=== PATIENT | female | born 1940 | race Caucasian/White ===

== ENCOUNTER 2016-07-06 17:21 | Emergency (ER) | payer MEDICARE ==
[2016-07-06 17:53] VITALS: TEMP 97.4
[2016-07-06] MEDS ORDERED: SODIUM CHLORIDE 0.9% 500 ML IV ONE (18:58)
--- NOTE | 2016-07-06 19:13 | ED ---
Dizziness HPI - General Chief Complaint: Dizziness Stated Complaint: weakness Time Seen by Provider: 07/06/16 18:35 Source: patient Mode of arrival: ambulatory Limitations: no limitations - History of Present Illness Initial Comments: This is a 76-year-old female with a history of CAD and are valve replacement in the past presents him in [facility] for an episode of lightheadedness earlier today. She states that she suddenly felt very lightheaded and thought that she was going to pass out. She did not have a syncopal event however called her daughter who came over to the house. The daughter stated that she was lightly altered when she came over. The patient does have a history of stroke and what she has blurred vision and decreased hearing out of the right side. She denies any focal weakness. She did not pass out. She states that over time she has improved and feels better. She does have a history of H of fibrillation and had her INR checked this morning and was 2.6. She is following with Dr. White. She denies any abdominal pain. No nausea or vomiting. No diarrhea. No dark or bloody stools. No chest pain or shortness of breath. She states that her lightheadedness has resolved No other complaints. - Related Data Home Medications Medication Instructions Recorded Confirmed ALPRAZolam [Xanax] 0.25 mg PO TID PRN 12/21/13 07/06/16 Atorvastatin [Lipitor] 20 mg PO HS 12/21/13 07/06/16 Famotidine 20 mg PO QAM 12/21/13 07/06/16 Metoprolol Tartrate [Lopressor] 25 mg PO QAM 12/21/13 07/06/16 PARoxetine [Paxil] 10 mg PO DAILY 12/21/13 07/06/16 Potassium Chloride [Potassium 20 meq PO QAM 12/21/13 07/06/16 Chloride ER] Warfarin [Coumadin] 2.5 mg PO MOTUTHSA 04/03/14 07/06/16 Warfarin [Coumadin] 5 mg PO SUWEFR 04/03/14 07/06/16 Digoxin [Lanoxin] 125 mcg PO SUMOTUTHFR 07/06/16 07/06/16 Enalapril [Vasotec] 10 mg PO BID 07/06/16 07/06/16 Gabapentin [Neurontin] 100 mg PO TID PRN 07/06/16 07/06/16 Metoprolol Tartrate [Lopressor] 50 mg PO HS 07/06/16 07/06/16 Allergies Allergy/AdvReac Type Severity Reaction Status Date / Time acetaminophen AdvReac Unknown Confusion Verified 07/06/16 17:52 [From Darvocet-N 100] codeine AdvReac Unknown Confusion Verified 07/06/16 17:52 propoxyphene napsylate AdvReac Unknown Confusion Verified 07/06/16 17:52 [From Darvocet-N 100] Review of Systems ROS Statement: Those systems with pertinent positive or pertinent negative responses have been documented in the HPI. ROS Other: All systems not noted in ROS Statement are negative. Past Medical History Past Medical History: CVA/TIA, GERD/Reflux, Hearing Disorder / Deafness, Hyperlipidemia, Hypertension, Osteoarthritis (OA) Additional Past Medical History / Comment(s): HX OF BELLS PALSEY,. HX OF CVA WHICH AFFECTED VISION IN RT EYE AND HEARING LEFT EAR. History of Any Multi-Drug Resistant Organisms: None Reported Past Surgical History: Appendectomy, Back Surgery, Cardiac Valve Replacement, Heart Catheterization, Hysterectomy Additional Past Surgical History / Comment(s): BOVINE HEART VALVE REPLACEMENT( 2002),. RT FOOT SX. CTR-RT WRIST. BILAT CATARACTS REMOVED. COLONOSCOPY Past Anesthesia/Blood Transfusion Reactions: No Reported Reaction Past Psychological History: Anxiety Smoking Status: Former smoker Past Alcohol Use History: None Reported Past Drug Use History: None Reported - Past Family History Sister(s) Family Medical History: Cancer Brother(s) Family Medical History: Cancer General Exam - General Exam Comments Initial Comments: Constitutional: Awake alert Appears comfortable Head: Normocephalic atraumatic Eyes: no conjunctival injection No scleral icterus EOMI Neck: No JVD Supple Heart: Irregularly irregular rhythm normal S1-S2 no murmurs Lungs: Clear to auscultation bilaterally No wheezing No rales Abdomen: Soft nondistended nontender Extremities: Non edematous DP pulses intact Radial pulses intact Neuro: A&Ox3 nerves II through XII are grossly intact, 5 out of 5 strength in upper and lower Chev[place] bilaterally, no ataxia with gait Psych: Appropriate mood and affect Limitations: no limitations Course Vital Signs 07/06/16 07/06/16 17:50 21:29 Temperature 97.4 F L Pulse Rate 86 79 Respiratory 18 16 Rate Blood Pressure 185/87 205/95 O2 Sat by Pulse 99 99 Oximetry EKG Findings - EKG Comments: EKG Findings:: EKG showing intra-fibrillation with a rate of 86. There is right bundle-branch block. No ST segment changes or T-wave inversions that are abnormal for right bundle-branch block. QTC is 504. QRS is 142. All other intervals are normal. No ectopy. Medical Decision Making - Medical Decision Making This 68-year-old female presents emergency department for lightheadedness. She was asymptomatic when she got here. Blood work was unremarkable. I spoke with Dr. White who feels comfortable with her going home and seeing him as an outpatient. The patient is here to go home. She'll be discharged home. She can return if she has worsening symptoms. All questions were answered. - Lab Data Result diagrams: 07/06/16 19:20 07/06/16 19:20 Lab Results 07/06/16 07/06/16 07/06/16 Range/Units 19:20 19:20 19:20 WBC 8.6 (3.8-10.6) k/uL RBC 4.59 (3.80-5.40) m/uL Hgb 14.5 (11.4-16.0) gm/dL Hct 43.0 (34.0-46.0) % MCV 93.6 (80.0-100.0) fL MCH 31.7 (25.0-35.0) pg MCHC 33.8 (31.0-37.0) g/dL RDW 12.7 (11.5-15.5) % Plt Count 189 (150-450) k/uL Neutrophils % 80 % Lymphocytes % 14 % Monocytes % 4 % Eosinophils % 1 % Basophils % 0 % Neutrophils # 6.8 (1.3-7.7) k/uL Lymphocytes # 1.2 (1.0-4.8) k/uL Monocytes # 0.4 (0-1.0) k/uL Eosinophils # 0.0 (0-0.7) k/uL Basophils # 0.0 (0-0.2) k/uL PT 28.1 H (9.0-12.0) sec INR 2.9 (<1.1) APTT 29.9 (22.0-30.0) sec Sodium (137-145) mmol/L Potassium (3.5-5.1) mmol/L Chloride (98-107) mmol/L Carbon Dioxide (22-30) mmol/L Anion Gap mmol/L BUN (7-17) mg/dL Creatinine (0.52-1.04) mg/dL Est GFR (MDRD) Af Amer (>60 ml/min/1.73 sqM) Est GFR (MDRD) Non-Af (>60 ml/min/1.73 sqM) Glucose (74-99) mg/dL Calcium (8.4-10.2) mg/dL Magnesium (1.6-2.3) mg/dL Total Bilirubin (0.2-1.3) mg/dL AST (14-36) U/L ALT (9-52) U/L Alkaline Phosphatase (38-126) U/L CK-MB (CK-2) 2.2 (0.0-2.4) ng/mL Troponin I <0.012 (0.000-0.034) ng/mL Total Protein (6.3-8.2) g/dL Albumin (3.5-5.0) g/dL Urine Color Urine Appearance (Clear) Urine pH (5.0-8.0) Ur Specific [place] (1.001-1.035) Urine Protein (Negative) Urine Glucose (UA) (Negative) Urine Ketones (Negative) Urine Blood (Negative) Urine Nitrate (Negative) Urine Bilirubin (Negative) Urine Urobilinogen (<2.0) mg/dL Ur Leukocyte Esterase (Negative) 07/06/16 07/06/16 Range/Units 19:20 19:20 WBC (3.8-10.6) k/uL RBC (3.80-5.40) m/uL Hgb (11.4-16.0) gm/dL Hct (34.0-46.0) % MCV (80.0-100.0) fL MCH (25.0-35.0) pg MCHC (31.0-37.0) g/dL RDW (11.5-15.5) % Plt Count (150-450) k/uL Neutrophils % % Lymphocytes % % Monocytes % % Eosinophils % % Basophils % % Neutrophils # (1.3-7.7) k/uL Lymphocytes # (1.0-4.8) k/uL Monocytes # (0-1.0) k/uL Eosinophils # (0-0.7) k/uL Basophils # (0-0.2) k/uL PT (9.0-12.0) sec INR (<1.1) APTT (22.0-30.0) sec Sodium 143 (137-145) mmol/L Potassium 4.2 (3.5-5.1) mmol/L Chloride 102 (98-107) mmol/L Carbon Dioxide 26 (22-30) mmol/L Anion Gap 15 mmol/L BUN 16 (7-17) mg/dL Creatinine 0.72 (0.52-1.04) mg/dL Est GFR (MDRD) Af Amer >60 (>60 ml/min/1.73 sqM) Est GFR (MDRD) Non-Af >60 (>60 ml/min/1.73 sqM) Glucose 115 H (74-99) mg/dL Calcium 9.4 (8.4-10.2) mg/dL Magnesium 1.9 (1.6-2.3) mg/dL Total Bilirubin 0.7 (0.2-1.3) mg/dL AST 39 H (14-36) U/L ALT 52 (9-52) U/L Alkaline Phosphatase 120 (38-126) U/L CK-MB (CK-2) (0.0-2.4) ng/mL Troponin I (0.000-0.034) ng/mL Total Protein 7.3 (6.3-8.2) g/dL Albumin 4.3 (3.5-5.0) g/dL Urine Color Colorless Urine Appearance Clear (Clear) Urine pH 6.5 (5.0-8.0) Ur Specific [place] 1.002 (1.001-1.035) Urine Protein Negative (Negative) Urine Glucose (UA) Negative (Negative) Urine Ketones Negative (Negative) Urine Blood Negative (Negative) Urine Nitrate Negative (Negative) Urine Bilirubin Negative (Negative) Urine Urobilinogen <2.0 (<2.0) mg/dL Ur Leukocyte Esterase Negative (Negative) Disposition Clinical Impression: Lightheadedness Disposition: HOME SELF-CARE Condition: Stable Instructions: Dizziness (ED) Referrals: Walt White MD [Primary Care Provider] - 1-2 days
[2016-07-06 19:28] LABS: Basophils % (A) 0 %; CH 32.1; CHCM 34.4; Eosinophils % (A) 1 %; HDW 2.31; HGB 14.5 gm/dL (11.4-16.0); Luc # (Auto) 0.16; Luc % (Auto) 2; Lymphocytes # (A) 1.2 k/uL (1.0-4.8); Lymphocytes % (A) 14 %; MCH 31.7 pg (25.0-35.0); MCHC 33.8 g/dL (31.0-37.0); MCV 93.6 fL (80.0-100.0); Mean Platelet Volume 7.1; Monocytes # (A) 0.4 k/uL (0-1.0); Monocytes % (A) 4 %; Neutrophils # (A) 6.8 k/uL (1.3-7.7); Neutrophils % (A) 80 %; RBC 4.59 m/uL (3.80-5.40); RDW 12.7 % (11.5-15.5); WBC 8.6 k/uL (3.8-10.6); WBC (Perox) 9.01
[2016-07-06 19:29] LABS: Appearance,Urine Clear (Clear); Bilirubin,Urine Negative (Negative); Glucose,Urine (UA) Negative (Negative); Ketones,Urine Negative (Negative); Leukocyte Esterase,Urine Negative (Negative); Nitrite,Urine Negative (Negative); PH, Urine 6.5 (5.0-8.0); Protein,Urine Negative (Negative); Specific Gravity,Urine 1.002 (1.001-1.035); UA Billing (MACRO vs. MICRO) CHEM; Urobilinogen,Urine <2.0 mg/dL (<2.0)
[2016-07-06 19:39] LABS: ALT 52 U/L (9-52); AST 39 U/L (14-36); Alkaline Phosphatase 120 U/L (38-126); Anion Gap 15 mmol/L; Blood Urea Nitrogen 16 mg/dL (7-17); Calcium 9.4 mg/dL (8.4-10.2); Carbon Dioxide 26 mmol/L (22-30); Chloride 102 mmol/L (98-107); Glucose 115 mg/dL (74-99); Magnesium 1.9 mg/dL (1.6-2.3); Non-African American GFR(MDRD) >60 (>60 ml/min/1.73 sqM); Potassium 4.2 mmol/L (3.5-5.1); Sodium 143 mmol/L (137-145); Total Bilirubin 0.7 mg/dL (0.2-1.3); Total Protein 7.3 g/dL (6.3-8.2)
[2016-07-06 19:42] LABS: INR 2.9 (<1.1); Partial Thromboplastin Time 29.9 sec (22.0-30.0); Prothrombin Time 28.1 sec (9.0-12.0)
[2016-07-06 20:04] LABS: Creatine Kinase MB 2.2 ng/mL (0.0-2.4); Troponin I <0.012 ng/mL (0.000-0.034)
--- NOTE | 2016-07-06 20:26 | XR ---
EXAMINATION TYPE: XR chest 2V DATE OF EXAM: 07/06/2016 8:04 PM COMPARISON: 04/03/2014 HISTORY: Weakness TECHNIQUE: Frontal and lateral views of the chest are obtained. FINDINGS: There is no heart failure nor confluent pneumonic infiltrate. There are sternal wires. Tho racic aorta is atheromatous. There are chest leads. Costophrenic angles are clear. IMPRESSION: No active cardiopulmonary disease. Previous cardiac surgery. No change.
[2016-07-06 21:32] VITALS: BP 205/95; PULSE 79; RESP 16
== END 2016-07-06 21:32 | disposition home or self-care (01) ==
LOC: EC 17:21
DX: R42 Dizziness and giddiness (principal); K21.9 Gastro-esophageal reflux disease without esophagitis; E78.5 Hyperlipidemia, unspecified; I10 Essential (primary) hypertension; M19.90 Unspecified osteoarthritis, unspecified site; F41.9 Anxiety disorder, unspecified; H91.90 Unspecified hearing loss, unspecified ear; Z86.73 Personal history of transient ischemic attack (TIA), and cerebral infarction without residual deficits; Z87.891 Personal history of nicotine dependence; Z79.01 Long term (current) use of anticoagulants; Z79.899 Other long term (current) drug therapy; Z88.5 Allergy status to narcotic agent
CPT/HCPCS: 36415; 71020; 80053; 81003; 82553; 83735; 84484; 85025; 85610; 85730; 93005; 96360; 96361; 99284

== ENCOUNTER → 2016-09-28 | Outpatient (CLI) | payer MEDICARE ==
--- NOTE | 2016-09-30 11:51 | MM ---
Reason for exam: screening (asymptomatic). Last mammogram was performed 1 year ago. History: Patient is postmenopausal. Family history of breast cancer in 2 paternal aunts. Took estrogen for 15 years beginning at age 33. Physical Findings: A clinical breast exam by your physician is recommended on an annual basis and results should be correlated with mammographic findings. MG Screening Mammo w CAD Bilateral CC and MLO view(s) were taken. Prior study comparison: September 28, 2015, bilateral MG screening mammo w CAD. August 25, 2014, bilateral MG screening mammo w CAD. February 03, 2013, bilateral digital screening mammo w/CAD. There are scattered fibroglandular densities. No significant changes when compared with prior studies. ASSESSMENT: Negative, BI-RAD 1 RECOMMENDATION: Routine screening mammogram of both breasts in 1 year.
== END | disposition home or self-care (01) ==
LOC: RADMAMWWP 12:32
PROVIDERS: ATTEND Internal Medicine
DX: Z12.31 Encounter for screening mammogram for malignant neoplasm of breast (principal)

== ENCOUNTER → 2017-01-09 | Outpatient (CLI) | payer MEDICARE ==
[2017-01-09 09:01] LABS: ALT 37 U/L (9-52); AST 34 U/L (14-36); Alkaline Phosphatase 88 U/L (38-126); Anion Gap 10 mmol/L; Blood Urea Nitrogen 16 mg/dL (7-17); Calcium 9.1 mg/dL (8.4-10.2); Carbon Dioxide 29 mmol/L (22-30); Chloride 103 mmol/L (98-107); Cholesterol 128 mg/dL (<200); Glucose 97 mg/dL (74-99); HDL Cholesterol 54 mg/dL (40-60); Non-African American GFR(MDRD) >60 (>60 ml/min/1.73 sqM); Potassium 4.2 mmol/L (3.5-5.1); Sodium 142 mmol/L (137-145); Total Bilirubin 0.8 mg/dL (0.2-1.3); Total Protein 6.5 g/dL (6.3-8.2)
== END | disposition home or self-care (01) ==
LOC: LABWHC1 07:25
PROVIDERS: ATTEND Internal Medicine
DX: E78.5 Hyperlipidemia, unspecified (principal); I10 Essential (primary) hypertension
CPT/HCPCS: 36415; 80053; 80061

== ENCOUNTER → 2017-10-11 | Outpatient (CLI) | payer MEDICARE ==
--- NOTE | 2017-10-13 10:35 | MM ---
Reason for exam: screening (asymptomatic). Last mammogram was performed 1 year ago. History: Patient is postmenopausal. Family history of breast cancer in 2 paternal aunts. Took estrogen for 15 years beginning at age 33. Physical Findings: A clinical breast exam by your physician is recommended on an annual basis and results should be correlated with mammographic findings. MG Screening Mammo w CAD Bilateral CC and MLO view(s) were taken. Prior study comparison: September 28, 2016, bilateral MG screening mammo w CAD. September 28, 2015, bilateral MG screening mammo w CAD. The breast tissue is heterogeneously dense. This may lower the sensitivity of mammography. Focal asymmetry right upper outer quadrant. No significant changes when compared with prior studies. ASSESSMENT: Benign, BI-RAD 2 RECOMMENDATION: Routine screening mammogram of both breasts in 1 year.
== END | disposition home or self-care (01) ==
LOC: RADMAMWWP 12:33
PROVIDERS: ATTEND Internal Medicine
DX: Z12.31 Encounter for screening mammogram for malignant neoplasm of breast (principal)
CPT/HCPCS: 77067

== ENCOUNTER → 2018-03-19 | Outpatient (CLI) | payer MEDICARE | END | disposition home or self-care (01) | LOC: LABWHC1 08:36 | PROVIDERS: ATTEND Otolaryngology | DX: H91.93 Unspecified hearing loss, bilateral (principal) | CPT/HCPCS: 36415; 82565; 84520 ==

== ENCOUNTER → 2018-03-28 | Outpatient (CLI) | payer MEDICARE ==
--- NOTE | 2018-03-28 10:31 | MR ---
EXAMINATION TYPE: MR iac wo/w con DATE OF EXAM: 03/28/2018 COMPARISON: NONE HISTORY: 78-year-old female bilateral Hearing loss, left greater than right. TECHNIQUE: Multiplanar, multisequence images of the brain and brainstem were acquired before and aft er administration of 7 mL IV Gadavist. Diffusion weighted imaging was performed. Additional coned-d own sequences through the internal auditory canals and posterior cranial fossa before and after IV co ntrast administration. FINDINGS: Diffusion weighted images demonstrate no evidence of an acute ischemic lesion in the brain. T2/FLAIR weighted sequences show moderate scattered burden of bright white matter change in the subco rtical, deep, and periventricular regions of both cerebral hemispheres. Changes are more patchy and s lightly confluent in the periatrial white matter. There are approximately 30-40 foci in each cerebral hemisphere. Midline structures demonstrate partially empty sella but otherwise normal morphology. The craniocerv ical junction is normal. Brain volume is maintained. The ventricles are of normal caliber. There is no evidence of an acute intracranial hemorrhage, infarct, mass, mass-effect or an extra-axia l fluid collection. There is an avidly enhancing ovoid mass measuring 9 mm AP by 7 mm wide by 1.1 cm craniocaudal at the meatus of the internal auditory canal with minimal extension into the canal. This is located posterio r to, likely abutting but not involving the 7th cranial nerve. There is no dural tail identified. No abnormal enlargement of the internal auditory canals. Brainstem and skull base abnormalities are not seen. Post contrast images demonstrate no other evidence of pathologic enhancement in the posterior crania l fossa or the internal auditory canals. Dural venous sinuses are patent. There is no abnormal enhancement of the labyrinths. Mild mucosal thickening ethmoid air cells and slight leftward nasal septal deviation. Globes are inta ct. IMPRESSION: 1. Homogeneously enhancing soft tissue mass measuring 11 x 9 x 7 mm at the meatus of the left interna l auditory canal. Primary differential considerations include a vestibular schwannoma and meningioma with the former being favored. 2. Otherwise, no acute intracranial abnormality seen or other specific abnormality on acoustic MRI. 3. Moderate scattered burden of T2 bright white matter change, nonspecific, likely relating to change s of chronic small vessel ischemic disease.
== END | disposition home or self-care (01) ==
LOC: RADMRIMAIN 08:22
PROVIDERS: ATTEND Otolaryngology
DX: H61.892 Other specified disorders of left external ear (principal); H91.93 Unspecified hearing loss, bilateral
CPT/HCPCS: 70553; A9585

== ENCOUNTER → 2018-07-30 | Outpatient (CLI) | payer MEDICARE ==
[2018-07-30 11:35] LABS: HCT 42.4 % (34.0-46.0); HGB 13.6 gm/dL (11.4-16.0); MCH 31.1 pg (25.0-35.0); MCHC 32.1 g/dL (31.0-37.0); MCV 96.9 fL (80.0-100.0); Mean Platelet Volume 7.3; Platelet Count 162 k/uL (150-450); RBC 4.37 m/uL (3.80-5.40); RDW 12.9 % (11.5-15.5); WBC 6.1 k/uL (3.8-10.6)
[2018-07-30 16:27] LABS: Albumin 4.1 g/dL (3.80-4.90); Albumin/Globulin Ratio 1.86 (1.60-3.17); Anion Gap 8.7 mmol/L (4.00-12.00); Calcium 9.6 mg/dL (8.7-10.3); Carbon Dioxide 32.3 mmol/L (21.6-31.8); Globulin 2.2 g/dL (1.6-3.3); LDL Cholesterol,Calculated 49.8 mg/dL (0.0-131.0); Potassium 4.5 mmol/L (3.5-5.5); Total Bilirubin 0.9 mg/dL (0.3-1.2); Total Protein 6.3 g/dL (6.2-8.2); VLDL Calculation 21.2 mg/dL (5.00-40.00)
== END ==
LOC: LABWHC1 10:37
PROVIDERS: ATTEND Internal Medicine
DX: I10 Essential (primary) hypertension (principal); E78.5 Hyperlipidemia, unspecified
CPT/HCPCS: 36415; 80053; 80061; 85027

== ENCOUNTER 2020-08-06 06:45 | Day surgery (SDC) | payer MEDICARE ==
[2020-08-01 14:26] VITALS: BMI 23.6
[2020-08-06] MEDS ORDERED: SODIUM CHLORIDE 0.9% 500 ML 500 ML IV ONE (07:08)
[2020-08-06] MEDS ORDERED: fentaNYL (PF) 50 MCG/ML 2 ML AMP ONE ×2 (07:54→11:45)
[2020-08-06 07:55] LABS: INR 1.2 (<1.2); Prothrombin Time 12.1 sec (9.0-12.0)
[2020-08-06] MEDS ORDERED: PROPOFOL 10 MG/ML 20 ML VIAL IV ONE (08:21)
[2020-08-06] MEDS ORDERED: BENZOCAINE SPRAY 1 CAN TOPICAL ONE (08:26)
[2020-08-06] MEDS ORDERED: NITROGLYCERIN SL TABS 0.4 MG TAB SUBLINGUAL PRN (08:42)
[2020-08-06] MEDS ORDERED: ALPRAZolam 0.25 MG TAB PO PRN (08:42)
[2020-08-06] MEDS ORDERED: SODIUM CHLORIDE 0.9% 1,000 ML in EMPTY BAG 1 BAG IV ONE (08:42)
[2020-08-06] MEDS ORDERED: ASPIRIN 325 MG TAB PO STA (08:42)
[2020-08-06] MEDS ORDERED: LIDOCAINE 1% INJ 10MG/ML (20 ML MDV) ONE (11:17)
[2020-08-06] MEDS ORDERED: MIDAZOLAM 2 MG/2 ML VIAL IVP ONE (11:47)
[2020-08-06] MEDS ORDERED: fentaNYL (PF) 50 MCG/ML 2 ML AMP IVP ONE ×2 (11:47)
[2020-08-06] MEDS ORDERED: IV FLUID CONTINUATION 250 ML IV ONE (11:48)
[2020-08-06] MEDS ORDERED: LIDOCAINE 1% INJ 10MG/ML (20 ML MDV) SQ ONE (11:50)
[2020-08-06] MEDS ORDERED: IOPAMIDOL-370 50ML BTL INJ ONE (12:12)
[2020-08-06] MEDS ORDERED: IOPAMIDOL-370 125ML BTL INJ ONE (12:13)
[2020-08-06] MEDS ORDERED: RX INFO: IV CONTRAST WAS GIVEN 1 EACH MISC MISCELLANE PRN (12:30)
[2020-08-06] MEDS ORDERED: ACETAMINOPHEN TAB 500 MG TAB PO PRN (12:31)
[2020-08-06] MEDS ORDERED: DIGOXIN 125 MCG TAB PO SCH (13:30)
[2020-08-06] MEDS: SODIUM CHLORIDE 0.9% 1,000 ML IV SCH (14:51)
--- NOTE | 2020-08-06 16:27 | P.GSCN ---
History of Present Illness Consult date: 08/06/20 Reason for Consult: Aortic stenosis Requesting physician: Vilma Malagon History of present illness: This is an 80-year-old female who follows on an outpatient basis with Dr. Daniel for primary care and Dr. Malagon for cardiology. 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 She presented to [facility] for increasing shortness of breath with activity as well as episodic lower extremity edema. She denies any chest pain or pressure, or syncopal episodes, however family does state that she gets dizzy occasionally. She did have a Lexiscan stress test which was negative. In addition she had a transthoracic echocardiogram demonstrating normal left ventricular function with EF 55%, mild left ventricular hypertrophy, biatrial enlargement, moderate prostatic regurgitation and aortic stenosis with valve area 0.69 cm, peak/mean gradient 89/51 mmHg, reduced motion of the leaflets from pannus ingrowth or commissural fusion, mild mitral regurgitation, severe tricuspid regurgitation with pulmonary hypertension, RVSP 63 mmHg, and moderate pulmonary regurgitation. She was recommended to undergo transesophageal echocardiogram and heart catheterization for further evaluation which were completed today on an elective basis. Heart catheterization demonstrated no significant coronary artery disease, patent WOMACK to the LAD, and torturous aorta. CHANTALE confirmed nonfunctioning valve and cardiothoracic surgery was asked to evaluate the patient for possible TAVR. Review of Systems Review of systems was completed and was negative except as noted - Cardiovascular Reports as per HPI, Reports decreased exercise tolerance, Reports dyspnea on exertion, Reports leg edema Past Medical History Past Medical History: Atrial Fibrillation, Coronary Artery Disease (CAD), CVA/TIA, GERD/Reflux, Hearing Disorder / Deafness, Hyperlipidemia, Hypertension, Osteoarthritis (OA) Additional Past Medical History / Comment(s): HX OF BELLS PALSEY,CVA WHICH AFFECTED VISION IN RT EYE,NAVAJO mariam ears; history of bicuspid aortic valve with aortic valve stenosis History of Any Multi-Drug Resistant Organisms: None Reported Past Surgical History: Back Surgery, Cardiac Valve Replacement, Coronary Bypass/CABG, Heart Catheterization, Hysterectomy Additional Past Surgical History / Comment(s): #21 Rios BOVINE HEART VALVE REPLACEMENT(2002), CABG (WOMACK TO LAD). RT FOOT SX. CTR-mariam WRIST. BILAT CATARACTS REMOVED. COLONOSCOPY Past Anesthesia/Blood Transfusion Reactions: No Reported Reaction Past Psychological History: Anxiety Smoking Status: Former smoker Past Alcohol Use History: None Reported Additional Past Alcohol Use History / Comment(s): quit smoking 1978 Past Drug Use History: None Reported - Past Family History Sister(s) Family Medical History: Cancer Brother(s) Family Medical History: Cancer Daughter(s) Family Medical History: Cancer Mother Family Medical History: Liver Disease Medications and Allergies Home Medications Medication Instructions Recorded Confirmed Type ALPRAZolam [Xanax] 0.25 mg PO TID PRN 12/21/13 08/06/20 History Atorvastatin [Lipitor] 20 mg PO HS 12/21/13 08/06/20 History Famotidine 20 mg PO QAM 12/21/13 08/06/20 History PARoxetine [Paxil] 10 mg PO DAILY 12/21/13 08/06/20 History Potassium Chloride 20 meq PO QAM 12/21/13 08/06/20 History Warfarin [Coumadin] 1.5 mg PO TU 04/03/14 07/06/16 History Warfarin [Coumadin] 3 mg PO SUMOWETHFRSA 04/03/14 08/06/20 History Digoxin [Lanoxin] 125 mcg PO SUMOTUTHFR 07/06/16 08/06/20 History Enalapril [Vasotec] 10 mg PO BID 07/06/16 08/06/20 History Gabapentin [Neurontin] 200 mg PO HS 07/06/16 08/06/20 History Metoprolol Tartrate [Lopressor] 50 mg PO BID 07/06/16 08/06/20 History Acetaminophen [Tylenol Extra 500 - 1,000 mg PO Q6H PRN 08/01/20 08/01/20 History Strength] Enoxaparin [Lovenox] 60 mg SQ BID 08/01/20 08/06/20 History Furosemide [Lasix] 20 mg PO DAILY 08/01/20 08/06/20 History L.acidoph,Paracasei, B.lactis 1 cap PO DAILY 08/01/20 08/06/20 History [Probiotic] Multivit-Min/Iron/Folic/Lutein 1 each PO DAILY 08/01/20 08/06/20 History [Centrum Silver Women Tablet] Allergies Allergy/AdvReac Type Severity Reaction Status Date / Time codeine AdvReac Unknown Confusion Verified 08/01/20 14:01 propoxyphene napsylate AdvReac Unknown Confusion Verified 08/01/20 14:01 [From Darvocet-N 100] Surgical - Exam Vital Signs Temp Pulse Resp BP Pulse Ox 98.1 F 81 16 142/71 99 08/06/20 07:19 08/06/20 07:19 08/06/20 07:19 08/06/20 07:19 08/06/20 07:19 CONSTITUTIONAL: Awake and alert, appears comfortable, cooperative, well- developed, well-nourished, no pain, no acute distress EYES: Pupils equal, round, reactive to light, normal ocular movement ENT: Moist mucous membranes without oral lesions present, very hard of hearing NECK: No masses, no bruits, trachea midline RESPIRATORY: Lungs sounds clear to auscultation bilaterally. Respirations even, nonlabored. Currently on room air with oxygen saturation 96%. Strong cough. No clubbing or cyanosis present CARDIOVASCULAR: S1, S2 present. Irregular rate and rhythm, controlled atrial fibrillation on telemetry. Sternum stable. Palpable peripheral pulses bilaterally. No edema present. No calf pain or tenderness noted. GASTROINTESTINAL: Abdomen soft, nontender, nondistended without masses or organomegaly noted. There is no rebound or guarding present. Active bowel sounds present 4 quadrants. GENITOURINARY: Deferred INTEGUMENTARY: Skin is warm and dry with evidence of good perfusion. NEUROLOGIC: Cranial nerves II through XII intact, normal coordination, no obvious motor or sensory deficits, speech is normal MUSKULOSKELETAL: Able to move all extremities, strength equal bilaterally, normal posture PSYCHIATRIC: Alert and oriented to person place and time, appropriate affect, intact judgment and insight Results - Labs Abnormal Lab Results - Last 24 Hours (Table) 08/06/20 Range/Units 07:00 PT 12.1 H (9.0-12.0) sec INR 1.2 H (<1.2) - Imaging Additional studies: CHANTALE and heart catheterization results reviewed Assessment and Plan Assessment: 1. Aortic stenosis, nonfunctioning of bioprosthetic aortic valve 2. History of coronary artery disease, status post CABG with WOMACK to the LAD in 2002 3. History of bicuspid aortic valve with aortic valve stenosis, status post #21 Rios bioprosthetic aortic valve replacement in 2002 4. Chronic atrial fibrillation on Coumadin for anticoagulation 5. Hypertension 6. Hyperlipidemia, treated 7. History of CVA affecting the right eye 8. Osteoarthritis 9. Previous tobacco dependence 10. Anxiety Plan: The patient was seen and examined in the extended stay unit with her two daughters present. Chart/diagnostics were reviewed. The usual perioperative course of transcatheter aortic valve replacement was discussed with the patient and her daughters, risks and benefits were reviewed, all questions were answer ed. The patient is very hard of hearing and relies on her daughters for information. The daughters asked that we hold off on preoperative testing so they can have more time to discuss possible TAVR with the patient. They would like to meet the cardiothoracic surgeon. Our contact information was given to the daughters, if/when the daughters and patient are willing to consider TAVR preoperative orders can be placed. It was explained in great detail to the patient and her daughters that the majority of testing could be completed this afternoon or tomorrow morning with the exception of the gated CT, however they wanted to hold off on testing at this time. The patient would need dental clearance and this was discussed in detail with the daughters. We will revisit the idea of testing in the morning and the daughters will have the opportunity to meet with Dr. Burt tomorrow afternoon, which was acceptable to them. More recommendations to follow dependent on the patient to/daughters wishes. Thank you Dr. Malagon for this consult. Time with Patient: Greater than 30
[2020-08-06] MEDS ORDERED: WARFARIN 3 MG TAB PO ONE (18:00)
[2020-08-06] MEDS: METOPROLOL TARTRATE 50 MG TAB PO SCH (19:33)
[2020-08-06] MEDS: ALPRAZolam 0.5 MG TAB PO PRN (20:39)
[2020-08-06] MEDS ORDERED: ATORVASTATIN 20 MG TAB PO SCH (21:00)
[2020-08-06] MEDS ORDERED: GABAPENTIN 100 MG CAP PO SCH (21:00)
[2020-08-07] MEDS: SODIUM CHLORIDE 0.9% 1,000 ML IV SCH ×2 (01:23→15:25)
[2020-08-07 05:28] LABS: African American GFR (CKD) >90 (>60 ml/min/1.73 sqM); Anion Gap 4 mmol/L; Blood Urea Nitrogen 13 mg/dL (7-17); Calcium 8.7 mg/dL (8.4-10.2); Carbon Dioxide 28 mmol/L (22-30); Chloride 103 mmol/L (98-107); Glucose 97 mg/dL (74-99); Non-African American GFR(CKD) 84 (>60 ml/min/1.73 sqM); Potassium 4.2 mmol/L (3.5-5.1); Sodium 135 mmol/L (137-145)
[2020-08-07 05:37] LABS: INR 1.2 (<1.2); Prothrombin Time 12.2 sec (9.0-12.0)
[2020-08-07 06:54] VITALS: RESP 18
[2020-08-07] MEDS ORDERED: HEPARIN SODIUM,PORCINE 2,500 UNIT in SODIUM CHLORIDE 0.9% 250 ML IRRIGATION PRN (07:00)
[2020-08-07] MEDS ORDERED: HEPARIN SODIUM,PORCINE 10,000 UNIT in SODIUM CHLORIDE 0.9% 1,000 ML IRRIGATION PRN (07:00)
--- NOTE | 2020-08-07 07:38 | P.TEE ---
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 Recent evaluation showed increasing gradient suggestive of stenosis and dysfunction. Patient is advised to have CHANTALE examination for further evaluation. CONSENT: Informed verbal consent is obtained from the patient and family PROCEDURE: . Patient was brought to the lab in a fasting state. She was prepped and draped in the usual fashion. Department of anesthesia has provided anesthesia. A lubricated Omni probe was introduced into the oropharynx and was advanced into the esophagus. Multiple views were obtained both from esophagus and stomach. Color, pulsed and continuous with Doppler studies were performed. Saline contrast bubble injection is done. Patient tolerated the procedure well. No immediate complications FINDINGS: . The prosthetic aortic valve showed evidence of calcification and thickening with the restricted opening excursion. By planimetry, valve area of 0.7 cm was obtained. A peak gradient of 85 with mean of 51 was obtained. There is also eccentric 1-2+ aortic regurgitation. The mitral valve showed 1-2+ central regurgitation. Tricuspid valve showed mild regurgitation. The interatrial septum appeared to be intact without any shunt. Saline contrast bubble injection did not show any crossing of bubbles. The Distal appendage appeared to be clipped. No evidence of clot in left atrium. The left ankle function appeared to be normal. The aorta showed mild plaque IMPRESSION: Umber 1. 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 1-2+ mitral regurgitation #3. No clot in the left atrium. #4. No PFO #5. The left ventricular function appeared within normal PLAN: Proceed with left heart catheterization. Most probably patient will need aortic valve replacement
--- NOTE | 2020-08-07 07:45 | P.CARDCATH ---
Date of Procedure: 08/06/20 Preoperative Diagnosis: Stenosis of the prosthetic aortic valve, history of coronary bypass surgery Postoperative Diagnosis: Stable coronary artery disease with patent WOMACK graft to the LAD. Procedure(s) Performed: Left heart catheterization with selective coronary arteriography and selective injection of the WOMACK graft to the LAD Description of Procedure: HISTORY: This is a 80-year-old female with history of hypertension, hyp erlipidemia, coronary artery disease with a previous open heart surgery, including aortic valve replacement and WOMACK graft to the LAD. On recent evaluation.,. Patient was found to have evidence of stenosis of the prosthetic aortic valve. Patient is advised to have cardiac catheterization to rule out any progression of ischemic heart disease. She also has history of coarctation of the aorta without any significant gradient. CONSENT:I have discussed the risks, benefits and alternative therapies for the above-mentioned procedure and for both sedation/analgesia as well as necessary blood product administration, if indicated, as they pertain to this patient. The patient has indicated understanding and acceptance of the risks and procedures discussed. PROCEDURE: Patient was brought to the lab in a fasting state. Patient was given some IV sedation. The right groin is infiltrated with lidocaine and right femoral artery was entered using Seldinger technique. A 6-Telugu catheter was left in place and selective coronary arteriography and descending aortography was performed. Patient tolerated the procedure well. Femoral angiogram was performed and Angio-Seal was applied for hemostasis. No immediate complications were noted and patient was transferred to [facility] in a stable condition. There is uncoiling and tortuous nature of the ascending aorta and descending aorta. There appears to be narrowing of the aorta followed by dilation dictation suggestive of coarctation. It was difficult to manual blood device and catheters into the ascending aorta. Conscious Sedation: Versed 1mg Fentanyl 25 g Duration 25minutes HEMODYNAMICS: The aortic pressure is about 110/70 SELECTIVE CORONARY ARTERIOGRAPHY: LEFT MAIN: This is normal in length and free of occlusive disease THE LEFT ANTERIOR DESCENDING CORONARY ARTERY: . This is totally occluded THE LEFT CIRCUMFLEX AND IS CORONARY ARTERY: As is a moderate caliber vessel giving rise to moderate caliber OM branch. Free of occlusive disease THE RIGHT CORONARY ARTERY: Is a moderate caliber vessel. Codominant vessel free of occlusive disease. THE WOMACK GRAFT TO THE LAD: This is patent throat its length and also to distal anastomosis. The distal LAD appears to be free of occlusive disease LEFT VENTRICULOGRAPHY: . Not performed. Descending ventriculography. The descending aorta appeared tortuous with some narrowing followed by dilatation suggestive of possible coarctation FINAL IMPRESSION: Stable coronary artery disease with a total occlusion of the LAD. The WOMACK graft to the LAD is patent. The rest of the coronary system is free of occlusive disease PLAN: . Continue current medical therapy. Patient to be constricted for aortic valve replacement. Surgical consult will be obtained PROGNOSIS: []
[2020-08-07] MEDS: ALPRAZolam 0.5 MG TAB PO PRN (07:58)
[2020-08-07] MEDS: METOPROLOL TARTRATE 50 MG TAB PO SCH (07:58)
[2020-08-07] MEDS ORDERED: LACTOBACILLUS ACIDOPH & BULGAR 1 EACH PACKET PO SCH (09:00)
[2020-08-07] MEDS ORDERED: FUROSEMIDE 20 MG TAB PO SCH (09:00)
[2020-08-07] MEDS ORDERED: MULTIVITAMINS, THERA 1 EACH TAB PO SCH (09:00)
[2020-08-07] MEDS ORDERED: PARoxetine 10 MG TAB PO SCH (09:00)
[2020-08-07] MEDS ORDERED: lisinopriL 20 MG TAB PO SCH (09:00)
[2020-08-07] MEDS ORDERED: FAMOTIDINE 20 MG TAB PO SCH (09:00)
[2020-08-07] MEDS ORDERED: POTASSIUM CHLORIDE ER 20 MEQ TAB.ER PO SCH (09:00)
[2020-08-07] MEDS ORDERED: WARFARIN 2 MG TAB PO ONE ×2 (10:25→18:00)
[2020-08-07 15:14] VITALS: BP 131/67; PULSE 83; TEMP 97.3
== END 2020-08-07 17:50 | disposition home or self-care (01) ==
LOC: CATHCVL 06:45 → EDSEX 08:15 → MERGE 08:15 → 6NMEDSUR 13:12 → CATHCVL 08-07 17:50
PROVIDERS: ATTEND Internal Medicine Cardiovascular Disease
DX: T82.857A Stenosis of other cardiac prosthetic devices, implants and grafts, initial encounter (principal); I34.0 Nonrheumatic mitral (valve) insufficiency; I25.10 Atherosclerotic heart disease of native coronary artery without angina pectoris; I11.9 Hypertensive heart disease without heart failure; I48.20 Chronic atrial fibrillation, unspecified; E78.5 Hyperlipidemia, unspecified; M19.90 Unspecified osteoarthritis, unspecified site; Z87.891 Personal history of nicotine dependence; F41.9 Anxiety disorder, unspecified; Z80.9 Family history of malignant neoplasm, unspecified; I27.20 Pulmonary hypertension, unspecified; I51.7 Cardiomegaly; I69.312 Visuospatial deficit and spatial neglect following cerebral infarction; Z95.1 Presence of aortocoronary bypass graft; Z98.42 Cataract extraction status, left eye; Z98.41 Cataract extraction status, right eye; Z90.710 Acquired absence of both cervix and uterus; Z98.890 Other specified postprocedural states; Z83.79 Family history of other diseases of the digestive system; Z79.899 Other long term (current) drug therapy; Z79.01 Long term (current) use of anticoagulants; Z88.5 Allergy status to narcotic agent
CPT/HCPCS: 93312; 93320; 93325; 93459; 80048; 85610 ×2; C1760; C1769 ×3; C1894; J2250; J2001; J3010; J2704; Q9967 ×2; 93455

== ENCOUNTER → 2020-08-26 | Outpatient (CLI) | payer MEDICARE ==
[2020-08-26 07:42] LABS: Basophils % (A) 1 %; Eosinophils # (A) 0.1 k/uL (0-0.7); Eosinophils % (A) 1 %; HCT 40.5 % (34.0-46.0); HGB 13.8 gm/dL (11.4-16.0); Lymphocytes # (A) 1.4 k/uL (1.0-4.8); Lymphocytes % (A) 20 %; MCH 32.1 pg (25.0-35.0); MCV 94.5 fL (80.0-100.0); Mean Platelet Volume 8.1; Monocytes # (A) 0.5 k/uL (0-1.0); Monocytes % (A) 7 %; Neutrophils # (A) 4.7 k/uL (1.3-7.7); Neutrophils % (A) 70 %; Platelet Count 160 k/uL (150-450); RBC 4.29 m/uL (3.80-5.40); RDW 13.7 % (11.5-15.5); WBC 6.7 k/uL (3.8-10.6)
[2020-08-26 08:06] LABS: INR 2.6 (<1.2); Partial Thromboplastin Time 29.6 sec (22.0-30.0)
[2020-08-26 08:35] LABS: Appearance,Urine Clear (Clear); Bilirubin,Urine Negative (Negative); Blood,Urine Negative (Negative); Color,Urine Yellow; Glucose,Urine (UA) Negative (Negative); Ketones,Urine Negative (Negative); Leukocyte Esterase,Urine Negative (Negative); Nitrite,Urine Negative (Negative); Protein,Urine Trace (Negative); Specific Gravity,Urine 1.015 (1.001-1.035); Urobilinogen,Urine <2.0 mg/dL (<2.0)
[2020-08-26 10:01] LABS: ALT 27 U/L (4-34); AST 47 U/L (14-36); African American GFR (CKD) >90 (>60 ml/min/1.73 sqM); Albumin 3.7 g/dL (3.5-5.0); Alkaline Phosphatase 110 U/L (38-126); Anion Gap 6 mmol/L; Bilirubin,Unconjugated 0.9 mg/dL (0.0-1.1); Blood Urea Nitrogen 20 mg/dL (7-17); Calcium 9.3 mg/dL (8.4-10.2); Carbon Dioxide 31 mmol/L (22-30); Chloride 102 mmol/L (98-107); Cholesterol 114 mg/dL (<200); Glucose 105 mg/dL (74-99); HDL Cholesterol 50 mg/dL (40-60); LDL Cholesterol,Calculated 50 mg/dL (0-99); Magnesium 1.9 mg/dL (1.6-2.3); Non-African American GFR(CKD) 79 (>60 ml/min/1.73 sqM); Potassium 4.3 mmol/L (3.5-5.1); Sodium 139 mmol/L (137-145); Total Bilirubin 0.9 mg/dL (0.2-1.3); Total Protein 6.6 g/dL (6.3-8.2); Triglycerides 69 mg/dL (<150)
[2020-08-26 15:51] LABS: Hemoglobin A1C 5.8 % (4.0-6.0)
== END | disposition home or self-care (01) ==
LOC: LABPAT 07:07
PROVIDERS: ATTEND Thoracic Surgery (Cardiothoracic Vascular Surgery)
DX: Z01.818 Encounter for other preprocedural examination (principal); E78.5 Hyperlipidemia, unspecified; E07.9 Disorder of thyroid, unspecified; I35.0 Nonrheumatic aortic (valve) stenosis; N28.9 Disorder of kidney and ureter, unspecified; E11.9 Type 2 diabetes mellitus without complications; R58 Hemorrhage, not elsewhere classified; Z79.899 Other long term (current) drug therapy; E87.8 Other disorders of electrolyte and fluid balance, not elsewhere classified; R35.0 Frequency of micturition
CPT/HCPCS: 80053; 80061; 81003; 82248; 83036; 83735; 83880; 84443; 85025; 85610; 85730; 87086

== ENCOUNTER → 2020-08-29 | Outpatient (CLI) | payer MEDICARE ==
--- NOTE | 2020-08-29 11:16 | CT ---
EXAMINATION TYPE: CT TAVR Planning DATE OF EXAM: 08/29/2020 HISTORY: 80-year-old female Aortic stenosis, TAVR planning CT DLP: 1369.60 mGycm Automated Exposure Control for Dose Reduction was Utilized. TECHNIQUE: HELICAL CT scan of the chest, abdomen and pelvis is performed with IV Contrast, patient in jected with 125 mL of Isovue 370. Coronal and sagittal MIP reconstructions performed. COMPARISON: None FINDINGS: See report from [facility] regarding preprocedural planning. CHEST: Lower Neck and Thyroid: No significant findings Lungs: Bilateral patchy and confluent areas of groundglass. 8 mm posterior left upper lobe pulmonary nodule. Central Airway: No significant findings Pleura: Moderate to large right and moderate left pleural effusions. Pulmonary Arteries: No significant findings Heart and Pericardium: Median sternotomy wires and post-CABG changes. Heart is mildly enlarged. Biatr ial enlargement is noted. Borderline ectatic ascending aorta 3.6 cm. Conventional arch vessel branchi ng anatomy. Focal tortuosity of the distal arch resulting in U-turn kinking, refer to coronal series 15 image 30 and axial images 11 through 13. Upper descending thoracic aorta just below this kink is e ctatic at 3.1 cm. Lymph Nodes: A few prominent but nonenlarged AP window and prevascular space lymph nodes measuring u p to 8 mm. No thoracic lymphadenopathy by CT size criteria. Mediastinum & Esophagus: No significant findings ABDOMEN/PELVIS: Please note arterial phase of the imaging limits detailed evaluation of the solid abdominal organs. Liver: No significant findings Spleen: No significant findings Kidneys: Contrast noted to be excreting from the renal collecting systems. Tiny cortical hypodensitie s likely tiny cortical cysts on the left. Adrenal Glands: No significant findings Pancreas: No significant findings Gallbladder: Suggestion of some layering gravel. No abnormal distention. Bowel and Mesentery: No significant findings Lymph Nodes: No significant findings Urinary Bladder: No significant findings Pelvic Organs: Uterus surgically absent. Pelvic phleboliths. Some soft tissue prominence along the po sterior wall of the rectum could be secondary to nondistention and redundant mucosa. Reference axial image 107. Other: Degenerative changes at the pubic symphysis. There is moderate degenerative change of both hip s. Advanced hypertrophic facet arthropathy and vascular disease throughout the lumbar spine. Prominen t grade 1, nearly grade 2 anterolisthesis at both L3-L4 and L4-L5. Trace grade 1 retrolistheses at T1 2-L1 and L1-L2. Moderate anterior endplate spondylosis midthoracic spine. Other Lines/Tubes/Devices/Hardware: None IMPRESSION: 1. Correlate for CHF with patchy bilateral pulmonary edema. Moderate to large right and moderate left pleural effusions. 2. Note focal tortuosity of the distal arch resulting in a U-turn kinking. Refer to coronal series 15 image 30 and axial images 11 through 13. 3. An 8 mm posterior left upper lobe pulmonary nodule. Three-month follow-up CT chest to ensure stabi lity. 4. Soft tissue prominence along the posterior wall of the rectum could be from nondistention. If rout ine screening colonoscopy is not being performed, direct visualization recommended to exclude neoplas m.
--- NOTE | 2020-08-29 12:44 | US ---
EXAMINATION TYPE: US carotid duplex BILAT DATE OF EXAM: 08/29/2020 COMPARISON: NONE CLINICAL HISTORY: I35.1 Aortic Stenosis R55 Syncope. Syncope EXAM MEASUREMENTS: RIGHT: Peak Systolic Velocity (PSV) cm/sec ----- Right CCA: 61.6 ----- Right ICA: 75.6 ----- Right ECA: 67.7 ICA/CCA ratio: 1.2 RIGHT: End Diastole cm/sec ----- Right CCA: 0.0 ----- Right ICA: 14.5 ----- Right ECA: 0.0 LEFT: Peak Systolic Velocity (PSV) cm/sec ----- Left CCA: 64.5 ----- Left ICA: 75.6 ----- Left ECA: 62.7 ICA/CCA ratio: 1.2 LEFT: End Diastole cm/sec ----- Left CCA: 0.0 ----- Left ICA: 13.6 ----- Left ECA: 0.0 VERTEBRALS (direction of flow): Right Vertebral: Antegrade Left Vertebral: Antegrade Rhythm: Arrhythmia No significant stenosis seen IMPRESSION: 1. No significant hemodynamic stenosis. 2. Mild atherosclerotic changes. 3. Cardiac dysrhythmia correlate clinically. Criteria for Assigning % of Stenosis / Diameter reduction (Estimation based on the indirect measurements of the internal carotid artery velocities (ICA PSV). 1. Normal (no stenosis)=ICA PSV < 125 cm/s: ratio < 2.0: ICA EDV<40 cm/s. 2. Less than 50% stenosis=ICA PSV < 125 cm/s: ratio < 2.0: ICA EDV<40 cm/s. 3. 50 to 69% stenosis=ICA PSV of 125 to 230 cm/s: ration 2.0 ? 4.0: ICA EDV 40-100 cm/s. 4. Greater than 70% stenosis to near occlusion= ICA PSV > 230 cm/s: ratio > 4.0: ICA EDV > 100 cm/s. 5. Near occlusion= ICA PSV velocities may be low or undetectable: variable ratio and ICA EDV. 6. Total occlusion=unable to detect flow.
== END | disposition home or self-care (01) ==
LOC: RADCTMAIN 08:31
PROVIDERS: ATTEND Thoracic Surgery (Cardiothoracic Vascular Surgery)
DX: I49.9 Cardiac arrhythmia, unspecified (principal); I35.1 Nonrheumatic aortic (valve) insufficiency; R55 Syncope and collapse; J90 Pleural effusion, not elsewhere classified; R91.1 Solitary pulmonary nodule; Z88.5 Allergy status to narcotic agent; E11.9 Type 2 diabetes mellitus without complications; E78.5 Hyperlipidemia, unspecified; N28.9 Disorder of kidney and ureter, unspecified; I35.0 Nonrheumatic aortic (valve) stenosis; E87.8 Other disorders of electrolyte and fluid balance, not elsewhere classified; Z79.899 Other long term (current) drug therapy; R58 Hemorrhage, not elsewhere classified; E07.9 Disorder of thyroid, unspecified; R35.0 Frequency of micturition
CPT/HCPCS: 94150; 93880; 71275; 74174; 93005; Q9967

== ENCOUNTER 2020-09-11 11:25 | Day surgery (SDC) | payer MEDICARE ==
[~2020-09-11 11:25] MED LIST: SODIUM CHLORIDE 0.9% 500 ML 500 ML in EMPTY BAG 1 BAG IV PRN
[2020-09-11 12:02] VITALS: TEMP 97.7
[2020-09-11] MEDS ORDERED: ATROPINE SULFATE 0.4 MG/ML 1 ML VIAL IM STA (12:10)
[2020-09-11 12:30] LABS: INR 1.2 (<1.2); Prothrombin Time 12.7 sec (9.0-12.0)
[2020-09-11 12:52] VITALS: BP 137/65; PULSE 84; RESP 18
--- NOTE | 2020-09-11 13:17 | XR ---
EXAMINATION TYPE: XR chest 1V portable DATE OF EXAM: 09/11/2020 COMPARISON: Chest x-ray 07/06/2016 HISTORY: Postthoracentesis TECHNIQUE: Single frontal view of the chest is obtained. FINDINGS: Patient is post median sternotomy and the heart is enlarged, post aortic valve replacement . There is no evident pneumothorax. Some minimal blunting of the right costophrenic angle is noted. P atient is rotated. Patchy basilar density is present. IMPRESSION: No evident complication status post right thoracentesis
--- NOTE | 2020-09-11 23:43 | PCN ---
PROCEDURE NOTE PROCEDURE PERFORMED: Right-sided thoracentesis. PREOPERATIVE DIAGNOSIS: Right pleural effusion. POSTOP DIAGNOSIS: Right pleural effusion. Indication Pleural effusion. A time-out was completed verifying correct patient, procedure, site, positioning , and implant (s) or special equipment if applicable. Ultrasound guidance was used and appropriate fluid pocket was identified and marked. Patient was positioned, prepped and draped in usual sterile fashion. Lidocaine was used to anesthetize the area. A Thoracentesis catheter was introduced into the pleural space and fluid was removed. Blood loss was none. A chest x-ray was ordered to evaluate for pneumothorax. Total Fluid Removed: 950 mL Color of Fluid: Durga Fluid was sent for appropriate laboratory tests. Patient tolerated the procedure well and there were no complications. The posterior right chest was marked by ultrasound. There was informed consent and universal timeout. 950 mL of durga colored fluid was removed from the right pleural space. The patient tolerated the procedure well. There was no immediate complication. A chest x-ray was ordered. The fluid will be sent for analysis including cytology, chemistry, and microbiology. MMODL / IJN: [id number] /
== END 2020-09-11 13:12 ==
LOC: PROCWHC3 11:25 → EDSTATUS 12:00 → PROCWHC3 13:12
PROVIDERS: ATTEND Internal Medicine Critical Care Medicine
DX: J90 Pleural effusion, not elsewhere classified (principal)
CPT/HCPCS: 85610; 71045; 96372; 36415; 32554; J0461; 76604; 82945; 83615; 84157; 87070; 87075; 87116; 87205; 87206; 88108; 88305; 89050

== ENCOUNTER → 2020-09-11 | Outpatient (CLI) | payer MEDICARE ==
--- NOTE | 2020-09-11 11:33 | US ---
EXAMINATION TYPE: US chest DATE OF EXAM: 09/11/2020 COMPARISON: NONE CLINICAL HISTORY: J90 Pleural Effusion. TECHNIQUE: Targeted ultrasound of the posterior lower EXAM MEASUREMENTS: Right Pleural Effusion pocket size: 9.1 cm Right skin surface to fluid distance: 1.5 cm floating debris noted. Left Pleural Effusion pocket size: 7.6 cm Left skin surface to fluid distance: 1.3 cm floating debris noted Right side marked for possible thoracentesis outside the dept. Left side marked for possible thoracentesis outside the dept. Pulmonologists are able to review the images in the patient?s EMR. IMPRESSIONS: As above
[2020-09-11 19:02] LABS: Appearance,BF Clear; Nucleated Cells, Body Fluid 595 /uL; RBC, Body Fluid 1585 /uL
[2020-09-11 19:53] LABS: Mononuclear WBC,Body Fluid 83 %; Polynuclear WBC,Body Fluid 17 %; Total Cells Counted,Body Fluid 100
[2020-09-12 05:27] LABS: Glucose, BF Source Pleural Fluid; Glucose, Body Fluid 104 mg/dL; LDH, Body Fluid Source Pleural Fluid
== END | disposition home or self-care (01) ==
LOC: RADUSWWP 11:02
PROVIDERS: ATTEND Internal Medicine Critical Care Medicine
DX: J90 Pleural effusion, not elsewhere classified (principal)
CPT/HCPCS: 76604; 82945; 83615; 84157; 87070; 87075; 87116; 87205; 87206; 89050

== ENCOUNTER → 2020-09-12 | Day surgery (SDC) | payer MEDICARE ==
[~2020-09-12] MED LIST changes: +ATROPINE SULFATE 0.4 MG/ML 1 ML VIAL IM STA
[2020-09-12 11:50] VITALS: PULSE 78; RESP 16; TEMP 97.9
[2020-09-12 12:20] VITALS: BP 125/65
--- NOTE | 2020-09-12 13:14 | XR ---
EXAMINATION TYPE: XR chest 1V portable DATE OF EXAM: 09/12/2020 COMPARISON: Chest x-ray 09/11/[address] 08/29/2020 HISTORY: Status post thoracentesis on the left TECHNIQUE: Single frontal view of the chest is obtained. FINDINGS: No significant interval change. Patient is post median sternotomy, aortic valve placement, there is no pneumothorax. Patchy basilar density is present. 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 IMPRESSION: No evident complication status post thoracentesis
--- NOTE | 2020-09-12 21:40 | PCN ---
PROCEDURE NOTE PULMONARY/CRITICAL CARE PROCEDURE NOTE: Left-sided thoracentesis. PREOPERATIVE DIAGNOSIS: Left pleural effusion. POSTOPERATIVE DIAGNOSIS: Left pleural effusion. A time-out was completed verifying correct patient, procedure, site, positioning , and implant (s) or special equipment if applicable. Ultrasound guidance was used and appropriate fluid pocket was identified and marked. Patient was positioned, prepped and draped in usual sterile fashion. Lidocaine was used to anesthetize the area. A thoracentesis catheter was introduced into the pleural space and fluid was removed. Blood loss was none. A chest x-ray was ordered to evaluate for pneumothorax. Total Fluid Removed: Roughly 325 mL Color of Fluid: Brown, bloody fluid Fluid was not sent for analysis. Patient tolerated the procedure well, without difficulty, and there were no complications. MMODL / IJN: [id number] /
== END ==
LOC: PROCWHC3 11:36
PROVIDERS: ATTEND Internal Medicine Critical Care Medicine
DX: J90 Pleural effusion, not elsewhere classified (principal); Z79.01 Long term (current) use of anticoagulants; Z79.899 Other long term (current) drug therapy; Z88.6 Allergy status to analgesic agent; Z88.5 Allergy status to narcotic agent; I35.0 Nonrheumatic aortic (valve) stenosis; E78.00 Pure hypercholesterolemia, unspecified; E78.5 Hyperlipidemia, unspecified; I10 Essential (primary) hypertension; I48.91 Unspecified atrial fibrillation; I25.10 Atherosclerotic heart disease of native coronary artery without angina pectoris; Z87.891 Personal history of nicotine dependence; Z95.1 Presence of aortocoronary bypass graft; Z95.2 Presence of prosthetic heart valve
CPT/HCPCS: 71045; 96372; 32554; J0461

== ENCOUNTER → 2021-07-30 | Outpatient (CLI) | payer MEDICARE ==
--- NOTE | 2021-07-31 08:34 | XR ---
Left shoulder HISTORY: M 25.512 4 views of the left shoulder, comparison CT 08/29/2020 Acromioclavicular joint shows some arthropathy. Distal acromion is downturned. There is remodeling of the humeral head. Question some vague soft tissue calcifications, consider calcific tendinitis. The aorta at the transverse aspect appears prominently. Left lung apex as visualized is normal. Patient i s post median sternotomy. IMPRESSION: Osteoarthritis, correlate for possible impingement. Aortic ectasia or aneurysm is suspect ed, has been documented on prior report 08/29/2020.
== END | disposition home or self-care (01) ==
LOC: RADMRIMAIN 17:33
PROVIDERS: ATTEND Internal Medicine
DX: M19.012 Primary osteoarthritis, left shoulder (principal)

== ENCOUNTER → 2021-11-11 | Outpatient (CLI) | payer MEDICARE ==
--- NOTE | 2021-11-11 14:57 | US ---
EXAMINATION TYPE: US venous doppler duplex LE DATE OF EXAM: 11/11/2021 2:35 PM COMPARISON: NONE CLINICAL HISTORY: PAIN IN UNSPECIFIED LOWER LEG M79.669. Right leg swelling. No redness. Hx heart di sease. On blood thinners. On lasix. SIDE PERFORMED: Bilateral TECHNIQUE: The lower extremity deep venous system is examined utilizing real time linear array sonog amanda with graded compression, doppler sonography and color-flow sonography. VESSELS IMAGED: Common Femoral Vein Deep Femoral Vein Greater Saphenous Vein * Femoral Vein Popliteal Vein Small Saphenous Vein * Proximal Calf Veins (* superficial vessels) Right Leg: Negative for DVT Left Leg: Negative for DVT IMPRESSION: Grayscale, color doppler, spectral doppler imaging performed of the deep veins of the lo wer extremities. There is normal flow, compressibility, vascular waveforms.
== END | disposition home or self-care (01) ==
LOC: RADUSWWP 14:04
PROVIDERS: ATTEND Internal Medicine
DX: M79.669 Pain in unspecified lower leg (principal); M79.89 Other specified soft tissue disorders
CPT/HCPCS: 93970

== ENCOUNTER → 2021-12-27 | Outpatient (CLI) | payer MEDICARE ==
[2021-12-27 17:15] LABS: Non-African American GFR(CKD) 68.2 (60.0-200.0)
== END | disposition home or self-care (01) ==
LOC: LABWHC1 08:38
PROVIDERS: ATTEND Surgery
DX: I35.0 Nonrheumatic aortic (valve) stenosis (principal); N28.9 Disorder of kidney and ureter, unspecified
CPT/HCPCS: 36415; 82565; 83036

== ENCOUNTER 2024-11-20 09:13 | Inpatient (IN) | payer MEDICARE ==
--- NOTE | 2024-11-20 09:47 | ED ---
General Adult HPI - General Chief complaint: Fall Stated complaint: Fall-Facial Injury Time Seen by Provider: 11/20/24 09:28 Source: patient Mode of arrival: ambulatory - History of Present Illness Initial comments: Dictation was produced using [employer] dictation software. please excuse any grammatical, word or spelling errors. Chief Complaint: 84-year-old female with fall History of Present Illness: Patient 84-year-old female she had fallen twice in the last 48 hours. Patient allegedly was getting out of bed when mixing to remember she woke up on the floor. She fell 2 days ago according to daughter and hurt her left head. Does take Coumadin. Patient states she feels weak. Denies any acute pain complaints. She states that she has back pain and shoulder pain that feels slightly worse than her usual chronic pain. Patient does report cardiac comorbidities. The ROS documented in this emergency department record has been reviewed and confirmed by me. Those systems with pertinent positive or negative responses have been documented in the HPI. All other systems are other negative and/or noncontributory. - Related Data Home Medications Medication Instructions Recorded Confirmed ALPRAZolam [Xanax] 0.25 mg PO TID PRN 12/21/13 11/20/24 Atorvastatin [Lipitor] 20 mg PO HS@2100 12/21/13 11/20/24 Famotidine 20 mg PO DAILY@89912/21/13 11/20/24 PARoxetine [Paxil] 10 mg PO DAILY@89912/21/13 11/20/24 Potassium Chloride 20 meq PO DAILY@89912/21/13 11/20/24 Acetaminophen [Tylenol Extra 500 - 1,000 mg PO Q6H PRN 08/01/20 11/20/24 Strength] Furosemide [Lasix] 20 mg PO BID@1000,1800 08/01/20 11/20/24 L.acidoph,Paracasei, B.lactis 1 cap PO DAILY@1000 08/01/20 11/20/24 [Probiotic] Multivit-Min/Iron/Folic/Lutein 1 tab PO DAILY@1000 08/01/20 11/20/24 [Centrum Silver Women Tablet] Amoxicillin 2,000 mg PO ONCE PRN 11/20/24 11/20/24 Biotin 5 mg PO DAILY@1000 11/20/24 11/20/24 Enalapril [Vasotec] 5 mg PO HS@209911/20/24 11/20/24 Gabapentin 300 mg PO HS@209911/20/24 11/20/24 Metoprolol Succinate [Metoprolol 25 mg PO HS@209911/20/24 11/20/24 Succinate ER] Vit C/E/Zn/Coppr/Lutein/Zeaxan 2 tab PO DAILY 11/20/24 11/20/24 [Preservision Areds 2 Softgel] Vitamin D3 (Unknown Dose) 1 dose PO DAILY@1000 11/20/24 11/20/24 Warfarin [Coumadin] 3 mg PO SUTUWETHSA@179911/20/24 11/20/24 Warfarin [Coumadin] 4.5 mg PO MOFR@179911/20/24 11/20/24 Allergies Allergy/AdvReac Type Severity Reaction Status Date / Time codeine AdvReac Unknown Confusion Verified 11/20/24 10:58 & Anxiety propoxyphene napsylate AdvReac Unknown Confusion Verified 11/20/24 10:58 [From Julius-N 100] & Anxiety Review of Systems ROS Statement: Those systems with pertinent positive or pertinent negative responses have been documented in the HPI. ROS Other: All systems not noted in ROS Statement are negative. 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 RT FOOT SX. CTR-mariam WRIST. BILAT CATARACTS REMOVED. COLONOSCOPY Past Anesthesia/Blood Transfusion Reactions: No Reported Reaction Past Psychological History: Anxiety Smoking Status: Former smoker - Past Family History Sister(s) Family Medical History: Cancer Brother(s) Family Medical History: Cancer Daughter(s) Family Medical History: Cancer Mother Family Medical History: Liver Disease General Exam - General Exam Comments Initial Comments: PHYSICAL EXAM: General Impression: Alert and oriented x3, not in acute distress HEENT: Present to the left face and left ear extra-ocular movements intact, pupils equal and reactive to light bilaterally, mucous membranes moist. Cardiovascular: Heart regular rate and rhythm Chest: Able to complete full sentences, no retractions, no tachypnea Abdomen: abdomen soft, non-tender, non-distended, no organomegaly Musculoskeletal: Pulses present and equal in all extremities, no peripheral edema Motor: no focal deficits noted Neurological: CN II-XII grossly intact, no focal motor or sensory deficits noted Skin: Intact with no visualized rashes Psych: Normal affect and mood Course Vital Signs 11/20/24 11/20/24 11/20/24 09:21 10:12 11:59 Temperature 98.2 F Pulse Rate 102 H 79 75 Respiratory 18 15 14 Rate Blood Pressure 133/78 108/92 124/74 O2 Sat by Pulse 98 92 L 100 Oximetry EKG Findings - EKG Comments: EKG Findings:: My EKG interpretation: Ventricular rate 86, A-flutter, QRS 1 6, QTc 460, right bundle branch block. No DE prolongation, no QTC prolongation, no ST or T-wave changes noted. Overall, this EKG is unremarkable Medical Decision Making - Medical Decision Making Was pt. sent in by a medical professional or institution (TRINIDAD Castro, T[facility] C[facility]TER, urgent care, hospital, or assisted...) When possible be specific @ -No Did you speak to anyone other than the patient for history (EMS, parent, family, police, friend...)? What history was obtained from this source @ -Daughter as described above Did you review nursing and triage notes (agree or disagree)? Why? @ -I reviewed and agree with nursing and triage notes Were old charts reviewed (outside hosp., previous admission, EMS record, old EKG, old radiological studies, urgent care reports/EKG's, assisted records)? Report findings @ -No old charts were reviewed Differential Diagnosis (chest pain, altered mental status, abdominal pain women, abdominal pain men, vaginal bleeding, musculoskeletal, weakness, fever, dyspnea, syncope, headache, dizziness, GI bleed, back pain, seizure, CVA, palpatations, mental health)? @ -Differential Syncope: Valvular disease, hypertrophic cardiomyopathy, pulmonary embolism, tamponade, tachycardia, bradycardia, [place], hypovolemia, hemorrhage, dissection, anemia, intracranial hemorrhage, seizure, hypoglycemia, carbon monoxide poisoning, this is not meant to be an all-inclusive list. EKG interpreted by me (3pts min.). @ -My EKG interpretation: Ventricular rate atrial flutter, ventricular 86, QRS 160, QTc 460, right bundle branch block. No DE prolongation, no QTC prolongation, no ST or T-wave changes noted. Overall, this EKG is unremarkable X-rays interpreted by me (1pt min.). @ -Chest x-ray shows no acute processes CT interpreted by me (1pt min.). @ -CT brain and C-spine shows no intracranial or cervical spine injury. There is a right maxillary fracture with some bleeding into the maxillary sinus U/S interpreted by me (1pt. min.). @ -None done What testing was considered but not performed or refused? (CT, X-rays, U/S, labs)? Why? @ -None What meds were considered but not given or refused? Why? @ -None Was smoking cessation discussed for >3mins.? @ -No Were there social determinants of health that impacted care today? How? (Homelessness, low income, unemployed, alcoholism, drug addiction, transportation, low edu. Level, literacy, decrease access to med. care, fpc, rehab)? @ -No Was there de-escalation of care discussed even if they declined (Discuss DNR or withdrawal of care, Hospice)? DNR status @ -No What co-morbidities impacted this encounter? (DM, HTN, Smoking, COPD, CAD, Cancer, CVA, ARF, Chemo, Hep., AIDS, mental health diagnosis, sleep apnea, morbid obesity)? @ -Cardiac comorbidities Was patient admitted / discharged? Hospital course, mention meds given and route, prescriptions, significant lab abnormalities, going to OR and other pertinent info. @ -84-year-old female presents emergency department with multiple falls. Suspect syncope based on history of present illness. Vital signs upon arrival are within acceptable limits. Laboratory evaluation obtained. Troponin elevated at 0.058. Rest of labs within acceptable limits. CT shows maxillary fracture. No intracranial injury or cervical spine injury. Patient reevaluated bedside at 1:30 PM found to be stable to condition. Patient will be admitted for syncope and elevated troponin. Case discussed with trauma surgery, About who is willing to accept the admission with medicine and cardiology consultation. Did you discuss the management of the patient with other professionals (danny lewis i.e. , PA, TREE CUTTER, lab, RT, psych nurse, clinical social work aide, profile shaper operator, teacher, surveillance sensor officer, pillowcase folder)? Give summary @ -See above Was critical care preformed (if so, how long)? @ -Yes, 33 minutes Undiagnosed new problem with uncertain prognosis? @ -No Drug Therapy requiring intensive monitoring for toxicity (Heparin, Nitro, Insulin, Cardizem)? @ -No Were any procedures done? @ -No Diagnosis/symptom? Acute, or Chronic, or Acute on Chronic? Uncomplicated (without systemic symptoms) or Complicated (systemic symptoms)? @ -Syncope, elevated troponin, maxillary facial fracture Side effects of treatment? @ -No Exacerbation, Progression, or Severe Exacerbation? @ -No Poses a threat to life or bodily function? How? (Chest pain, [place], [place], pneumonia, PE, COPD, DKA, ARF, appy, cholecystitis, CVA, Diverticulitis, Homicidal, Suicidal, threat to staff... and all critical care pts) @ -yes - Lab Data Result diagrams: 11/20/24 10:02 11/20/24 10:02 Lab Results 11/20/24 11/20/24 11/20/24 Range/Units 10:02 10:02 10:02 WBC 13.65 H (4.50-10.00) 10*3/uL RBC 3.87 L (4.10-5.20) 10*6/uL Hgb 12.2 (12.0-15.0) g/dL Hct 35.2 L (37.2-46.3) % MCV 91.0 (80.0-97.0) fL MCH 31.5 (27.0-32.0) pg MCHC 34.7 (32.0-37.0) g/dL Plt Count 113 L (140-440) 10*3/uL MPV 10.7 (9.5-12.2) fL Immature Gran % (Auto) 1.0 % Neutrophils % (Manual) 95 % Band Neuts % (Manual) 3 % Lymphocytes % (Manual) 1 % Monocytes % (Manual) 1 % Immature Gran # 0.14 H (0.00-0.04) 10*3/uL Neutrophils # (Manual) 13.37 H (1.3-7.7) k/uL Lymphocytes # (Manual) 0.14 L (1.0-4.8) k/uL Monocytes # (Manual) 0.14 (0-1.0) k/uL Nucleated RBCs 0 (0-0) /100 WBC Manual Slide Review Performed RBC Morphology Normal PT 32.0 H (10.0-12.5) sec INR 3.2 H (<1.2) APTT 32.4 H (22.0-30.0) sec Sodium 134 L (137-145) mmol/L Potassium 4.3 (3.5-5.1) mmol/L Chloride 100 (98-107) mmol/L Carbon Dioxide 27 (22-30) mmol/L Anion Gap 7 mmol/L BUN 34 H (7-17) mg/dL Creatinine 0.87 (0.52-1.04) mg/dL Est GFR (CKD-EPI)AfAm 70 (>60 ml/min/1.73 sqM) Est GFR (CKD-EPI)NonAf 61 (>60 ml/min/1.73 sqM) Glucose 132 H (74-99) mg/dL Calcium 8.8 (8.4-10.2) mg/dL Total Bilirubin 1.7 H (0.2-1.3) mg/dL AST 79 H (14-36) U/L ALT 32 (4-34) U/L Alkaline Phosphatase 102 (38-126) U/L Troponin I (0.000-0.034) ng/mL Total Protein 6.2 L (6.3-8.2) g/dL Albumin 3.5 (3.5-5.0) g/dL 11/20/24 Range/Units 10:02 WBC (4.50-10.00) 10*3/uL RBC (4.10-5.20) 10*6/uL Hgb (12.0-15.0) g/dL Hct (37.2-46.3) % MCV (80.0-97.0) fL MCH (27.0-32.0) pg MCHC (32.0-37.0) g/dL Plt Count (140-440) 10*3/uL MPV (9.5-12.2) fL Immature Gran % (Auto) % Neutrophils % (Manual) % Band Neuts % (Manual) % Lymphocytes % (Manual) % Monocytes % (Manual) % Immature Gran # (0.00-0.04) 10*3/uL Neutrophils # (Manual) (1.3-7.7) k/uL Lymphocytes # (Manual) (1.0-4.8) k/uL Monocytes # (Manual) (0-1.0) k/uL Nucleated RBCs (0-0) /100 WBC Manual Slide Review RBC Morphology PT (10.0-12.5) sec INR (<1.2) APTT (22.0-30.0) sec Sodium (137-145) mmol/L Potassium (3.5-5.1) mmol/L Chloride (98-107) mmol/L Carbon Dioxide (22-30) mmol/L Anion Gap mmol/L BUN (7-17) mg/dL Creatinine (0.52-1.04) mg/dL Est GFR (CKD-EPI)AfAm (>60 ml/min/1.73 sqM) Est GFR (CKD-EPI)NonAf (>60 ml/min/1.73 sqM) Glucose (74-99) mg/dL Calcium (8.4-10.2) mg/dL Total Bilirubin (0.2-1.3) mg/dL AST (14-36) U/L ALT (4-34) U/L Alkaline Phosphatase (38-126) U/L Troponin I 0.058 H* (0.000-0.034) ng/mL Total Protein (6.3-8.2) g/dL Albumin (3.5-5.0) g/dL Disposition Clinical Impression: Syncope Disposition: ADMITTED IP TO THIS [facility] Condition: Fair Referrals: Dulce Daniel MD [REFERRING] - 1-2 days Decision Time: 13:30
[2024-11-20 10:10] LABS: HCT 35.2 % (37.2-46.3); HGB 12.2 g/dL (12.0-15.0); MCH 31.5 pg (27.0-32.0); MCHC 34.7 g/dL (32.0-37.0); MCV 91.0 fL (80.0-97.0); Platelet Count 113 10*3/uL (140-440); RBC 3.87 10*6/uL (4.10-5.20); RDW 14.8 % (11.5-14.5); WBC 13.65 10*3/uL (4.50-10.00)
[2024-11-20 10:26] LABS: ALT 32 U/L (4-34); AST 79 U/L (14-36); African American GFR (CKD) 70 (>60 ml/min/1.73 sqM); Albumin 3.5 g/dL (3.5-5.0); Alkaline Phosphatase 102 U/L (38-126); Anion Gap 7 mmol/L; Blood Urea Nitrogen 34 mg/dL (7-17); Calcium 8.8 mg/dL (8.4-10.2); Carbon Dioxide 27 mmol/L (22-30); Chloride 100 mmol/L (98-107); Glucose 132 mg/dL (74-99); INR 3.2 (<1.2); Non-African American GFR(CKD) 61 (>60 ml/min/1.73 sqM); Partial Thromboplastin Time 32.4 sec (22.0-30.0); Potassium 4.3 mmol/L (3.5-5.1); Prothrombin Time 32.0 sec (10.0-12.5); Sodium 134 mmol/L (137-145); Total Protein 6.2 g/dL (6.3-8.2)
[2024-11-20 11:02] LABS: Lymphocytes # (M) 0.14 k/uL (1.0-4.8); Monocytes # (M) 0.14 k/uL (0-1.0); Neutrophils # (M) 13.37 k/uL (1.3-7.7); Neutrophils % (M) 95 %; Total Cells Counted 100
[2024-11-20 11:03] LABS: RBC Morphology Normal
--- NOTE | 2024-11-20 12:16 | CT ---
EXAMINATION TYPE: CT brain cspine wo con DATE OF EXAM: 11/20/2024 COMPARISON: CLINICAL INDICATION: Female, 84 years old with history of code coag; H, CODE COAG. Fall face forwa rd. TECHNIQUE: CT scan of the head and cervical spine are performed without contrast. CT DLP: 1385.[address] CTDI: mGy Automated exposure control for dose reduction was used. FINDINGS: There is no acute intracranial hemorrhage, mass effect, or midline shift identified. The ventricles and sulci are within normal limits in size. There is a depressed right maxillary wall fracture anteri onesimo with hemorrhagic component seen within the right maxillary sinus. Soft tissue swelling is presen t. Cervical spine is visualized in its entirety from C1 through upper thoracic levels and demonstrates satisfactory alignment without evidence of acute fracture or dislocation. Prevertebral soft tissue a ppears within normal limits. The C1-C2 articulation is unremarkable. IMPRESSION: 1.There is a depressed right maxillary wall fracture anteriorly with hemorrhagic component seen withi n the right maxillary sinus. Soft tissue swelling is present. 2. There is no acute fracture or dislocation evident in the cervical spine. 3.. No acute intracranial hemorrhage, mass effect, or midline shift is seen. [facility], , 11/20/2024 12:14 PM
--- NOTE | 2024-11-20 13:06 | XR ---
EXAMINATION TYPE: XR chest 2V DATE OF EXAM: 11/20/2024 12:59 PM COMPARISON: Chest radiographs from 09/12/2020, CT TAVR 08/29/2020 TECHNIQUE: XR chest 2V Frontal and lateral views of the chest. CLINICAL INDICATION:Female, 84 years old with history of syncope; FINDINGS: Lungs/Pleura: Small left pleural effusion. No focal consolidation or pneumothorax. Pulmonary vascularity: Unremarkable. Heart/mediastinum: Cardiomediastinal silhouette is enlarged and stable. Underlying aortic aneurysm as noted on prior CT. Postsurgical changes from TAVR. Musculoskeletal: No acute osseous pathology. Multilevel degenerative disc disease. Midline sternotomy wires are noted and stable. Bilateral shoulder arthropathy. IMPRESSION: 1. Small left pleural effusion. 2. Cardiomegaly with known aortic aneurysm. [facility], , 11/20/2024 1:04 PM
[2024-11-20] MEDS ORDERED: NALOXONE 0.4 MG/ML 1 ML VIAL IV PRN (13:17)
[2024-11-20] MEDS: SODIUM CHLORIDE 0.9% 1,000 ML IV SCH ×2 (14:51→19:40)
[2024-11-20] MEDS: ONDANSETRON 4 MG/2 ML VIAL IVP PRN (17:37)
--- NOTE | 2024-11-20 18:02 | P.GSHP ---
History of Present Illness H&P Date: 11/20/24 Chief Complaint: Status post fall 84-year-old female with suspected ground-level fall on blood thinners. Surgical/trauma service was contacted. Patient states she was at home and fell. Denies to me losing consciousness. Think she hit her head on a vacuum kiln cleaner. Hit the right side of her face and right shoulder. Has chronic right shoulder discomfort. Has had some progressive weakness at home. No chest pain. No significant shortness of breath. Some confusion per family. Denies pain elsewhere. No headache. 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 RT FOOT SX. CTR-mariam WRIST. BILAT CATARACTS REMOVED. COLONOSCOPY Past Anesthesia/Blood Transfusion Reactions: No Reported Reaction Past Psychological History: Anxiety Smoking Status: Former smoker - Past Family History Sister(s) Family Medical History: Cancer Brother(s) Family Medical History: Cancer Daughter(s) Family Medical History: Cancer Mother Family Medical History: Liver Disease Medications and Allergies Home Medications Medication Instructions Recorded Confirmed Type ALPRAZolam [Xanax] 0.25 mg PO TID PRN 12/21/13 11/20/24 History Atorvastatin [Lipitor] 20 mg PO HS@2100 12/21/13 11/20/24 History Famotidine 20 mg PO DAILY@0912/21/13 11/20/24 History PARoxetine [Paxil] 10 mg PO DAILY@0912/21/13 11/20/24 History Potassium Chloride 20 meq PO DAILY@0900 12/21/13 11/20/24 History Acetaminophen [Tylenol Extra 500 - 1,000 mg PO Q6H PRN 08/01/20 11/20/24 History Strength] Furosemide [Lasix] 20 mg PO BID@1000,1800 08/01/20 11/20/24 History L.acidoph,Paracasei, B.lactis 1 cap PO DAILY@99908/01/20 11/20/24 History [Probiotic] Multivit-Min/Iron/Folic/Lutein 1 tab PO DAILY@99908/01/20 11/20/24 History [Centrum Silver Women Tablet] Amoxicillin 2,000 mg PO ONCE PRN 11/20/24 11/20/24 History Biotin 5 mg PO DAILY@99911/20/24 11/20/24 History Enalapril [Vasotec] 5 mg PO HS@209911/20/24 11/20/24 History Gabapentin 300 mg PO HS@209911/20/24 11/20/24 History Metoprolol Succinate [Metoprolol 25 mg PO HS@209911/20/24 11/20/24 History Succinate ER] Vit C/E/Zn/Coppr/Lutein/Zeaxan 2 tab PO DAILY 11/20/24 11/20/24 History [Preservision Areds 2 Softgel] Vitamin D3 (Unknown Dose) 1 dose PO DAILY@99911/20/24 11/20/24 History Warfarin [Coumadin] 3 mg PO SUTUWETHSA@179911/20/24 11/20/24 History Warfarin [Coumadin] 4.5 mg PO MOFR@179911/20/24 11/20/24 History Allergies Allergy/AdvReac Type Severity Reaction Status Date / Time codeine AdvReac Unknown Confusion Verified 11/20/24 10:58 & Anxiety propoxyphene napsylate AdvReac Unknown Confusion Verified 11/20/24 10:58 [From Corinet-N 100] & Anxiety Surgical - Exam Vital Signs Temp Pulse Resp BP Pulse Ox 98.2 F 102 H 18 133/78 98 11/20/24 09:21 11/20/24 09:21 11/20/24 09:21 11/20/24 09:21 11/20/24 09:21 Physical exam: General: Elderly female in no distress, appears slightly confused, adequate nutritional status HEENT: Right-sided facial tenderness with ecchymosis and swelling present, pupils are equal and reactive, trachea is midline Abdomen: Nontender, nondistended Extremities: Mild bilateral lower extremity Neuro: Alert and oriented Results - Labs 11/20/24 10:02 11/20/24 10:02 Abnormal Lab Results - Last 24 Hours (Table) 11/20/24 11/20/24 11/20/24 Range/Units 10:02 10:02 10:02 WBC 13.65 H (4.50-10.00) 10*3/uL RBC 3.87 L (4.10-5.20) 10*6/uL Hct 35.2 L (37.2-46.3) % Plt Count 113 L (140-440) 10*3/uL Immature Gran # 0.14 H (0.00-0.04) 10*3/uL Neutrophils # (Manual) 13.37 H (1.3-7.7) k/uL Lymphocytes # (Manual) 0.14 L (1.0-4.8) k/uL PT 32.0 H (10.0-12.5) sec INR 3.2 H (<1.2) APTT 32.4 H (22.0-30.0) sec Sodium 134 L (137-145) mmol/L BUN 34 H (7-17) mg/dL Glucose 132 H (74-99) mg/dL Total Bilirubin 1.7 H (0.2-1.3) mg/dL AST 79 H (14-36) U/L Troponin I (0.000-0.034) ng/mL Total Protein 6.2 L (6.3-8.2) g/dL 11/20/24 Range/Units 10:02 WBC (4.50-10.00) 10*3/uL RBC (4.10-5.20) 10*6/uL Hct (37.2-46.3) % Plt Count (140-440) 10*3/uL Immature Gran # (0.00-0.04) 10*3/uL Neutrophils # (Manual) (1.3-7.7) k/uL Lymphocytes # (Manual) (1.0-4.8) k/uL PT (10.0-12.5) sec INR (<1.2) APTT (22.0-30.0) sec Sodium (137-145) mmol/L BUN (7-17) mg/dL Glucose (74-99) mg/dL Total Bilirubin (0.2-1.3) mg/dL AST (14-36) U/L Troponin I 0.058 H* (0.000-0.034) ng/mL Total Protein (6.3-8.2) g/dL Diabetes panel 11/20/24 Range/Units 10:02 Sodium 134 L (137-145) mmol/L Potassium 4.3 (3.5-5.1) mmol/L Chloride 100 (98-107) mmol/L Carbon Dioxide 27 (22-30) mmol/L BUN 34 H (7-17) mg/dL Creatinine 0.87 (0.52-1.04) mg/dL Glucose 132 H (74-99) mg/dL Calcium 8.8 (8.4-10.2) mg/dL AST 79 H (14-36) U/L ALT 32 (4-34) U/L Alkaline Phosphatase 102 (38-126) U/L Total Protein 6.2 L (6.3-8.2) g/dL Albumin 3.5 (3.5-5.0) g/dL Calcium panel 11/20/24 Range/Units 10:02 Calcium 8.8 (8.4-10.2) mg/dL Albumin 3.5 (3.5-5.0) g/dL Pituitary panel 11/20/24 Range/Units 10:02 Sodium 134 L (137-145) mmol/L Potassium 4.3 (3.5-5.1) mmol/L Chloride 100 (98-107) mmol/L Carbon Dioxide 27 (22-30) mmol/L BUN 34 H (7-17) mg/dL Creatinine 0.87 (0.52-1.04) mg/dL Glucose 132 H (74-99) mg/dL Calcium 8.8 (8.4-10.2) mg/dL Adrenal panel 11/20/24 Range/Units 10:02 Sodium 134 L (137-145) mmol/L Potassium 4.3 (3.5-5.1) mmol/L Chloride 100 (98-107) mmol/L Carbon Dioxide 27 (22-30) mmol/L BUN 34 H (7-17) mg/dL Creatinine 0.87 (0.52-1.04) mg/dL Glucose 132 H (74-99) mg/dL Calcium 8.8 (8.4-10.2) mg/dL Total Bilirubin 1.7 H (0.2-1.3) mg/dL AST 79 H (14-36) U/L ALT 32 (4-34) U/L Alkaline Phosphatase 102 (38-126) U/L Total Protein 6.2 L (6.3-8.2) g/dL Albumin 3.5 (3.5-5.0) g/dL Assessment and Plan (1) Fall Narrative/Plan: 84-year-old female with suspected ground-level fall on blood thinners. Right maxillary fracture seen on CAT scan of the facial bones. CT brain was otherwise normal. Chest x-ray showed no acute abnormalities. Patient being admitted to the surgical service because of the fall on presentation. Will consult medical service, cardiology, and neurology. May resume regular diet. GI prophylaxis will be ordered. Patient still anticoagulated from Coumadin. No heparin subcu for now. Current Visit: Yes Status: Acute Code(s): W19.XXXA - UNSPECIFIED FALL, INITIAL ENCOUNTER SNOMED Code(s): 1276826
[2024-11-20] MEDS: ACETAMINOPHEN IV (For NPO) 1,000 MG in EMPTY BAG 1 BAG IVPB STA (18:31)
[2024-11-20] MEDS: METOPROLOL SUCCINATE (ER) 25 MG TAB.ER.24H PO STA (18:38)
--- NOTE | 2024-11-20 20:29 | CT ---
EXAMINATION TYPE: CT abdomen pelvis wo con CT DLP: 486.5 mGycm, Automated exposure control for dose reduction was used. DATE OF EXAM: 11/20/2024 7:35 PM COMPARISON: Chest radiograph from same day. CLINICAL INDICATION:Female, 84 years old with history of bloody emesis; Bloody emesis TECHNIQUE: Axial CT abdomen pelvis wo con;Sagittal and coronal reformats were created on a separate workstation. Contrast used: mL of , (none if empty) Oral contrast used: without Oral Contrast (none if empty) FINDINGS: LOWER CHEST: Small left and trace right pleural effusions are noted with associated atelectasis. ABDOMEN LIVER: Unremarkable GALLBLADDER AND BILE DUCTS: Layering increased densities within the lumen consistent with gallstones are present. Gallbladder is mildly distended. PANCREAS: Unremarkable. SPLEEN: Unremarkable. ADRENAL GLANDS: Unremarkable. KIDNEYS AND URETERS: No evidence of hydronephrosis or renal calculus. The ureters are unremarkable. PELVIS BLADDER: Incompletely distended but grossly unremarkable. REPRODUCTIVE: Uterus is not visualized. ABDOMEN & PELVIS STOMACH AND BOWEL: Stomach and duodenum are unremarkable. Evaluation for enteric hemorrhage is limite d on this noncontrasted evaluation. No evidence of bowel obstruction. PERITONEUM/RETROPERITONEUM: No evidence of pneumoperitoneum . Small volume simple free fluid is seen in the pelvis dependently. VASCULATURE: No evidence of aortic aneurysm. MUSCULOSKELETAL: Scoliotic curvature of the thoracolumbar spine. Degenerative changes of the bony pel vis and visualized portions of the spine. LYMPH NODES: Scattered lymph nodes are seen in the bilateral inguinal region the largest on the right measuring up to 1.5 cm in short axis. SOFT TISSUE/ABDOMINAL WALL: Moderate soft tissue edema seen diffusely. IMPRESSION: 1. Cholelithiasis in a mildly distended gallbladder. No significant other associated gallbladder oscar ging abnormalities identified. 2. Small volume free fluid, bilateral pleural effusions and soft tissue anasarca may relate to third spacing versus volume overload. Correlate with clinical evaluation. 3. Nonspecific bilateral inguinal lymphadenopathy. Please note evaluation for enteric hemorrhage is limited on this noncontrasted evaluation [facility], , 11/20/2024 8:27 PM
[2024-11-20] MEDS: DILTIAZEM 125 MG in DEXTROSE 5% IN WATER 100 ML IV SCH ×2 (20:34→21:22)
[2024-11-20] MEDS: DILTIAZEM 5 MG/ML 5 ML VIAL IVP STA (20:34)
[2024-11-21] MEDS: DILTIAZEM 5 MG/ML 5 ML VIAL IVP ONE (04:06)
[2024-11-21] MEDS: ACETAMINOPHEN TAB 325 MG TAB PO PRN (04:08)
[2024-11-21 05:34] LABS: Bilirubin,Urine Negative (Negative); Blood,Urine Negative (Negative); Color,Urine Yellow; Glucose,Urine (UA) Negative (Negative); Hyaline Casts,Urine 1 /lpf (0-2); Ketones,Urine Negative (Negative); Leukocyte Esterase,Urine Negative (Negative); Mucus,Urine Rare /hpf; Nitrite,Urine Negative (Negative); PH, Urine 5.5 (5.0-8.0); Protein,Urine 1+ (Negative); RBC,Urine 1 /hpf (0-5); Specific Gravity,Urine 1.024 (1.001-1.035); Squamous Epithelial Cell,Urine <1 /hpf (0-4); Urobilinogen,Urine <2.0 mg/dL (<2.0); WBC,Urine 2 /hpf (0-5)
[2024-11-21] MEDS: ACETAMINOPHEN TAB 500 MG TAB PO STA (06:09)
[2024-11-21] MEDS: PIPERACILLIN-TAZOBACTAM 3.375 GM in SODIUM CHLORIDE 0.9% 100 ML IVPB SCH (06:28)
--- NOTE | 2024-11-21 06:36 | XR ---
EXAMINATION TYPE: XR chest 1V DATE OF EXAM: 11/21/2024 5:50 AM COMPARISON: Chest radiographs from 09/12/2020, CT TAVR 08/29/2020 TECHNIQUE: XR chest 1V Frontal and lateral views of the chest. CLINICAL INDICATION:Female, 84 years old with history of shortness of breath FINDINGS: Lungs/Pleura: Small left pleural effusion. No focal consolidation or pneumothorax. Pulmonary vascularity: Pulmonary vascular congestion is worsened from prior. Heart/mediastinum: Cardiomediastinal silhouette is enlarged and stable. Underlying aortic aneurysm as noted on prior CT. Postsurgical changes from TAVR. Musculoskeletal: No acute osseous pathology. Multilevel degenerative disc disease. Midline sternotomy wires are noted and stable. Bilateral shoulder arthropathy. IMPRESSION: 1. Worsening pulmonary edema with Small left pleural effusion. 2. Cardiomegaly with known aortic aneurysm. [facility], , 11/21/2024 6:33 AM
[2024-11-21 07:59] LABS: Basophils # (A) 0.05 10*3/uL (0.00-0.10); Basophils % (A) 0.4 %; Eosinophils # (A) 0.00 10*3/uL (0.04-0.35); Eosinophils % (A) 0.0 %; HCT 36.1 % (37.2-46.3); HGB 12.3 g/dL (12.0-15.0); Lymphocytes # (A) 0.23 10*3/uL (0.90-5.00); Lymphocytes % (A) 1.8 %; MCH 31.5 pg (27.0-32.0); MCHC 34.1 g/dL (32.0-37.0); MCV 92.6 fL (80.0-97.0); Monocytes # (A) 0.48 10*3/uL (0.20-1.00); Monocytes % (A) 3.7 %; Neutrophils # (A) 12.13 10*3/uL (1.80-7.70); Neutrophils % (A) 93.4 %; Platelet Count 114 10*3/uL (140-440); RBC 3.90 10*6/uL (4.10-5.20); RDW 15.0 % (11.5-14.5); WBC 12.98 10*3/uL (4.50-10.00)
[2024-11-21 08:03] LABS: African American GFR (CKD) 77 (>60 ml/min/1.73 sqM); Anion Gap 14 mmol/L; Blood Urea Nitrogen 34 mg/dL (7-17); Calcium 8.9 mg/dL (8.4-10.2); Carbon Dioxide 19 mmol/L (22-30); Chloride 102 mmol/L (98-107); Glucose 126 mg/dL (74-99); Non-African American GFR(CKD) 66 (>60 ml/min/1.73 sqM); Potassium 4.4 mmol/L (3.5-5.1); Sodium 135 mmol/L (137-145)
[2024-11-21] MEDS: PANTOPRAZOLE 40 MG/10 ML VIAL IVP SCH (08:08)
[2024-11-21] MEDS: DEXTROSE 5% IN WATER 100 ML with AMIODARONE 150 MG IV ONE (09:47)
[2024-11-21] MEDS: AMIODARONE 360 MG in DEXTROSE 5% IN WATER 200 ML IV ONE (10:43)
--- NOTE | 2024-11-21 10:55 | P.CRDCN ---
History of Present Illness Consult date: 11/21/24 Reason for Consult (text): Syncope, elevated troponins History of present illness: This is an 84-year-old female patient of Dr. Bruno with past medical history of coronary artery disease with CABG 1 vessel to LAD, bicuspid aortic valve disease status post AVR and then TAVR, valvular heart disease with MR, pulmonary hypertension, TR, permanent atrial fibrillation on Coumadin, hyperlipidemia, hypertension. We have been asked to evaluate the patient for syncope and elevated troponins. Patient states that she had a fall lost her balance and grabbed onto the vacuum brush cleaner. Patient denies loss of consciousness. However, family at the bedside think that she fell and passed out. Patient normally ambulates with a walker. Patient did have episode of A-fib with RVR and has been started on Cardizem bolus of 10 mg followed by a drip at 5 mg/h. Blood pressure 98/73, heart rate 88, pulse ox 95% on 2 L nasal cannula. Patient is seen today in the emergency center waiting for a bed on the cardiac stepdown unit. -EKG: Atrial fibrillation 86 bpm -Chest x-ray: Small left pleural effusion. Cardiomegaly with known aortic aneurysm. #2 worsening pulmonary edema with small left pleural effusion. Cardiomegaly with known aortic aneurysm. -CT brain and cervical spine: Depressed right maxillary wall fracture anteriorly with hemorrhagic component seen within the right maxillary sinus. Soft tissue swelling is present. No acute fracture or dislocation of the cervical spine. No acute intracranial hemorrhage, mass effect or midline shift is seen. -CT abdomen pelvis without contrast: Cholelithiasis. Bilateral pleural effusions and soft tissue anasarca may relate to third spacing versus volume overload. Nonspecific bilateral inguinal lymphadenopathy. -Laboratory studies: WBC 12.9, hemoglobin 12.3, INR 3.2, sodium 135, potassium 4.4, BUN 34 creatinine 0.81. Troponins 0.058 and 0.170. proBNP 12,200. -Home cardiac medications: Atorvastatin 20 mg at bedtime, Vasotec 5 mg at bedtime, Lasix 20 mg twice daily, metoprolol succinate 25 mg at bedtime, potassium chloride 20 mill equivalents daily, warfarin 4.5 mg on Mondays and Fridays and 3 mg on the other days. -Cardiac catheterization performed 08/07/2020 revealed occluded LAD. Patent WOMACK to LAD. -CV surgery: 1 vessel CABG WOMACK to LAD, tissue AVR on 12/25/2022. -Echocardiogram performed 08/28/2024 in the office revealed EF 55%, mild left ventricular hypertrophy. Severely dilated left atrium and severely dilated right atrium. Aortic valve prosthetic mechanical dysfunction which is transcatheter. Moderate mitral regurgitation. Mild tricuspid regurgitation. PASP 57 mmHg. Mild to moderate pulmonic regurgitation. -Holter monitor/11/2024 revealed atrial fibrillation 100%. Review Of Systems: At the time of my exam: CONSTITUTIONAL: Denies fever or chills. HEENT: Denies blurred vision, vision changes, or eye pain. Denies hemoptysis CARDIOVASCULAR: Denies chest pain. Denies orthopnea. Denies PND. Denies palpitations RESPIRATORY: Denies shortness of breath. GASTROINTESTINAL: Denies abdominal pain. Denies nausea or vomiting. HEMATOLOGIC: Denies bleeding disorders. GENITOURINARY: Denies any blood in urine. SKIN: Denies puritis. Denies rash. Physical examination: Gen: This is 84-year-old female in no acute distress VS: reviewed HEENT: Head shows ecchymosis on the right side of her face, normocephalic. Pupils equal, round. Sclerae is anicteric. NECK: Supple. No JVD. LUNGS: Clear to auscultation. No wheezes or rhonchi. No intercostal retractions. HEART: Irregular rate and rhythm. Systolic murmur at the right and left upper sternal border. ABDOMEN: Soft No tenderness. EXTREMITIES: No pedal edema. No calf tenderness. NEUROLOGICAL: Patient is awake, alert and oriented. Assessment: Syncope of unclear etiology, rule out cardiac cause Permanent atrial fibrillation with episode of RVR, currently rate controlled Leukocytosis NSTEMI Coronary artery disease status post one-vessel CABG to the LAD History of bicuspid aortic valve status post AVR and then TAVR Pulmonary hypertension Hyperlipidemia Hypertension Plan: Resume patient's home cardiac medications Discontinue Cardizem drip Start patient on amiodarone Repeat troponin Obtain 2-D echocardiogram and Doppler study to assess cardiac structure and function Continue telemetry monitoring Further recommendations to follow based upon clinical course Thank you kindly for this consultation. Nurse practitioner note has been reviewed, I agree with documented findings and plan of care. Patient was seen and examined. 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 RT FOOT SX. CTR-mariam WRIST. BILAT CATARACTS REMOVED. COLONOSCOPY Past Anesthesia/Blood Transfusion Reactions: No Reported Reaction Past Psychological History: Anxiety Smoking Status: Former smoker - Past Family History Sister(s) Family Medical History: Cancer Brother(s) Family Medical History: Cancer Daughter(s) Family Medical History: Cancer Mother Family Medical History: Liver Disease Medications and Allergies Home Medications Medication Instructions Recorded Confirmed Type ALPRAZolam [Xanax] 0.25 mg PO TID PRN 12/21/13 11/20/24 History Atorvastatin [Lipitor] 20 mg PO HS@2100 12/21/13 11/20/24 History Famotidine 20 mg PO DAILY@0912/21/13 11/20/24 History PARoxetine [Paxil] 10 mg PO DAILY@0912/21/13 11/20/24 History Potassium Chloride 20 meq PO DAILY@0912/21/13 11/20/24 History Acetaminophen [Tylenol Extra 500 - 1,000 mg PO Q6H PRN 08/01/20 11/20/24 History Strength] Furosemide [Lasix] 20 mg PO BID@1000,1800 08/01/20 11/20/24 History L.acidoph,Paracasei, B.lactis 1 cap PO DAILY@99908/01/20 11/20/24 History [Probiotic] Multivit-Min/Iron/Folic/Lutein 1 tab PO DAILY@1000 08/01/20 11/20/24 History [Centrum Silver Women Tablet] Amoxicillin 2,000 mg PO ONCE PRN 11/20/24 11/20/24 History Biotin 5 mg PO DAILY@99911/20/24 11/20/24 History Enalapril [Vasotec] 5 mg PO HS@209911/20/24 11/20/24 History Gabapentin 300 mg PO HS@209911/20/24 11/20/24 History Metoprolol Succinate [Metoprolol 25 mg PO HS@209911/20/24 11/20/24 History Succinate ER] Vit C/E/Zn/Coppr/Lutein/Zeaxan 2 tab PO DAILY 11/20/24 11/20/24 History [Preservision Areds 2 Softgel] Vitamin D3 (Unknown Dose) 1 dose PO DAILY@1000 11/20/24 11/20/24 History Warfarin [Coumadin] 3 mg PO SUTUWETHSA@179911/20/24 11/20/24 History Warfarin [Coumadin] 4.5 mg PO MOFR@179911/20/24 11/20/24 History Allergies Allergy/AdvReac Type Severity Reaction Status Date / Time codeine AdvReac Unknown Confusion Verified 11/20/24 10:58 & Anxiety propoxyphene napsylate AdvReac Unknown Confusion Verified 11/20/24 10:58 [From [facility]-N 100] & Anxiety Physical Exam Vitals: Vital Signs Temp Pulse Resp BP BP BP BP 11/21/24 08:02 98 20 100/71 11/21/24 07:24 98.3 F 128 H 20 101/69 11/21/24 06:59 98.6 F 11/21/24 06:00 134 H 20 118/72 11/21/24 05:52 158 H 24 122/84 11/21/24 05:25 102.7 F H 11/21/24 04:00 100.1 F H 11/21/24 03:31 98.0 F 11/21/24 03:00 83 17 99/63 11/21/24 00:00 77 17 131/75 11/20/24 22:00 72 17 103/68 11/20/24 19:44 105 H 17 101/75 11/20/24 18:39 99.4 F 156 H 18 140/109 11/20/24 17:44 101.0 F H 146 H 19 143/93 11/20/24 15:23 144/89 117/100 154/82 11/20/24 14:51 98.9 F 76 18 123/78 11/20/24 11:59 75 14 124/74 06/30/25 10:12 79 15 108/92 11/20/24 09:21 98.2 F 102 H 18 133/78 Pulse Ox 11/21/24 08:02 96 11/21/24 07:24 10 L 11/21/24 06:59 11/21/24 06:00 11/21/24 05:52 11/21/24 05:25 11/21/24 04:00 11/21/24 03:31 11/21/24 03:00 100 11/21/24 00:00 100 11/20/24 22:00 100 11/20/24 19:44 100 11/20/24 18:39 96 11/20/24 17:44 98 11/20/24 15:23 98 11/20/24 14:51 98 11/20/24 11:59 100 11/20/24 10:12 92 L 11/20/24 09:21 98 Intake and Output 11/20/24 11/21/24 11/21/24 22:59 06:59 14:59 Output Total 500 Balance -500 Output: Urine 500 Straight 500 Results 11/21/24 06:52 11/21/24 06:52 Cardiac Enzymes 11/20/24 11/20/24 Range/Units 10:02 10:02 AST 79 H (14-36) U/L Troponin I 0.058 H* (0.000-0.034) ng/mL Coagulation 11/20/24 Range/Units 10:02 PT 32.0 H (10.0-12.5) sec APTT 32.4 H (22.0-30.0) sec CBC 11/20/24 Range/Units 10:02 WBC 13.65 H (4.50-10.00) 10*3/uL RBC 3.87 L (4.10-5.20) 10*6/uL Hgb 12.2 (12.0-15.0) g/dL Hct 35.2 L (37.2-46.3) % Plt Count 113 L (140-440) 10*3/uL Comprehensive Metabolic Panel 11/20/24 11/21/24 Range/Units 10:02 06:52 Sodium 134 L 135 L (137-145) mmol/L Potassium 4.3 4.4 (3.5-5.1) mmol/L Chloride 100 102 (98-107) mmol/L Carbon Dioxide 27 19 L (22-30) mmol/L BUN 34 H 34 H (7-17) mg/dL Creatinine 0.87 0.81 (0.52-1.04) mg/dL Glucose 132 H 126 H (74-99) mg/dL Calcium 8.8 8.9 (8.4-10.2) mg/dL AST 79 H (14-36) U/L ALT 32 (4-34) U/L Alkaline Phosphatase 102 (38-126) U/L Total Protein 6.2 L (6.3-8.2) g/dL Albumin 3.5 (3.5-5.0) g/dL Current Medications Generic Name Dose Route Start Last Admin Trade Name Freq PRN Reason Stop Dose Admin Acetaminophen 650 mg 11/20/24 18:03 11/21/24 04:08 Acetaminophen Tab 325 Mg Tab PO 650 mg Q4HR PRN Administration Fever and/ or Pain Diltiazem HCl 125 mg/ Dextrose 125 mls @ 10 mls/hr 11/20/24 21:30 11/21/24 06 :14 /Water IV 5 mg/hr .[id number] BARBIE 5 mls/hr Administration Protocol 10 MG/HR Piperacillin Sod/Tazobactam 100 mls @ 25 mls/hr 11/21/24 06:00 11/21/24 06:28 Sod 3.375 gm/ Sodium Chloride IVPB 25 mls/hr Q8H BARBIE Administration Protocol Naloxone HCl 0.2 mg 11/20/24 13:17 Naloxone 0.4 Mg/Ml 1 Ml Vial IV Q2M PRN Opioid Reversal Ondansetron HCl 4 mg 11/20/24 17:01 11/20/24 17:37 Ondansetron 4 Mg/2 Ml Vial IVP 4 mg Q6HR PRN Administration GI Upset Pantoprazole Sodium 40 mg 11/21/24 09:00 11/21/24 08:08 Pantoprazole 40 Mg/10 Ml Vial IVP 40 mg DAILY BARBIE Administration Intake and Output 11/20/24 11/21/24 11/21/24 22:59 06:59 14:59 Output Total 500 Balance -500 Output: Urine 500 Straight 500 11/20/24 10:02 11/21/24 06:52
[2024-11-21 11:50] LABS: Prothrombin Time 50.2 sec (10.0-12.5)
[2024-11-21 11:52] LABS: INR 5.1 (<1.2)
--- NOTE | 2024-11-21 12:43 | P.PN ---
Subjective Progress Note Date: 11/21/24 SURGICAL PROGRESS NOTE CHIEF COMPLAINT: Status post fall on blood thinners HISTORY OF PRESENT ILLNESS: Patient is complaining of right shoulder pain. She does have a bruise noted posteriorly on the right shoulder. She denies any abdominal pain. She did have 2 episodes of vomiting yesterday. She did have a temp of 102.7 at 5 AM and had been tachycardic. Chest x-ray from today had reported worsening pulmonary edema with small left pleural effusion. Cardiomegaly with known aortic aneurysm. CT scan abdomen pelvis had reported cholelithiasis and mildly distended gallbladder. Small volume free fluid, bilateral pleural effusions and soft tissue anasarca may relate to third spacing versus volume overload. Nonspecific bilateral inguinal lymphadenopathy. INR 5.1 WBC 12.9 Hgb 12.3 creatinine 0.81 troponins elevated PHYSICAL EXAM: VITAL SIGNS: Reviewed. GENERAL: Well-developed in no acute distress. Hard of hearing HEENT: Right-sided facial tenderness with ecchymosis noted around the eye and right eye maxillary area pupils are equal and reactive. ABDOMEN: Soft. Nondistended. Nontender. NEUROLOGIC: Alert and oriented. Cranial nerves II through XII grossly intact. Extremities: Right posterior shoulder bruising and tenderness with palpation ASSESSMENT: 1. Fall from ground-level on blood thinners 2. Right maxillary fracture 3. Syncopal episode 4. Right shoulder pain 5. NSTEMI 6. AFIB PLAN: - ENT service consulted for right maxillary fracture. No ENT service available at this time. checking if ok for patient to follow-up with ENT outpatient - Syncopal episode patient evaluated by cardiology and neurology - Elevated troponins and A-fib followed by cardiology - Right shoulder pain with bruising. X-ray of shoulder ordered - Okay to resume Coumadin from surgical standpoint. Pharmacy dosing Coumadin - IV fluids discontinued for worsening pulmonary edema noted on x-ray - Continue regular diet -Tylenol added for pain and fever Physician Juice Scaleman note has been reviewed by physician. Signing provider agrees with the documented findings, assessment, and plan of care. I have personally seen and examined the patient, reviewed the [employer] /PAs history, exam and MDM and agree with the assessment and plan as written. Based on total visit time, I have performed more than 50% of the visit. As above: Patient slightly confused today. Still having some shoulder discomfo rt although improved. X-ray was negative for acute fracture. Patient has been seen by cardiology and neurology. Service transferred to medicine. No further trauma related surgical care planned at this time. Will sign off. Please reconsult if needed. Recommend outpatient follow-up with Dr. Anaya from ENT and if he is unavailable recommend follow-up with her primary care team to discuss possible referral outside of town for ENT evaluation of maxillary fracture. Objective - Vital Signs Vital signs: Vital Signs Temp 97.9 F 11/21/24 09:23 Pulse 81 11/21/24 12:14 Resp 18 11/21/24 12:14 BP 96/62 11/21/24 12:14 Pulse Ox 95 11/21/24 12:14 FiO2 Intake & Output 11/20/24 11/21/24 11/21/24 18:59 06:59 18:59 Output Total 500 Balance -500 Weight 62.142 kg Output: Urine 500 Straight 500 - Labs CBC & Chem 7: 11/21/24 06:52 11/21/24 06:52 Labs: Abnormal Lab Results - Last 24 Hours (Table) 11/21/24 11/21/24 11/21/24 Range/Units 04:34 06:52 06:52 WBC 12.98 H (4.50-10.00) 10*3/uL RBC 3.90 L (4.10-5.20) 10*6/uL Hct 36.1 L (37.2-46.3) % Plt Count 114 L (140-440) 10*3/uL Immature Gran # 0.09 H (0.00-0.04) 10*3/uL Neutrophils # 12.13 H (1.80-7.70) 10*3/uL Lymphocytes # 0.23 L (0.90-5.00) 10*3/uL Eosinophils # 0.00 L (0.04-0.35) 10*3/uL PT (10.0-12.5) sec INR (<1.2) Sodium 135 L (137-145) mmol/L Carbon Dioxide 19 L (22-30) mmol/L BUN 34 H (7-17) mg/dL Glucose 126 H (74-99) mg/dL Troponin I (0.000-0.034) ng/mL Urine Protein 1+ H (Negative) Urine Mucus Rare H (None) /hpf 11/21/24 11/21/24 11/21/24 Range/Units 08:25 11:18 11:18 WBC (4.50-10.00) 10*3/uL RBC (4.10-5.20) 10*6/uL Hct (37.2-46.3) % Plt Count (140-440) 10*3/uL Immature Gran # (0.00-0.04) 10*3/uL Neutrophils # (1.80-7.70) 10*3/uL Lymphocytes # (0.90-5.00) 10*3/uL Eosinophils # (0.04-0.35) 10*3/uL PT 50.2 H (10.0-12.5) sec INR 5.1 H* (<1.2) Sodium (137-145) mmol/L Carbon Dioxide (22-30) mmol/L BUN (7-17) mg/dL Glucose (74-99) mg/dL Troponin I 0.170 H* 0.185 H* (0.000-0.034) ng/mL Urine Protein (Negative) Urine Mucus (None) /hpf
--- NOTE | 2024-11-21 12:51 | XR ---
EXAMINATION TYPE: XR shoulder complete RT DATE OF EXAM: 11/21/2024 12:32 PM INDICATION: Patient age:Female; 84 years old; Reason for study: trauma, pain; pain COMPARISON: Chest radiograph 11/21/2024 TECHNIQUE: The right shoulder was examined in AP, internally rotated and scapular Y projections. . FINDINGS: No acute fracture. No dislocation of glenohumeral joint. Right shoulder arthropathy with joint space narrowing and osteophytosis. Right AC joint arthropathy with capsular hypertrophy and superior spurri ng. No soft tissue swelling. Redemonstration of patchy airspace opacities within the visualized right lung consistent with reported pulmonary edema. IMPRESSION: 1. No acute fracture or dislocation. 2. Moderate right AC joint arthropathy with mild to moderate right shoulder arthropathy. 3. Redemonstration of pulmonary edema within the visualized upper lung. [facility], , 11/21/2024 12:49 PM
--- NOTE | 2024-11-21 14:04 | P.CNNES ---
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 Patient lives alone at home and uses 2 canes to ambulate and is able to manage her activities on her own. Yesterday she felt that she was about to fall and tried to hold onto a vacuum street light cleaner, was not able to maintain her balance and ended up hitting her head. She also had bowel incontinence. She was not able to get up on her own initially and called her daughter. When her daughter reached her home, the patient had gotten up on her own. Her daughter mentioned that she also had a similar episode a couple days ago. Currently the patient complains of pain on the right side of her face. Her blood pressure today is 96/62. WBC is 12.98, INR 5.1, troponin I 0.058, 0.170, 0.185 EKG independently interpreted as atrial fibrillation with rapid ventricular response, rate 139 bpm Head and cervical spine CT shows depressed right maxillary wall fracture anteriorly with hemorrhagic component seen within the right maxillary sinus and soft tissue swelling present, no acute fracture or dislocation evident in the cervical spine, no acute intracranial hemorrhage/mass effect/midline shift seen Past Medical History Past Medical History: Atrial Fibrillation, Coronary Artery Disease (CAD), CVA/TIA, GERD/Reflux, Hearing Disorder / Deafness, Hyperlipidemia, Hypertension, Osteoarthritis (OA) Additional Past Medical History / Comment(s): HX OF BELLS PALSEY,CVA WHICH AFFECTED VISION IN RT EYE,[facility] [employer] mariam ears; history of bicuspid aortic valve with aortic valve stenosis History of Any Multi-Drug Resistant Organisms: None Reported Past Surgical History: Back Surgery, Cardiac Valve Replacement, Coronary Bypass/CABG, Heart Catheterization, Hysterectomy Additional Past Surgical History / Comment(s): #21 [facility] BOVINE HEART VALVE REPLACEMENT(2002), CABG (WOMACK TO LAD). RT FOOT SX. CTR-mariam WRIST. BILAT CATARACTS REMOVED. COLONOSCOPY Past Anesthesia/Blood Transfusion Reactions: No Reported Reaction Past Psychological History: Anxiety Smoking Status: Former smoker - Past Family History Sister(s) Family Medical History: Cancer Brother(s) Family Medical History: Cancer Daughter(s) Family Medical History: Cancer Mother Family Medical History: Liver Disease Medications and Allergies Home Medications Medication Instructions Recorded Confirmed Type ALPRAZolam [Xanax] 0.25 mg PO TID PRN 12/21/13 11/20/24 History Atorvastatin [Lipitor] 20 mg PO HS@209912/21/13 11/20/24 History Famotidine 20 mg PO DAILY@89912/21/13 11/20/24 History PARoxetine [Paxil] 10 mg PO DAILY@89912/21/13 11/20/24 History Potassium Chloride 20 meq PO DAILY@89912/21/13 11/20/24 History Acetaminophen [Tylenol Extra 500 - 1,000 mg PO Q6H PRN 08/01/20 11/20/24 History Strength] Furosemide [Lasix] 20 mg PO BID@1000,179908/01/20 11/20/24 History L.acidoph,Paracasei, B.lactis 1 cap PO DAILY@99908/01/20 11/20/24 History [Probiotic] Multivit-Min/Iron/Folic/Lutein 1 tab PO DAILY@99908/01/20 11/20/24 History [Centrum Silver Women Tablet] Amoxicillin 2,000 mg PO ONCE PRN 11/20/24 11/20/24 History Biotin 5 mg PO DAILY@99911/20/24 11/20/24 History Enalapril [Vasotec] 5 mg PO HS@209911/20/24 11/20/24 History Gabapentin 300 mg PO HS@209911/20/24 11/20/24 History Metoprolol Succinate [Metoprolol 25 mg PO HS@209911/20/24 11/20/24 History Succinate ER] Vit C/E/Zn/Coppr/Lutein/Zeaxan 2 tab PO DAILY 11/20/24 11/20/24 History [Preservision Areds 2 Softgel] Vitamin D3 (Unknown Dose) 1 dose PO DAILY@99911/20/24 11/20/24 History Warfarin [Coumadin] 3 mg PO SUTUWETHSA@1800 11/20/24 11/20/24 History Warfarin [Coumadin] 4.5 mg PO MOFR@1800 11/20/24 11/20/24 History Allergies Allergy/AdvReac Type Severity Reaction Status Date / Time codeine AdvReac Unknown Confusion Verified 11/20/24 10:58 & Anxiety propoxyphene napsylate AdvReac Unknown Confusion Verified 11/20/24 10:58 [From Darvocet-N 100] & Anxiety Physical Examination - Vital Signs Vital Signs: Vital Signs Temp Pulse Pulse Resp BP BP BP 11/21/24 12:14 81 18 96/62 11/21/24 10:32 96 20 90/57 11/21/24 09:45 88 20 98/73 11/21/24 09:23 97.9 F 94 24 100/64 11/21/24 08:02 98 20 100/71 11/21/24 07:24 98.3 F 128 H 20 101/69 11/21/24 06:59 98.6 F 11/21/24 06:00 134 H 20 118/72 11/21/24 05:52 158 H 24 122/84 11/21/24 05:25 102.7 F H 11/21/24 04:00 100.1 F H 11/21/24 03:31 98.0 F 11/21/24 03:00 83 17 99/63 11/21/24 00:00 77 17 131/75 11/20/24 22:00 72 17 103/68 11/20/24 19:44 105 H 17 101/75 11/20/24 18:39 99.4 F 156 H 18 140/109 11/20/24 17:44 101.0 F H 146 H 19 143/93 11/20/24 15:23 144/89 117/100 11/20/24 14:51 98.9 F 76 18 123/78 BP Pulse Ox 11/21/24 12:14 95 11/21/24 10:32 974 H 11/21/24 09:45 95 11/21/24 09:23 95 11/21/24 08:02 96 11/21/24 07:24 100 11/21/24 06:59 11/21/24 06:00 11/21/24 05:52 11/21/24 05:25 11/21/24 04:00 11/21/24 03:31 11/21/24 03:00 100 11/21/24 00:00 100 11/20/24 22:00 100 11/20/24 19:44 100 11/20/24 18:39 96 11/20/24 17:44 98 11/20/24 15:23 154/82 98 11/20/24 14:51 98 Intake and Output 11/20/24 11/21/24 11/21/24 22:59 06:59 14:59 Output Total 500 Balance -500 Output: Urine 500 Straight 500 General: in mild distress, bruising under right eye and on right cheek On general examination, Chest is clear on consultation. Abdomen is soft nontender. No peripheral edema. Neuro: Awake, Alert, Oriented x3 pupils are round and reacting to light, right pupil dilated than the left, Face is symmetric, facial sensation normal. Extraocular muscles are intact with no nystagmus. Face is symmetric, tongue protrudes to the midline. On muscle strength testing, and the strength is 4/5 in b/l upper extremities and 3/5 in b/l lowe hide I tried sunburnt 56 I did spend 25 minutes on 627r extremities Deep tendon reflexes are symmetric 1 at the biceps, brachioradialis, knees and plantars downgoing bilaterally. Sensory to touch is equal Results - Laboratory Findings CBC and BMP: 11/21/24 06:52 11/21/24 06:52 Abnormal Lab Findings: Abnormal Labs 11/20/24 11/20/24 11/20/24 10:02 10:02 10:02 WBC 13.65 H RBC 3.87 L Hct 35.2 L Plt Count 113 L Immature Gran # 0.14 H Neutrophils # Neutrophils # (Manual) 13.37 H Lymphocytes # Lymphocytes # (Manual) 0.14 L Eosinophils # PT 32.0 H INR 3.2 H APTT 32.4 H Sodium 134 L Carbon Dioxide BUN 34 H Glucose 132 H Total Bilirubin 1.7 H AST 79 H Troponin I Total Protein 6.2 L Urine Protein Urine Mucus 11/20/24 11/21/24 11/21/24 10:02 04:34 06:52 WBC 12.98 H RBC 3.90 L Hct 36.1 L Plt Count 114 L Immature Gran # 0.09 H Neutrophils # 12.13 H Neutrophils # (Manual) Lymphocytes # 0.23 L Lymphocytes # (Manual) Eosinophils # 0.00 L PT INR APTT Sodium Carbon Dioxide BUN Glucose Total Bilirubin AST Troponin I 0.058 H* Total Protein Urine Protein 1+ H Urine Mucus Rare H 11/21/24 11/21/24 11/21/24 06:52 08:25 11:18 WBC RBC Hct Plt Count Immature Gran # Neutrophils # Neutrophils # (Manual) Lymphocytes # Lymphocytes # (Manual) Eosinophils # PT INR APTT Sodium 135 L Carbon Dioxide 19 L BUN 34 H Glucose 126 H Total Bilirubin AST Troponin I 0.170 H* 0.185 H* Total Protein Urine Protein Urine Mucus 11/21/24 11:18 WBC RBC Hct Plt Count Immature Gran # Neutrophils # Neutrophils # (Manual) Lymphocytes # Lymphocytes # (Manual) Eosinophils # PT 50.2 H INR 5.1 H* APTT Sodium Carbon Dioxide BUN Glucose Total Bilirubin AST Troponin I Total Protein Urine Protein Urine Mucus Assessment and Plan Assessment: Syncopal episode Right maxillary fracture Permanent atrial fibrillation with episode of RVR, currently rate controlled, on Coumadin Leukocytosis NSTEMI Hyperlipidemia Hypertension History of CAD,S/p CABG History of bicuspid aortic valve s/p AVR, then TAVR Plan: Head and cervical spine CT shows depressed right maxillary wall fracture anteriorly with hemorrhagic component seen within the right maxillary sinus and soft tissue swelling present, no acute fracture or dislocation evident in the cervical spine, no acute intracranial hemorrhage/mass effect/midline shift seen Echocardiogram performed 08/28/2024 in the office revealed EF 55%, mild left ventricular hypertrophy. Severely dilated left atrium and severely dilated right atrium. Aortic valve prosthetic mechanical dysfunction which is transcatheter. Moderate mitral regurgitation. Mild tricuspid regurgitation. PASP 57 mmHg. Mild to moderate pulmonic regurgitation. Holter monitor/11/2024 revealed atrial fibrillation 100%. Patient advised to use walker at home and patient and daughter counseled on having the patient not live alone and likely have the patient stay with the daughter. Patient and her daughter verbalized understanding. \ Patient currently on Amiodarone drip and Coumadin. Cardiology and general surgery on board. ENT consulted for right maxillary fracture Dictation was produced using [employer] dictation software. please excuse any grammatical, word or spelling errors. Sanchez Vargas MD PGY-2 IM <Scott Durand - Last Filed: 11/21/24 18:13> Physical Examination - Vital Signs Vital Signs: Vital Signs Temp Pulse Pulse Pulse Pulse Pulse Resp 11/21/24 16:09 81 85 89 11/21/24 14:42 97.8 F 84 16 11/21/24 14:16 98.1 F 91 16 11/21/24 12:14 81 18 11/21/24 10:32 96 20 11/21/24 09:45 88 20 11/21/24 09:23 97.9 F 94 24 11/21/24 08:02 98 20 11/21/24 07:24 98.3 F 128 H 20 11/21/24 06:59 98.6 F 11/21/24 06:00 134 H 20 11/21/24 05:52 158 H 24 11/21/24 05:25 102.7 F H 11/21/24 04:00 100.1 F H 11/21/24 03:31 98.0 F 11/21/24 03:00 83 17 11/21/24 00:00 77 17 11/20/24 22:00 72 17 11/20/24 19:44 105 H 17 11/20/24 18:39 99.4 F 156 H 18 BP BP BP BP Pulse Ox 11/21/24 16:09 95/70 96/72 104/63 11/21/24 14:42 116/78 94 L 11/21/24 14:16 122/76 93 L 11/21/24 12:14 96/62 95 11/21/24 10:32 90/57 97 11/21/24 09:45 98/73 95 11/21/24 09:23 100/64 95 11/21/24 08:02 100/71 96 11/21/24 07:24 101/69 100 11/21/24 06:59 11/21/24 06:00 118/72 11/21/24 05:52 122/84 11/21/24 05:25 11/21/24 04:00 11/21/24 03:31 11/21/24 03:00 99/63 100 11/21/24 00:00 131/75 100 11/20/24 22:00 103/68 100 11/20/24 19:44 101/75 100 11/20/24 18:39 140/109 96 Intake and Output 11/21/24 11/21/24 11/21/24 06:59 14:59 22:59 Output Total 500 Balance -500 Output: Urine 500 Straight 500 Results - Laboratory Findings CBC and BMP: 11/21/24 06:52 11/21/24 06:52 Abnormal Lab Findings: Abnormal Labs 11/20/24 11/20/24 11/20/24 10:02 10:02 10:02 WBC 13.65 H RBC 3.87 L Hct 35.2 L Plt Count 113 L Immature Gran # 0.14 H Neutrophils # Neutrophils # (Manual) 13.37 H Lymphocytes # Lymphocytes # (Manual) 0.14 L Eosinophils # PT 32.0 H INR 3.2 H APTT 32.4 H Sodium 134 L Carbon Dioxide BUN 34 H Glucose 132 H Total Bilirubin 1.7 H AST 79 H Troponin I Total Protein 6.2 L Urine Protein Urine Mucus 11/20/24 11/21/24 11/21/24 10:02 04:34 06:52 WBC 12.98 H RBC 3.90 L Hct 36.1 L Plt Count 114 L Immature Gran # 0.09 H Neutrophils # 12.13 H Neutrophils # (Manual) Lymphocytes # 0.23 L Lymphocytes # (Manual) Eosinophils # 0.00 L PT INR APTT Sodium Carbon Dioxide BUN Glucose Total Bilirubin AST Troponin I 0.058 H* Total Protein Urine Protein 1+ H Urine Mucus Rare H 11/21/24 11/21/24 11/21/24 06:52 08:25 11:18 WBC RBC Hct Plt Count Immature Gran # Neutrophils # Neutrophils # (Manual) Lymphocytes # Lymphocytes # (Manual) Eosinophils # PT INR APTT Sodium 135 L Carbon Dioxide 19 L BUN 34 H Glucose 126 H Total Bilirubin AST Troponin I 0.170 H* 0.185 H* Total Protein Urine Protein Urine Mucus 11/21/24 11:18 WBC RBC Hct Plt Count Immature Gran # Neutrophils # Neutrophils # (Manual) Lymphocytes # Lymphocytes # (Manual) Eosinophils # PT 50.2 H INR 5.1 H* APTT Sodium Carbon Dioxide BUN Glucose Total Bilirubin AST Troponin I Total Protein Urine Protein Urine Mucus Assessment and Plan Assessment: Syncope: Unsure exact but seem concerning for cardiac especially with significant cardiac issues. Her episode does appear epileptic in nature. Plan: I personally seen the patient with the resident and personally also examined the patient. I counseled the patient that it is not safe to reside byself and she likely needs a walker instead of cane. Had repeat orthostatic vitals and it was negative. Otherwise, no additional neurological work-up. Will sign off. Please reconsulte if needed. Time with Patient: Less than 30
[2024-11-21] MEDS: AMIODARONE 450 MG in DEXTROSE 5% IN WATER 250 ML IV SCH (16:05)
[2024-11-21] MEDS: WARFARIN 0.5 MG TAB PO ONE (17:35)
[2024-11-21] MEDS ORDERED: WARFARIN 3 MG TAB PO SCH (18:00)
[2024-11-21] MEDS: FUROSEMIDE 20 MG TAB PO SCH (18:43)
[2024-11-21] MEDS: METOPROLOL SUCCINATE (ER) 25 MG TAB.ER.24H PO SCH (20:31)
[2024-11-21] MEDS: ATORVASTATIN 20 MG TAB PO SCH (20:31)
--- NOTE | 2024-11-21 23:54 | HP ---
HISTORY AND PHYSICAL CHIEF COMPLAINT: Fall and right facial fracture. HISTORY OF PRESENT ILLNESS: This 84-year-old woman with a past medical history of multiple medical problems, apparently had fallen twice in the last 48 hours. The patient does not remember whether the patient had syncope and the patient is taking Coumadin and the patient was taken to [facility] and the CT scan of the head showed a depressed right maxillary wall fracture with hemorrhagic component. Otherwise, abdominal and pelvis CAT scan showed cholelithiasis. The shoulder x-ray showed DJD and no dislocation. The patient there is no history of fever, rigor, or chills. PAST MEDICAL HISTORY: Reviewed, include atrial fibrillation, CAD. Rest of history and chart is also reviewed. HOME MEDICATIONS: Reviewed, include Coumadin. Doses and rest of medications reviewed. ALLERGIES: Codeine. FAMILY HISTORY: history of cancer. SOCIAL HISTORY: Previous smoker. REVIEW OF SYSTEMS: Could not be taken as the patient is mildly confused. PHYSICAL EXAMINATION: VITAL SIGNS: Pulse is 91, blood pressure 100/74, and respirations 16. HEENT: Conjunctivae normal. NECK: No jugular venous distention. CARDIOVASCULAR: S1 and S2. RESPIRATORY: Breath sounds diminished at the bases. ABDOMEN: Soft, nontender. LEGS: No edema. No swelling. NERVOUS SYSTEM: Mild diffuse weakness. SKIN: examination of the face, significant bruise on the right side with some tenderness present. LABORATORY DATA: WBC 12.96. INR is 5.1. Troponin is noted. ASSESSMENT: 1. Fall and right maxillary fracture with ecchymosis. 2. Hyponatremia. 3. Troponin elevated to 0.185. Rule out acute non ST myocardial infarction. 4. Coumadin coagulopathy. 5. Increased WBC. 6. History of CAD CABG. 7. History of gastroesophageal reflux disease. 9. Hyperlipidemia. 10.Multiple complex medical issues. RECOMMENDATIONS AND DISCUSSION: This 84-year-old woman presented with multiple complex medical issues. We will monitor the patient closely, symptomatic treatment PT and OT evaluation, possible rehab. Resume the home medications, hold the Coumadin now and monitor closely, follow with Cardiology and multiple consultants. Monitor PT/INR closely. Guarded prognosis. Further recommendations to follow. Discussed with the daughter at the bedside. MMODL / IJN: [id number] / PATRICIA
[2024-11-22] MEDS: HYDROmorphone 0.5 MG/0.5 ML SYRINGE IVP PRN (03:47)
[2024-11-22 08:36] LABS: HCT 35.3 % (37.2-46.3); HGB 11.9 g/dL (12.0-15.0); MCH 31.2 pg (27.0-32.0); MCHC 33.7 g/dL (32.0-37.0); MCV 92.4 fL (80.0-97.0); Platelet Count 103 10*3/uL (140-440); RBC 3.82 10*6/uL (4.10-5.20); RDW 15.0 % (11.5-14.5); WBC 8.05 10*3/uL (4.50-10.00)
[2024-11-22 08:59] LABS: African American GFR (CKD) 58 (>60 ml/min/1.73 sqM); Anion Gap 9 mmol/L; Blood Urea Nitrogen 40 mg/dL (7-17); Calcium 8.6 mg/dL (8.4-10.2); Carbon Dioxide 26 mmol/L (22-30); Chloride 97 mmol/L (98-107); Glucose 114 mg/dL (74-99); Non-African American GFR(CKD) 50 (>60 ml/min/1.73 sqM); Potassium 4.4 mmol/L (3.5-5.1); Sodium 132 mmol/L (137-145)
[2024-11-22 09:38] LABS: Prothrombin Time 50.3 sec (10.0-12.5)
[2024-11-22 09:45] LABS: INR 5.1 (<1.2)
[2024-11-22] MEDS: POTASSIUM CHLORIDE ER 20 MEQ TAB.ER PO SCH (10:04)
[2024-11-22] MEDS: AMIODARONE 200 MG TAB PO SCH (10:09)
[2024-11-22 11:20] LABS: Lymphocytes # (M) 0.40 k/uL (1.0-4.8); Monocytes # (M) 0.24 k/uL (0-1.0); Neutrophils # (M) 7.40 k/uL (1.3-7.7); Neutrophils % (M) 85 %; Total Cells Counted 100
[2024-11-22 11:21] LABS: RBC Morphology Normal
--- NOTE | 2024-11-22 13:14 | P.PN ---
Subjective Progress Note Date: 11/22/24 Reason for Consult (text): Syncope, elevated troponins History of present illness: This is an 84-year-old female patient of Dr. Bruno with past medical history of coronary artery disease with CABG 1 vessel to LAD, bicuspid aortic valve disease status post AVR and then TAVR, valvular heart disease with MR, pulmonary hypertension, TR, permanent atrial fibrillation on Coumadin, hyperlipidemia, hypertension. We have been asked to evaluate the patient for syncope and elevated troponins. Patient states that she had a fall lost her balance and grabbed onto the vacuum switch cleaner. Patient denies loss of consciousness. However, family at the bedside think that she fell and passed out. Patient normally ambulates with a walker. Patient did have episode of A-fib with RVR and has been started on Cardizem bolus of 10 mg followed by a drip at 5 mg/h. Bl ood pressure 98/73, heart rate 88, pulse ox 95% on 2 L nasal cannula. Patient is seen today in the emergency center waiting for a bed on the cardiac stepdown unit. -EKG: Atrial fibrillation 86 bpm -Chest x-ray: Small left pleural effusion. Cardiomegaly with known aortic aneurysm. #2 worsening pulmonary edema with small left pleural effusion. Cardiomegaly with known aortic aneurysm. -CT brain and cervical spine: Depressed right maxillary wall fracture anteriorly with hemorrhagic component seen within the right maxillary sinus. Soft tissue swelling is present. No acute fracture or dislocation of the cervical spine. No acute intracranial hemorrhage, mass effect or midline shift is seen. -CT abdomen pelvis without contrast: Cholelithiasis. Bilateral pleural effusions and soft tissue anasarca may relate to third spacing versus volume overload. Nonspecific bilateral inguinal lymphadenopathy. -Laboratory studies: WBC 12.9, hemoglobin 12.3, INR 3.2, sodium 135, potassium 4.4, BUN 34 creatinine 0.81. Troponins 0.058 and 0.170. proBNP 12,200. -Home cardiac medications: Atorvastatin 20 mg at bedtime, Vasotec 5 mg at bedtime, Lasix 20 mg twice daily, metoprolol succinate 25 mg at bedtime, potassium chloride 20 mill equivalents daily, warfarin 4.5 mg on Mondays and Fridays and 3 mg on the other days. -Cardiac catheterization performed 08/07/2020 revealed occluded LAD. Patent WOMACK to LAD. -CV surgery: 1 vessel CABG WOMACK to LAD, tissue AVR on 12/25/2022. -Echocardiogram performed 08/28/2024 in the office revealed EF 55%, mild left ventricular hypertrophy. Severely dilated left atrium and severely dilated right atrium. Aortic valve prosthetic mechanical dysfunction which is tra nscatheter. Moderate mitral regurgitation. Mild tricuspid regurgitation. PASP 57 mmHg. Mild to moderate pulmonic regurgitation. -Holter monitor/11/2024 revealed atrial fibrillation 100%. 11/22/2024 Patient seen and examined in the cardiac stepdown unit. Patient states she is feeling tired. She appears to be pale this morning. Yesterday, patient was started on amiodarone drip which we will transition to oral. Blood pressure 111/69, heart rate 66, pulse ox 97% on room air. Repeat blood work reveals INR is 5.1. Hemoglobin 11.9, BUN 40 creatinine 1.02. Repeat troponins from yesterday were 0.17 and 0.185. Physical examination: Gen: This is 84-year-old female in no acute distress VS: reviewed HEENT: Head shows ecchymosis on the right side of her face, normocephalic. Pupils equal, round. Sclerae is anicteric. NECK: Supple. No JVD. LUNGS: Clear to auscultation. No wheezes or rhonchi. No intercostal retractions. HEART: Irregular rate and rhythm. Systolic murmur at the right and left upper sternal border. ABDOMEN: Soft No tenderness. EXTREMITIES: No pedal edema. No calf tenderness. NEUROLOGICAL: Patient is awake, alert and oriented. Assessment: Syncope of unclear etiology, rule out cardiac cause Permanent atrial fibrillation with episode of RVR, currently rate controlled Leukocytosis NSTEMI Hypercoagulopathy secondary to Coumadin use Coronary artery disease status post one-vessel CABG to the LAD History of bicuspid aortic valve status post AVR and then TAVR Pulmonary hypertension Hyperlipidemia Hypertension Plan: Continue patient's home cardiac medications Discontinue IV amiodarone and start patient on oral 400 mg twice daily Obtain 2-D echocardiogram and Doppler study to assess cardiac structure and function Continue telemetry monitoring Further recommendations to follow based upon clinical course Nurse practitioner note has been reviewed, I agree with documented findings and plan of care. Patient was seen and examined. Objective - Vital Signs Vital signs: Vital Signs Temp 98.1 F 11/22/24 03:45 Pulse 66 11/22/24 07:48 Resp 16 11/22/24 07:48 BP 111/69 11/22/24 07:48 Pulse Ox 97 11/22/24 07:48 FiO2 Intake & Output 11/21/24 11/22/24 11/22/24 18:59 06:59 18:59 Intake Total 180 Balance 180 Weight 65.5 kg Intake: Oral 180 Other: Voiding Method Diaper External Catheter # Voids 1 1 - Labs CBC & Chem 7: 11/22/24 07:47 11/22/24 07:47 Labs: Abnormal Lab Results - Last 24 Hours (Table) 11/21/24 11/21/24 11/21/24 Range/Units 06:52 08:25 11:18 WBC 12.98 H (4.50-10.00) 10*3/uL RBC 3.90 L (4.10-5.20) 10*6/uL Hct 36.1 L (37.2-46.3) % Plt Count 114 L (140-440) 10*3/uL Immature Gran # 0.09 H (0.00-0.04) 10*3/uL Neutrophils # 12.13 H (1.80-7.70) 10*3/uL Lymphocytes # 0.23 L (0.90-5.00) 10*3/uL Eosinophils # 0.00 L (0.04-0.35) 10*3/uL PT (10.0-12.5) sec INR (<1.2) Troponin I 0.170 H* 0.185 H* (0.000-0.034) ng/mL 11/21/24 Range/Units 11:18 WBC (4.50-10.00) 10*3/uL RBC (4.10-5.20) 10*6/uL Hct (37.2-46.3) % Plt Count (140-440) 10*3/uL Immature Gran # (0.00-0.04) 10*3/uL Neutrophils # (1.80-7.70) 10*3/uL Lymphocytes # (0.90-5.00) 10*3/uL Eosinophils # (0.04-0.35) 10*3/uL PT 50.2 H (10.0-12.5) sec INR 5.1 H* (<1.2) Troponin I (0.000-0.034) ng/mL Microbiology - Last 24 Hours (Table) 11/20/24 19:44 Blood Culture Gram Stain - Preliminary Blood Blood Culture - Preliminary Molecular ID
[2024-11-22] MEDS: WARFARIN 0.5 MG TAB PO ONE (17:31)
--- NOTE | 2024-11-23 07:42 | CA ---
Transthoracic Echo Report Name: Meliza Al Age: 84 Gender: F : 1940 Exam Date: 11/22/2024 14:12 Exam Location: [facility] Ht (in): 64 Wt (lb): 144 Ordering Physician: Jennifer Glaser Attending/Referring Phys: [id number], Jailyn Permit Technician Tala Urbina, ANALY Procedure CPT: Indications: lvf, NSTEMI Cardiac Hx: AV replacements, A-fib, CAD, CVA Technical Quality: Fair Contrast 1: Total Dose (mL): Contrast 2: Total Dose (mL): MEASUREMENTS (Male / Female) Normal Values 2D ECHO LV Diastolic Diameter PLAX 3.7 cm 4.2 - 5.9 / 3.9 - 5.3 cm LV Systolic Diameter PLAX 3.0 cm IVS Diastolic Thickness 1.4 cm 0.6 - 1.0 / 0.6 - 0.9 cm LVPW Diastolic Thickness 1.3 cm 0.6 - 1.0 / 0.6 - 0.9 cm LV Relative Wall Thickness 0.7 RV Internal Dim ED PLAX 2.5 cm LVOT Diameter 1.5 cm Aortic Root Diameter 1.9 cm LA Systolic Diameter LX 4.7 cm 3.0 - 4.0 / 2.7 - 3.8 cm LV Diastolic Volume MOD 4C 68.3 cm??? LV Systolic Volume MOD 4C 37.2 cm??? LV Ejection Fraction MOD 4C 45.5 % LV Diastolic Length 4C 6.6 cm LV Systolic Length 4C 6.1 cm LV Diastolic Volume MOD 2C 69.6 cm??? LV Systolic Volume MOD 2C 35.5 cm??? LV Ejection Fraction MOD 2C 48.9 % LV Diastolic Length 2C 7.0 cm LV Systolic Length 2C 6.1 cm LA Volume 130.1 cm??? 18 - 58 / 22 - 52 cm??? LA Volume Index 75.3 cm???/m??? 16 - 28 cm???/m??? DOPPLER AV Peak Velocity 311.1 cm/s AV Peak Gradient 38.7 mmHg AV Mean Velocity 244.1 cm/s AV Mean Gradient 25.6 mmHg AV Velocity Time Integral 56.6 cm AI Peak Velocity 306.1 cm/s AI Peak Gradient 37.5 mmHg AI Pressure Half Time 459.8 ms MV Peak Velocity 142.3 cm/s MV Peak Gradient 8.1 mmHg MV Mean Velocity 65.6 cm/s MV Mean Gradient 2.2 mmHg MV Velocity Time Integral 34.3 cm MV Area PHT 5.0 cm??? Mitral E Point Velocity 121.4 cm/s Mitral A Point Velocity 40.0 cm/s Mitral E to A Ratio 3.0 MV Deceleration Time 150.4 ms TR Peak Velocity 284.0 cm/s TR Peak Gradient 32.3 mmHg Right Atrial Pressure 20.0 mmHg Pulmonary Artery Systolic Pressu 52.3 mmHg Right Ventricular Systolic Press 52.3 mmHg FINDINGS Left Ventricle Left ventricular ejection fraction is estimated at 40-45 %. Moderate concentric left ventricular hypertrophy. No obvious regional wall motion abnormalities. Left ventricular cavity size normal. Right Ventricle Normal right ventricular size. Reduced right ventricular global systolic function. Moderate pulmonary hypertension. Right Atrium Severe right atrial dilatation. Left Atrium Moderately increased left atrial diameter. Severely increased left atrial volume. Moderately increased left atrial area. Mitral Valve Mitral valve thickened. Mitral annular calcification. No mitral stenosis. Mild mitral regurgitation. Aortic Valve AV repalcement, mean gradient of 26 mmHg, peak gradient of 40 mmHg. Mild aortic regurgitation. Tricuspid Valve Structurally normal tricuspid valve. No tricuspid stenosis. [id number]-hmemtd tricuspid regurgitation. Pulmonic Valve Structurally normal pulmonic valve. No pulmonic stenosis. Trace to mild pulmonic regurgitation. Pericardium No pericardial effusion. Aorta Aortic annulus normal. CONCLUSIONS Moderate LV dysfunction with an ejection fraction of 40 to 45% Moderate pulmonary hypertension Biatrial enlargement RV systolic dysfunction Bioprosthetic valve in aortic position with a mean gradient of 26 mm in the peak gradient of 40 mm across the valve Mild aortic regurgitation Moderate to severe tricuspid regurgitation Previewed by: Dr. Godfrey Whitlock MD (Electronically Signed) Final Date: 23 November 2024 07:41
[2024-11-23 08:14] LABS: Basophils # (A) 0.06 10*3/uL (0.00-0.10); Basophils % (A) 0.7 %; Eosinophils # (A) 0.00 10*3/uL (0.04-0.35); Eosinophils % (A) 0.0 %; HCT 33.7 % (37.2-46.3); HGB 11.6 g/dL (12.0-15.0); Immature Platelet Fraction 5.8 % (1.1-6.1); Lymphocytes # (A) 0.81 10*3/uL (0.90-5.00); Lymphocytes % (A) 9.7 %; MCH 31.5 pg (27.0-32.0); MCHC 34.4 g/dL (32.0-37.0); MCV 91.6 fL (80.0-97.0); Monocytes # (A) 0.24 10*3/uL (0.20-1.00); Monocytes % (A) 2.9 %; Neutrophils # (A) 7.14 10*3/uL (1.80-7.70); Neutrophils % (A) 85.9 %; RBC 3.68 10*6/uL (4.10-5.20); RDW 15.0 % (11.5-14.5); WBC 8.32 10*3/uL (4.50-10.00)
[2024-11-23 08:22] LABS: INR 3.2 (<1.2); Prothrombin Time 32.2 sec (10.0-12.5)
[2024-11-23 08:35] LABS: African American GFR (CKD) 68 (>60 ml/min/1.73 sqM); Anion Gap 10 mmol/L; Blood Urea Nitrogen 34 mg/dL (7-17); Calcium 8.6 mg/dL (8.4-10.2); Carbon Dioxide 24 mmol/L (22-30); Chloride 96 mmol/L (98-107); Glucose 150 mg/dL (74-99); Non-African American GFR(CKD) 59 (>60 ml/min/1.73 sqM); Potassium 4.4 mmol/L (3.5-5.1); Sodium 130 mmol/L (137-145)
--- NOTE | 2024-11-23 09:45 | PN ---
PROGRESS NOTE DATE OF SERVICE: 11/22/2024 SUBJECTIVE: This is an 84-year-old woman, who was admitted with fall and right maxillary fracture that is improving. The patient had mildly elevated PT/INR. No chest pain. No palpitations. OBJECTIVE: VITAL SIGNS: Pulse is 79, blood pressure 100/65, respirations 16. RESPIRATIONS: Clear to auscultation. CARDIOVASCULAR: S1 and S2. ABDOMEN: Soft. SKIN: Right facial contusion present. LABORATORY DATA: Reviewed. ASSESSMENT: 1. Fall and right maxillary fracture with ecchymosis. 2. Hyponatremia. 3. Troponin elevated up to 0.185. Rule out acute rie-UE-khlving-elevation myocardial infarction. 4. Coumadin coagulopathy. 5. Increased WBC. 6. History of coronary artery disease, coronary artery bypass grafting. 7. History of gastroesophageal reflux disease. 8. Hyperlipidemia. 9. Multiple complex medical issues. RECOMMENDATIONS AND DISCUSSION: Recommend to continue current management and continue symptomatic treatment. Repeat labs, follow closely with Cardiology and multiple other consultants. PT/OT evaluation, possible ECF rehab. Guarded prognosis. Further recommendations to follow. MMODL / IJN: [id number] /
[2024-11-23 09:59] LABS: Platelet Count 103 10*3/uL (140-440)
[2024-11-23] MEDS ORDERED: POTASSIUM CHLORIDE ER 20 MEQ TAB.ER PO SCH (10:00)
--- NOTE | 2024-11-23 14:12 | P.PN ---
Subjective Progress Note Date: 11/23/24 Reason for Consult (text): Syncope, elevated troponins History of present illness: This is an 84-year-old female patient of Dr. Bruno with past medical history of coronary artery disease with CABG 1 vessel to LAD, bicuspid aortic valve disease status post AVR and then TAVR, valvular heart disease with MR, pulmonary hypertension, TR, permanent atrial fibrillation on Coumadin, hyperlipidemia, hypertension. We have been asked to evaluate the patient for syncope and elevated troponins. Patient states that she had a fall lost her balance and grabbed onto the vacuum bladder cleaner. Patient denies loss of consciousness. However, family at the bedside think that she fell and passed out. Patient normally ambulates with a walker. Patient did have episode of A-fib with RVR and has been started on Cardizem bolus of 10 mg followed by a drip at 5 mg/h. Blood pressure 98/73, heart rate 88, pulse ox 95% on 2 L nasal cannula. Patient is seen today in the emergency center waiting for a bed on the cardiac stepdown unit. -EKG: Atrial fibrillation 86 bpm -Chest x-ray: Small left pleural effusion. Cardiomegaly with known aortic aneurysm. #2 worsening pulmonary edema with small left pleural effusion. Cardiomegaly with known aortic aneurysm. -CT brain and cervical spine: Depressed right maxillary wall fracture anteriorly with hemorrhagic component seen within the right maxillary sinus. Soft tissue swelling is present. No acute fracture or dislocation of the cervical spine. No acute intracranial hemorrhage, mass effect or midline shift is seen. -CT abdomen pelvis without contrast: Cholelithiasis. Bilateral pleural effusions and soft tissue anasarca may relate to third spacing versus volume overload. Nonspecific bilateral inguinal lymphadenopathy. -Laboratory studies: WBC 12.9, hemoglobin 12.3, INR 3.2, sodium 135, potassium 4.4, BUN 34 creatinine 0.81. Troponins 0.058 and 0.170. proBNP 12,200. -Home cardiac medications: Atorvastatin 20 mg at bedtime, Vasotec 5 mg at bedtime, Lasix 20 mg twice daily, metoprolol succinate 25 mg at bedtime, potassium chloride 20 mill equivalents daily, warfarin 4.5 mg on Mondays and Fridays and 3 mg on the other days. -Cardiac catheterization performed 08/07/2020 revealed occluded LAD. Patent WOMACK to LAD. -CV surgery: 1 vessel CABG WOMACK to LAD, tissue AVR on 12/25/2022. -Echocardiogram performed 08/28/2024 in the office revealed EF 55%, mild left ventricular hypertrophy. Severely dilated left atrium and severely dilated right atrium. Aortic valve prosthetic mechanical dysfunction which is trans catheter. Moderate mitral regurgitation. Mild tricuspid regurgitation. PASP 57 mmHg. Mild to moderate pulmonic regurgitation. -Holter monitor/11/2024 revealed atrial fibrillation 100%. 11/22/2024 Patient seen and examined in the cardiac stepdown unit. Patient states she is feeling tired. She appears to be pale this morning. Yesterday, patient was started on amiodarone drip which we will transition to oral. Blood pressure 111/69, heart rate 66, pulse ox 97% on room air. Repeat blood work reveals INR is 5.1. Hemoglobin 11.9, BUN 40 creatinine 1.02. Repeat troponins from yesterday were 0.17 and 0.185. 11/23/2024 Patient seen and examined. Patient has had some mental status changes that worsened last evening. She is able to answer some simple questions appropriately. Echocardiogram reveals EF of 40 to 45%, moderate pulmonary hypertension, biatrial enlargement, RV systolic dysfunction. Bioprosthetic valve in the aortic position with mean gradient of 26 mm and peak gradient of 40 mm across the valve. Mild aortic regurgitation, moderate to severe tricuspid regurgitation. INR is now 3.2. Pharmacy is dosing Coumadin. Hemoglobin 11.6, sodium 130, potassium 4.4, chloride 96, CO2 24, BUN 34 creatinine 0.89. Physical examination: Gen: This is 84-year-old female in no acute distress VS: reviewed HEENT: Head shows ecchymosis on the right side of her face, normocephalic. Pupil s equal, round. Sclerae is anicteric. NECK: Supple. No JVD. LUNGS: Clear to auscultation. No wheezes or rhonchi. No intercostal retractions. HEART: Irregular rate and rhythm. Systolic murmur at the right and left upper sternal border. ABDOMEN: Soft No tenderness. EXTREMITIES: No pedal edema. No calf tenderness. NEUROLOGICAL: Patient is awake, alert and oriented. Assessment: Syncope of unclear etiology, rule out cardiac cause Permanent atrial fibrillation with episode of RVR, currently rate controlled Leukocytosis NSTEMI Hypercoagulopathy secondary to Coumadin use Coronary artery disease status post one-vessel CABG to the LAD History of bicuspid aortic valve status post AVR and then TAVR Pulmonary hypertension Hyperlipidemia Hypertension Metabolic encephalopathy Plan: Continue patient's home cardiac medications: Atorvastatin, Lasix, Toprol XL Continue amiodarone oral 400 mg twice daily Pharmacy is dosing Coumadin Continue telemetry monitoring Cardiology will sign off this case and follow on an as-needed basis. Please reconsult for any new concerns. Patient may follow-up with Dr. Bruno in the office in one to 2 weeks. Nurse practitioner note has been reviewed, I agree with documented findings and plan of care. Patient was seen and examined. Objective - Vital Signs Vital signs: Vital Signs Temp 98.8 F 11/23/24 03:17 Pulse 109 H 11/23/24 03:17 Resp 17 11/23/24 03:17 BP 107/66 11/23/24 03:17 Pulse Ox 98 11/23/24 03:17 FiO2 Intake & Output 11/22/24 11/23/24 11/23/24 18:59 06:59 18:59 Output Total 200 Balance -200 Output: Urine 200 Other: Voiding Method Diaper External Catheter # Voids 2 1 - Labs CBC & Chem 7: 11/23/24 07:27 11/23/24 07:27 Labs: Abnormal Lab Results - Last 24 Hours (Table) 11/22/24 11/22/24 11/23/24 Range/Units 07:47 07:47 07:27 RBC 3.68 L (4.10-5.20) 10*6/uL Hgb 11.6 L (12.0-15.0) g/dL Hct 33.7 L (37.2-46.3) % Plt Count 103 L (140-440) 10*3/uL Immature Gran # 0.07 H (0.00-0.04) 10*3/uL Lymphocytes # (Manual) 0.40 L (1.0-4.8) k/uL PT 50.3 H (10.0-12.5) sec INR 5.1 H* (<1.2) Sodium (137-145) mmol/L Chloride (98-107) mmol/L BUN (7-17) mg/dL Glucose (74-99) mg/dL 11/23/24 11/23/24 Range/Units 07:27 07:27 RBC (4.10-5.20) 10*6/uL Hgb (12.0-15.0) g/dL Hct (37.2-46.3) % Plt Count (140-440) 10*3/uL Immature Gran # (0.00-0.04) 10*3/uL Lymphocytes # (Manual) (1.0-4.8) k/uL PT 32.2 H (10.0-12.5) sec INR 3.2 H (<1.2) Sodium 130 L (137-145) mmol/L Chloride 96 L (98-107) mmol/L BUN 34 H (7-17) mg/dL Glucose 150 H (74-99) mg/dL Microbiology - Last 24 Hours (Table) 11/20/24 19:44 Blood Culture Gram Stain - Preliminary Blood Blood Culture - Preliminary Beta Hemolytic Strep Group G Molecular ID
--- NOTE | 2024-11-23 17:01 | XR ---
EXAMINATION TYPE: XR Hip Complete LT DATE OF EXAM: 11/23/2024 4:27 PM COMPARISON: None. CLINICAL INDICATION: Female, 84 years old with history of fall/pain, pain TECHNIQUE: XR Hip Complete LT XX views were obtained. FINDINGS: There is no acute fracture/dislocation evident. The joint space appears mildly degenerative narrowin g left hip joint space. The overlying soft tissue appears unremarkable. IMPRESSION: No acute fracture or dislocation. [facility], , 11/23/2024 4:59 PM
[2024-11-23] MEDS: WARFARIN 1.5 MG TAB PO ONE (17:38)
[2024-11-23] MEDS: LACTULOSE 20 GM/30 ML CUP PO SCH (20:24)
--- NOTE | 2024-11-23 23:06 | P.PN ---
Subjective Progress Note Date: 11/23/24 This is a pleasant 84-year-old female who was recently admitted under trauma services status post fall and is noted to have a right maxillary fracture with some significant ecchymosis of the face traveling down to the neck and being followed by multiple consultations. Patient transferred to medicine service as patient continues with significant weakness and is having some altered mentation, multifactorial and likely secondary to hospital delirium. Recommend limiting aggressive narcotics although patient is reporting significant pain. Patient continues to have some expectoration of streaks of blood noted in the spit otherwise no active bleeding noted. Patient is reporting significant hip pain and will obtain some images. Recommend PT/OT therapy daily. Patient's INR is elevated just above 3 although improved from previous. Will follow-up on repeat labs and continue to monitor closely. Plan will be for patient to go to [facility] for continued strength and mobility. Review of systems: Constitutional: No reports of fatigue, fever, or chills Cardiovascular: No reports of chest pain or palpitations Respiratory: No reports of shortness of breath or cough GI: reports of nausea, no reports of vomiting, reports not much of an appetite : No reports of dysuria or retention Neurovascular: reports of generalized weakness, reports significant hip pain All medications have been reviewed PHYSICAL EXAMINATION: GENERAL: The patient is alert and oriented x1, Well developed, elderly appea ring, thin built HEENT: Pupils are round and equally reacting to light. EOMI. no scleral icterus. No conjunctival pallor. Normocephalic, atraumatic. No pharyngeal erythema. No thyromegaly. CARDIOVASCULAR: S1 and S2 muffled PULMONARY: diminished breath sounds bilaterally with no wheezing or rhonchi noted. ABDOMEN: soft. Nontender on exam. Thin non-distended, normoactive bowel sounds. No palpable organomegaly. MUSCULOSKELETAL: No joint swelling or deformity. EXTREMITIES: No cyanosis, clubbing, or pedal edema. NEUROLOGICAL: Gross neurological examination did not reveal any focal deficits. Diffuse weakness SKIN: No rashes. Significant ecchymosis noted of the face extending down into the neck and upper chest area Assessment: Fall and right maxillary fracture with ecchymosis Hyponatremia, improved with gentle hydration Troponin elevated, 0.185, rule out acute NSTEMI Coumadin coagulopathy, trending down and just above 3 today Altered mental status, acute metabolic encephalopathy, multifactorial with possible underlying sinusitis and also a component of hospital-acquired delirium Increased WBC with concerns of possible reactive given trauma and possibly secondary to sinusitis History of previous CVA/TIA Hypertension History of osteoarthritis Hard of hearing History of anxiety History of coronary artery disease with previous CABG History of gastroesophageal reflux disease Hyperlipidemia GI prophylaxis DVT prophylaxis Full code Plan: Recommend to continue with current medications and management with multiple consultations following. Patient has transition to medicine service with ongoing underlying conditions and concerns of possible hospital-acquired delirium versus possible sinus infection or sinusitis with recent facial trauma Encouraged frequent reorientation and family at bedside most of the time with blinds and shades open during the day and will also add Seroquel as needed at night for agitation. Patient appears exhausted and has not slept Recommend limiting IV narcotic use given patient's mentation Case management/social work following including physical therapy and working on discharge planning, likely will be going to ECF. Will repeat basic labs including INR to monitor closely. Due to multiple complex medical issues, overall prognosis is guarded The impression and plan of care has been dictated by Joselin Becerril, nurse practitioner as directed. Dr. Mayank MD I have performed a history and examination and MDM of this patient, discussed the same with the dictator, and agree with the dictator's assessment and plan as written ,documented as a scribe. Based on total visit time, I have performed more than 50% of the visit. Any additional findings or plans will be noted. Objective - Vital Signs Vital signs: Vital Signs Temp 98.5 F 11/23/24 20:15 Pulse 100 11/23/24 20:15 Resp 16 11/23/24 20:15 BP 107/69 11/23/24 20:15 Pulse Ox 96 11/23/24 20:15 FiO2 Intake & Output 11/23/24 11/23/24 11/24/24 06:59 18:59 06:59 Intake Total 680 Output Total 200 Balance 480 Intake: Intake, IV Titration 200 Amount Piperacillin-Tazobactam 3 200 .375 gm In Sodium Chloride 0.9% 100 ml @ 25 mls/hr IVPB Q8H [facility] Rx#: [id number] Oral 480 Output: Urine 200 Other: Voiding Method Diaper Diaper Diaper External Catheter External Catheter External Catheter # Voids 1 - Labs CBC & Chem 7: 11/23/24 07:27 11/23/24 07:27 Labs: Abnormal Lab Results - Last 24 Hours (Table) 11/23/24 11/23/24 11/23/24 Range/Units 07:27 07: 07:27 RBC 3.68 L (4.10-5.20) 10*6/uL Hgb 11.6 L (12.0-15.0) g/dL Hct 33.7 L (37.2-46.3) % Plt Count 103 L (140-440) 10*3/uL Immature Gran # 0.07 H (0.00-0.04) 10*3/uL Lymphocytes # 0.81 L (0.90-5.00) 10*3/uL Eosinophils # 0.00 L (0.04-0.35) 10*3/uL PT 32.2 H (10.0-12.5) sec INR 3.2 H (<1.2) Sodium 130 L (137-145) mmol/L Chloride 96 L (98-107) mmol/L BUN 34 H (7-17) mg/dL Glucose 150 H (74-99) mg/dL Microbiology - Last 24 Hours (Table) 11/20/24 19:44 Blood Culture Gram Stain - Final Blood Blood Culture - Final Beta Hemolytic Strep Group G Molecular ID
[2024-11-23] MEDS: QUEtiapine 25 MG TAB PO SCH (23:59)
[2024-11-24 07:23] LABS: HCT 30.4 % (37.2-46.3); HGB 10.7 g/dL (12.0-15.0); MCH 31.4 pg (27.0-32.0); MCHC 35.2 g/dL (32.0-37.0); MCV 89.1 fL (80.0-97.0); Platelet Count 103 10*3/uL (140-440); RBC 3.41 10*6/uL (4.10-5.20); RDW 15.0 % (11.5-14.5); WBC 7.26 10*3/uL (4.50-10.00)
[2024-11-24 07:31] LABS: INR 2.6 (<1.2); Prothrombin Time 26.2 sec (10.0-12.5)
[2024-11-24 07:49] LABS: Carbon Dioxide 28 mmol/L (22-30); Chloride 95 mmol/L (98-107); Glucose 94 mg/dL (74-99); Potassium 4.1 mmol/L (3.5-5.1); Sodium 130 mmol/L (137-145)
[2024-11-24 07:50] LABS: ALT 84 U/L (4-34); AST 130 U/L (14-36); African American GFR (CKD) 86 (>60 ml/min/1.73 sqM); Albumin 2.9 g/dL (3.5-5.0); Alkaline Phosphatase 219 U/L (38-126); Anion Gap 7 mmol/L; Blood Urea Nitrogen 26 mg/dL (7-17); Calcium 8.2 mg/dL (8.4-10.2); Magnesium 1.8 mg/dL (1.6-2.3); Non-African American GFR(CKD) 74 (>60 ml/min/1.73 sqM); Total Protein 5.7 g/dL (6.3-8.2)
--- NOTE | 2024-11-24 08:03 | XR ---
EXAMINATION TYPE: XR chest 1V portable DATE OF EXAM: 11/24/2024 7:16 AM COMPARISON: Chest radiographs from 11/21/2024 CLINICAL INDICATION: Female, 84 years old with history of shortness of breath; [facility] TECHNIQUE: XR chest 1V portable Frontal view of the chest. FINDINGS: Lungs/Pleura: There is no evidence of pleural effusion, focal consolidation, or pneumothorax. Pulmonary vascularity: Pulmonary vascular congestion. Heart/mediastinum: Cardiomediastinal silhouette is enlarged. Musculoskeletal: No acute osseous pathology. Midline sternotomy wires are noted. Other findings: None IMPRESSION: Cardiomegaly and mild pulmonary vascular congestion. Correlate with BNP for congestive heart failure. [facility], , 11/24/2024 8:00 AM
[2024-11-24 08:27] LABS: Lymphocytes # (M) 1.38 k/uL (1.0-4.8); Monocytes # (M) 0.94 k/uL (0-1.0); Neutrophils # (M) 4.94 k/uL (1.3-7.7); Neutrophils % (M) 68 %; Total Cells Counted 100
[2024-11-24 08:28] LABS: Anisocytosis (M) Present; Poikilocytosis (M) Present
[2024-11-24] MEDS: FOLIC ACID 1 MG TAB PO SCH (09:29)
[2024-11-24] MEDS: THIAMINE 100 MG TAB PO SCH (09:40)
[2024-11-24] MEDS: MULTIVITAMINS, THERA 1 EACH TAB PO SCH (09:40)
[2024-11-24] MEDS ORDERED: ALPRAZolam 0.25 MG TAB PO PRN (09:53)
[2024-11-24] MEDS: VIT A,C & E-LUTEIN-MINERALS 1 EACH TAB PO SCH (10:18)
[2024-11-24] MEDS: CHOLECALCIFEROL 25 MCG (1000 IU) TABLET PO SCH (10:18)
--- NOTE | 2024-11-24 11:26 | US ---
EXAMINATION TYPE: US venous doppler duplex LE LT DATE OF EXAM: 11/24/2024 9:54 AM COMPARISON: NONE CLINICAL INDICATION: Female, 84 years old with history of left leg hip pain; Recent fall. On blood t hinners. No redness or swelling., Pain TECHNIQUE: The lower extremity deep venous system is examined utilizing real time linear array sonog amanda with graded compression, color doppler sonography, and spectral doppler. SIDE PERFORMED: Left FINDINGS: VESSELS IMAGED: Common Femoral Vein Deep Femoral Vein Greater Saphenous Vein * Femoral Vein Popliteal Vein Small Saphenous Vein * Proximal Calf Veins (* superficial vessels) Left Leg: Negative for DVT, Color Doppler imaging shows patency of the vessels. Spectral waveforms a re within normal limits. IMPRESSION: No ultrasound evidence for deep venous thrombosis. [facility], , 11/24/2024 11:23 AM
[2024-11-24] MEDS: GABAPENTIN 100 MG CAP PO STA (12:57)
--- NOTE | 2024-11-24 14:06 | P.PN ---
Subjective Progress Note Date: 11/24/24 This is a pleasant 84-year-old female who was recently admitted under trauma services status post fall and is noted to have a right maxillary fracture with some significant ecchymosis of the face traveling down to the neck and being followed by multiple consultations. Patient transferred to medicine service as patient continues with significant weakness and is having some altered mentation, multifactorial and likely secondary to hospital delirium. Recommend limiting aggressive narcotics although patient is reporting significant pain. Patient continues to have some expectoration of streaks of blood noted in the spit otherwise no active bleeding noted. Patient is reporting significant hip pain and will obtain some images. Recommend PT/OT therapy daily. Patient's INR is elevated just above 3 although improved from previous. Will follow-up on repeat labs and continue to monitor closely. Plan will be for patient to go to ECF for continued strength and mobility. 11/24/2024 Patient is seen in follow-up today mentation is somewhat improved and would recommend frequent reorientation during the day and adjusting pain medications and trying to limit IV narcotic use. Patient to continue with Seroquel at night and continued PT/OT therapy. Plan will be for patient to go to ECF on discharge for continued strength and mobility. Patient is having significant left hip pain and leg pain we will obtain a Doppler and also adjust medications accordingly. Patient is currently afebrile is tolerating diet although not much of an appetite noted. Continue with bowel regimen scheduled as well as as needed Review of systems: Constitutional: No reports of fatigue, fever, or chills Cardiovascular: No reports of chest pain or palpitations Respiratory: No reports of shortness of breath or cough GI: reports of nausea, no reports of vomiting, reports not much of an appetite : No reports of dysuria or retention Neurovascular: reports of generalized weakness, reports significant hip pain All medications have been reviewed PHYSICAL EXAMINATION: GENERAL: The patient is alert and oriented x1-2, Well developed, elderly appearing, thin built HEENT: Pupils are round and equally reacting to light. EOMI. no scleral icterus. No conjunctival pallor. Normocephalic, atraumatic. No pharyngeal erythema. No thyromegaly. CARDIOVASCULAR: S1 and S2 muffled PULMONARY: diminished breath sounds bilaterally with no wheezing or rhonchi noted. ABDOMEN: soft. Nontender on exam. Thin non-distended, normoactive bowel sounds. No palpable organomegaly. MUSCULOSKELETAL: No joint swelling or deformity. EXTREMITIES: No cyanosis, clubbing, or pedal edema. Extreme left hip pain on palpation NEUROLOGICAL: Gross neurological examination did not reveal any focal deficits. Diffuse weakness SKIN: No rashes. Significant ecchymosis noted of the face extending down into the neck and upper chest area Assessment: Fall and right maxillary fracture with ecchymosis Hyponatremia, improved with gentle hydration Troponin elevated, 0.185, ruled out acute NSTEMI per cardiology Coumadin coagulopathy, trending down and just above 3 today Altered mental status, acute metabolic encephalopathy, multifactorial with possible underlying sinusitis and also a component of hospital-acquired delirium Increased WBC with concerns of possible reactive given trauma and possibly secondary to sinusitis History of previous CVA/TIA Hypertension History of osteoarthritis Hard of hearing History of anxiety History of coronary artery disease with previous CABG History of gastroesophageal reflux disease Hyperlipidemia GI prophylaxis DVT prophylaxis Full code Plan: Recommend to continue with current medications and management with multiple consultations following. Patient has transition to medicine service with ongoing underlying conditions and concerns of possible hospital-acquired delirium versus possible sinus infection or sinusitis with recent facial trauma Encouraged frequent reorientation and family at bedside most of the time with blinds and shades open during the day and will also add Seroquel as needed at night for agitation. Mentation somewhat improved today Recommend limiting IV narcotic use given patient's mentation. Will add low-dose [place] as needed and recommend alternating and avoiding IV Dilaudid if possible Patient having extreme left hip and leg pain, will obtain a Doppler and also add lidocaine patches Case management/social work following including physical therapy and working on discharge planning, likely will be going to [facility] or [facility] pending acceptance and also insurance authorization Will repeat basic labs including INR to monitor closely. Due to multiple complex medical issues, overall prognosis is guarded The impression and plan of care has been dictated by Joselin Becerril, nurse practitioner as directed. Dr. Mayank MD I have performed a history and examination and MDM of this patient, discussed the same with the dictator, and agree with the dictator's assessment and plan as written ,documented as a scribe. Based on total visit time, I have performed more than 50% of the visit. Any additional findings or plans will be noted. Objective - Vital Signs Vital signs: Vital Signs Temp 98.3 F 11/24/24 12:54 Pulse 110 H 11/24/24 12:54 Resp 22 11/24/24 12:54 BP 121/69 11/24/24 12:54 Pulse Ox 98 11/24/24 12:54 FiO2 Intake & Output 11/23/24 11/24/24 11/24/24 18:59 06:59 18:59 Intake Total 680 Output Total 200 Balance 480 Weight 57 kg Intake: Intake, IV Titration 200 Amount Piperacillin-Tazobactam 3 200 .375 gm In Sodium Chloride 0.9% 100 ml @ 25 mls/hr IVPB Q8H [facility] Rx#: [id number] Oral 480 Output: Urine 200 Other: Voiding Method Diaper Diaper Diaper External Catheter External Catheter External Catheter # Voids 1 - Labs CBC & Chem 7: 11/24/24 06:21 11/24/24 06:21 Labs: Abnormal Lab Results - Last 24 Hours (Table) 11/24/24 11/24/24 11/24/24 Range/Units 06:21 06:21 06:21 RBC 3.41 L (4.10-5.20) 10*6/uL Hgb 10.7 L (12.0-15.0) g/dL Hct 30.4 L (37.2-46.3) % Plt Count 103 L (140-440) 10*3/uL Immature Gran # 0.11 H (0.00-0.04) 10*3/uL PT 26.2 H (10.0-12.5) sec INR 2.6 H (<1.2) Sodium 130 L (137-145) mmol/L Chloride 95 L (98-107) mmol/L BUN 26 H (7-17) mg/dL Calcium 8.2 L (8.4-10.2) mg/dL Total Bilirubin 3.4 H (0.2-1.3) mg/dL AST 130 H (14-36) U/L ALT 84 H (4-34) U/L Alkaline Phosphatase 219 H (38-126) U/L Total Protein 5.7 L (6.3-8.2) g/dL Albumin 2.9 L (3.5-5.0) g/dL Microbiology - Last 24 Hours (Table) 11/20/24 19:44 Blood Culture Gram Stain - Final Blood Blood Culture - Final Beta Hemolytic Strep Group G Molecular ID
[2024-11-24] MEDS: LIDOCAINE 4% PATCH TOPICAL SCH (14:24)
[2024-11-24] MEDS: HYDROcodone/APAP 5-325MG 1 EACH TAB PO PRN (16:45)
[2024-11-24] MEDS: WARFARIN 2 MG TAB PO ONE (17:14)
[2024-11-24] MEDS ORDERED: WARFARIN 3 MG TAB PO SCH (18:00)
[2024-11-24] MEDS: GABAPENTIN 300 MG CAP PO SCH (20:23)
[2024-11-25 07:21] LABS: HCT 31.7 % (37.2-46.3); HGB 10.9 g/dL (12.0-15.0); Immature Platelet Fraction 4.5 % (1.1-6.1); MCH 30.8 pg (27.0-32.0); MCHC 34.4 g/dL (32.0-37.0); MCV 89.5 fL (80.0-97.0); Platelet Count 117 10*3/uL (140-440); RBC 3.54 10*6/uL (4.10-5.20); RDW 15.2 % (11.5-14.5); WBC 8.04 10*3/uL (4.50-10.00)
[2024-11-25 07:49] LABS: ALT 97 U/L (4-34); AST 129 U/L (14-36); African American GFR (CKD) 84 (>60 ml/min/1.73 sqM); Albumin 3.1 g/dL (3.5-5.0); Alkaline Phosphatase 294 U/L (38-126); Anion Gap 11 mmol/L; Blood Urea Nitrogen 22 mg/dL (7-17); Calcium 8.2 mg/dL (8.4-10.2); Carbon Dioxide 26 mmol/L (22-30); Chloride 94 mmol/L (98-107); Glucose 93 mg/dL (74-99); INR 3.6 (<1.2); Non-African American GFR(CKD) 73 (>60 ml/min/1.73 sqM); Potassium 3.9 mmol/L (3.5-5.1); Prothrombin Time 35.4 sec (10.0-12.5); Sodium 131 mmol/L (137-145); Total Protein 6.0 g/dL (6.3-8.2)
[2024-11-25] MEDS: PARoxetine 10 MG TAB PO SCH (09:05)
--- NOTE | 2024-11-25 10:04 | P.PN ---
Subjective Progress Note Date: 11/25/24 Principal diagnosis: Elevated liver enzymes 84-year-old female known to our service. She was initially admitted to our service after a traumatic fall at home. She was then transferred to the medical service. We had signed off a few days ago. We were reconsulted today because of elevated liver enzymes. Patient with known history of gallstones. Seen on recent CAT scan. No history of previous liver disease or gallbladder disease. No significant drinking history. On admission bilirubin was 1.7 and AST was 79. Today her bilirubin is 2.4, alkaline phosphatase 294, AST and ALT are 129 and 97. Denies abdominal pain. No nausea or vomiting. Feels weak. Complaining of some left hip pain. Objective - Vital Signs Vital signs: Vital Signs Temp 98.5 F 11/25/24 09:00 Pulse 74 11/25/24 09:00 Resp 16 11/25/24 09:00 BP 116/71 11/25/24 09:00 Pulse Ox 94 L 11/25/24 09:00 FiO2 Intake & Output 11/24/24 11/25/24 11/25/24 18:59 06:59 18:59 Intake Total 240 Output Total 300 600 Balance -300 -600 240 Weight 57 kg Intake: Oral 240 Output: Urine 300 600 Other: Voiding Method Diaper Diaper External Catheter External Catheter - Exam Abdomen: Soft, nontender, nondistended - Labs CBC & Chem 7: 11/25/24 06:19 11/25/24 06:19 Labs: Abnormal Lab Results - Last 24 Hours (Table) 11/25/24 11/25/24 11/25/24 Range/Units 06:19 06:19 06:19 RBC 3.54 L (4.10-5.20) 10*6/uL Hgb 10.9 L (12.0-15.0) g/dL Hct 31.7 L (37.2-46.3) % Plt Count 117 L (140-440) 10*3/uL Immature Gran # 0.20 H (0.00-0.04) 10*3/uL PT 35.4 H (10.0-12.5) sec INR 3.6 H (<1.2) Sodium 131 L (137-145) mmol/L Chloride 94 L (98-107) mmol/L BUN 22 H (7-17) mg/dL Calcium 8.2 L (8.4-10.2) mg/dL Total Bilirubin 2.4 H (0.2-1.3) mg/dL AST 129 H (14-36) U/L ALT 97 H (4-34) U/L Alkaline Phosphatase 294 H (38-126) U/L Total Protein 6.0 L (6.3-8.2) g/dL Albumin 3.1 L (3.5-5.0) g/dL Assessment and Plan (1) Transaminitis Narrative/Plan: 84-year-old female with gallstones and recent elevated liver enzymes. Will order ultrasound gallbladder and liver. Highly doubt choledocholithiasis or cholecystitis contributing to the elevated liver enzymes. This is more likely medication or cholestasis related. Will follow. Current Visit: Yes Status: Acute Code(s): R74.01 - ELEVATION OF LEVELS OF LIVER TRANSAMINASE LEVELS SNOMED Code(s): 124197720
[2024-11-25 10:31] LABS: Eosinophils # (M) 0.08 k/uL (0-0.7); Lymphocytes # (M) 1.37 k/uL (1.0-4.8); Metamyelocytes # (M) 0.08 k/uL (0); Monocytes # (M) 0.40 k/uL (0-1.0); Myelocytes # (M) 0.08 k/uL (0); Neutrophils # (M) 6.03 k/uL (1.3-7.7); Neutrophils % (M) 75 %; Total Cells Counted 100
[2024-11-25 11:53] LABS: Basophils # (A) 0.06 10*3/uL (0.00-0.10); Basophils % (A) 0.7 %; Eosinophils # (A) 0.05 10*3/uL (0.04-0.35); Eosinophils % (A) 0.6 %; Lymphocytes # (A) 1.22 10*3/uL (0.90-5.00); Lymphocytes % (A) 15.2 %; Monocytes # (A) 0.78 10*3/uL (0.20-1.00); Monocytes % (A) 9.7 %; Neutrophils # (A) 5.73 10*3/uL (1.80-7.70); Neutrophils % (A) 71.3 %
[2024-11-25] MEDS: WARFARIN 0.5 MG TAB PO ONE (12:14)
--- NOTE | 2024-11-25 16:34 | P.PN ---
Subjective Progress Note Date: 11/25/24 This is a pleasant 84-year-old female who was recently admitted under trauma services status post fall and is noted to have a right maxillary fracture with some significant ecchymosis of the face traveling down to the neck and being followed by multiple consultations. Patient transferred to medicine service as patient continues with significant weakness and is having some altered mentation, multifactorial and likely secondary to hospital delirium. Recommend limiting aggressive narcotics although patient is reporting significant pain. Patient continues to have some expectoration of streaks of blood noted in the spit otherwise no active bleeding noted. Patient is reporting significant hip pain and will obtain some images. Recommend PT/OT therapy daily. Patient's INR is elevated just above 3 although improved from previous. Will follow-up on repeat labs and continue to monitor closely. Plan will be for patient to go to ECF for continued strength and mobility. 11/24/2024 Patient is seen in follow-up today mentation is somewhat improved and would recommend frequent reorientation during the day and adjusting pain medications and trying to limit IV narcotic use. Patient to continue with Seroquel at night and continued PT/OT therapy. Plan will be for patient to go to ECF on discharge for continued strength and mobility. Patient is having significant left hip pain and leg pain we will obtain a Doppler and also adjust medications accordingly. Patient is currently afebrile is tolerating diet although not much of an appetite noted. Continue with bowel regimen scheduled as well as as needed 11/25/2024 Patient is evaluated in follow-up on the medical floor. She is awake alert x 1. Family at the bedside. She is sitting up at the bedside eating appears quite fatigued though. She continues to report significant left hip and leg pain. Doppler was negative for any findings for acute DVT. LFTs remain elevated and chest x-ray does reveal some vascular congestion. Patient has been continued on her home dose of oral Lasix twice daily. Also continues on IV Zosyn. A gallbla dder ultrasound was ordered and is currently pending for tomorrow morning. Warfarin remains on hold as patient's INR today was elevated at 3.6. Procalcitonin level is significantly elevated at 2.62. Patient has been afebrile. She is currently on room air oxygen saturations at 97%. Review of systems: Constitutional: No reports of fatigue, fever, or chills Cardiovascular: No reports of chest pain or palpitations Respiratory: No reports of shortness of breath or cough GI: reports of nausea, no reports of vomiting, reports not much of an appetite : No reports of dysuria or retention Neurovascular: reports of generalized weakness, reports significant hip pain All medications have been reviewed PHYSICAL EXAMINATION: GENERAL: The patient is alert and oriented x1-2, Well developed, elderly appearing, thin built HEENT: Pupils are round and equally reacting to light. EOMI. no scleral icterus. No conjunctival pallor. Normocephalic, atraumatic. No pharyngeal erythema. No thyromegaly. CARDIOVASCULAR: S1 and S2 muffled PULMONARY: diminished breath sounds bilaterally with no wheezing or rhonchi noted. ABDOMEN: soft. Nontender on exam. Thin non-distended, normoactive bowel s ounds. No palpable organomegaly. MUSCULOSKELETAL: No joint swelling or deformity. EXTREMITIES: No cyanosis, clubbing, or pedal edema. Extreme left hip pain on palpation NEUROLOGICAL: Gross neurological examination did not reveal any focal deficits. Diffuse weakness SKIN: No rashes. Significant ecchymosis noted of the face extending down into the neck and upper chest area Assessment: Fall and right maxillary fracture with ecchymosis Hyponatremia, improved with gentle hydration Troponin elevated, 0.185, ruled out acute NSTEMI per cardiology Coumadin coagulopathy, trending down and just above 3 today Altered mental status, acute metabolic encephalopathy, multifactorial with possible underlying sinusitis and also a component of hospital-acquired delirium Increased WBC with concerns of possible reactive given trauma and possibly secondary to sinusitis History of previous CVA/TIA Atrial fibrillation, permanent Hypertension History of osteoarthritis Hard of hearing History of anxiety History of coronary artery disease with previous CABG history of bicuspid aortic valve status post AVR and then TAVR History of gastroesophageal reflux disease Hyperlipidemia GI prophylaxis DVT prophylaxis Full code Plan: Patient has transition to medicine service with ongoing underlying conditions and concerns of possible hospital-acquired delirium versus possible sinus infection or sinusitis with recent facial trauma Encouraged frequent reorientation and family at bedside most of the time with blinds and shades open during the day and will also add Seroquel as needed at night for agitation. Mentation somewhat improved Recommend limiting IV narcotic use given patient's mentation. Will add low-dose [place] as needed and recommend alternating and avoiding IV Dilaudid if possible Patient having extreme left hip and leg pain, Continue with norco and lidocaine patches Check gallbladder ultrasound, repeat UA Continue IV zosyn; procalcitonin elevated Case management/social work following including physical therapy and working on discharge planning, likely will be going to [facility] pending acceptance and also insurance authorization Check INR daily, pharmacy to dose coumadin CBC/BMP in the AM The impression and plan of care has been dictated by Shelley Brown, Nurse Prac titioner as directed. Dr. Breanne MD I have performed a history and physical examination and medical decision making of this patient, discussed the same with the dictator, and agree with the dictators assessment and plan as written, documented as a scribe. Based on total visit time, I have performed more than 50% of this visit. Objective - Vital Signs Vital signs: Vital Signs Temp 97.4 F L 11/25/24 03:05 Pulse 96 11/25/24 03:05 Resp 16 11/25/24 03:05 BP 105/62 11/25/24 03:05 Pulse Ox 93 L 11/25/24 03:05 FiO2 Intake & Output 11/24/24 11/25/24 11/25/24 18:59 06:59 18:59 Intake Total 240 Output Total 300 600 Balance -300 -600 240 Weight 57 kg Intake: Oral 240 Output: Urine 300 600 Other: Voiding Method Diaper Diaper External Catheter External Catheter - Labs CBC & Chem 7: 11/25/24 06:19 11/25/24 06:19 Labs: Abnormal Lab Results - Last 24 Hours (Table) 11/25/24 11/25/24 11/25/24 Range/Units 06:19 06:19 06:19 RBC 3.54 L (4.10-5.20) 10*6/uL Hgb 10.9 L (12.0-15.0) g/dL Hct 31.7 L (37.2-46.3) % Plt Count 117 L (140-440) 10*3/uL Immature Gran # 0.20 H (0.00-0.04) 10*3/uL PT 35.4 H (10.0-12.5) sec INR 3.6 H (<1.2) Sodium 131 L (137-145) mmol/L Chloride 94 L (98-107) mmol/L BUN 22 H (7-17) mg/dL Calcium 8.2 L (8.4-10.2) mg/dL Total Bilirubin 2.4 H (0.2-1.3) mg/dL AST 129 H (14-36) U/L ALT 97 H (4-34) U/L Alkaline Phosphatase 294 H (38-126) U/L Total Protein 6.0 L (6.3-8.2) g/dL Albumin 3.1 L (3.5-5.0) g/dL Assessment and Plan Time with Patient: Less than 30
[2024-11-25] MEDS: HYDROmorphone 1 MG/ML 1 ML SYRINGE IVP STA (22:18)
[2024-11-25] MEDS: MAG HYDROX/AL HYDROX/SIMETH 30 ML CUP PO PRN (22:29)
[2024-11-26 02:27] LABS: Bilirubin,Urine Negative (Negative); Blood,Urine Negative (Negative); Color,Urine Yellow; Glucose,Urine (UA) Negative (Negative); Ketones,Urine Negative (Negative); Leukocyte Esterase,Urine Negative (Negative); Nitrite,Urine Negative (Negative); PH, Urine 5.5 (5.0-8.0); Protein,Urine Negative (Negative); Specific Gravity,Urine 1.018 (1.001-1.035); Urobilinogen,Urine 2.0 mg/dL (<2.0)
[2024-11-26 07:40] LABS: Basophils # (A) 0.10 10*3/uL (0.00-0.10); Basophils % (A) 0.8 %; Eosinophils # (A) 0.03 10*3/uL (0.04-0.35); Eosinophils % (A) 0.2 %; HCT 34.1 % (37.2-46.3); HGB 11.8 g/dL (12.0-15.0); Lymphocytes # (A) 1.09 10*3/uL (0.90-5.00); Lymphocytes % (A) 8.7 %; MCH 31.0 pg (27.0-32.0); MCHC 34.6 g/dL (32.0-37.0); MCV 89.5 fL (80.0-97.0); Monocytes # (A) 0.75 10*3/uL (0.20-1.00); Monocytes % (A) 6.0 %; Neutrophils # (A) 10.17 10*3/uL (1.80-7.70); Neutrophils % (A) 81.1 %; RBC 3.81 10*6/uL (4.10-5.20); RDW 15.0 % (11.5-14.5); WBC 12.54 10*3/uL (4.50-10.00)
[2024-11-26 07:51] LABS: Platelet Count 189 10*3/uL (140-440)
[2024-11-26 07:54] LABS: INR 3.7 (<1.2); Prothrombin Time 36.7 sec (10.0-12.5)
[2024-11-26 07:57] LABS: African American GFR (CKD) 84 (>60 ml/min/1.73 sqM); Anion Gap 9 mmol/L; Blood Urea Nitrogen 19 mg/dL (7-17); Calcium 8.3 mg/dL (8.4-10.2); Carbon Dioxide 27 mmol/L (22-30); Chloride 95 mmol/L (98-107); Glucose 116 mg/dL (74-99); Magnesium 1.9 mg/dL (1.6-2.3); Non-African American GFR(CKD) 73 (>60 ml/min/1.73 sqM); Potassium 3.6 mmol/L (3.5-5.1); Sodium 131 mmol/L (137-145)
--- NOTE | 2024-11-26 10:24 | P.PN ---
Subjective Progress Note Date: 11/26/24 Principal diagnosis: Elevated liver enzymes Patient sitting up at the side of the bed. Still complaining of left-sided back and hip pain. Does not appear comfortable. Had a small bowel movement this morning and had a few looser stools yesterday. Denies nausea or vomiting. Morgan king states that at home she would occasionally get an upset stomach. Morning LFTs are pending. Ultrasound pending as well. Today she is complaining of abdominal pain as well. Says she feels bloated. Has a difficult time explaining her symptoms. Pain is both sides of the abdomen. Mildly tach ycardic. White blood cell count mildly elevated. Objective - Vital Signs Vital signs: Vital Signs Temp 98.7 F 11/26/24 08:00 Pulse 89 11/26/24 08:00 Resp 16 11/26/24 08:00 BP 133/72 11/26/24 08:00 Pulse Ox 96 11/26/24 08:00 FiO2 Intake & Output 11/25/24 11/26/24 11/26/24 18:59 06:59 18:59 Intake Total 360 40 100 Output Total 450 200 Balance -90 -160 100 Weight 55 kg Intake: IV 40 Invasive Line 1 20 Invasive Line 3 20 Oral 360 100 Output: Urine 450 200 Other: Voiding Method Diaper Diaper External Catheter External Catheter # Bowel Movements 1 1 - Exam Abdomen: Soft, mild to moderate distention, mild diffuse tenderness - Labs CBC & Chem 7: 11/26/24 07:19 11/26/24 07:19 Labs: Abnormal Lab Results - Last 24 Hours (Table) 11/25/24 11/25/24 11/26/24 Range/Units 06:15 06:19 07:19 WBC (4.50-10.00) 10*3/uL RBC (4.10-5.20) 10*6/uL Hgb (12.0-15.0) g/dL Hct (37.2-46.3) % Immature Gran # (0.00-0.04) 10*3/uL Neutrophils # (1.80-7.70) 10*3/uL Eosinophils # (0.04-0.35) 10*3/uL Metamyelocytes # (Man) 0.08 H (0) k/uL Myelocytes # (Manual) 0.08 H (0) k/uL PT 36.7 H (10.0-12.5) sec INR 3.7 H (<1.2) Sodium (137-145) mmol/L Chloride (98-107) mmol/L BUN (7-17) mg/dL Glucose (74-99) mg/dL Calcium (8.4-10.2) mg/dL Procalcitonin 2.62 H (0.02-0.50) ng/mL 11/26/24 11/26/24 Range/Units 07:19 07:19 WBC 12.54 H (4.50-10.00) 10*3/uL RBC 3.81 L (4.10-5.20) 10*6/uL Hgb 11.8 L (12.0-15.0) g/dL Hct 34.1 L (37.2-46.3) % Immature Gran # 0.40 H (0.00-0.04) 10*3/uL Neutrophils # 10.17 H (1.80-7.70) 10*3/uL Eosinophils # 0.03 L (0.04-0.35) 10*3/uL Metamyelocytes # (Man) (0) k/uL Myelocytes # (Manual) (0) k/uL PT (10.0-12.5) sec INR (<1.2) Sodium 131 L (137-145) mmol/L Chloride 95 L (98-107) mmol/L BUN 19 H (7-17) mg/dL Glucose 116 H (74-99) mg/dL Calcium 8.3 L (8.4-10.2) mg/dL Procalcitonin (0.02-0.50) ng/mL Assessment and Plan (1) Transaminitis Narrative/Plan: Patient with recent findings of elevated liver enzymes and history of known gallstones. Today the patient is having pain and distention. Will keep n.p.o. for now. Check two-view abdominal x-ray. Await ultrasound gallbladder. Will consult orthopedics given the ongoing complaints of pain left hip and back. Current Visit: Yes Status: Acute Code(s): R74.01 - ELEVATION OF LEVELS OF L IVER TRANSAMINASE LEVELS SNOMED Code(s): 005521004
[2024-11-26 10:30] LABS: ALT 89.0 U/L (4-34); AST 95.0 U/L (14-36); Alkaline Phosphatase 348.0 U/L (38-126)
--- NOTE | 2024-11-26 11:15 | XR ---
EXAMINATION TYPE: XR abdomen 2V DATE OF EXAM: 11/26/2024 11:06 AM COMPARISON: 02/23/2012 CLINICAL INDICATION: Female, 84 years old with history of Abdominal bloating and pain; [facility] TECHNIQUE: Two views of the abdomen were obtained. FINDINGS: Sternotomy wires present. Scoliosis changes spine. Gaseous dilation of the colon. The ehsan l gas pattern is nonspecific without dilated loops of small or large bowel. . Fecal material and gas are demonstrated throughout the colon and rectum. There is no evidence for organomegaly or pneumoperi toneum. No acute osseous process. No abnormal calcifications are present. IMPRESSION: Nonspecific gaseous dilation of the colon bowel gas pattern without radiographic evidence for acute p rocess. [facility], , 11/26/2024 11:13 AM
--- NOTE | 2024-11-26 14:10 | P.PN ---
Subjective Progress Note Date: 11/26/24 This is a pleasant 84-year-old female who was recently admitted under trauma services status post fall and is noted to have a right maxillary fracture with some significant ecchymosis of the face traveling down to the neck and being followed by multiple consultations. Patient transferred to medicine service as patient continues with significant weakness and is having some altered mentation, multifactorial and likely secondary to hospital delirium. Recommend limiting aggressive narcotics although patient is reporting significant pain. Patient continues to have some expectoration of streaks of blood noted in the spit otherwise no active bleeding noted. Patient is reporting significant hip pain and will obtain some images. Recommend PT/OT therapy daily. Patient's INR is elevated just above 3 although improved from previous. Will follow-up on repeat labs and continue to monitor closely. Plan will be for patient to go to ECF for continued strength and mobility. 11/24/2024 Patient is seen in follow-up today mentation is somewhat improved and would recommend frequent reorientation during the day and adjusting pain medications and trying to limit IV narcotic use. Patient to continue with Seroquel at night and continued PT/OT therapy. Plan will be for patient to go to ECF on discharge for continued strength and mobility. Patient is having significant left hip pain and leg pain we will obtain a Doppler and also adjust medications accordingly. Patient is currently afebrile is tolerating diet although not much of an appetite noted. Continue with bowel regimen scheduled as well as as needed 11/25/2024 Patient is evaluated in follow-up on the medical floor. She is awake alert x 1. Family at the bedside. She is sitting up at the bedside eating appears quite fatigued though. She continues to report significant left hip and leg pain. Doppler was negative for any findings for acute DVT. LFTs remain elevated and chest x-ray does reveal some vascular congestion. Patient has been continued on her home dose of oral Lasix twice daily. Also continues on IV Zosyn. A gallbla dder ultrasound was ordered and is currently pending for tomorrow morning. Warfarin remains on hold as patient's INR today was elevated at 3.6. Procalcitonin level is significantly elevated at 2.62. Patient has been afebrile. She is currently on room air oxygen saturations at 97%. 11/26/2024 Patient evaluated in follow-up with the medical floor. Patient continues on IV Zosyn. Currently pending gallbladder ultrasound which will be completed later this afternoon as patient had breakfast. Her abdomen is distended today and firm with concern for possible ileus. Patient did have a loose BM yesterday. Abdominal xray completed reveals nonspecific gaseous dilation of the colon bowel gas pattern without radiographic evidence or acute process. White blood cell count of 12.54, hemoglobin 11.8, sodium of 131, BUN of 19 creatinine of 0.75, magnesium 1.9. Her INR today is 3.7. Review of systems: Constitutional: No reports of fatigue, fever, or chills Cardiovascular: No reports of chest pain or palpitations Respiratory: No reports of shortness of breath or cough GI: reports of nausea, no reports of vomiting, reports not much of an appetite. reports abdominal distention. : No reports of dysuria or retention Neurovascular: reports of generalized weakness, reports significant hip pain All medications have been reviewed PHYSICAL EXAMINATION: GENERAL: The patient is alert and oriented x1-2, Well developed, elderly appearing, thin built HEENT: Pupils are round and equally reacting to light. EOMI. no scleral icterus. No conjunctival pallor. Normocephalic, atraumatic. No pharyngeal erythema. No thyromegaly. CARDIOVASCULAR: S1 and S2 muffled PULMONARY: diminished breath sounds bilaterally with no wheezing or rhonchi noted. ABDOMEN: Dull. Nontender on exam. Distented and hypoactive bowel sounds. No palpable organomegaly. MUSCULOSKELETAL: No joint swelling or deformity. EXTREMITIES: No cyanosis, clubbing, or pedal edema. Extreme left hip pain on palpation NEUROLOGICAL: Gross neurological examination did not reveal any focal deficits. Diffuse weakness SKIN: No rashes. Significant ecchymosis noted of the face extending down into the neck and upper chest area Assessment: Fall and right maxillary fracture with ecchymosis Hyponatremia Troponin elevated, 0.185, ruled out acute NSTEMI per cardiology Coumadin coagulopathy, INR 3.7 today Altered mental status, acute metabolic encephalopathy, multifactorial with possible underlying sinusitis and also a component of hospital-acquired delirium Increased WBC with concerns of possible reactive given trauma and possibly secondary to sinusitis; improved. Transaminitis under investigation Constipation and abdominal distention History of previous CVA/TIA Atrial fibrillation, permanent Hypertension History of osteoarthritis Hard of hearing History of anxiety History of coronary artery disease with previous CABG history of bicuspid aortic valve status post AVR and then TAVR History of gastroesophageal reflux disease Hyperlipidemia GI prophylaxis DVT prophylaxis Full code Plan: Patient has transition to medicine service with ongoing underlying conditions and concerns of possible hospital-acquired delirium versus possible sinus infection or sinusitis with recent facial trauma Encouraged frequent reorientation and family at bedside most of the time with blinds and shades open during the day and will also add Seroquel as needed at night for agitation. Mentation somewhat improved Recommend limiting IV narcotic use given patient's mentation. Will add low-dose [place] as needed and recommend alternating and avoiding IV Dilaudid if possible Patient having extreme left hip and leg pain, Continue with norco and lidocaine patches Check gallbladder ultrasound which is currently pending Abdominal ultrasound reviewed and will add dulcolax suppository and continue lactulose twice daily Bladder scan to rule out urinary retention Continue off IV fluids at this time and patient remains on oral lasix twice daily. Continue IV zosyn; procalcitonin elevated Case management/social work following including physical therapy and working on discharge planning, likely will be going to [facility] or [facility] pending acceptance and also insurance authorization Check INR daily, pharmacy to dose coumadin CBC/BMP in the AM The impression and plan of care has been dictated by Shelley Brown Nurse Practitioner as directed. Dr. Breanne MD I have performed a history and physical examination and medical decision making of this patient, discussed the same with the dictator, and agree with the dictators assessment and plan as written, documented as a scribe. Based on total visit time, I have performed more than 50% of this visit. Objective - Vital Signs Vital signs: Vital Signs Temp 98.7 F 11/26/24 08:00 Pulse 89 11/26/24 08:00 Resp 16 11/26/24 08:00 BP 133/72 11/26/24 08:00 Pulse Ox 96 11/26/24 08:00 FiO2 Intake & Output 11/25/24 11/26/24 11/26/24 18:59 06:59 18:59 Intake Total 360 40 100 Output Total 450 200 Balance -90 -160 100 Weight 55 kg Intake: IV 40 Invasive Line 1 20 Invasive Line 3 20 Oral 360 100 Output: Urine 450 200 Other: Voiding Method Diaper Diaper External Catheter External Catheter # Bowel Movements 1 1 - Labs CBC & Chem 7: 11/26/24 07:19 11/26/24 07:19 Labs: Abnormal Lab Results - Last 24 Hours (Table) 11/25/24 11/25/24 11/26/24 Range/Units 06:15 06:19 07:19 WBC (4.50-10.00) 10*3/uL RBC (4.10-5.20) 10*6/uL Hgb (12.0-15.0) g/dL Hct (37.2-46.3) % Immature Gran # (0.00-0.04) 10*3/uL Neutrophils # (1.80-7.70) 10*3/uL Eosinophils # (0.04-0.35) 10*3/uL Metamyelocytes # (Man) 0.08 H (0) k/uL Myelocytes # (Manual) 0.08 H (0) k/uL PT 36.7 H (10.0-12.5) sec INR 3.7 H (<1.2) Sodium (137-145) mmol/L Chloride (98-107) mmol/L BUN (7-17) mg/dL Glucose (74-99) mg/dL Calcium (8.4-10.2) mg/dL Procalcitonin 2.62 H (0.02-0.50) ng/mL 11/26/24 11/26/24 Range/Units 07:19 07:19 WBC 12.54 H (4.50-10.00) 10*3/uL RBC 3.81 L (4.10-5.20) 10*6/uL Hgb 11.8 L (12.0-15.0) g/dL Hct 34.1 L (37.2-46.3) % Immature Gran # 0.40 H (0.00-0.04) 10*3/uL Neutrophils # 10.17 H (1.80-7.70) 10*3/uL Eosinophils # 0.03 L (0.04-0.35) 10*3/uL Metamyelocytes # (Man) (0) k/uL Myelocytes # (Manual) (0) k/uL PT (10.0-12.5) sec INR (<1.2) Sodium 131 L (137-145) mmol/L Chloride 95 L (98-107) mmol/L BUN 19 H (7-17) mg/dL Glucose 116 H (74-99) mg/dL Calcium 8.3 L (8.4-10.2) mg/dL Procalcitonin (0.02-0.50) ng/mL Assessment and Plan Time with Patient: Less than 30
--- NOTE | 2024-11-26 15:54 | US ---
EXAMINATION TYPE: US gallbladder DATE OF EXAM: 11/26/2024 COMPARISON: CT abdomen/pelvis 11/20/2024 CLINICAL INDICATION: Female, 84 years old with history of Gallstones; Recent fall with new onset abdo justin pain and reflux since last night. Bloating and abdominal distention onset this am. TECHNIQUE: Grayscale and color Doppler imaging of the right upper quadrant was performed. FINDINGS: EXAM MEASUREMENTS: Liver Length: 9.1 cm Gallbladder Wall: 0.1 cm CBD: 0.4 cm Right Kidney: 10.3 x 4.5 x 4.6 cm SUPERANNUATION [employer]DS MANAGER NOTES: Pancreas: Tail obscured by overlying bowel gas Liver: Echogenic areas throughout Gallbladder: Echogenic foci with posterior shadowing, some appear affixed to wall. ? Stone and polyp s present Evidence for sonographic Alarcon's sign: Yes CBD: wnl Right Kidney: Partially obscured by overlying bowel gas, otherwise WNL Fluid seen throughout all four quadrents. Difficult scan due to extensive abdominal gas and patients ability to tolerate exam. IMPRESSION: 1. Cholelithiasis without sonographic evidence for acute cholecystitis. Common bile duct is within no rmal limits. 2. Multiple echogenic foci seen throughout the liver parenchyma can be seen in the context of hepatit is. Correlate with clinical evaluation. Consider follow-up ultrasound in 3 months to assess for stabi lity. 3. Small volume ascites incidentally noted. [facility], , 11/26/2024 3:52 PM
[2024-11-26] MEDS: WARFARIN 0.5 MG TAB PO ONE (16:15)
[2024-11-26] MEDS: SODIUM CHLORIDE 0.9% 1,000 ML IV SCH (19:33)
--- NOTE | 2024-11-26 20:50 | XR ---
EXAMINATION TYPE: XR lumbar spine 2 or 3V DATE OF EXAM: 11/26/2024 8:47 PM COMPARISON: None. CLINICAL INDICATION: Female, 84 years old with history of Low back pain, TECHNIQUE: Frontal, lateral, and oblique images of the lumbar spine are obtained. FINDINGS: [id number] multilevel degenerative disc space narrowing and facet joint arthropathy. Grade 1 anterolisthesis L3-4 and L4 5 mm. No compression fracture seen. IMPRESSION: Multilevel degenerative change without evidence for acute fracture. [facility], , 11/26/2024 8:48 PM
--- NOTE | 2024-11-26 21:05 | XR ---
EXAMINATION TYPE: XR pelvis AP view DATE OF EXAM: 11/26/2024 8:48 PM COMPARISON: None. CLINICAL INDICATION: Female, 84 years old with history of s/p fall, low back and hip pain, pain TECHNIQUE: XR pelvis AP view views were obtained FINDINGS: No evidence for fracture, dislocation or bony lesion. Joint spaces are well-preserved. S I joints appear symmetric. IMPRESSION: No acute fracture or dislocation seen. [facility], , 11/26/2024 9:02 PM
[2024-11-27 07:29] LABS: HCT 36.0 % (37.2-46.3); HGB 12.9 g/dL (12.0-15.0); MCH 31.3 pg (27.0-32.0); MCHC 35.8 g/dL (32.0-37.0); MCV 87.4 fL (80.0-97.0); Platelet Count 246 10*3/uL (140-440); RBC 4.12 10*6/uL (4.10-5.20); RDW 15.0 % (11.5-14.5); WBC 27.16 10*3/uL (4.50-10.00)
[2024-11-27 07:46] LABS: INR 3.5 (<1.2); Prothrombin Time 34.8 sec (10.0-12.5)
[2024-11-27 07:54] LABS: ALT 64 U/L (4-34); AST 67 U/L (14-36); African American GFR (CKD) 81 (>60 ml/min/1.73 sqM); Albumin 3.2 g/dL (3.5-5.0); Alkaline Phosphatase 296 U/L (38-126); Anion Gap 12 mmol/L; Blood Urea Nitrogen 21 mg/dL (7-17); Calcium 8.5 mg/dL (8.4-10.2); Carbon Dioxide 23 mmol/L (22-30); Chloride 96 mmol/L (98-107); Glucose 108 mg/dL (74-99); Non-African American GFR(CKD) 70 (>60 ml/min/1.73 sqM); Potassium 3.8 mmol/L (3.5-5.1); Sodium 131 mmol/L (137-145); Total Protein 6.2 g/dL (6.3-8.2)
--- NOTE | 2024-11-27 08:35 | P.CNOR ---
History of Present Illness - [facility] Consult date: 11/27/24 Requesting physician: Brennen Kenney Consult reason: joint pain (Left hip pain), low back pain History of present illness: The patient is a pleasant 84-year-old female who is seen examined at bedside with her family present. We were consulted by Dr. Kenney for left hip pain and low back pain status post fall. Patient had fallen multiple times and presented to the emergency department on 11/20/2024. She sustained a maxillary fracture. She is on anticoagulation. Currently, she is having significant difficulty with her abdomen. Her abdomen is distended. She is being seen by general surgery. She is currently NPO. She does have elevated liver enzymes with known gallstones. They had ordered ultrasound of the gallbladder along with abdominal x-ray imaging. Patient sta piper at the bedside this morning that her abdominal pain is her most significant symptom most significant on the right. She has difficulty describing the pain at her left hip. Family states patient is able to stand without significant difficulty but does have some increased pain with mobilization. She is not complaining of any radiculopathy. The pain radiates more significantly towards her left hip. Her low back pain is less severe. She does have a history of surgical intervention in her lumbar spine approximately 40 to 50 years ago. Prior to physical examination, x-rays of the lumbosacral spine, pelvis, and left hip were performed and reviewed. Patient being seen by multiple medical providers including general surgery, medicine, cardiology, and neurology. 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 RT FOOT SX. CTR-mariam WRIST. BILAT CATARACTS REMOVED. COLONOSCOPY Past Anesthesia/Blood Transfusion Reactions: No Reported Reaction Past Psychological History: Anxiety Smoking Status: Former smoker - Past Family History Sister(s) Family Medical History: Cancer Brother(s) Family Medical History: Cancer Daughter(s) Family Medical History: Cancer Mother Family Medical History: Liver Disease Medications and Allergies Home Medications Medication Instructions Recorded Confirmed Type ALPRAZolam [Xanax] 0.25 mg PO TID PRN 12/21/13 11/20/24 History Atorvastatin [Lipitor] 20 mg PO HS@209912/21/13 11/20/24 History Famotidine 20 mg PO DAILY@89912/21/13 11/20/24 History PARoxetine [Paxil] 10 mg PO DAILY@89912/21/13 11/20/24 History Potassium Chloride 20 meq PO DAILY@89912/21/13 11/20/24 History Acetaminophen [Tylenol Extra 500 - 1,000 mg PO Q6H PRN 08/01/20 11/20/24 History Strength] Furosemide [Lasix] 20 mg PO BID@1000,179908/01/20 11/20/24 History L.acidoph,Paracasei, B.lactis 1 cap PO DAILY@99908/01/20 11/20/24 History [Probiotic] Multivit-Min/Iron/Folic/Lutein 1 tab PO DAILY@99908/01/20 11/20/24 History [Centrum Silver Women Tablet] Amoxicillin 2,000 mg PO ONCE PRN 11/20/24 11/20/24 History Biotin 5 mg PO DAILY@99911/20/24 11/20/24 History Enalapril [Vasotec] 5 mg PO HS@209911/20/24 11/20/24 History Gabapentin 300 mg PO HS@209911/20/24 11/20/24 History Metoprolol Succinate [Metoprolol 25 mg PO HS@209911/20/24 11/20/24 History Succinate ER] Vit C/E/Zn/Coppr/Lutein/Zeaxan 2 tab PO DAILY 11/20/24 11/20/24 History [Preservision Areds 2 Softgel] Vitamin D3 (Unknown Dose) 1 dose PO DAILY@99911/20/24 11/20/24 History Warfarin [Coumadin] 3 mg PO SUTUWETHSA@179911/20/24 11/20/24 History Warfarin [Coumadin] 4.5 mg PO MOFR@179911/20/2411/20/25 History Allergies Allergy/AdvReac Type Severity Reaction Status Date / Time codeine AdvReac Unknown Confusion Verified 11/20/24 10:58 & Anxiety propoxyphene napsylate AdvReac Unknown Confusion Verified 11/20/24 10:58 [From [facility]] & Anxiety Physical Examination Physical exam: Patient is awake, alert, and oriented 3 Vital signs stable Good chest excursion with deep inspiration and expiration Abdomen is significantly distended Examination of lumbar spine reveals skin is intact with no abrasions, lacerations, or bruises; no erythema, purulence or signs of infection No pain with palpation of the lumbar spine Well-healed incision of the lumbar spine No pain with internal/external rotation of the left hip Dorsiflexion, plantarflexion, and extensor hallucis longus positive sustained on the left No pain on palpation at the left hip Straight leg test negative bilateral lower extremities No signs or symptoms of DVT; no calf pain Results Pertinent studies: X-rays of the lumbar spine taken on 11/26/2024: Degenerative scoliosis centered at approximately L2-3; L3-4 and L4-5 spondylolisthesis; L3-4 degenerative disc disease; L5-S1 severe degenerative disc disease; no compression fracture deformity X-ray of the pelvis taken on 11/26/2024: No fracture or dislocation seen within the pelvis; mild to moderate bilateral osteoarthritis X-rays of the left hip taken on 11/26/2024: No fracture or dislocation at the left hip; mild to moderate left hip osteoarthritis - Labs Labs: Abnormal Lab Results - Last 24 Hours (Table) 11/26/24 11/27/24 11/27/24 Range/Units 07:19 06:31 06:31 WBC 27.16 H (4.50-10.00) 10*3/uL Hct 36.0 L (37.2-46.3) % Immature Gran # 0.41 H (0.00-0.04) 10*3/uL PT 34.8 H (10.0-12.5) sec INR 3.5 H (<1.2) Sodium (137-145) mmol/L Chloride (98-107) mmol/L BUN (7-17) mg/dL Glucose (74-99) mg/dL Total Bilirubin 2.1 H (0.2-1.3) mg/dL AST 95 H (14-36) U/L ALT 89 H (4-34) U/L Alkaline Phosphatase 348 H (38-126) U/L Total Protein (6.3-8.2) g/dL Albumin (3.5-5.0) g/dL 11/27/24 Range/Units 06:31 WBC (4.50-10.00) 10*3/uL Hct (37.2-46.3) % Immature Gran # (0.00-0.04) 10*3/uL PT (10.0-12.5) sec INR (<1.2) Sodium 131 L (137-145) mmol/L Chloride 96 L (98-107) mmol/L BUN 21 H (7-17) mg/dL Glucose 108 H (74-99) mg/dL Total Bilirubin 2.6 H (0.2-1.3) mg/dL AST 67 H (14-36) U/L ALT 64 H (4-34) U/L Alkaline Phosphatase 296 H (38-126) U/L Total Protein 6.2 L (6.3-8.2) g/dL Albumin 3.2 L (3.5-5.0) g/dL H & H 11/20/24 11/21/24 11/22/24 Range/Units 10:02 06:52 07:47 Hgb 12.2 12.3 11.9 L (12.0-15.0) g/dL Hct 35.2 L 36.1 L 35.3 L (37.2-46.3) % 11/23/24 11/24/24 11/25/24 Range/Units 07:27 06:21 06:19 Hgb 11.6 L 10.7 L 10.9 L (12.0-15.0) g/dL Hct 33.7 L 30.4 L 31.7 L (37.2-46.3) % 11/26/24 11/27/24 Range/Units 07:19 06:31 Hgb 11.8 L 12.9 (12.0-15.0) g/dL Hct 34.1 L 36.0 L (37.2-46.3) % Coagulation 06/30/25 07/01/25 07/02/25 Range/Units 10:02 11:18 07:47 INR 3.2 H 5.1 H* 5.1 H* (<1.2) 11/23/24 11/24/24 11/25/24 Range/Units 07:27 06:21 06:19 INR 3.2 H 2.6 H 3.6 H (<1.2) 11/26/24 11/27/24 Range/Units 07:19 06:31 INR 3.7 H 3.5 H (<1.2) Result Diagrams: 11/27/24 06:31 11/27/24 06:31 Assessment and Plan Assessment: Assessment: Left hip pain Low back pain Status post multiple falls Degenerative scoliosis L3-4 and L4-5 spondylolisthesis L3-4 degenerative disc disease L5-S1 severe degenerative disc disease Bilateral hip osteoarthritis Abdominal pain and distention Elevated liver function test History gallstone History lumbar surgery 40 to 50 years ago Maxillary fracture Elevated troponin Long-term anticoagulation use with Coumadin Atrial fibrillation History of CVA/TIA Hypertension (1) Left hip pain Current Visit: Yes Status: Acute Code(s): M25.552 - PAIN IN LEFT HIP SNOMED Code(s): 44353337 (2) Low back pain Current Visit: Yes Status: Acute Code(s): M54.50 - LOW BACK PAIN, UNSPECIFIED SNOMED Code(s): 176534364 (3) Lumbar degenerative disc disease Current Visit: Yes Status: Acute Code(s): M51.369 - OTH INTVRT DISC DEGEN, LUM RGN W/O LUM BCK OR LW EXTRM PAIN SNOMED Code(s): 31624494 (4) Spondylolisthesis of lumbar region Current Visit: Yes Status: Acute Code(s): M43.16 - SPONDYLOLISTHESIS, LUMBAR REGION SNOMED Code(s): 451179994393584 (5) History of lumbar surgery Current Visit: Yes Status: Acute Code(s): Z98.890 - OTHER SPECIFIED POSTPROCEDURAL STATES SNOMED Code(s): 061539352 (6) Atrial fibrillation Current Visit: Yes Status: Acute Code(s): I48.91 - UNSPECIFIED ATRIAL FIBRILLATION SNOMED Code(s): 65442798 (7) Multiple falls Current Visit: Yes Status: Acute Code(s): R29.6 - REPEATED FALLS SNOMED Code(s): 208178922 (8) Elevated troponin Current Visit: Yes Status: Acute Code(s): R79.89 - OTHER SPECIFIED ABNORMAL FINDINGS OF BLOOD CHEMISTRY SNOMED Code(s): 452469669 (9) Abdominal pain Current Visit: Yes Status: Acute Code(s): R10.9 - UNSPECIFIED ABDOMINAL PAIN SNOMED Code(s): 70348991 (10) Abdominal distention Current Visit: Yes Status: Acute Code(s): R14.0 - ABDOMINAL DISTENSION (GAS EOUS) SNOMED Code(s): 84100190 (11) Osteoarthritis of left hip Current Visit: Yes Status: Acute Code(s): M16.12 - UNILATERAL PRIMARY OSTEOARTHRITIS, LEFT HIP SNOMED Code(s): 478360067882640 (12) Maxillary fracture Current Visit: Yes Status: Acute Code(s): S02.401A - MAXILLARY FRACTURE, UNSPECIFIED SIDE, INIT SNOMED Code(s): 509961716 (13) History of CVA (cerebrovascular accident) Current Visit: Yes Status: Acute Code(s): Z86.73 - PRSNL HX OF TIA (TIA), AND CEREB INFRC W/O RESID DEFICITS SNOMED Code(s): 747561694 Plan: Plan: 1. Patient has had increased pain at her left hip and her lumbar spine status post multiple falls. Imaging was taken of her lumbar spine, left hip, and pelvis without any evidence of acute fracture. She does have degenerative change with osteoarthritis at her hips. She also has significant multilevel degenerative change at her lumbar spine. She does not have any pain with internal/external rotation of her left hip. She has no pain with palpation of her lumbar spine. She does have some difficulty describing her pain at the bedside. Most significantly, she is experiencing abdominal pain and distention. She is being seen by general surgery. She is undergoing further evaluation. She is currently n.p.o. From an orthopedic standpoint, we will currently plan to continue conservative treatment. Patient may weight-bear as tolerated on her bilateral lower extremities with the assistance of therapy. We will plan to have her follow-up in the outpatient setting for further evaluation. We would not consider consultation with pain management during this admission. Patient is currently on anticoagulation. Plan of care is discussed with the patient and her family who agree with this plan. 2. Patient will continue to be seen exam by multiple medical providers including general surgery, medicine, cardiology, and neurology Time with Patient: Greater than 30 (Including obtaining history, physical examination, reviewing of imaging, and dictation.)
--- NOTE | 2024-11-27 08:55 | P.PN ---
Subjective Progress Note Date: 11/27/24 Principal diagnosis: Elevated liver enzymes Patient this morning with increased abdominal pain. Patient's daughter were present most of the day yesterday and again this morning. She did have some liquid almost explosive bowel movements yesterday. Says she passed a lot of flatus. Yesterday's x-rays showed colonic distention. Patient is more tachycardic this morning. Appears more uncomfortable and laying in bed this morning. No vomiting. Afebrile. White blood cell count went from 12-27 today. Films reviewed with the patient's family at the bedside along with the lab work over the last several days. Her liver enzymes are stable to improved. Ultrasound gallbladder showed echogenic foci within the liver as well as gallstones. No biliary dilation was noted. The films do show colonic air distention from the hepatic flexure down to the sigmoid colon. There does appear to be some stool in the rectal vault. For that reason I advised digital rectal examination to see if she was impacted. She has been impacted previously. Additionally patient with history of urinary retention. Straight cath was performed yesterday. Objective - Vital Signs Vital signs: Vital Signs Temp 98.1 F 11/27/24 08:36 Pulse 118 H 11/27/24 08:36 Resp 18 11/27/24 08:36 BP 119/80 11/27/24 08:36 Pulse Ox 92 L 11/27/24 08:36 FiO2 Intake & Output 11/26/24 11/27/24 11/27/24 18:59 06:59 18:59 Intake Total 120 20 10 Output Total 150 700 Balance -30 -680 10 Weight 47.5 kg Intake: IV 20 20 10 Invasive Line 3 20 20 10 Oral 100 Output: Urine 150 700 Straight 600 Other: Voiding Method Diaper Diaper External Catheter External Catheter # Bowel Movements 1 1 - Exam Abdomen: Soft, distended, mild to moderate diffuse tenderness, tympany present Rectal: Soft liquidy stool in rectal vault, able to evacuate both air and liquid stool. Sample sent for C. difficile. - Labs CBC & Chem 7: 11/27/24 06:31 11/27/24 06:31 Labs: Abnormal Lab Results - Last 24 Hours (Table) 11/26/24 11/27/24 11/27/24 Range/Units 07:19 06:31 06:31 WBC 27.16 H (4.50-10.00) 10*3/uL Hct 36.0 L (37.2-46.3) % Immature Gran # 0.41 H (0.00-0.04) 10*3/uL PT 34.8 H (10.0-12.5) sec INR 3.5 H (<1.2) Sodium (137-145) mmol/L Chloride (98-107) mmol/L BUN (7-17) mg/dL Glucose (74-99) mg/dL Total Bilirubin 2.1 H (0.2-1.3) mg/dL AST 95 H (14-36) U/L ALT 89 H (4-34) U/L Alkaline Phosphatase 348 H (38-126) U/L Total Protein (6.3-8.2) g/dL Albumin (3.5-5.0) g/dL 11/27/24 Range/Units 06:31 WBC (4.50-10.00) 10*3/uL Hct (37.2-46.3) % Immature Gran # (0.00-0.04) 10*3/uL PT (10.0-12.5) sec INR (<1.2) Sodium 131 L (137-145) mmol/L Chloride 96 L (98-107) mmol/L BUN 21 H (7-17) mg/dL Glucose 108 H (74-99) mg/dL Total Bilirubin 2.6 H (0.2-1.3) mg/dL AST 67 H (14-36) U/L ALT 64 H (4-34) U/L Alkaline Phosphatase 296 H (38-126) U/L Total Protein 6.2 L (6.3-8.2) g/dL Albumin 3.2 L (3.5-5.0) g/dL Assessment and Plan (1) Transaminitis Narrative/Plan: 84-year-old female admitted after fall at home. Patient has had increasing left hip and now abdominal pain over the last 2 to 3 days. White blood cell count today significantly elevated. Rectal examination able to evacuate some of the liquid stool and air however patient remains distended. Will have Rich catheter placed to see if this is contributing to her abdominal discomfort and distention. Will order CT abdomen pelvis to evaluate for bowel pathology. Discussed with family that discussions regarding extent of care should take plac e at this time given the recent findings of leukocytosis and increasing pain. All questions from the family answered at bedside. Current Visit: Yes Status: Acute Code(s): R74.01 - ELEVATION OF LEVELS OF LIVER TRANSAMINASE LEVELS SNOMED Code(s): 252541751
[2024-11-27 09:00] LABS: Lymphocytes # (M) 1.63 k/uL (1.0-4.8); Monocytes # (M) 1.63 k/uL (0-1.0); Neutrophils # (M) 23.90 k/uL (1.3-7.7); Neutrophils % (M) 88 %; Total Cells Counted 100
--- NOTE | 2024-11-27 10:43 | CT ---
EXAMINATION TYPE: CT abdomen pelvis wo con DATE OF EXAM: 11/27/2024 10:14 AM COMPARISON: 11/20/2024 , ultrasound 11/26/2024. CLINICAL INDICATION: Female, 84 years old with history of Distention and pain; Abdominal distention a nd pain. TECHNIQUE: Axial CT abdomen pelvis wo con;Sagittal and coronal reformats were created on a separate workstation. Contrast used: mL of , (none if empty) Oral contrast used: without Oral Contrast (none if empty) CT DLP: 593.3 mGycm, Automated exposure control for dose reduction was used. FINDINGS: FINDINGS: LOWER CHEST: Small left and trace right pleural effusions are noted with associated atelectasis. The heart is enlarged for size. Aortic valve repair changes. Coronary artery atherosclerosis is noted. ABDOMEN LIVER: Unremarkable GALLBLADDER AND BILE DUCTS: Layering increased densities within the lumen consistent with gallstones are present. Gallbladder is mildly distended. PANCREAS: Unremarkable. SPLEEN: Unremarkable. ADRENAL GLANDS: Unremarkable. KIDNEYS AND URETERS: No evidence of hydronephrosis or renal calculus. The ureters are unremarkable. PELVIS BLADDER: Incompletely distended but grossly unremarkable. Rich catheter is in place. REPRODUCTIVE: Uterus is not visualized. ABDOMEN & PELVIS STOMACH AND BOWEL: New distention of the large bowel in the upper abdomen with gas seen within the wa lls predominantly in the ascending colon and transverse colon. No evidence of bowel obstruction. PERITONEUM/RETROPERITONEUM: No evidence of pneumoperitoneum . Small volume simple free fluid is seen in the pelvis dependently. VASCULATURE: No evidence of aortic aneurysm. MUSCULOSKELETAL: Scoliotic curvature of the thoracolumbar spine. Degenerative changes of the bony pel vis and visualized portions of the spine. LYMPH NODES: Scattered lymph nodes are seen in the bilateral inguinal region the largest on the right measuring up to 1.5 cm in short axis. SOFT TISSUE/ABDOMINAL WALL: Moderate soft tissue edema seen diffusely. IMPRESSION: 1. New from prior Dilation of the large bowel with pneumatosis coli and portal venous gas in the w[place] er. Correlate with lactic acid. 2. Cholelithiasis. . 3. Small volume free fluid, increasing bilateral pleural effusions and soft tissue anasarca may rela te to third spacing versus volume overload. Correlate with clinical evaluation. 4. Nonspecific bilateral inguinal lymphadenopathy. Findings communicated to Brennen Kenney MD~[id number] on 11/27/2024 10:[address] Quinton Gonsalez. [facility], , 11/27/2024 10:40 AM
--- NOTE | 2024-11-27 11:31 | P.PN ---
Progress Note - Text Progress Note Date: 11/27/24 CAT scan reviewed shortly after was obtained. Unfortunately patient's films are showing pneumatosis of the colon and scattered areas. There is air in the portal venous system. There is no free air. Colon diameter 6 to 7 cm. Findings discussed with the patient's family at bedside in detail. The severity of these findings reviewed. This certainly explains her significant increase in white blood cell count and increased tachycardia today. Options of surgery, aggressive medical, and hospice measures reviewed. The likely need for colectomy with end ileostomy and ICU admission on ventilator reviewed if surgery was chosen. They 2 sisters are in agreement that they do not want that jasbir singletary. They are not ready for hospice approach. Will continue with aggressive medical support. Continue with bowel rest, consultation to infectious disease placed for broad-spectrum antibiotics, may have ice chips, daily Dulcolax positive rise, movement as tolerated to alleviate any liquid diarrhea or flatulence. Overall prognosis unfortunately quite poor given the CAT scan findings. Discussed that it would be osborne to confirm the patient's CODE STATUS desires at this time. Consideration for no CODE STATUS reviewed. All questions answered.
--- NOTE | 2024-11-27 21:59 | P.PN ---
Subjective Progress Note Date: 11/27/24 This is a pleasant 84-year-old female who was recently admitted under trauma services status post fall and is noted to have a right maxillary fracture with some significant ecchymosis of the face traveling down to the neck and being followed by multiple consultations. Patient transferred to medicine service as patient continues with significant weakness and is having some altered mentation, multifactorial and likely secondary to hospital delirium. Recommend limiting aggressive narcotics although patient is reporting significant pain. Patient continues to have some expectoration of streaks of blood noted in the spit otherwise no active bleeding noted. Patient is reporting significant hip pain and will obtain some images. Recommend PT/OT therapy daily. Patient's INR is elevated just above 3 although improved from previous. Will follow-up on repeat labs and continue to monitor closely. Plan will be for patient to go to ECF for continued strength and mobility. 11/24/2024 Patient is seen in follow-up today mentation is somewhat improved and would recommend frequent reorientation during the day and adjusting pain medications and trying to limit IV narcotic use. Patient to continue with Seroquel at night and continued PT/OT therapy. Plan will be for patient to go to ECF on discharge for continued strength and mobility. Patient is having significant left hip pain and leg pain we will obtain a Doppler and also adjust medications accordingly. Patient is currently afebrile is tolerating diet although not much of an appetite noted. Continue with bowel regimen scheduled as well as as needed 11/25/2024 Patient is evaluated in follow-up on the medical floor. She is awake alert x 1. Family at the bedside. She is sitting up at the bedside eating appears quite fatigued though. She continues to report significant left hip and leg pain. Doppler was negative for any findings for acute DVT. LFTs remain elevated and chest x-ray does reveal some vascular congestion. Patient has been continued on her home dose of oral Lasix twice daily. Also continues on IV Zosyn. A gall bladder ultrasound was ordered and is currently pending for tomorrow morning. Warfarin remains on hold as patient's INR today was elevated at 3.6. Procalcitonin level is significantly elevated at 2.62. Patient has been afebrile. She is currently on room air oxygen saturations at 97%. 11/26/2024 Patient evaluated in follow-up with the medical floor. Patient continues on IV Zosyn. Currently pending gallbladder ultrasound which will be completed later this afternoon as patient had breakfast. Her abdomen is distended today and firm with concern for possible ileus. Patient did have a loose BM yesterday. Abdominal xray completed reveals nonspecific gaseous dilation of the colon bowel gas pattern without radiographic evidence or acute process. White blood cell count of 12.54, hemoglobin 11.8, sodium of 131, BUN of 19 creatinine of 0.75, magnesium 1.9. Her INR today is 3.7. 11/27/2024 Patient is seen in follow-up today with general surgery following. Patient continues to have abdominal discomfort with concerns of impaction. Patient to have CT abdomen ordered per surgery for further evaluation. Patient was having a few episodes of explosive diarrhea and loose stools and C. difficile is also ordered and pending at this time. Patient continues to report significant abdominal pain and is currently n.p.o. per surgery. White count has increased significantly to 27.16 and hemoglobin is stable at 12.9, INR is 3.5 and Coumadin is to dose per pharmacy and being held, sodium 131 with a potassium of 3.8, BUN is 21 and creatinine is 0 point, total bilirubin is 2.6 and ALT/AST are elevated although trending down. C. difficile testing was negative. Review of systems: Constitutional: No reports of fatigue, fever, or chills Cardiovascular: No reports of chest pain or palpitations Respiratory: No reports of shortness of breath or cough GI: reports of nausea, no reports of vomiting, reports not much of an appetite. reports continued intense abdominal pain and abdominal distention. : No reports of dysuria or retention Neurovascular: reports of generalized weakness, reports significant left hip pain All medications have been reviewed PHYSICAL EXAMINATION: GENERAL: The patient is alert and oriented x2, extremely hard of hearing, well developed, elderly appearing, thin built HEENT: Pupils are round and equally reacting to light. EOMI. no scleral icterus. No conjunctival pallor. Normocephalic, atraumatic. No pharyngeal erythema. No thyromegaly. CARDIOVASCULAR: S1 and S2 muffled PULMONARY: diminished breath sounds bilaterally with no wheezing or rhonchi noted. ABDOMEN: Dull. tender on exam on the left side. Distented and hypoactive bowel sounds. No palpable organomegaly. MUSCULOSKELETAL: No joint swelling or deformity. EXTREMITIES: No cyanosis, clubbing, or pedal edema. Extreme left hip pain on palpation NEUROLOGICAL: Gross neurological examination did not reveal any focal deficits. Diffuse weakness SKIN: No rashes. Significant ecchymosis noted of the face extending down into the neck and upper chest area showing some improvement Assessment: Fall and right maxillary fracture with ecchymosis Hyponatremia, improved Troponin elevated, 0.185, ruled out acute NSTEMI per cardiology Coumadin coagulopathy, INR 3.5 today Altered mental status, acute metabolic encephalopathy, multifactorial with possible underlying sinusitis and also a component of hospital-acquired delirium Increased WBC with concerns of underlying infection, likely secondary to pneumatosis of the colon Transaminitis under investigation, trending down Constipation and abdominal distention History of previous CVA/TIA Atrial fibrillation, permanent Hypertension History of osteoarthritis Hard of hearing History of anxiety History of coronary artery disease with previous CABG history of bicuspid aortic valve status post AVR and then TAVR History of gastroesophageal reflux disease Hyperlipidemia GI prophylaxis DVT prophylaxis No code Plan: Patient has transitioned to medicine service with ongoing underlying conditions and concerns of possible hospital-acquired delirium versus possible sinus infection or sinusitis with recent facial trauma Encouraged frequent reorientation and family at bedside most of the time with blinds and shades open during the day and will also add Seroquel as needed at night for agitation. Mentation somewhat improved Recommend continuing with pain management per surgery as patient has findings of pneumatosis of the colon and scattered areas and air in the portal venous system. Possible options of surgery discussed although would be a high risk candidate and also recommending aggressive medical management and supportive care and also possible hospice as an option. Family is not ready for hospice and would like to continue with bowel rest and antibiotics with supportive care. Patient having extreme left hip and leg pain, Continue with norco and lidocaine patches, orthopedics evaluated the patient with no plans of surgical inte rvention at this time. gallbladder ultrasound performed which reveals gallstones Patient was having multiple episodes of loose explosive stool and concerns of fecal impaction with general surgery following. CT ordered this morning reveals dilatation of the large bowel with pneumatosis coli and portal venous gas in the liver, cholelithiasis and small volume free fluid with increasing bilateral ple ural effusions and soft tissue anasarca likely third spacing versus volume overload with nonspecific bilateral inguinal lymphadenopathy. Overall prognosis is extremely poor and guarded at this time and family does not want further aggressive surgical management. CODE STATUS was addressed and family at the bedside were agreeable to no code Continue off IV fluids at this time and patient remains on oral lasix twice daily. Continue IV zosyn; procalcitonin elevated, infectious disease consulted and appreciate input and recommendations Check INR daily, pharmacy to dose coumadin, INR is 3.5 and currently on hold CBC/BMP in the AM Continue bowel rest and ice chips occasionally per general surgery The impression and plan of care has been dictated by Joselin Becerril, Nurse Practitioner as directed. Dr. Breanne MD I have performed a history and physical examination and medical decision making of this patient, discussed the same with the dictator, and agree with the dictators assessment and plan as written, documented as a scribe. Based on total visit time, I have performed more than 50% of this visit. Objective - Vital Signs Vital signs: Vital Signs Temp 98.9 F 11/27/24 03:10 Pulse 113 H 11/27/24 03:10 Resp 18 11/27/24 03:10 BP 137/80 11/27/24 03:10 Pulse Ox 95 11/27/24 03:10 FiO2 Intake & Output 11/26/24 11/26/24 11/27/24 06:59 18:59 06:59 Intake Total 40 120 20 Output Total 200 150 700 Balance -160 -30 -680 Weight 55 kg 47.5 kg Intake: IV 40 20 20 Invasive Line 1 20 Invasive Line 3 20 20 20 Oral 100 Output: Urine 200 150 700 Straight 600 Other: Voiding Method Diaper Diaper Diaper External Catheter External Catheter External Catheter # Bowel Movements 1 1 - Labs CBC & Chem 7: 11/27/24 06:31 11/27/24 06:31 Labs: Abnormal Lab Results - Last 24 Hours (Table) 11/26/24 11/26/24 11/26/24 Range/Units 07:19 07:19 07:19 WBC 12.54 H (4.50-10.00) 10*3/uL RBC 3.81 L (4.10-5.20) 10*6/uL Hgb 11.8 L (12.0-15.0) g/dL Hct 34.1 L (37.2-46.3) % Immature Gran # 0.40 H (0.00-0.04) 10*3/uL Neutrophils # 10.17 H (1.80-7.70) 10*3/uL Eosinophils # 0.03 L (0.04-0.35) 10*3/uL PT 36.7 H (10.0-12.5) sec INR 3.7 H (<1.2) Sodium 131 L (137-145) mmol/L Chloride 95 L (98-107) mmol/L BUN 19 H (7-17) mg/dL Glucose 116 H (74-99) mg/dL Calcium 8.3 L (8.4-10.2) mg/dL Total Bilirubin (0.2-1.3) mg/dL AST (14-36) U/L ALT (4-34) U/L Alkaline Phosphatase (38-126) U/L 11/26/24 Range/Units 07:19 WBC (4.50-10.00) 10*3/uL RBC (4.10-5.20) 10*6/uL Hgb (12.0-15.0) g/dL Hct (37.2-46.3) % Immature Gran # (0.00-0.04) 10*3/uL Neutrophils # (1.80-7.70) 10*3/uL Eosinophils # (0.04-0.35) 10*3/uL PT (10.0-12.5) sec INR (<1.2) Sodium (137-145) mmol/L Chloride (98-107) mmol/L BUN (7-17) mg/dL Glucose (74-99) mg/dL Calcium (8.4-10.2) mg/dL Total Bilirubin 2.1 H (0.2-1.3) mg/dL AST 95 H (14-36) U/L ALT 89 H (4-34) U/L Alkaline Phosphatase 348 H (38-126) U/L
--- NOTE | 2024-11-27 22:04 | P.CONS ---
History of Present Illness - Reason for Consult Consult date: 11/27/24 Ischemic colitis Requesting physician: Brennen Kenney - Chief Complaint Abdominal pain x 2 days - History of Present Illness Patient is a 84-year-old female with a past medical history significant for Atrial Fibrillation, Coronary Artery Disease (CAD), CVA/TIA, G ERD/Reflux, Hearing Disorder / Deafness, Hyperlipidemia, Hypertension, Osteoarthritis (OA) presenting the hospital about a week ago after apparently the patient did have fallen twice and hit her head patient subsequent has been evaluated by admitting cardiology and surgical services as well as neurology patient did have evidence of right maxillary fracture for the last 2 days patient started having increasing abdominal pain described the pain to be sharp severe intensity without radiation with associated nausea no vomiting seem to have some diarrhea patient did have a abdominal pelvis CT completed which did shows large bowel dilatation with pneumatosis coli with portal venous gas in the liver correlate with lactic acid cholelithiasis with concern for ischemic colitis General Surgery has seen the patient has talked to family about surgical intervention versus medical treatment with antibiotics and fluids patient family seem to have opted for medical treatment ID was consulted for further management of antibiotic therapy patient on presentation to the hospital did have a fever of 101 F with a last fever of 102.7 on 11/21/2024 patient also have a beta- hemolytic Streptococcus group G bacteremia that was a sensitive pathogen blood culture has not been repeated gallbladder ultrasound cholelithiasis with sonographic evidence for acute cholecystitis common bile duct within normal limit Review of Systems Positive point and negatives has been mentioned in the HPI, complete review of systems was performed and all other systems are negative Past Medical History Past Medical History: Atrial Fibrillation, Coronary Artery Disease (CAD), CVA/TIA, GERD/Reflux, Hearing Disorder / Deafness, Hyperlipidemia, Hypertension, Osteoarthritis (OA) Additional Past Medical History / Comment(s): HX OF BELLS PALSEY,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 RT FOOT SX. CTR-mariam WRIST. BILAT CATARACTS REMOVED. COLONOSCOPY Past Anesthesia/Blood Transfusion Reactions: No Reported Reaction Past Psychological History: Anxiety Smoking Status: Former smoker - Past Family History Sister(s) Family Medical History: Cancer Brother(s) Family Medical History: Cancer Daughter(s) Family Medical History: Cancer Mother Family Medical History: Liver Disease Medications and Allergies Home Medications Medication Instructions Recorded Confirmed Type ALPRAZolam [Xanax] 0.25 mg PO TID PRN 12/21/13 11/20/24 History Atorvastatin [Lipitor] 20 mg PO HS@209912/21/13 11/20/24 History Famotidine 20 mg PO DAILY@89912/21/13 11/20/24 History PARoxetine [Paxil] 10 mg PO DAILY@89912/21/13 11/20/24 History Potassium Chloride 20 meq PO DAILY@89912/21/13 11/20/24 History Acetaminophen [Tylenol Extra 500 - 1,000 mg PO Q6H PRN 08/01/20 11/20/24 History Strength] Furosemide [Lasix] 20 mg PO BID@999,179908/01/20 11/20/24 History L.acidoph,Paracasei, B.lactis 1 cap PO DAILY@99908/01/20 11/20/24 History [Probiotic] Multivit-Min/Iron/Folic/Lutein 1 tab PO DAILY@99908/01/20 11/20/24 History [Centrum Silver Women Tablet] Amoxicillin 2,000 mg PO ONCE PRN 11/20/24 11/20/24 History Biotin 5 mg PO DAILY@99911/20/24 11/20/24 History Enalapril [Vasotec] 5 mg PO HS@209911/20/24 11/20/24 History Gabapentin 300 mg PO HS@209911/20/24 11/20/24 History Metoprolol Succinate [Metoprolol 25 mg PO HS@209911/20/24 11/20/24 History Succinate ER] Vit C/E/Zn/Coppr/Lutein/Zeaxan 2 tab PO DAILY 11/20/24 11/20/24 History [Preservision Areds 2 Softgel] Vitamin D3 (Unknown Dose) 1 dose PO DAILY@99911/20/24 11/20/24 History Warfarin [Coumadin] 3 mg PO SUTUWETHSA@179911/20/24 11/20/24 History Warfarin [Coumadin] 4.5 mg PO MOFR@1800 11/20/24 11/20/24 History Allergies Allergy/AdvReac Type Severity Reaction Status Date / Time codeine AdvReac Unknown Confusion Verified 11/20/24 10:58 & Anxiety propoxyphene napsylate AdvReac Unknown Confusion Verified 11/20/24 10:58 [From Darvocet-N 100] & Anxiety Physical Exam Vitals: Vital Signs Temp Pulse Resp BP BP Pulse Ox 11/27/24 08:36 98.1 F 118 H 18 119/80 92 L 11/27/24 08:30 118 H 18 11/27/24 03:10 98.9 F 113 H 18 137/80 95 11/26/24 23:40 98.2 F 116 H 16 129/92 95 11/26/24 20:10 17 94 L 11/26/24 20:00 98.1 F 107 H 17 130/82 100 11/26/24 16:00 16 157/82 98 Intake and Output 11/26/24 11/27/24 11/27/24 22:59 06:59 14:59 Intake Total 10 10 10 Output Total 700 Balance 10 -690 10 Intake: IV 10 10 10 Invasive Line 3 10 10 10 Oral 0 Output: Urine 700 Straight 600 Other: Voiding Method Diaper Diaper Diaper External Catheter External Catheter External Catheter # Bowel Movements 1 1 Weight 47.5 kg GENERAL DESCRIPTION: Elderly female lying in bed, no distress. No tachypnea or accessory muscle of respiration use. HEENT: Shows Pallor , no scleral icterus. Oral mucous membrane is dry. NECK: Trachea central, no thyromegaly. LUNGS: Unlabored breathing. Clear to auscultation anteriorly. No wheeze or crackle. HEART: S1, S2, regular rate and rhythm. No loud murmur ABDOMEN: Soft, mild tenderness , no guarding or rigidit EXTREMITIES: No edema of feet. SKIN: No rash, no masses palpable. NEUROLOGICAL: The patient is awake, alert, oriented x3, mood and affect normal. Results CBC & Chem 7: 11/28/24 06:57 11/28/24 06:57 Labs: Abnormal Lab Results - Last 24 Hours (Table) 11/27/24 11/27/24 11/27/24 Range/Units 06:31 06:31 06:31 WBC 27.16 H (4.50-10.00) 10*3/uL Hct 36.0 L (37.2-46.3) % Immature Gran # 0.41 H (0.00-0.04) 10*3/uL Neutrophils # (Manual) 23.90 H (1.3-7.7) k/uL Monocytes # (Manual) 1.63 H (0-1.0) k/uL PT 34.8 H (10.0-12.5) sec INR 3.5 H (<1.2) Sodium 131 L (137-145) mmol/L Chloride 96 L (98-107) mmol/L BUN 21 H (7-17) mg/dL Glucose 108 H (74-99) mg/dL Total Bilirubin 2.6 H (0.2-1.3) mg/dL AST 67 H (14-36) U/L ALT 64 H (4-34) U/L Alkaline Phosphatase 296 H (38-126) U/L Total Protein 6.2 L (6.3-8.2) g/dL Albumin 3.2 L (3.5-5.0) g/dL Assessment and Plan (1) Sepsis Current Visit: Yes Status: Acute Code(s): A41.9 - SEPSIS, UNSPECIFIED ORGANISM SNOMED Code(s): 95250904 (2) Cholecystitis Current Visit: Yes Status: Acute Code(s): K81.9 - CHOLECYSTITIS, UNSPECIFIED SNOMED Code(s): 88470501 (3) Ischemic colitis Current Visit: Yes Status: Acute Code(s): K55.9 - VASCULAR DISORDER OF INTESTINE, UNSPECIFIED SNOMED Code(s): 11029959 Plan: 1patient with abdominal pain for the last 2 days in this patient with initially presented to the hospital with a fall hide did have a maxillary fracture patient did have a fever first 2 days of her admission and also have elevated white count there was abnormality on the gallbladder concerning for possible cholecystitis and did have group G streptococcus bacteremia now with evidence of ischemic colitis and the family has opted for medical treatment still await for surgical intervention 2-blood cultures repeated to document clearance of her bacteremia 3-patient is currently being treated with Zosyn 3.375 g every 8 hours which should provide adequate antibiotic coverage Family bedside multiple question concern answered We will follow on clinical condition and cultures to further adjust medication if needed Thank you for this consultation we will follow the patient along with you Dictation was produced using [employer] dictation software. please excuse any grammatical, word or spelling errors. Time with Patient: Greater than 30
[2024-11-28 07:18] LABS: Basophils # (A) 0.06 10*3/uL (0.00-0.10); Basophils % (A) 0.2 %; Eosinophils # (A) 0.02 10*3/uL (0.04-0.35); Eosinophils % (A) 0.1 %; HCT 32.0 % (37.2-46.3); HGB 11.3 g/dL (12.0-15.0); Lymphocytes # (A) 1.06 10*3/uL (0.90-5.00); Lymphocytes % (A) 3.7 %; MCH 30.9 pg (27.0-32.0); MCHC 35.3 g/dL (32.0-37.0); MCV 87.4 fL (80.0-97.0); Monocytes # (A) 1.44 10*3/uL (0.20-1.00); Monocytes % (A) 5.0 %; Neutrophils # (A) 25.85 10*3/uL (1.80-7.70); Neutrophils % (A) 89.5 %; Platelet Count 230 10*3/uL (140-440); RBC 3.66 10*6/uL (4.10-5.20); RDW 15.0 % (11.5-14.5); WBC 28.85 10*3/uL (4.50-10.00)
[2024-11-28 07:37] LABS: ALT 48 U/L (4-34); AST 48 U/L (14-36); African American GFR (CKD) 68 (>60 ml/min/1.73 sqM); Albumin 2.6 g/dL (3.5-5.0); Alkaline Phosphatase 199 U/L (38-126); Anion Gap 9 mmol/L; Blood Urea Nitrogen 28 mg/dL (7-17); Calcium 8.1 mg/dL (8.4-10.2); Carbon Dioxide 24 mmol/L (22-30); Chloride 98 mmol/L (98-107); Glucose 103 mg/dL (74-99); Magnesium 2.0 mg/dL (1.6-2.3); Non-African American GFR(CKD) 59 (>60 ml/min/1.73 sqM); Potassium 3.6 mmol/L (3.5-5.1); Sodium 131 mmol/L (137-145); Total Protein 5.3 g/dL (6.3-8.2)
[2024-11-28 07:48] LABS: INR 4.4 (<1.2); Prothrombin Time 43.9 sec (10.0-12.5)
[2024-11-28] MEDS: PIPERACILLIN-TAZOBACTAM 3.375 GM in SODIUM CHLORIDE 0.9% 100 ML IVPB SCH (15:55)
--- NOTE | 2024-11-28 16:05 | P.PN ---
Subjective Progress Note Date: 11/28/24 Principal diagnosis: Elevated liver enzymes Patient laying in bed. Per family she has been more comfortable. Had some liquid stool and large volume of flatus yesterday and again today. No nausea or vomiting. White blood cell count remains elevated at 28. Still tachycardic w ith atrial fibrillation. C. difficile was negative. Objective - Vital Signs Vital signs: Vital Signs Temp 99.2 F 11/28/24 15:53 Pulse 128 H 11/28/24 15:53 Resp 18 11/28/24 15:53 BP 107/69 11/28/24 15:53 Pulse Ox 96 11/28/24 15:53 FiO2 Intake & Output 11/27/24 11/28/24 11/28/24 18:59 06:59 18:59 Intake Total 20 20 20 Output Total 125 350 Balance -105 -330 20 Weight 47.5 kg 63 kg Intake: IV 20 20 20 Invasive Line 3 20 Invasive Line 4 20 20 Output: Urine 125 350 Other: Voiding Method Diaper Indwelling Catheter Indwelling Catheter External Catheter # Bowel Movements 1 1 1 - Exam Abdomen: Soft, slightly distended, slightly less tender - Labs CBC & Chem 7: 11/28/24 06:57 11/28/24 06:57 Labs: Abnormal Lab Results - Last 24 Hours (Table) 11/28/24 11/28/24 11/28/24 Range/Units 06:57 06:57 06:57 WBC 28.85 H (4.50-10.00) 10*3/uL RBC 3.66 L (4.10-5.20) 10*6/uL Hgb 11.3 L (12.0-15.0) g/dL Hct 32.0 L (37.2-46.3) % MPV 9.4 L (9.5-12.2) fL Immature Gran # 0.42 H (0.00-0.04) 10*3/uL Neutrophils # 25.85 H (1.80-7.70) 10*3/uL Monocytes # 1.44 H (0.20-1.00) 10*3/uL Eosinophils # 0.02 L (0.04-0.35) 10*3/uL PT 43.9 H (10.0-12.5) sec INR 4.4 H (<1.2) Sodium 131 L (137-145) mmol/L BUN 28 H (7-17) mg/dL Glucose 103 H (74-99) mg/dL Calcium 8.1 L (8.4-10.2) mg/dL Total Bilirubin 2.0 H (0.2-1.3) mg/dL AST 48 H (14-36) U/L ALT 48 H (4-34) U/L Alkaline Phosphatase 199 H (38-126) U/L Total Protein 5.3 L (6.3-8.2) g/dL Albumin 2.6 L (3.5-5.0) g/dL Assessment and Plan (1) Transaminitis Narrative/Plan: 84-year-old female with colitis and pneumatosis with portal venous gas. Continue supportive care. Continue antibiotics. Continue bowel rest. May have popsicles along with ice chips here and there. Recheck abdominal x-rays tomorrow. Current Visit: Yes Status: Acute Code(s): R74.01 - ELEVATION OF LEVELS OF LIVER TRANSAMINASE LEVELS SNOMED Code(s): 888739601
--- NOTE | 2024-11-28 16:22 | P.PN ---
Subjective Progress Note Date: 11/28/24 Principal diagnosis: Reason for follow-up with ischemic colitis Patient is a 84-year-old female with a past medical history significant for Atrial Fibrillation, Coronary Artery Disease (CAD), CVA/TIA, GERD/Reflux, Hearing Disorder / Deafness, Hyperlipidemia, Hypertension, Osteoarthritis (OA) presenting the hospital a after apparently the patient did have fallen twice workup which was evidence of maxillary fracture and there was concern for possible cholecystitis subsequently worsening abdominal pain with a CT showing features of ischemic colitis prompted this consultation. On today's evaluation that is 11/28/2024, Patient is afebrile this morning patient denies having any chest pain shortness of breath or cough, the patient is currently on room air, patient abdominal pain is slight decrease intensity some nausea but no vomiting. Patient white count is up to 28.85 creatinine 0.89 Objective - Vital Signs Vital signs: Vital Signs Temp 97.4 F L 11/28/24 07:43 Pulse 144 H 11/28/24 13:41 Resp 16 11/28/24 13:41 BP 118/78 11/28/24 12:00 Pulse Ox 96 11/28/24 12:00 FiO2 Intake & Output 11/27/24 11/28/24 11/28/24 18:59 06:59 18:59 Intake Total 20 20 20 Output Total 125 350 Balance -105 -330 20 Weight 47.5 kg 63 kg Intake: IV 20 20 20 Invasive Line 3 20 Invasive Line 4 20 20 Output: Urine 125 350 Other: Voiding Method Diaper Indwelling Catheter Indwelling Catheter External Catheter # Bowel Movements 1 1 1 - Exam GENERAL DESCRIPTION: An elderly female up in bed in no distress RESPIRATORY SYSTEM: Unlabored breathing , decreased breath sounds at bases HEART: S1 S2 regular rate and rhythm , ABDOMEN: Soft , no tenderness EXTREMITIES: No edema feet - Labs CBC & Chem 7: 11/28/24 06:57 11/28/24 06:57 Labs: Abnormal Lab Results - Last 24 Hours (Table) 11/28/24 11/28/24 11/28/24 Range/Units 06:57 06:57 06:57 WBC 28.85 H (4.50-10.00) 10*3/uL RBC 3.66 L (4.10-5.20) 10*6/uL Hgb 11.3 L (12.0-15.0) g/dL Hct 32.0 L (37.2-46.3) % MPV 9.4 L (9.5-12.2) fL Immature Gran # 0.42 H (0.00-0.04) 10*3/uL Neutrophils # 25.85 H (1.80-7.70) 10*3/uL Monocytes # 1.44 H (0.20-1.00) 10*3/uL Eosinophils # 0.02 L (0.04-0.35) 10*3/uL PT 43.9 H (10.0-12.5) sec INR 4.4 H (<1.2) Sodium 131 L (137-145) mmol/L BUN 28 H (7-17) mg/dL Glucose 103 H (74-99) mg/dL Calcium 8.1 L (8.4-10.2) mg/dL Total Bilirubin 2.0 H (0.2-1.3) mg/dL AST 48 H (14-36) U/L ALT 48 H (4-34) U/L Alkaline Phosphatase 199 H (38-126) U/L Total Protein 5.3 L (6.3-8.2) g/dL Albumin 2.6 L (3.5-5.0) g/dL Assessment and Plan (1) Sepsis Current Visit: Yes Status: Acute Code(s): A41.9 - SEPSIS, UNSPECIFIED ORGANISM SNOMED Code(s): 47443804 (2) Cholecystitis Current Visit: Yes Status: Acute Code(s): K81.9 - CHOLECYSTITIS, UNSPECIFIED SNOMED Code(s): 81929410 (3) Ischemic colitis Current Visit: Yes Status: Acute Code(s): K55.9 - VASCULAR DISORDER OF INTESTINE, UNSPECIFIED SNOMED Code(s): 82228325 Plan: 1patient with abdominal pain in this patient with initially presented to the hospital with a fall hide did have a maxillary fracture patient did have a fever first 2 days of her admission and also have elevated white count there was abnormality on the gallbladder concerning for possible cholecystitis and did have group G streptococcus bacteremia now with evidence of ischemic colitis and the family has opted for medical treatment still await for surgical intervention 2-blood cultures has been repeated which are currently pending 3-patient Zosyn 3.375 g every 8 hours has been renewed noticed to have slight worsening of the white count will monitor closely Family bedside multiple question concern answered Dictation was produced using [employer] dictation software. please excuse any grammatical, word or spelling errors.
[2024-11-28] MEDS: WARFARIN 0.5 MG TAB PO ONE (20:54)
--- NOTE | 2024-11-29 04:54 | P.PN ---
Subjective Progress Note Date: 11/28/24 This is a pleasant 84-year-old female who was recently admitted under trauma services status post fall and is noted to have a right maxillary fracture with some significant ecchymosis of the face traveling down to the neck and being followed by multiple consultations. Patient transferred to medicine service as patient continues with significant weakness and is having some altered mentation, multifactorial and likely secondary to hospital delirium. Recommend limiting aggressive narcotics although patient is reporting significant pain. Patient continues to have some expectoration of streaks of blood noted in the spit otherwise no active bleeding noted. Patient is reporting significant hip pain and will obtain some images. Recommend PT/OT therapy daily. Patient's INR is elevated just above 3 although improved from previous. Will follow-up on repeat labs and continue to monitor closely. Plan will be for patient to go to ECF for continued strength and mobility. 11/24/2024 Patient is seen in follow-up today mentation is somewhat improved and would recommend frequent reorientation during the day and adjusting pain medications and trying to limit IV narcotic use. Patient to continue with Seroquel at night and continued PT/OT therapy. Plan will be for patient to go to ECF on discharge for continued strength and mobility. Patient is having significant left hip pain and leg pain we will obtain a Doppler and also adjust medications accordingly. Patient is currently afebrile is tolerating diet although not much of an appetite noted. Continue with bowel regimen scheduled as well as as needed 11/25/2024 Patient is evaluated in follow-up on the medical floor. She is awake alert x 1. Family at the bedside. She is sitting up at the bedside eating appears quite fatigued though. She continues to report significant left hip and leg pain. Doppler was negative for any findings for acute DVT. LFTs remain elevated and chest x-ray does reveal some vascular congestion. Patient has been continued on her home dose of oral Lasix twice daily. Also continues on IV Zosyn. A gall bladder ultrasound was ordered and is currently pending for tomorrow morning. Warfarin remains on hold as patient's INR today was elevated at 3.6. Procalcitonin level is significantly elevated at 2.62. Patient has been afebrile. She is currently on room air oxygen saturations at 97%. 11/26/2024 Patient evaluated in follow-up with the medical floor. Patient continues on IV Zosyn. Currently pending gallbladder ultrasound which will be completed later this afternoon as patient had breakfast. Her abdomen is distended today and firm with concern for possible ileus. Patient did have a loose BM yesterday. Abdominal xray completed reveals nonspecific gaseous dilation of the colon bowel gas pattern without radiographic evidence or acute process. White blood cell count of 12.54, hemoglobin 11.8, sodium of 131, BUN of 19 creatinine of 0.75, magnesium 1.9. Her INR today is 3.7. 11/27/2024 Patient is seen in follow-up today with general surgery following. Patient continues to have abdominal discomfort with concerns of impaction. Patient to have CT abdomen ordered per surgery for further evaluation. Patient was having a few episodes of explosive diarrhea and loose stools and C. difficile is also ordered and pending at this time. Patient continues to report significant abdominal pain and is currently n.p.o. per surgery. White count has increased significantly to 27.16 and hemoglobin is stable at 12.9, INR is 3.5 and Coumadin is to dose per pharmacy and being held, sodium 131 with a potassium of 3.8, BUN is 21 and creatinine is 0 point, total bilirubin is 2.6 and ALT/AST are elevated although trending down. C. difficile testing was negative. 11/28/2024 Patient is seen in follow-up with multiple consultations following including general surgery and infectious disease. Patient is maintained on antibiotics in the form of Zosyn and white count is elevated above 28 and continues to be elevated. General surgery following recommending conservative management at this time. Patient is continued on very sparing ice chips and may have popsicles sparingly per surgery. Patient is sitting up at the side of the bed looking slightly improved today although continues with diffuse abdominal pain. Patient is having gas and nursing staff reported 2 large bowel movements. Patient is continued on daily Dulcolax suppository per surgery and will continue. Repeat labs in the a.m. Review of systems: Constitutional: No reports of fatigue, fever, or chills Cardiovascular: No reports of chest pain or palpitations Respiratory: No reports of shortness of breath or cough GI: reports of occasional nausea, no reports of vomiting, reports not much of an appetite but is feeling hungry. reports continued abdominal pain and abdominal distention. : No reports of dysuria or retention Neurovascular: reports of generalized weakness, reports left hip pain All medications have been reviewed PHYSICAL EXAMINATION: GENERAL: The patient is alert and oriented x2, extremely hard of hearing, well developed, elderly appearing, thin built HEENT: Pupils are round and equally reacting to light. EOMI. no scleral icterus. No conjunctival pallor. Normocephalic, atraumatic. No pharyngeal erythema. No thyromegaly. CARDIOVASCULAR: S1 and S2 muffled PULMONARY: diminished breath sounds bilaterally with no wheezing or rhonchi noted. ABDOMEN: Dull. tender on exam on the left side. Distented and hypoactive bowel sounds. No palpable organomegaly. MUSCULOSKELETAL: No joint swelling or deformity. EXTREMITIES: No cyanosis, clubbing, or pedal edema. Continued left hip pain on palpation NEUROLOGICAL: Gross neurological examination did not reveal any focal deficits. Diffuse weakness SKIN: No rashes. Significant ecchymosis noted of the face extending down into the neck and upper chest area showing continued improvement Assessment: Fall and right maxillary fracture with ecchymosis Hyponatremia, improved Troponin elevated, 0.185, ruled out acute NSTEMI per cardiology Coumadin coagulopathy, INR being monitored per pharmacy Altered mental status, acute metabolic encephalopathy, multifactorial with possible underlying sinusitis and also a component of hospital-acquired delirium Increased WBC with concerns of underlying infection, likely secondary to pneumatosis of the colon Transaminitis under investigation, trending down Constipation and abdominal distention History of previous CVA/TIA Atrial fibrillation, permanent Hypertension History of osteoarthritis Hard of hearing History of anxiety History of coronary artery disease with previous CABG history of bicuspid aortic valve status post AVR and then TAVR History of gastroesophageal reflux disease Hyperlipidemia GI prophylaxis DVT prophylaxis No code Plan: Patient has transitioned to medicine service with ongoing underlying conditions and concerns of possible hospital-acquired delirium versus possible sinus in fection or sinusitis with recent facial trauma. Mentation has improved at baseline Encouraged frequent reorientation and family at bedside most of the time with blinds and shades open during the day and will continue Seroquel as needed at night for agitation. Recommend continuing with pain management per surgery as patient has findings of pneumatosis of the colon and scattered areas and air in the portal venous system. Possible options of surgery discussed although would be a high risk candidate and also recommending aggressive medical management and supportive care and also possible hospice as an option. Family is not ready for hospice and would like to continue with bowel rest and antibiotics with supportive care. Patient having extreme left hip and leg pain, Continue with norco and lidocaine patches, orthopedics evaluated the patient with no plans of surgical intervention at this time. gallbladder ultrasound performed which reveals gallstones Patient was having multiple episodes of loose explosive stool and concerns of fecal impaction with general surgery following. CT ordered this morning reveals dilatation of the large bowel with pneumatosis coli and portal venous gas in the liver, cholelithiasis and small volume free fluid with increasing bilateral pleural effusions and soft tissue anasarca likely third spacing versus volume overload with nonspecific bilateral inguinal lymphadenopathy. Recommend Dulcolax suppositories daily per general surgery. Patient had 2 large bowel movements yesterday and is passing gas. Continue current regimen and is allowed sparing ice chips and occasional cycles per surgery. Overall prognosis is extremely poor and guarded at this time and family does not want further aggressive surgical management. CODE STATUS was addressed and family at the bedside were agreeable to no code Continue off IV fluids at this time and patient remains on oral lasix twice daily. Continue IV zosyn; procalcitonin elevated, infectious disease following. On antibiotics. White count is above 26 today and will be monitored closely Check INR daily, pharmacy to dose coumadin, Coumadin currently on hold as INR was above 3.5 CBC/BMP in the AM Continue bowel rest and ice chips occasionally per general surgery The impression and plan of care has been dictated by Joselin Becerril, Nurse Practitioner as directed. Dr. Breanne MD I have performed a history and physical examination and medical decision making of this patient, discussed the same with the dictator, and agree with the dictators assessment and plan as written, documented as a scribe. Based on total visit time, I have performed more than 50% of this visit. Objective - Vital Signs Vital signs: Vital Signs Temp 97.4 F L 11/28/24 07:43 Pulse 102 H 11/28/24 07:43 Resp 16 11/28/24 07:43 BP 115/80 11/28/24 07:43 Pulse Ox 96 11/28/24 07:43 FiO2 Intake & Output 11/27/24 11/28/24 11/28/24 18:59 06:59 18:59 Intake Total 20 20 Output Total 125 350 Balance -105 -330 Weight 47.5 kg 63 kg Intake: IV 20 20 Invasive Line 3 20 Invasive Line 4 20 Output: Urine 125 350 Other: Voiding Method Diaper Indwelling Catheter External Catheter # Bowel Movements 1 1 - Labs CBC & Chem 7: 11/28/24 06:57 11/28/24 06:57 Labs: Abnormal Lab Results - Last 24 Hours (Table) 11/28/24 11/28/24 11/28/24 Range/Units 06:57 06:57 06:57 WBC 28.85 H (4.50-10.00) 10*3/uL RBC 3.66 L (4.10-5.20) 10*6/uL Hgb 11.3 L (12.0-15.0) g/dL Hct 32.0 L (37.2-46.3) % MPV 9.4 L (9.5-12.2) fL Immature Gran # 0.42 H (0.00-0.04) 10*3/uL Neutrophils # 25.85 H (1.80-7.70) 10*3/uL Monocytes # 1.44 H (0.20-1.00) 10*3/uL Eosinophils # 0.02 L (0.04-0.35) 10*3/uL PT 43.9 H (10.0-12.5) sec INR 4.4 H (<1.2) Sodium 131 L (137-145) mmol/L BUN 28 H (7-17) mg/dL Glucose 103 H (74-99) mg/dL Calcium 8.1 L (8.4-10.2) mg/dL Total Bilirubin 2.0 H (0.2-1.3) mg/dL AST 48 H (14-36) U/L ALT 48 H (4-34) U/L Alkaline Phosphatase 199 H (38-126) U/L Total Protein 5.3 L (6.3-8.2) g/dL Albumin 2.6 L (3.5-5.0) g/dL
[2024-11-29 06:49] LABS: Basophils # (A) 0.06 10*3/uL (0.00-0.10); Basophils % (A) 0.3 %; Eosinophils # (A) 0.03 10*3/uL (0.04-0.35); Eosinophils % (A) 0.1 %; HCT 29.5 % (37.2-46.3); HGB 10.6 g/dL (12.0-15.0); Lymphocytes # (A) 0.89 10*3/uL (0.90-5.00); Lymphocytes % (A) 4.3 %; MCH 31.5 pg (27.0-32.0); MCHC 35.9 g/dL (32.0-37.0); MCV 87.8 fL (80.0-97.0); Monocytes # (A) 1.07 10*3/uL (0.20-1.00); Monocytes % (A) 5.2 %; Neutrophils # (A) 18.16 10*3/uL (1.80-7.70); Neutrophils % (A) 88.5 %; Platelet Count 248 10*3/uL (140-440); RBC 3.36 10*6/uL (4.10-5.20); RDW 15.2 % (11.5-14.5); WBC 20.53 10*3/uL (4.50-10.00)
[2024-11-29 07:23] LABS: Prothrombin Time 56.0 sec (10.0-12.5)
[2024-11-29 08:03] LABS: INR 5.6 (<1.2)
[2024-11-29] MEDS: PHYTONADIONE 5 MG in SODIUM CHLORIDE 0.9% 50 ML IVPB STA (09:26)
--- NOTE | 2024-11-29 10:15 | XR ---
EXAMINATION TYPE: XR abdomen 2V DATE OF EXAM: 11/29/2024 COMPARISON: CT abdomen and pelvis 11/27/2024, abdominal radiograph 11/26/2024 HISTORY: Follow-up colitis TECHNIQUE: Single upright KUB image of the abdomen is obtained FINDINGS: Residual contrast material identified within the stomach. No overt small bowel dilatation is identifi ed. Colonic gaseous distention redemonstrated and most prominently involving the transverse colon greg suring up to 8.3 cm in diameter. There is gas identified within the descending colon and rectum. No convincing evidence for pneumoperitoneum. No unusual calcifications. The lung bases are clear. Cardiomegaly with postsurgical changes in the aortic valvular region with s tent graft. No acute osseous abnormality. Sternotomy wires. Multilevel degenerative changes of the visualized tho racolumbar spine with levoscoliotic curvature. IMPRESSION: Continued gaseous dilatation of the large bowel concerning for ileus. Known colonic pneumatosis and p ortal venous gas is better appreciated on prior CT. [facility], , 11/29/2024 10:13 AM
--- NOTE | 2024-11-29 12:08 | P.PN ---
Subjective Progress Note Date: 11/29/24 Principal diagnosis: Elevated liver enzymes Patient laying in bed. Says her pain is better today. Less pain per the family as well. Did have further loose stool and flatus overnight. None this morning. Repeat abdominal x-rays today show proximal colonic distention measuring 8 cm at transverse colon, no free air. White blood cell count improved at 20,000. Objective - Vital Signs Vital signs: Vital Signs Temp 97.8 F 11/29/24 09:51 Pulse 92 11/29/24 11:35 Resp 18 11/29/24 11:35 BP 124/77 11/29/24 11:35 Pulse Ox 98 11/29/24 11:35 FiO2 Intake & Output 11/28/24 11/29/24 11/29/24 18:59 06:59 18:59 Intake Total 20 20 10 Output Total 300 200 Balance -280 -180 10 Weight 63.1 kg Intake: IV 20 20 10 Invasive Line 4 20 20 10 Output: Urine 300 200 Other: Voiding Method Indwelling Catheter Indwelling Catheter Indwelling Catheter # Bowel Movements 1 - Exam Abdomen: Soft, mild distention, mild tenderness improves - Labs CBC & Chem 7: 11/29/24 06:08 11/28/24 06:57 Labs: Abnormal Lab Results - Last 24 Hours (Table) 11/29/24 11/29/24 Range/Units 06:08 06:08 WBC 20.53 H (4.50-10.00) 10*3/uL RBC 3.36 L (4.10-5.20) 10*6/uL Hgb 10.6 L (12.0-15.0) g/dL Hct 29.5 L (37.2-46.3) % MPV 9.3 L (9.5-12.2) fL Immature Gran # 0.32 H (0.00-0.04) 10*3/uL Neutrophils # 18.16 H (1.80-7.70) 10*3/uL Lymphocytes # 0.89 L (0.90-5.00) 10*3/uL Monocytes # 1.07 H (0.20-1.00) 10*3/uL Eosinophils # 0.03 L (0.04-0.35) 10*3/uL PT 56.0 H (10.0-12.5) sec INR 5.6 H* (<1.2) Microbiology - Last 24 Hours (Table) 11/27/24 12:52 Blood Culture - Preliminary Blood Assessment and Plan (1) Transaminitis Narrative/Plan: Patient doing slightly better today. Continue n.p.o. except for popsicles and ice chips. Increase activity today. Continue antibiotics and supportive care. Current Visit: Yes Status: Acute Code(s): R74.01 - ELEVATION OF LEVELS OF LIVER TRANSAMINASE LEVELS SNOMED Code(s): 086865239
[2024-11-29] MEDS: WARFARIN 0.5 MG TAB PO ONE (16:31)
--- NOTE | 2024-11-30 05:03 | P.PN ---
Subjective Progress Note Date: 11/29/24 This is a pleasant 84-year-old female who was recently admitted under trauma services status post fall and is noted to have a right maxillary fracture with some significant ecchymosis of the face traveling down to the neck and being followed by multiple consultations. Patient transferred to medicine service as patient continues with significant weakness and is having some altered mentation, multifactorial and likely secondary to hospital delirium. Recommend limiting aggressive narcotics although patient is reporting significant pain. Patient continues to have some expectoration of streaks of blood noted in the spit otherwise no active bleeding noted. Patient is reporting significant hip pain and will obtain some images. Recommend PT/OT therapy daily. Patient's INR is elevated just above 3 although improved from previous. Will follow-up on repeat labs and continue to monitor closely. Plan will be for patient to go to ECF for continued strength and mobility. 11/24/2024 Patient is seen in follow-up today mentation is somewhat improved and would recommend frequent reorientation during the day and adjusting pain medications and trying to limit IV narcotic use. Patient to continue with Seroquel at night and continued PT/OT therapy. Plan will be for patient to go to ECF on discharge for continued strength and mobility. Patient is having significant left hip pain and leg pain we will obtain a Doppler and also adjust medications accordingly. Patient is currently afebrile is tolerating diet although not much of an appetite noted. Continue with bowel regimen scheduled as well as as needed 11/25/2024 Patient is evaluated in follow-up on the medical floor. She is awake alert x 1. Family at the bedside. She is sitting up at the bedside eating appears quite fatigued though. She continues to report significant left hip and leg pain. Doppler was negative for any findings for acute DVT. LFTs remain elevated and chest x-ray does reveal some vascular congestion. Patient has been continued on her home dose of oral Lasix twice daily. Also continues on IV Zosyn. A gall bladder ultrasound was ordered and is currently pending for tomorrow morning. Warfarin remains on hold as patient's INR today was elevated at 3.6. Procalcitonin level is significantly elevated at 2.62. Patient has been afebrile. She is currently on room air oxygen saturations at 97%. 11/26/2024 Patient evaluated in follow-up with the medical floor. Patient continues on IV Zosyn. Currently pending gallbladder ultrasound which will be completed later this afternoon as patient had breakfast. Her abdomen is distended today and firm with concern for possible ileus. Patient did have a loose BM yesterday. Abdominal xray completed reveals nonspecific gaseous dilation of the colon bowel gas pattern without radiographic evidence or acute process. White blood cell count of 12.54, hemoglobin 11.8, sodium of 131, BUN of 19 creatinine of 0.75, magnesium 1.9. Her INR today is 3.7. 11/27/2024 Patient is seen in follow-up today with general surgery following. Patient continues to have abdominal discomfort with concerns of impaction. Patient to have CT abdomen ordered per surgery for further evaluation. Patient was having a few episodes of explosive diarrhea and loose stools and C. difficile is also ordered and pending at this time. Patient continues to report significant abdominal pain and is currently n.p.o. per surgery. White count has increased significantly to 27.16 and hemoglobin is stable at 12.9, INR is 3.5 and Coumadin is to dose per pharmacy and being held, sodium 131 with a potassium of 3.8, BUN is 21 and creatinine is 0 point, total bilirubin is 2.6 and ALT/AST are elevated although trending down. C. difficile testing was negative. 11/28/2024 Patient is seen in follow-up with multiple consultations following including general surgery and infectious disease. Patient is maintained on antibiotics in the form of Zosyn and white count is elevated above 28 and continues to be elevated. General surgery following recommending conservative management at this time. Patient is continued on very sparing ice chips and may have popsicles sparingly per surgery. Patient is sitting up at the side of the bed looking slightly improved today although continues with diffuse abdominal pain. Patient is having gas and nursing staff reported 2 large bowel movements. Patient is continued on daily Dulcolax suppository per surgery and will continue. Repeat labs in the a.m. 11/29/2024 Patient is seen in follow-up today maintained on antibiotics and continues to be n.p.o. except for occasional ice chips and very sparing popsicle per surgery. Patient white count remains elevated although slightly improved at 20.53 today. Hemoglobin is stable at 10.6, platelets are 248, INR is noted to be 5.6 and Coumadin has been on hold. Will give a dose of vitamin K and follow-up on repeat labs. Patient is resting currently and daughters at bedside and have been staying with her through the night reporting she continues to have pain although is tolerating. Encouraged increased activity as tolerated including sitting up at the side of the bed and working with PT/OT therapy. Patient is afebrile with no reports of chest pain or shortness of breath at this time. Patient did have repeat abdominal x-ray which reveals continuous gaseous dilatation of the large bowel concerning for ileus with known colonic pneumatosis and portal venous gas. Transverse colon measuring up to 8.3 cm in diameter. Review of systems: Constitutional: No reports of fatigue, fever, or chills Cardiovascular: No reports of chest pain or palpitations Respiratory: No reports of shortness of breath or cough GI: reports of occasional nausea, no reports of vomiting, reports not much of an appetite but is feeling hungry occasionally. reports continued abdominal pain and abdominal distention. : No reports of dysuria or retention Neurovascular: reports of generalized weakness, reports left hip pain All medications have been reviewed PHYSICAL EXAMINATION: GENERAL: The patient is alert and oriented x2, extremely hard of hearing, well developed, elderly appearing, thin built HEENT: Pupils are round and equally reacting to light. EOMI. no scleral icterus. No conjunctival pallor. Normocephalic, atraumatic. No pharyngeal erythema. No thyromegaly. CARDIOVASCULAR: S1 and S2 muffled PULMONARY: diminished breath sounds bilaterally with no wheezing or rhonchi noted. ABDOMEN: Dull. tender on exam on the left side. Distented and hypoactive bowel sounds. No palpable organomegaly. MUSCULOSKELETAL: No joint swelling or deformity. EXTREMITIES: No cyanosis, clubbing, or pedal edema. Continued left hip pain on palpation NEUROLOGICAL: Gross neurological examination did not reveal any focal deficits. Diffuse weakness SKIN: No rashes. Significant ecchymosis noted of the face extending down into the neck and upper chest area showing continued improvement Assessment: Fall and right maxillary fracture with ecchymosis Hyponatremia, improved Troponin elevated, 0.185, ruled out acute NSTEMI per cardiology Coumadin coagulopathy, INR being monitored per pharmacy, 5.6 today dose of v itamin K Altered mental status, acute metabolic encephalopathy, multifactorial with possible underlying sinusitis and also a component of hospital-acquired delirium Increased WBC with bacteremia concerns of underlying infection with sepsis, present on admission, likely secondary to ischemic colitis. Transaminitis under investigation, trending down Constipation and abdominal distention History of previous CVA/TIA Atrial fibrillation, permanent Hypertension History of osteoarthritis Hard of hearing History of anxiety History of coronary artery disease with previous CABG history of bicuspid aortic valve status post AVR and then TAVR History of gastroesophageal reflux disease Hyperlipidemia GI prophylaxis DVT prophylaxis No code Plan: Patient has transitioned to medicine service with ongoing underlying conditions and concerns of possible hospital-acquired delirium versus possible sinus i nfection or sinusitis with recent facial trauma. Mentation has improved at baseline Encouraged frequent reorientation and family at bedside most of the time with blinds and shades open during the day and will continue Seroquel as needed at night for agitation. Recommend continuing with pain management per surgery as patient has findings of pneumatosis of the colon and scattered areas and air in the portal venous system. Possible options of surgery discussed although would be a high risk candidate and also recommending aggressive medical management and supportive care and also possible hospice as an option. Family is not ready for hospice and would like to continue with bowel rest and antibiotics with supportive care. Patient having extreme left hip and leg pain, Continue with norco and lidocaine patches, orthopedics evaluated the patient with no plans of surgical intervention at this time. gallbladder ultrasound performed which reveals gallstones Patient was having multiple episodes of loose explosive stool and concerns of fecal impaction with general surgery following. CT reveals dilatation of the large bowel with pneumatosis coli and portal venous gas in the liver, cholelit hiasis and small volume free fluid with increasing bilateral pleural effusions and soft tissue anasarca likely third spacing versus volume overload with nonspecific bilateral inguinal lymphadenopathy. Recommend Dulcolax suppositories daily per general surgery. Patient had 2 large bowel movements y esterday and is passing gas. Continue current regimen and is allowed sparing ice chips and occasional popsicles per surgery. Overall prognosis is extremely poor and guarded at this time and family does not want further aggressive surgical management. CODE STATUS was addressed and family at the bedside were agreeable to no code Continue off IV fluids at this time and patient remains on oral lasix twice daily. Continue IV zosyn; procalcitonin elevated, infectious disease following. On antibiotics. White count is slightly improved at 20 today and will be monitored closely Check INR daily, pharmacy to dose coumadin, Coumadin currently on hold as INR remains elevated and is 5.6 today. Will give a dose of vitamin K CBC/BMP/PT/INR in the AM Continue bowel rest and ice chips occasionally per general surgery The impression and plan of care has been dictated by Joselin Becerril, Nurse Practitioner as directed. Dr. Breanne MD I have performed a history and physical examination and medical decision making of this patient, discussed the same with the dictator, and agree with the dictators assessment and plan as written, documented as a scribe. Based on total visit time, I have performed more than 50% of this visit. Objective - Vital Signs Vital signs: Vital Signs Temp 97.6 F 11/30/24 03:06 Pulse 96 11/30/24 03:06 Resp 18 11/30/24 03:06 BP 127/82 11/30/24 03:06 Pulse Ox 95 11/30/24 03:06 FiO2 Intake & Output 11/29/24 11/29/24 11/30/24 06:59 18:59 06:59 Intake Total 20 20 20 Output Total 200 Balance -180 20 20 Weight 63.1 kg Intake: IV 20 20 20 Invasive Line 4 20 20 20 Output: Urine 200 Other: Voiding Method Indwelling Catheter Indwelling Catheter Indwelling Catheter # Bowel Movements 2 1 - Labs CBC & Chem 7: 11/29/24 06:08 11/28/24 06:57 Labs: Abnormal Lab Results - Last 24 Hours (Table) 11/29/24 11/29/24 Range/Units 06:08 06:08 WBC 20.53 H (4.50-10.00) 10*3/uL RBC 3.36 L (4.10-5.20) 10*6/uL Hgb 10.6 L (12.0-15.0) g/dL Hct 29.5 L (37.2-46.3) % MPV 9.3 L (9.5-12.2) fL Immature Gran # 0.32 H (0.00-0.04) 10*3/uL Neutrophils # 18.16 H (1.80-7.70) 10*3/uL Lymphocytes # 0.89 L (0.90-5.00) 10*3/uL Monocytes # 1.07 H (0.20-1.00) 10*3/uL Eosinophils # 0.03 L (0.04-0.35) 10*3/uL PT 56.0 H (10.0-12.5) sec INR 5.6 H* (<1.2) Microbiology - Last 24 Hours (Table) 11/27/24 12:52 Blood Culture - Preliminary Blood
[2024-11-30 06:58] LABS: Basophils # (A) 0.03 10*3/uL (0.00-0.10); Basophils % (A) 0.2 %; Eosinophils # (A) 0.01 10*3/uL (0.04-0.35); Eosinophils % (A) 0.1 %; HCT 32.2 % (37.2-46.3); HGB 11.1 g/dL (12.0-15.0); Lymphocytes # (A) 0.81 10*3/uL (0.90-5.00); Lymphocytes % (A) 5.5 %; MCH 30.6 pg (27.0-32.0); MCHC 34.5 g/dL (32.0-37.0); MCV 88.7 fL (80.0-97.0); Monocytes # (A) 0.78 10*3/uL (0.20-1.00); Monocytes % (A) 5.3 %; Neutrophils # (A) 12.98 10*3/uL (1.80-7.70); Neutrophils % (A) 87.7 %; Platelet Count 287 10*3/uL (140-440); RBC 3.63 10*6/uL (4.10-5.20); RDW 15.3 % (11.5-14.5); WBC 14.78 10*3/uL (4.50-10.00)
--- NOTE | 2024-11-30 07:10 | P.PN ---
Subjective Progress Note Date: 11/29/24 Principal diagnosis: Reason for follow-up with ischemic colitis Patient is a 84-year-old female with a past medical history significant for Atrial Fibrillation, Coronary Artery Disease (CAD), CVA/TIA, GERD/Reflux, Hearing Disorder / Deafness, Hyperlipidemia, Hypertension, Osteoarthritis (OA) presenting the hospital a after apparently the patient did have fallen twice workup which was evidence of maxillary fracture and there was concern for possible cholecystitis subsequently worsening abdominal pain with a CT showing features of ischemic colitis prompted this consultation. On today's evaluation that is 11/29/2024,the patient denies any fever or any chills, patient is breathing comfortably on room air, the patient denies chest pain shortness of breath and no significant cough, patient abdominal pain is currently controlled some nausea but no vomiting did have a bowel movement. Patient white count is down to 20.53 creatinine 0.89 blood culture repeat has b een negative so far Objective - Vital Signs Vital signs: Vital Signs Temp 97.8 F 11/29/24 09:51 Pulse 90 11/29/24 09:58 Resp 18 11/29/24 09:58 BP 128/76 11/29/24 09:51 Pulse Ox 99 11/29/24 09:51 FiO2 Intake & Output 11/28/24 11/29/24 11/29/24 18:59 06:59 18:59 Intake Total 20 20 10 Output Total 300 200 Balance -280 -180 10 Weight 63.1 kg Intake: IV 20 20 10 Invasive Line 4 20 20 10 Output: Urine 300 200 Other: Voiding Method Indwelling Catheter Indwelling Catheter Indwelling Catheter # Bowel Movements 1 - Exam GENERAL DESCRIPTION: An elderly female up in bed in no distress RESPIRATORY SYSTEM: Unlabored breathing , decreased breath sounds at bases HEART: S1 S2 regular rate and rhythm , ABDOMEN: Soft , no tenderness EXTREMITIES: No edema feet - Labs CBC & Chem 7: 11/30/24 06:26 11/28/24 06:57 Labs: Abnormal Lab Results - Last 24 Hours (Table) 11/29/24 11/29/24 Range/Units 06:08 06:08 WBC 20.53 H (4.50-10.00) 10*3/uL RBC 3.36 L (4.10-5.20) 10*6/uL Hgb 10.6 L (12.0-15.0) g/dL Hct 29.5 L (37.2-46.3) % MPV 9.3 L (9.5-12.2) fL Immature Gran # 0.32 H (0.00-0.04) 10*3/uL Neutrophils # 18.16 H (1.80-7.70) 10*3/uL Lymphocytes # 0.89 L (0.90-5.00) 10*3/uL Monocytes # 1.07 H (0.20-1.00) 10*3/uL Eosinophils # 0.03 L (0.04-0.35) 10*3/uL PT 56.0 H (10.0-12.5) sec INR 5.6 H* (<1.2) Microbiology - Last 24 Hours (Table) 11/27/24 12:52 Blood Culture - Preliminary Blood Assessment and Plan (1) Sepsis Current Visit: Yes Status: Acute Code(s): A41.9 - SEPSIS, UNSPECIFIED ORGANISM SNOMED Code(s): 80969397 (2) Cholecystitis Current Visit: Yes Status: Acute Code(s): K81.9 - CHOLECYSTITIS, UNSPECIFIED SNOMED Code(s): 92310899 (3) Ischemic colitis Current Visit: Yes Status: Acute Code(s): K55.9 - VASCULAR DISORDER OF INTESTINE, UNSPECIFIED SNOMED Code(s): 23479674 Plan: 1patient with abdominal pain in this patient with initially presented to the hospital with a fall hide did have a maxillary fracture patient did have a fever first 2 days of her admission and also have elevated white count there was abnormality on the gallbladder concerning for possible cholecystitis and did have group G streptococcus bacteremia now with evidence of ischemic colitis and the family has opted for medical treatment still await for surgical intervention 2-blood cultures has been repeated which are so far negative 3-patient is afebrile patient white count is trending down down to 20,000, patient to continue Zosyn 3.375 g every 8 hours and will monitor clinical course closely Family bedside multiple question concern answered Dictation was produced using [employer] dictation software. please excuse any gramm atical, word or spelling errors. Time with Patient: Less than 30
[2024-11-30 07:19] LABS: ALT 37 U/L (4-34); AST 41 U/L (14-36); African American GFR (CKD) >90 (>60 ml/min/1.73 sqM); Albumin 2.7 g/dL (3.5-5.0); Alkaline Phosphatase 181 U/L (38-126); Anion Gap 10 mmol/L; Blood Urea Nitrogen 24 mg/dL (7-17); Calcium 8.2 mg/dL (8.4-10.2); Carbon Dioxide 23 mmol/L (22-30); Chloride 101 mmol/L (98-107); Glucose 73 mg/dL (74-99); Non-African American GFR(CKD) 79 (>60 ml/min/1.73 sqM); Potassium 3.5 mmol/L (3.5-5.1); Sodium 134 mmol/L (137-145); Total Protein 5.6 g/dL (6.3-8.2)
[2024-11-30 07:32] LABS: INR 1.2 (<1.2); Prothrombin Time 13.3 sec (10.0-12.5)
--- NOTE | 2024-11-30 16:56 | P.PN ---
Subjective Progress Note Date: 11/30/24 Principal diagnosis: Elevated liver enzymes Patient is much more alert today. Sitting on the commode currently. Apparently she was walking in the room. She is much more talkative per the family. No significant pain currently. Passing flatus and having liquid stools. White blood cell count improved. Objective - Vital Signs Vital signs: Vital Signs Temp 97.5 F L 11/30/24 11:26 Pulse 109 H 11/30/24 11:26 Resp 20 11/30/24 11:26 BP 133/70 11/30/24 11:26 Pulse Ox 97 11/30/24 11:26 FiO2 Intake & Output 11/29/24 11/30/24 11/30/24 18:59 06:59 18:59 Intake Total 20 20 Output Total 250 300 Balance 20 -230 -300 Weight 63 kg 63 kg Intake: IV 20 20 Invasive Line 4 20 20 Output: Urine 250 300 Other: Voiding Method Indwelling Catheter Indwelling Catheter Indwelling Catheter # Bowel Movements 2 1 1 - Exam Abdomen: Soft, mild distention, minimal tenderness - Labs CBC & Chem 7: 11/30/24 06:26 11/30/24 06:26 Labs: Abnormal Lab Results - Last 24 Hours (Table) 11/30/24 11/30/24 11/30/24 Range/Units 06:26 06:26 06:26 WBC 14.78 H (4.50-10.00) 10*3/uL RBC 3.63 L (4.10-5.20) 10*6/uL Hgb 11.1 L (12.0-15.0) g/dL Hct 32.2 L (37.2-46.3) % MPV 8.8 L (9.5-12.2) fL Immature Gran # 0.17 H (0.00-0.04) 10*3/uL Neutrophils # 12.98 H (1.80-7.70) 10*3/uL Lymphocytes # 0.81 L (0.90-5.00) 10*3/uL Eosinophils # 0.01 L (0.04-0.35) 10*3/uL PT 13.3 H (10.0-12.5) sec INR 1.2 H (<1.2) Sodium 134 L (137-145) mmol/L BUN 24 H (7-17) mg/dL Glucose 73 L (74-99) mg/dL Calcium 8.2 L (8.4-10.2) mg/dL Total Bilirubin 2.0 H (0.2-1.3) mg/dL AST 41 H (14-36) U/L ALT 37 H (4-34) U/L Alkaline Phosphatase 181 H (38-126) U/L Total Protein 5.6 L (6.3-8.2) g/dL Albumin 2.7 L (3.5-5.0) g/dL Microbiology - Last 24 Hours (Table) 11/27/24 12:52 Blood Culture - Preliminary Blood Assessment and Plan (1) Transaminitis Narrative/Plan: Patient definitely improved at this time. Begin clear liquids. No carbonation. Continue antibiotics. Increase activity. Current Visit: Yes Status: Acute Code(s): R74.01 - ELEVATION OF LEVELS OF LIVER TRANSAMINASE LEVELS SNOMED Code(s): 111516669
[2024-11-30] MEDS: WARFARIN 2 MG TAB PO ONE (17:05)
--- NOTE | 2024-11-30 22:54 | P.PN ---
Subjective Progress Note Date: 11/30/24 Principal diagnosis: Reason for follow-up with ischemic colitis Patient is a 84-year-old female with a past medical history significant for Atrial Fibrillation, Coronary Artery Disease (CAD), CVA/TIA, GERD/Reflux, Hearing Disorder / Deafness, Hyperlipidemia, Hypertension, Osteoarthritis (OA) presenting the hospital a after apparently the patient did have fallen twice workup which was evidence of maxillary fracture and there was concern for possible cholecystitis subsequently worsening abdominal pain with a CT showing features of ischemic colitis prompted this consultation. On today's evaluation that is 11/30/2024,the patient remains to be afebrile, patient is on room air not requiring supplemental oxygen and denies any shortness of breath no chest pain or cough.Patient denies having any nausea or vomiting, abdominal pain has decreased intensity and did have a bowel movement. Patient white count was down to 14.78, creatinine is 0.70 blood culture repeat has been negative Objective - Vital Signs Vital signs: Vital Signs Temp 97.5 F L 11/30/24 11:26 Pulse 109 H 11/30/24 11:26 Resp 20 11/30/24 11:26 BP 133/70 11/30/24 11:26 Pulse Ox 97 11/30/24 11:26 FiO2 Intake & Output 11/29/24 11/30/24 11/30/24 18:59 06:59 18:59 Intake Total 20 20 Output Total 250 Balance 20 -230 Weight 63 kg 63 kg Intake: IV 20 20 Invasive Line 4 20 20 Output: Urine 250 Other: Voiding Method Indwelling Catheter Indwelling Catheter Indwelling Catheter # Bowel Movements 2 1 1 - Exam GENERAL DESCRIPTION: An elderly female up in bed in no distress RESPIRATORY SYSTEM: Unlabored breathing , decreased breath sounds at bases HEART: S1 S2 regular rate and rhythm , ABDOMEN: Soft , no tenderness EXTREMITIES: No edema feet - Labs CBC & Chem 7: 11/30/24 06:26 11/30/24 06:26 Labs: Abnormal Lab Results - Last 24 Hours (Table) 11/30/24 11/30/24 11/30/24 Range/Units 06:26 06:26 06:26 WBC 14.78 H (4.50-10.00) 10*3/uL RBC 3.63 L (4.10-5.20) 10*6/uL Hgb 11.1 L (12.0-15.0) g/dL Hct 32.2 L (37.2-46.3) % MPV 8.8 L (9.5-12.2) fL Immature Gran # 0.17 H (0.00-0.04) 10*3/uL Neutrophils # 12.98 H (1.80-7.70) 10*3/uL Lymphocytes # 0.81 L (0.90-5.00) 10*3/uL Eosinophils # 0.01 L (0.04-0.35) 10*3/uL PT 13.3 H (10.0-12.5) sec INR 1.2 H (<1.2) Sodium 134 L (137-145) mmol/L BUN 24 H (7-17) mg/dL Glucose 73 L (74-99) mg/dL Calcium 8.2 L (8.4-10.2) mg/dL Total Bilirubin 2.0 H (0.2-1.3) mg/dL AST 41 H (14-36) U/L ALT 37 H (4-34) U/L Alkaline Phosphatase 181 H (38-126) U/L Total Protein 5.6 L (6.3-8.2) g/dL Albumin 2.7 L (3.5-5.0) g/dL Microbiology - Last 24 Hours (Table) 11/27/24 12:52 Blood Culture - Preliminary Blood Assessment and Plan (1) Sepsis Current Visit: Yes Status: Acute Code(s): A41.9 - SEPSIS, UNSPECIFIED ORG ANISM SNOMED Code(s): 67895857 (2) Cholecystitis Current Visit: Yes Status: Acute Code(s): K81.9 - CHOLECYSTITIS, UNSPECIFIED SNOMED Code(s): 15671124 (3) Ischemic colitis Current Visit: Yes Status: Acute Code(s): K55.9 - VASCULAR DISORDER OF INTESTINE, UNSPECIFIED SNOMED Code(s): 82090164 Plan: 1patient with abdominal pain in this patient with initially presented to the hospital with a fall hide did have a maxillary fracture patient did have a fever first 2 days of her admission and also have elevated white count there was abnormality on the gallbladder concerning for possible cholecystitis and did have group G streptococcus bacteremia now with evidence of ischemic colitis and the family has opted for medical treatment still await for surgical intervention 2-blood cultures has been repeated which are so far negative 3-patient is afebrile patient white count is down to 14,000 and did have some improvement clinically patient to continue Zosyn 3.375 g every 8 hours and will monitor clinical course closely Daughter at bedside multiple question concern answered Dictation was produced using [employer] dictation software. please excuse any grammatical, word or spelling errors. Time with Patient: Less than 30
[2024-12-01] MEDS ORDERED: ARTIFICIAL TEARS-HYPROMELLOSE DROPS 15 ML BTL BOTH EYES PRN (04:40)
--- NOTE | 2024-12-01 04:40 | P.PN ---
Subjective Progress Note Date: 11/30/24 This is a pleasant 84-year-old female who was recently admitted under trauma services status post fall and is noted to have a right maxillary fracture with some significant ecchymosis of the face traveling down to the neck and being followed by multiple consultations. Patient transferred to medicine service as patient continues with significant weakness and is having some altered mentation, multifactorial and likely secondary to hospital delirium. Recommend limiting aggressive narcotics although patient is reporting significant pain. Patient continues to have some expectoration of streaks of blood noted in the spit otherwise no active bleeding noted. Patient is reporting significant hip pain and will obtain some images. Recommend PT/OT therapy daily. Patient's INR is elevated just above 3 although improved from previous. Will follow-up on repeat labs and continue to monitor closely. Plan will be for patient to go to ECF for continued strength and mobility. 11/24/2024 Patient is seen in follow-up today mentation is somewhat improved and would recommend frequent reorientation during the day and adjusting pain medications and trying to limit IV narcotic use. Patient to continue with Seroquel at night and continued PT/OT therapy. Plan will be for patient to go to ECF on discharge for continued strength and mobility. Patient is having significant left hip pain and leg pain we will obtain a Doppler and also adjust medications accordingly. Patient is currently afebrile is tolerating diet although not much of an appetite noted. Continue with bowel regimen scheduled as well as as needed 11/25/2024 Patient is evaluated in follow-up on the medical floor. She is awake alert x 1. Family at the bedside. She is sitting up at the bedside eating appears quite fatigued though. She continues to report significant left hip and leg pain. Doppler was negative for any findings for acute DVT. LFTs remain elevated and chest x-ray does reveal some vascular congestion. Patient has been continued on her home dose of oral Lasix twice daily. Also continues on IV Zosyn. A gall bladder ultrasound was ordered and is currently pending for tomorrow morning. Warfarin remains on hold as patient's INR today was elevated at 3.6. Procalcitonin level is significantly elevated at 2.62. Patient has been afebrile. She is currently on room air oxygen saturations at 97%. 11/26/2024 Patient evaluated in follow-up with the medical floor. Patient continues on IV Zosyn. Currently pending gallbladder ultrasound which will be completed later this afternoon as patient had breakfast. Her abdomen is distended today and firm with concern for possible ileus. Patient did have a loose BM yesterday. Abdominal xray completed reveals nonspecific gaseous dilation of the colon bowel gas pattern without radiographic evidence or acute process. White blood cell count of 12.54, hemoglobin 11.8, sodium of 131, BUN of 19 creatinine of 0.75, magnesium 1.9. Her INR today is 3.7. 11/27/2024 Patient is seen in follow-up today with general surgery following. Patient continues to have abdominal discomfort with concerns of impaction. Patient to have CT abdomen ordered per surgery for further evaluation. Patient was having a few episodes of explosive diarrhea and loose stools and C. difficile is also ordered and pending at this time. Patient continues to report significant abdominal pain and is currently n.p.o. per surgery. White count has increased significantly to 27.16 and hemoglobin is stable at 12.9, INR is 3.5 and Coumadin is to dose per pharmacy and being held, sodium 131 with a potassium of 3.8, BUN is 21 and creatinine is 0 point, total bilirubin is 2.6 and ALT/AST are elevated although trending down. C. difficile testing was negative. 11/28/2024 Patient is seen in follow-up with multiple consultations following including general surgery and infectious disease. Patient is maintained on antibiotics in the form of Zosyn and white count is elevated above 28 and continues to be elevated. General surgery following recommending conservative management at this time. Patient is continued on very sparing ice chips and may have popsicles sparingly per surgery. Patient is sitting up at the side of the bed looking slightly improved today although continues with diffuse abdominal pain. Patient is having gas and nursing staff reported 2 large bowel movements. Patient is continued on daily Dulcolax suppository per surgery and will continue. Repeat labs in the a.m. 11/29/2024 Patient is seen in follow-up today maintained on antibiotics and continues to be n.p.o. except for occasional ice chips and very sparing popsicle per surgery. Patient white count remains elevated although slightly improved at 20.53 today. Hemoglobin is stable at 10.6, platelets are 248, INR is noted to be 5.6 and Coumadin has been on hold. Will give a dose of vitamin K and follow-up on repeat labs. Patient is resting currently and daughters at bedside and have been staying with her through the night reporting she continues to have pain although is tolerating. Encouraged increased activity as tolerated including sitting up at the side of the bed and working with PT/OT therapy. Patient is afebrile with no reports of chest pain or shortness of breath at this time. Patient did have repeat abdominal x-ray which reveals continuous gaseous dilatation of the large bowel concerning for ileus with known colonic pneumatosis and portal venous gas. Transverse colon measuring up to 8.3 cm in diameter. 11/30/2024 Patient is seen in follow-up today currently sitting up at the side of the bed talking and having conversation and mentation is baseline showing some clinical improvement. Patient is afebrile and white count is trending down and is maintained on Zosyn with infectious disease and general surgery following. Patient is n.p.o. except Spiering ice chips although is having bowel movements and maintained on Dulcolax suppository daily. No plans of surgical intervention at this time recommending conservative management. Will follow-up on repeat labs and replace electrolytes per protocol. INR is 1.3 status post vitamin K. Continue holding Coumadin for now and will discuss with surgery if okay to resume. Patient is attempting to get up and work with physical therapy and has been getting up with family a little more. Review of systems: Constitutional: No reports of fatigue, fever, or chills Cardiovascular: No reports of chest pain or palpitations Respiratory: No reports of shortness of breath or cough GI: reports of occasional nausea, no reports of vomiting, reports not much of an appetite but is feeling hungry occasionally. reports continued abdominal pain although feels slightly improved today and abdominal distention. : No reports of dysuria or retention Neurovascular: reports of generalized weakness, reports some minor improvement in leg pain All medications have been reviewed PHYSICAL EXAMINATION: GENERAL: The patient is alert and oriented x2-3, baseline, much more alert and awake today extremely hard of hearing, well developed, elderly appearing, thin built HEENT: Pupils are round and equally reacting to light. EOMI. no scleral icterus. No conjunctival pallor. Normocephalic, atraumatic. No pharyngeal erythema. No thyromegaly. CARDIOVASCULAR: S1 and S2 muffled PULMONARY: diminished breath sounds bilaterally with no wheezing or rhonchi noted. ABDOMEN: Dull. tender on exam on the left side. Slightly less Distented and bowel sounds noted. No palpable organomegaly. MUSCULOSKELETAL: No joint swelling or deformity. EXTREMITIES: No cyanosis, clubbing, or pedal edema. Continued left hip pain on palpation NEUROLOGICAL: Gross neurological examination did not reveal any focal deficits. Diffuse weakness SKIN: No rashes. Significant ecchymosis noted of the face extending down into the neck and upper chest area showing continued improvement Assessment: Fall and right maxillary fracture with ecchymosis Hyponatremia, improved Troponin elevated, 0.185, ruled out acute NSTEMI per cardiology, likely type II Coumadin coagulopathy, INR being monitored per pharmacy, 1.3 today status post dose of vitamin K Altered mental status, acute metabolic encephalopathy, multifactorial with possible underlying sinusitis and also a component of hospital-acquired delirium Increased WBC with bacteremia with sepsis, present on admission, likely secondary to ischemic colitis. Repeat blood cultures are negative Transaminitis under investigation, trending down Constipation and abdominal distention History of previous CVA/TIA Atrial fibrillation, permanent Hypertension History of osteoarthritis Hard of hearing History of anxiety History of coronary artery disease with previous CABG history of bicuspid aortic valve status post AVR and then TAVR History of gastroesophageal reflux disease Hyperlipidemia GI prophylaxis DVT prophylaxis No code Plan: Patient has transitioned to medicine service with ongoing underlying conditions and concerns of possible hospital-acquired delirium versus possible sinus infection or sinusitis with recent facial trauma. Mentation has improved at baseline Encouraged frequent reorientation and family at bedside most of the time with blinds and shades open during the day and will continue Seroquel as needed at night for agitation. Family has been extremely supportive and staying with the patient at night and helping with overall care. Recommend continuing with pain management per surgery as patient has findings of pneumatosis of the colon and scattered areas and air in the portal venous system. Possible options of surgery discussed although would be a high risk candidate and also recommending aggressive medical management and supportive care and also possible hospice as an option. Family is not ready for hospice and would like to continue with bowel rest and antibiotics with supportive care. Patient having extreme left hip and leg pain, Continue with norco and lidocaine patches, orthopedics evaluated the patient with no plans of surgical intervention at this time. gallbladder ultrasound performed which reveals gallstones Patient was having multiple episodes of loose explosive stool and concerns of fecal impaction with general surgery following. CT reveals dilatation of the large bowel with pneumatosis coli and portal venous gas in the liver, cholelithiasis and small volume free fluid with increasing bilateral pleural effusions and soft tissue anasarca likely third spacing versus volume overload with nonspecific bilateral inguinal lymphadenopathy. Patient is maintained on Dulcolax suppositories daily per general surgery. Patient is having bowel movements and will continue current regimen. Patient clinically improving and surgery okay with initiating clear liquids slowly. CODE STATUS was addressed and family at the bedside were agreeable to no code Continue IV zosyn; procalcitonin elevated, infectious disease following. On antibiotics. White count is trending down and less than 15 today and will be monitored closely Check INR daily, pharmacy to dose coumadin, Coumadin currently on hold as INR has been elevated and was 5.6 and given a dose of vitamin K. INR is 1.3 today. Will discuss with surgery if resuming Coumadin CBC/BMP/PT/INR in the AM Encourage increase activity as tolerated and sitting up more frequently The impression and plan of care has been dictated by Joselin Becerril, Nurse Practitioner as directed. Dr. Breanne MD I have performed a history and physical examination and medical decision making of this patient, discussed the same with the dictator, and agree with the dictators assessment and plan as written, documented as a scribe. Based on total visit time, I have performed more than 50% of this visit. Objective - Vital Signs Vital signs: Vital Signs Temp 97.6 F 11/30/24 03:06 Pulse 96 11/30/24 03:06 Resp 18 11/30/24 03:06 BP 127/82 11/30/24 03:06 Pulse Ox 95 11/30/24 03:06 FiO2 Intake & Output 11/29/24 11/29/24 11/30/24 06:59 18:59 06:59 Intake Total 20 20 20 Output Total 200 Balance -180 20 20 Weight 63.1 kg Intake: IV 20 20 20 Invasive Line 4 20 20 20 Output: Urine 200 Other: Voiding Method Indwelling Catheter Indwelling Catheter Indwelling Catheter # Bowel Movements 2 1 - Labs CBC & Chem 7: 11/30/24 06:26 11/30/24 06:26 Labs: Abnormal Lab Results - Last 24 Hours (Table) 11/29/24 11/29/24 Range/Units 06:08 06:08 WBC 20.53 H (4.50-10.00) 10*3/uL RBC 3.36 L (4.10-5.20) 10*6/uL Hgb 10.6 L (12.0-15.0) g/dL Hct 29.5 L (37.2-46.3) % MPV 9.3 L (9.5-12.2) fL Immature Gran # 0.32 H (0.00-0.04) 10*3/uL Neutrophils # 18.16 H (1.80-7.70) 10*3/uL Lymphocytes # 0.89 L (0.90-5.00) 10*3/uL Monocytes # 1.07 H (0.20-1.00) 10*3/uL Eosinophils # 0.03 L (0.04-0.35) 10*3/uL PT 56.0 H (10.0-12.5) sec INR 5.6 H* (<1.2) Microbiology - Last 24 Hours (Table) 11/27/24 12:52 Blood Culture - Preliminary Blood
[2024-12-01 07:29] LABS: Basophils # (A) 0.04 10*3/uL (0.00-0.10); Basophils % (A) 0.3 %; Eosinophils # (A) 0.01 10*3/uL (0.04-0.35); Eosinophils % (A) 0.1 %; HCT 30.5 % (37.2-46.3); HGB 10.7 g/dL (12.0-15.0); Lymphocytes # (A) 0.76 10*3/uL (0.90-5.00); Lymphocytes % (A) 6.0 %; MCH 30.7 pg (27.0-32.0); MCHC 35.1 g/dL (32.0-37.0); MCV 87.4 fL (80.0-97.0); Monocytes # (A) 0.81 10*3/uL (0.20-1.00); Monocytes % (A) 6.4 %; Neutrophils # (A) 11.02 10*3/uL (1.80-7.70); Neutrophils % (A) 86.5 %; Platelet Count 284 10*3/uL (140-440); RBC 3.49 10*6/uL (4.10-5.20); RDW 15.0 % (11.5-14.5); WBC 12.73 10*3/uL (4.50-10.00)
[2024-12-01 07:44] LABS: INR 1.4 (<1.2); Prothrombin Time 15.0 sec (10.0-12.5)
[2024-12-01 07:53] LABS: ALT 32 U/L (4-34); AST 36 U/L (14-36); African American GFR (CKD) >90 (>60 ml/min/1.73 sqM); Albumin 2.6 g/dL (3.5-5.0); Alkaline Phosphatase 174 U/L (38-126); Anion Gap 7 mmol/L; Blood Urea Nitrogen 20 mg/dL (7-17); Calcium 8.0 mg/dL (8.4-10.2); Carbon Dioxide 23 mmol/L (22-30); Chloride 104 mmol/L (98-107); Glucose 107 mg/dL (74-99); Non-African American GFR(CKD) 82 (>60 ml/min/1.73 sqM); Potassium 3.1 mmol/L (3.5-5.1); Sodium 134 mmol/L (137-145); Total Protein 5.4 g/dL (6.3-8.2)
--- NOTE | 2024-12-01 13:12 | P.PN ---
Subjective Progress Note Date: 12/01/24 Principal diagnosis: Elevated liver enzymes Patient a bit more confused today. Denies abdominal pain. Still having multiple loose stools. White blood cell count down to 12. Heart rate 117. Objective - Vital Signs Vital signs: Vital Signs Temp 98.3 F 12/01/24 12:00 Pulse 78 12/01/24 12:00 Resp 20 12/01/24 12:00 BP 123/74 12/01/24 12:00 Pulse Ox 97 12/01/24 12:00 FiO2 Intake & Output 11/30/24 12/01/24 12/01/24 18:59 06:59 18:59 Output Total 300 200 Balance -300 -200 Weight 63 kg 51.5 kg Output: Urine 300 200 Other: Voiding Method Indwelling Catheter Indwelling Catheter Indwelling Catheter # Bowel Movements 1 3 - Exam Abdomen: Soft, mild distention, nontender - Labs CBC & Chem 7: 12/01/24 07:14 12/01/24 07:14 Labs: Abnormal Lab Results - Last 24 Hours (Table) 12/01/24 12/01/24 12/01/24 Range/Units 07:14 07:14 07:14 WBC 12.73 H (4.50-10.00) 10*3/uL RBC 3.49 L (4.10-5.20) 10*6/uL Hgb 10.7 L (12.0-15.0) g/dL Hct 30.5 L (37.2-46.3) % MPV 8.9 L (9.5-12.2) fL Immature Gran # 0.09 H (0.00-0.04) 10*3/uL Neutrophils # 11.02 H (1.80-7.70) 10*3/uL Lymphocytes # 0.76 L (0.90-5.00) 10*3/uL Eosinophils # 0.01 L (0.04-0.35) 10*3/uL PT 15.0 H (10.0-12.5) sec INR 1.4 H (<1.2) Sodium 134 L (137-145) mmol/L Potassium 3.1 L (3.5-5.1) mmol/L BUN 20 H (7-17) mg/dL Glucose 107 H (74-99) mg/dL Calcium 8.0 L (8.4-10.2) mg/dL Total Bilirubin 1.6 H (0.2-1.3) mg/dL Alkaline Phosphatase 174 H (38-126) U/L Total Protein 5.4 L (6.3-8.2) g/dL Albumin 2.6 L (3.5-5.0) g/dL Microbiology - Last 24 Hours (Table) 11/27/24 12:52 Blood Culture - Preliminary Blood Assessment and Plan (1) Transaminitis Narrative/Plan: Patient doing a bit better overall these last few days. Advance to full liquid diet. Continue increasing activity. Continue antibiotics. Current Visit: Yes Status: Acute Code(s): R74.01 - ELEVATION OF LEVELS OF LIVER TRANSAMINASE LEVELS SNOMED Code(s): 194001001
--- NOTE | 2024-12-01 16:20 | P.PN ---
Subjective Progress Note Date: 12/01/24 Principal diagnosis: Reason for follow-up with ischemic colitis Patient is a 84-year-old female with a past medical history significant for Atrial Fibrillation, Coronary Artery Disease (CAD), CVA/TIA, GERD/Reflux, Hearing Disorder / Deafness, Hyperlipidemia, Hypertension, Osteoarthritis (OA) presenting the hospital a after apparently the patient did have fallen twice workup which was evidence of maxillary fracture and there was concern for possible cholecystitis subsequently worsening abdominal pain with a CT showing features of ischemic colitis prompted this consultation. On today's evaluation that is 12/01/2024, the patient continues to be afebrile, the patient is on room air and breathing comfortably, the Pt denies having any chest pain or cough, the patient mention improvement her abdominal pain however has developed significant diarrhea. The patient white count is 12.73, creatinine 0.61 stool for C. difficile has been negative blood culture repeat so far negative Objective - Vital Signs Vital signs: Vital Signs Temp 97.8 F 12/01/24 08:00 Pulse 71 12/01/24 08:00 Resp 20 12/01/24 08:00 BP 135/65 12/01/24 08:00 Pulse Ox 96 12/01/24 08:00 FiO2 Intake & Output 11/30/24 12/01/24 12/01/24 18:59 06:59 18:59 Output Total 300 200 Balance -300 -200 Weight 63 kg 51.5 kg Output: Urine 300 200 Other: Voiding Method Indwelling Catheter Indwelling Catheter # Bowel Movements 1 3 - Exam GENERAL DESCRIPTION: An elderly female up in bed in no distress RESPIRATORY SYSTEM: Unlabored breathing , decreased breath sounds at bases HEART: S1 S2 regular rate and rhythm , ABDOMEN: Soft , no tenderness EXTREMITIES: No edema feet - Labs CBC & Chem 7: 12/01/24 07:14 12/01/24 07:14 Labs: Abnormal Lab Results - Last 24 Hours (Table) 12/01/24 12/01/24 12/01/24 Range/Units 07:14 07:14 07:14 WBC 12.73 H (4.50-10.00) 10*3/uL RBC 3.49 L (4.10-5.20) 10*6/uL Hgb 10.7 L (12.0-15.0) g/dL Hct 30.5 L (37.2-46.3) % MPV 8.9 L (9.5-12.2) fL Immature Gran # 0.09 H (0.00-0.04) 10*3/uL Neutrophils # 11.02 H (1.80-7.70) 10*3/uL Lymphocytes # 0.76 L (0.90-5.00) 10*3/uL Eosinophils # 0.01 L (0.04-0.35) 10*3/uL PT 15.0 H (10.0-12.5) sec INR 1.4 H (<1.2) Sodium 134 L (137-145) mmol/L Potassium 3.1 L (3.5-5.1) mmol/L BUN 20 H (7-17) mg/dL Glucose 107 H (74-99) mg/dL Calcium 8.0 L (8.4-10.2) mg/dL Total Bilirubin 1.6 H (0.2-1.3) mg/dL Alkaline Phosphatase 174 H (38-126) U/L Total Protein 5.4 L (6.3-8.2) g/dL Albumin 2.6 L (3.5-5.0) g/dL Microbiology - Last 24 Hours (Table) 11/27/24 12:52 Blood Culture - Preliminary Blood Assessment and Plan (1) Sepsis Current Visit: Yes Status: Acute Code(s): A41.9 - SEPSIS, UNSPECIFIED ORGANISM SNOMED Code(s): 26778815 (2) Cholecystitis Current Visit: Yes Status: Acute Code(s): K81.9 - CHOLECYSTITIS, UNSPECIFIED SNOMED Code(s): 73148995 (3) Ischemic colitis Current Visit: Yes Status: Acute Code(s): K55.9 - VASCULAR DISORDER OF INTESTINE, UNSPECIFIED SNOMED Code(s): 62169245 Plan: 1patient with abdominal pain in this patient with initially presented to the hospital with a fall hide did have a maxillary fracture patient did have a fever first 2 days of her admission and also have elevated white count there was abnormality on the gallbladder concerning for possible cholecystitis and did have group G streptococcus bacteremia now with evidence of ischemic colitis and the family has opted for medical treatment still await for surgical intervention 2-blood cultures has been repeated which are so far negative 3-patient is afebrile patient white count is down to 12,000 patient has developed significant diarrhea stool for C. difficile negative will add Questran for symptomatic relief encouraged to increase probiotic yogurt intake and continue with the Zosyn Daughter is at the bedside question answered Dictation was produced using [employer] dictation software. please excuse any grammatical, word or spelling errors.
[2024-12-01] MEDS: CHOLESTYRAMINE RESIN 4 GM PACKET PO SCH (17:28)
[2024-12-01] MEDS: WARFARIN 0.5 MG TAB PO ONE (17:28)
--- NOTE | 2024-12-01 20:33 | P.PN ---
Subjective Progress Note Date: 12/01/24 This is a pleasant 84-year-old female who was recently admitted under trauma services status post fall and is noted to have a right maxillary fracture with some significant ecchymosis of the face traveling down to the neck and being followed by multiple consultations. Patient transferred to medicine service as patient continues with significant weakness and is having some altered mentation, multifactorial and likely secondary to hospital delirium. Recommend limiting aggressive narcotics although patient is reporting significant pain. Patient continues to have some expectoration of streaks of blood noted in the spit otherwise no active bleeding noted. Patient is reporting significant hip pain and will obtain some images. Recommend PT/OT therapy daily. Patient's INR is elevated just above 3 although improved from previous. Will follow-up on repeat labs and continue to monitor closely. Plan will be for patient to go to ECF for continued strength and mobility. 11/24/2024 Patient is seen in follow-up today mentation is somewhat improved and would recommend frequent reorientation during the day and adjusting pain medications and trying to limit IV narcotic use. Patient to continue with Seroquel at night and continued PT/OT therapy. Plan will be for patient to go to ECF on discharge for continued strength and mobility. Patient is having significant left hip pain and leg pain we will obtain a Doppler and also adjust medications accordingly. Patient is currently afebrile is tolerating diet although not much of an appetite noted. Continue with bowel regimen scheduled as well as as needed 11/25/2024 Patient is evaluated in follow-up on the medical floor. She is awake alert x 1. Family at the bedside. She is sitting up at the bedside eating appears quite fatigued though. She continues to report significant left hip and leg pain. Doppler was negative for any findings for acute DVT. LFTs remain elevated and chest x-ray does reveal some vascular congestion. Patient has been continued on her home dose of oral Lasix twice daily. Also continues on IV Zosyn. A gall bladder ultrasound was ordered and is currently pending for tomorrow morning. Warfarin remains on hold as patient's INR today was elevated at 3.6. Procalcitonin level is significantly elevated at 2.62. Patient has been afebrile. She is currently on room air oxygen saturations at 97%. 11/26/2024 Patient evaluated in follow-up with the medical floor. Patient continues on IV Zosyn. Currently pending gallbladder ultrasound which will be completed later this afternoon as patient had breakfast. Her abdomen is distended today and firm with concern for possible ileus. Patient did have a loose BM yesterday. Abdominal xray completed reveals nonspecific gaseous dilation of the colon bowel gas pattern without radiographic evidence or acute process. White blood cell count of 12.54, hemoglobin 11.8, sodium of 131, BUN of 19 creatinine of 0.75, magnesium 1.9. Her INR today is 3.7. 11/27/2024 Patient is seen in follow-up today with general surgery following. Patient continues to have abdominal discomfort with concerns of impaction. Patient to have CT abdomen ordered per surgery for further evaluation. Patient was having a few episodes of explosive diarrhea and loose stools and C. difficile is also ordered and pending at this time. Patient continues to report significant abdominal pain and is currently n.p.o. per surgery. White count has increased significantly to 27.16 and hemoglobin is stable at 12.9, INR is 3.5 and Coumadin is to dose per pharmacy and being held, sodium 131 with a potassium of 3.8, BUN is 21 and creatinine is 0 point, total bilirubin is 2.6 and ALT/AST are elevated although trending down. C. difficile testing was negative. 11/28/2024 Patient is seen in follow-up with multiple consultations following including general surgery and infectious disease. Patient is maintained on antibiotics in the form of Zosyn and white count is elevated above 28 and continues to be elevated. General surgery following recommending conservative management at this time. Patient is continued on very sparing ice chips and may have popsicles sparingly per surgery. Patient is sitting up at the side of the bed looking slightly improved today although continues with diffuse abdominal pain. Patient is having gas and nursing staff reported 2 large bowel movements. Patient is continued on daily Dulcolax suppository per surgery and will continue. Repeat labs in the a.m. 11/29/2024 Patient is seen in follow-up today maintained on antibiotics and continues to be n.p.o. except for occasional ice chips and very sparing popsicle per surgery. Patient white count remains elevated although slightly improved at 20.53 today. Hemoglobin is stable at 10.6, platelets are 248, INR is noted to be 5.6 and Coumadin has been on hold. Will give a dose of vitamin K and follow-up on repeat labs. Patient is resting currently and daughters at bedside and have been staying with her through the night reporting she continues to have pain although is tolerating. Encouraged increased activity as tolerated including sitting up at the side of the bed and working with PT/OT therapy. Patient is afebrile with no reports of chest pain or shortness of breath at this time. Patient did have repeat abdominal x-ray which reveals continuous gaseous dilatation of the large bowel concerning for ileus with known colonic pneumatosis and portal venous gas. Transverse colon measuring up to 8.3 cm in diameter. 11/30/2024 Patient is seen in follow-up today currently sitting up at the side of the bed talking and having conversation and mentation is baseline showing some clinical improvement. Patient is afebrile and white count is trending down and is maintained on Zosyn with infectious disease and general surgery following. Patient is n.p.o. except Spiering ice chips although is having bowel movements and maintained on Dulcolax suppository daily. No plans of surgical intervention at this time recommending conservative management. Will follow-up on repeat labs and replace electrolytes per protocol. INR is 1.3 status post vitamin K. Continue holding Coumadin for now and will discuss with surgery if okay to resume. Patient is attempting to get up and work with physical therapy and has been getting up with family a little more. 12/01/2024 Patient is seen in follow-up today has been up and having multiple bowel movements that continue to be loose and abdomen although mildly distended, is improved from previous and soft and less tender. Patient is tolerating current diet and is being advanced to full liquids per surgery. White count is trending down and patient is continued on IV Zosyn with infectious disease following. Continue current bowel regimen and supportive care. Recommend PT/OT therapy daily. Family is hopeful if patient continues to improve, may be able to go to rehab early next week. Prognosis is guarded at this time. Review of systems: Constitutional: No reports of fatigue, fever, or chills Cardiovascular: No reports of chest pain or palpitations Respiratory: No reports of shortness of breath or cough GI: reports of occasional nausea, no reports of vomiting, reports not much of an appetite but is feeling hungry occasionally. reports continued abdominal pain although feels slightly improved today and less abdominal distention. : No reports of dysuria or retention Neurovascular: reports of generalized weakness, reports some minor improvement in leg pain All medications have been reviewed PHYSICAL EXAMINATION: GENERAL: The patient is alert and oriented x2-3, baseline, much more alert and awake today extremely hard of hearing, well developed, elderly appearing, thin built HEENT: Pupils are round and equally reacting to light. EOMI. no scleral icterus. No conjunctival pallor. Normocephalic, atraumatic. No pharyngeal erythema. No thyromegaly. CARDIOVASCULAR: S1 and S2 muffled PULMONARY: diminished breath sounds bilaterally with no wheezing or rhonchi noted. ABDOMEN: Dull. tender on exam on the left side. Slightly less Distented and bowel sounds noted. No palpable organomegaly. MUSCULOSKELETAL: No joint swelling or deformity. EXTREMITIES: No cyanosis, clubbing, or pedal edema. Continued left hip pain on palpation NEUROLOGICAL: Gross neurological examination did not reveal any focal deficits. Diffuse weakness SKIN: No rashes. Significant ecchymosis noted of the face extending down into the neck and upper chest area showing continued improvement Assessment: Fall and right maxillary fracture with ecchymosis Hyponatremia, improved Troponin elevated, 0.185, ruled out acute NSTEMI per cardiology, likely type II Coumadin coagulopathy, INR being monitored per pharmacy Altered mental status, acute metabolic encephalopathy, multifactorial with possible underlying sinusitis and also a component of hospital-acquired delirium Increased WBC with bacteremia with sepsis, present on admission, likely se condary to ischemic colitis. Repeat blood cultures are negative Transaminitis under investigation, trending down Constipation and abdominal distention History of previous CVA/TIA Atrial fibrillation, permanent Hypertension History of osteoarthritis Hard of hearing History of anxiety History of coronary artery disease with previous CABG history of bicuspid aortic valve status post AVR and then TAVR History of gastroesophageal reflux disease Hyperlipidemia GI prophylaxis DVT prophylaxis No code Plan: Patient has transitioned to medicine service with ongoing underlying conditions and concerns of possible hospital-acquired delirium versus possible sinus infection or sinusitis with recent facial trauma. Mentation has improved at baseline Encouraged frequent reorientation and family at bedside most of the time with blinds and shades open during the day and will continue Seroquel as needed at night for agitation. Family has been extremely supportive and staying with the patient at night and helping with overall care. Recommend continuing with pain management per surgery as patient has findings of pneumatosis of the colon and scattered areas and air in the portal venous system. Possible options of surgery discussed although would be a high risk candidate and also recommending aggressive medical management and supportive care and also possible hospice as an option. Family is not ready for hospice and would like to continue with bowel rest and antibiotics with supportive care. Patient having extreme left hip and leg pain, Continue with norco and lidocaine patches, orthopedics evaluated the patient with no plans of surgical intervention at this time. gallbladder ultrasound performed which reveals gallstones Patient was having multiple episodes of loose explosive stool and concerns of fecal impaction with general surgery following. CT reveals dilatation of the large bowel with pneumatosis coli and portal venous gas in the liver, cholelithiasis and small volume free fluid with increasing bilateral pleural effusions and soft tissue anasarca likely third spacing versus volume overload with nonspecific bilateral inguinal lymphadenopathy. Patient is maintained on Dulcolax suppositories daily per general surgery. Patient is having bowel movements and will continue current regimen. Patient clinically improving and surgery okay with advancing to full liquids CODE STATUS was addressed and family at the bedside were agreeable to no code Continue IV zosyn; procalcitonin elevated, infectious disease following. On antibiotics. White count is trending down and less than 12 today and will be monitored closely. Patient remains afebrile Check INR daily, pharmacy to dose coumadin CBC/BMP/PT/INR in the AM Encourage increase activity as tolerated and sitting up more frequently. Family is hopeful patient will improve and be able to go to rehab maybe early next week Prognosis is definitely guarded at this time. The impression and plan of care has been dictated by Joselin Becerril, Nurse Practitioner as directed. Dr. Breanne MD I have performed a history and physical examination and medical decision making of this patient, discussed the same with the dictator, and agree with the dictators assessment and plan as written, documented as a scribe. Based on total visit time, I have performed more than 50% of this visit. Objective - Vital Signs Vital signs: Vital Signs Temp 98.2 F 12/01/24 19:27 Pulse 110 H 12/01/24 19:27 Resp 18 12/01/24 19:27 BP 132/79 12/01/24 19:27 Pulse Ox 96 12/01/24 19:27 FiO2 Intake & Output 12/01/24 12/01/24 12/02/24 06:59 18:59 06:59 Output Total 200 400 Balance -200 -400 Weight 51.5 kg Output: Urine 200 400 Other: Voiding Method Indwelling Catheter Indwelling Catheter # Bowel Movements 3 1 1 - Labs CBC & Chem 7: 12/01/24 07:14 12/01/24 07:14 Labs: Abnormal Lab Results - Last 24 Hours (Table) 12/01/24 12/01/24 12/01/24 Range/Units 07:14 07:14 07:14 WBC 12.73 H (4.50-10.00) 10*3/uL RBC 3.49 L (4.10-5.20) 10*6/uL Hgb 10.7 L (12.0-15.0) g/dL Hct 30.5 L (37.2-46.3) % MPV 8.9 L (9.5-12.2) fL Immature Gran # 0.09 H (0.00-0.04) 10*3/uL Neutrophils # 11.02 H (1.80-7.70) 10*3/uL Lymphocytes # 0.76 L (0.90-5.00) 10*3/uL Eosinophils # 0.01 L (0.04-0.35) 10*3/uL PT 15.0 H (10.0-12.5) sec INR 1.4 H (<1.2) Sodium 134 L (137-145) mmol/L Potassium 3.1 L (3.5-5.1) mmol/L BUN 20 H (7-17) mg/dL Glucose 107 H (74-99) mg/dL Calcium 8.0 L (8.4-10.2) mg/dL Total Bilirubin 1.6 H (0.2-1.3) mg/dL Alkaline Phosphatase 174 H (38-126) U/L Total Protein 5.4 L (6.3-8.2) g/dL Albumin 2.6 L (3.5-5.0) g/dL Microbiology - Last 24 Hours (Table) 11/27/24 12:52 Blood Culture - Preliminary Blood
[2024-12-02 06:16] LABS: INR 2.2 (<1.2); Prothrombin Time 21.8 sec (10.0-12.5)
--- NOTE | 2024-12-02 10:57 | P.PN ---
Subjective Progress Note Date: 12/02/24 Principal diagnosis: Elevated liver enzymes Patient denies pain today. Seems less confused today. No nausea or vomiting. Still having some liquid stools and large-volume flatus with body position changes. Tolerating full liquids. Objective - Vital Signs Vital signs: Vital Signs Temp 98.5 F 12/02/24 07:45 Pulse 85 12/02/24 07:45 Resp 14 12/02/24 07:45 BP 106/66 12/02/24 07:45 Pulse Ox 96 12/02/24 07:45 FiO2 Intake & Output 12/01/24 12/02/24 12/02/24 18:59 06:59 18:59 Intake Total 120 Output Total 400 300 Balance -400 -180 Weight 55.5 kg Intake: Oral 120 Output: Urine 400 300 Other: Voiding Method Indwelling Catheter Indwelling Catheter # Bowel Movements 1 1 1 - Exam Abdomen: Soft, mild distention, minimal right lower quadrant tenderness to deep palpation - Labs CBC & Chem 7: 12/01/24 07:14 12/01/24 07:14 Labs: Abnormal Lab Results - Last 24 Hours (Table) 12/02/24 Range/Units 05:35 PT 21.8 H (10.0-12.5) sec INR 2.2 H (<1.2) Assessment and Plan (1) Transaminitis Narrative/Plan: Patient improving. Advance to dysphagia diet. Increase activity. Continue daily Dulcolax suppositories to try to stimulate flatus. Continue antibiotics. Current Visit: Yes Status: Acute Code(s): R74.01 - ELEVATION OF LEVELS OF LIVER TRANSAMINASE LEVELS SNOMED Code(s): 147369775
--- NOTE | 2024-12-02 14:42 | P.PN ---
Subjective Progress Note Date: 12/02/24 Principal diagnosis: Reason for follow-up with ischemic colitis Patient is a 84-year-old female with a past medical history significant for Atrial Fibrillation, Coronary Artery Disease (CAD), CVA/TIA, GERD/Reflux, Hearing Disorder / Deafness, Hyperlipidemia, Hypertension, Osteoarthritis (OA) presenting the hospital a after apparently the patient did have fallen twice workup which was evidence of maxillary fracture and there was concern for possible cholecystitis subsequently worsening abdominal pain with a CT showing features of ischemic colitis prompted this consultation. On today's evaluation that is 12/03/2023, patient did have a temperature of 98.5 F this morning and denies having any chills, patient is on room air and breathing comfortably no chest pain or cough, the patient did have improvement in her abdominal pain and diarrhea has slowed on. No new lab has been obtained today INR is 2.2 stool for C. difficile has been negative Objective - Vital Signs Vital signs: Vital Signs Temp 98.5 F 12/02/24 07:45 Pulse 85 12/02/24 08:49 Resp 14 12/02/24 07:45 BP 106/66 12/02/24 07:45 Pulse Ox 96 12/02/24 07:45 FiO2 Intake & Output 12/01/24 12/02/24 12/02/24 18:59 06:59 18:59 Intake Total 120 Output Total 400 300 Balance -400 -180 Weight 55.5 kg Intake: Oral 120 Output: Urine 400 300 Other: Voiding Method Indwelling Catheter Indwelling Catheter Indwelling Catheter # Bowel Movements 1 1 1 - Exam GENERAL DESCRIPTION: An elderly female up in bed in no distress RESPIRATORY SYSTEM: Unlabored breathing , decreased breath sounds at bases HEART: S1 S2 regular rate and rhythm , ABDOMEN: Soft , no tenderness EXTREMITIES: No edema feet - Labs CBC & Chem 7: 12/01/24 07:14 12/01/24 07:14 Labs: Abnormal Lab Results - Last 24 Hours (Table) 12/02/24 Range/Units 05:35 PT 21.8 H (10.0-12.5) sec INR 2.2 H (<1.2) Assessment and Plan (1) Sepsis Current Visit: Yes Status: Acute Code(s): A41.9 - SEPSIS, UNSPECIFIED ORGANISM SNOMED Code(s): 90157988 (2) Cholecystitis Current Visit: Yes Status: Acute Code(s): K81.9 - CHOLECYSTITIS, UNSPECIFIED SNOMED Code(s): 18465176 (3) Ischemic colitis Current Visit: Yes Status: Acute Code(s): K55.9 - VASCULAR DISORDER OF INTESTINE, UNSPECIFIED SNOMED Code(s): 09604876 Plan: 1patient with abdominal pain in this patient with initially presented to the hospital with a fall hide did have a maxillary fracture patient did have a fever first 2 days of her admission and also have elevated white count there was abnormality on the gallbladder concerning for possible cholecystitis and did have group G streptococcus bacteremia now with evidence of ischemic colitis and the family has opted for medical treatment still await for surgical intervention 2-blood cultures has been repeated which are so far negative 3-patient is afebrile patient white count is down to 12,000 as of yesterday no CBC was done today, patient did have improvement in her diarrhea as reported by the daughter Questran to be used as needed as a pending the patient also getting suppositories from general surgery as reported by the daughter for now continue with the Zosyn and monitor clinical course closely Dictation was produced using [employer] dictation software. please excuse any grammatical, word or spelling errors. Time with Patient: Less than 30
[2024-12-02] MEDS: WARFARIN 0.5 MG TAB PO ONE (16:56)
--- NOTE | 2024-12-02 23:01 | P.PN ---
Subjective Progress Note Date: 12/02/24 This is a pleasant 84-year-old female who was recently admitted under trauma services status post fall and is noted to have a right maxillary fracture with some significant ecchymosis of the face traveling down to the neck and being followed by multiple consultations. Patient transferred to medicine service as patient continues with significant weakness and is having some altered mentation, multifactorial and likely secondary to hospital delirium. Recommend limiting aggressive narcotics although patient is reporting significant pain. Patient continues to have some expectoration of streaks of blood noted in the spit otherwise no active bleeding noted. Patient is reporting significant hip pain and will obtain some images. Recommend PT/OT therapy daily. Patient's INR is elevated just above 3 although improved from previous. Will follow-up on repeat labs and continue to monitor closely. Plan will be for patient to go to ECF for continued strength and mobility. 11/24/2024 Patient is seen in follow-up today mentation is somewhat improved and would recommend frequent reorientation during the day and adjusting pain medications and trying to limit IV narcotic use. Patient to continue with Seroquel at night and continued PT/OT therapy. Plan will be for patient to go to ECF on discharge for continued strength and mobility. Patient is having significant left hip pain and leg pain we will obtain a Doppler and also adjust medications accordingly. Patient is currently afebrile is tolerating diet although not much of an appetite noted. Continue with bowel regimen scheduled as well as as needed 11/25/2024 Patient is evaluated in follow-up on the medical floor. She is awake alert x 1. Family at the bedside. She is sitting up at the bedside eating appears quite fatigued though. She continues to report significant left hip and leg pain. Doppler was negative for any findings for acute DVT. LFTs remain elevated and chest x-ray does reveal some vascular congestion. Patient has been continued on her home dose of oral Lasix twice daily. Also continues on IV Zosyn. A gallbla dder ultrasound was ordered and is currently pending for tomorrow morning. Warfarin remains on hold as patient's INR today was elevated at 3.6. Procalcitonin level is significantly elevated at 2.62. Patient has been afebrile. She is currently on room air oxygen saturations at 97%. 11/26/2024 Patient evaluated in follow-up with the medical floor. Patient continues on IV Zosyn. Currently pending gallbladder ultrasound which will be completed later this afternoon as patient had breakfast. Her abdomen is distended today and firm with concern for possible ileus. Patient did have a loose BM yesterday. Abdominal xray completed reveals nonspecific gaseous dilation of the colon bowel gas pattern without radiographic evidence or acute process. White blood cell count of 12.54, hemoglobin 11.8, sodium of 131, BUN of 19 creatinine of 0.75, magnesium 1.9. Her INR today is 3.7. 11/27/2024 Patient is seen in follow-up today with general surgery following. Patient continues to have abdominal discomfort with concerns of impaction. Patient to have CT abdomen ordered per surgery for further evaluation. Patient was having a few episodes of explosive diarrhea and loose stools and C. difficile is also ordered and pending at this time. Patient continues to report significant abdominal pain and is currently n.p.o. per surgery. White count has increased significantly to 27.16 and hemoglobin is stable at 12.9, INR is 3.5 and Coumadin is to dose per pharmacy and being held, sodium 131 with a potassium of 3.8, BUN is 21 and creatinine is 0 point, total bilirubin is 2.6 and ALT/AST are elevated although trending down. C. difficile testing was negative. 11/28/2024 Patient is seen in follow-up with multiple consultations following including general surgery and infectious disease. Patient is maintained on antibiotics in the form of Zosyn and white count is elevated above 28 and continues to be elevated. General surgery following recommending conservative management at this time. Patient is continued on very sparing ice chips and may have popsicles sparingly per surgery. Patient is sitting up at the side of the bed looking slightly improved today although continues with diffuse abdominal pain. Patient is having gas and nursing staff reported 2 large bowel movements. Patient is continued on daily Dulcolax suppository per surgery and will continue. Repeat labs in the a.m. 11/29/2024 Patient is seen in follow-up today maintained on antibiotics and continues to be n.p.o. except for occasional ice chips and very sparing popsicle per surgery. Patient white count remains elevated although slightly improved at 20.53 today. Hemoglobin is stable at 10.6, platelets are 248, INR is noted to be 5.6 and Coumadin has been on hold. Will give a dose of vitamin K and follow-up on r epeat labs. Patient is resting currently and daughters at bedside and have been staying with her through the night reporting she continues to have pain although is tolerating. Encouraged increased activity as tolerated including sitting up at the side of the bed and working with PT/OT therapy. Patient is afebrile with no reports of chest pain or shortness of breath at this time. Patient did have repeat abdominal x-ray which reveals continuous gaseous dilatation of the large bowel concerning for ileus with known colonic pneumatosis and portal venous gas. Transverse colon measuring up to 8.3 cm in diameter. 11/30/2024 Patient is seen in follow-up today currently sitting up at the side of the bed talking and having conversation and mentation is baseline showing some clinical improvement. Patient is afebrile and white count is trending down and is maintained on Zosyn with infectious disease and general surgery following. Patient is n.p.o. except Spiering ice chips although is having bowel movements and maintained on Dulcolax suppository daily. No plans of surgical intervention at this time recommending conservative management. Will follow-up on repeat labs and replace electrolytes per protocol. INR is 1.3 status post vitamin K. Continue holding Coumadin for now and will discuss with surgery if okay to resume. Patient is attempting to get up and work with physical therapy and has been getting up with family a little more. 12/01/2024 Patient is seen in follow-up today has been up and having multiple bowel movements that continue to be loose and abdomen although mildly distended, is improved from previous and soft and less tender. Patient is tolerating current diet and is being advanced to full liquids per surgery. White count is trending down and patient is continued on IV Zosyn with infectious disease following. Continue current bowel regimen and supportive care. Recommend PT/OT therapy daily. Family is hopeful if patient continues to improve, may be able to go to rehab early next week. Prognosis is guarded at this time. 12/02/2024 Patient is evaluated today in follow up resting in bed. Patient continues to have loose bowel movements and has been incontinent of stool. Her abdomen is mildly distended, however soft today, less tender, and has increased bowel sounds. Patient is tolerating diet and family has been at the bed side assisting with meals. Diet has been advanced to dysphagia level 2. INR today 2.2. Rich catheter remains in place. Review of systems: Constitutional: No reports of fatigue, fever, or chills Cardiovascular: No reports of chest pain or palpitations Respiratory: No reports of shortness of breath or cough GI: reports of occasional nausea, no reports of vomiting, reports not much of an appetite but is feeling hungry occasionally. reports continued abdominal pain although feels slightly improved today and less abdominal distention. : No reports of dysuria or retention Neurovascular: reports of generalized weakness, reports some minor improvement in leg pain All medications have been reviewed PHYSICAL EXAMINATION: GENERAL: The patient is alert and oriented x2-3, baseline, much more alert and awake today extremely hard of hearing, well developed, elderly appearing, thin built HEENT: Pupils are round and equally reacting to light. EOMI. no scleral icterus. No conjunctival pallor. Normocephalic, atraumatic. No pharyngeal erythema. No thyromegaly. CARDIOVASCULAR: S1 and S2 muffled PULMONARY: diminished breath sounds bilaterally with no wheezing or rhonchi noted. ABDOMEN: Dull. tender on exam on the left side. Slightly less Distended and bowel sounds noted. No palpable organomegaly. MUSCULOSKELETAL: No joint swelling or deformity. EXTREMITIES: No cyanosis, clubbing, or pedal edema. Continued left hip pain on palpation NEUROLOGICAL: Gross neurological examination did not reveal any focal deficits. Diffuse weakness SKIN: No rashes. Significant ecchymosis noted of the face extending down into the neck and upper chest area showing continued improvement Assessment: Fall and right maxillary fracture with ecchymosis Hyponatremia, improved Troponin elevated, 0.185, ruled out acute NSTEMI per cardiology, likely type II Coumadin coagulopathy, INR being monitored per pharmacy Altered mental status, acute metabolic encephalopathy, multifactorial with possible underlying sinusitis and also a component of hospital-acquired delirium Increased WBC with bacteremia with sepsis, present on admission, likely secondary to ischemic colitis. Repeat blood cultures are negative Transaminitis under investigation, trending down Constipation and abdominal distention History of previous CVA/TIA Atrial fibrillation, permanent Hypertension History of osteoarthritis Hard of hearing History of anxiety History of coronary artery disease with previous CABG history of bicuspid aortic valve status post AVR and then TAVR History of gastroesophageal reflux disease Hyperlipidemia GI prophylaxis DVT prophylaxis No code Plan: Patient has transitioned to medicine service with ongoing underlying conditions and concerns of possible hospital-acquired delirium versus possible sinus infection or sinusitis with recent facial trauma. Mentation has improved at baseline Encouraged frequent reorientation and family at bedside most of the time with blinds and shades open during the day and will continue Seroquel as needed at night for agitation. Family has been extremely supportive and staying with the patient at night and helping with overall care. Recommend continuing with pain management per surgery as patient has findings of pneumatosis of the colon and scattered areas and air in the portal venous system. Possible options of surgery discussed although would be a high risk candidate and also recommending aggressive medical management and supportive care and also possible hospice as an option. Family is not ready for hospice and would like to continue with bowel rest and antibiotics with supportive care. Patient having extreme left hip and leg pain, Continue with norco and lidocaine patches, orthopedics evaluated the patient with no plans of surgical intervention at this time. gallbladder ultrasound performed which reveals gallstones Patient was having multiple episodes of loose explosive stool and concerns of fecal impaction with general surgery following. CT reveals dilatation of the large bowel with pneumatosis coli and portal venous gas in the liver, cholelithiasis and small volume free fluid with increasing bilateral pleural effusions and soft tissue anasarca likely third spacing versus volume overload with nonspecific bilateral inguinal lymphadenopathy. Dulcolax suppositories have been discontinued and patient remains on questran twice daily as patient has continued loose stools. Diet has been advanced to dysphagia and patient tolerating with slightly improved oral intake CODE STATUS was addressed and family at the bedside were agreeable to no code Continue IV zosyn; procalcitonin elevated, infectious disease following. On antibiotics. White count is trending down and will be monitored closely. Patient remains afebrile Check INR daily, pharmacy to dose coumadin CBC/BMP/PT/INR in the AM Encourage increase activity as tolerated and sitting up more frequently. Family is hopeful patient will improve and be able to go to rehab maybe early next week Prognosis is definitely guarded at this time. The impression and plan of care has been dictated by Shelley Brown, Nurse Practitioner as directed. Dr. Breanne MD I have performed a history and physical examination and medical decision making of this patient, discussed the same with the dictator, and agree with the dictators assessment and plan as written, documented as a scribe. Based on total visit time, I have performed more than 50% of this visit. Objective - Vital Signs Vital signs: Vital Signs Temp 98.5 F 12/02/24 12:48 Pulse 87 12/02/24 12:48 Resp 20 12/02/24 12:48 BP 119/71 12/02/24 12:48 Pulse Ox 96 12/02/24 07:45 FiO2 Intake & Output 12/01/24 12/02/24 12/02/24 18:59 06:59 18:59 Intake Total 120 Output Total 400 300 Balance -400 -180 Weight 55.5 kg Intake: Oral 120 Output: Urine 400 300 Other: Voiding Method Indwelling Catheter Indwelling Catheter Indwelling Catheter # Bowel Movements 1 1 1 - Labs CBC & Chem 7: 12/01/24 07:14 12/01/24 07:14 Labs: Abnormal Lab Results - Last 24 Hours (Table) 12/02/24 Range/Units 05:35 PT 21.8 H (10.0-12.5) sec INR 2.2 H (<1.2) Assessment and Plan Time with Patient: Less than 30
[2024-12-03 06:19] LABS: INR 2.6 (<1.2); Prothrombin Time 25.7 sec (10.0-12.5)
[2024-12-03 09:04] LABS: BUN/Creat Ratio 15.00 Ratio (12.00-20.00); Blood Urea Nitrogen 12.0 mg/dL (9.0-27.0); Chloride 104 mmol/L (96-109); Glucose 113 mg/dL (70-110); Magnesium 2.0 mg/dL (1.5-2.4); Potassium 3.5 mmol/L (3.5-5.5); Sodium 139 mmol/L (135-145)
[2024-12-03 09:05] LABS: Anion Gap 12.70 mmol/L (4.00-12.00); Calcium 7.9 mg/dL (8.7-10.3); Carbon Dioxide 22.3 mmol/L (21.6-31.8)
--- NOTE | 2024-12-03 09:17 | P.PN ---
Subjective Progress Note Date: 12/03/24 Principal diagnosis: Elevated liver enzymes Patient resting in bed. Denies pain. No nausea or vomiting. Does feel a bit bloated she says. She has been tolerating some of her solid foods. Did have flatus and loose stools yesterday. Objective - Vital Signs Vital signs: Vital Signs Temp 98.6 F 12/03/24 07:30 Pulse 72 12/03/24 07:30 Resp 20 12/03/24 07:30 BP 123/68 12/03/24 07:30 Pulse Ox 99 12/03/24 07:30 FiO2 Intake & Output 12/02/24 12/03/24 12/03/24 18:59 06:59 18:59 Intake Total 1320 590 Output Total 500 Balance 1320 90 Weight 52.5 kg Intake: Oral 1320 590 Output: Urine 500 Other: Voiding Method Indwelling Catheter Indwelling Catheter # Voids 5 # Bowel Movements 1 - Exam Abdomen: Soft, mild distention, nontender - Labs CBC & Chem 7: 12/01/24 07:14 12/03/24 04:22 Labs: Abnormal Lab Results - Last 24 Hours (Table) 12/03/24 12/03/24 Range/Units 04:22 04:22 PT 25.7 H (10.0-12.5) sec INR 2.6 H (<1.2) Anion Gap 12.70 H (4.00-12.00) mmol/L Glucose 113 H (70-110) mg/dL Calcium 7.9 L (8.7-10.3) mg/dL Microbiology - Last 24 Hours (Table) 11/27/24 12:52 Blood Culture - Final Blood Assessment and Plan (1) Transaminitis Narrative/Plan: Patient more distended today. No nausea or vomiting. Still passing flatus and having loose stools. Only seems to do much bowel function with activity. Will try to have the patient moving more today. Family at the bedside plans to do so. Continue regular diet for now. Continue antibiotics for ischemic right- sided colitis. Current Visit: Yes Status: Acute Code(s): R74.01 - ELEVATION OF LEVELS OF LIVER TRANSAMINASE LEVELS SNOMED Code(s): 410033901
[2024-12-03 09:27] LABS: Basophils # (A) 0.03 X 10*3/uL (0.00-0.10); Basophils % (A) 0.3 %; Eosinophils # (A) 0.02 X 10*3/uL (0.04-0.35); Eosinophils % (A) 0.2 %; HCT 32.8 % (37.2-46.3); HGB 10.9 g/dL (12.0-15.0); Immature Grans, Automated 1.20 %; Lymphocytes # (A) 1.10 X 10*3/uL (0.90-5.00); Lymphocytes % (A) 10.6 %; MCH 30.4 pg (27.0-32.0); MCHC 33.2 g/dL (32.0-37.0); MCV 91.6 FL (80.0-97.0); Monocytes # (A) 0.80 X 10*3/uL (0.20-1.00); Monocytes % (A) 7.7 %; NRBC Per 100 WBC 0 X 10*3/uL (0.00-0.01); Neutrophils # (A) 8.30 X 10*3/uL (1.80-7.70); Neutrophils % (A) 80.0 %; Platelet Count 329 X 10*3/uL (140-440); RBC 3.58 X 10*6/uL (4.10-5.20); RDW 15.7 % (11.5-14.5); WBC 10.37 X 10*3/uL (4.50-10.00)
--- NOTE | 2024-12-03 12:08 | XR ---
Abdomen: HISTORY: Abdominal pain and distention. COMPARISON: 11/29/2024. TECHNIQUE: Single supine portable view the abdomen was obtained. FINDINGS: There is continued diffuse distention of the colon dominantly air-filled with mild scattered feces. F indings suggest the presence of colonic ileus. IMPRESSION: No change in distended colon consistent with colonic ileus [facility], Workstation: [email or web address], 12/03/2024 12:06 PM
--- NOTE | 2024-12-03 14:00 | P.PN ---
Subjective Progress Note Date: 12/03/24 This is a pleasant 84-year-old female who was recently admitted under trauma services status post fall and is noted to have a right maxillary fracture with some significant ecchymosis of the face traveling down to the neck and being followed by multiple consultations. Patient transferred to medicine service as patient continues with significant weakness and is having some altered mentation, multifactorial and likely secondary to hospital delirium. Recommend limiting aggressive narcotics although patient is reporting significant pain. Patient continues to have some expectoration of streaks of blood noted in the spit otherwise no active bleeding noted. Patient is reporting significant hip pain and will obtain some images. Recommend PT/OT therapy daily. Patient's INR is elevated just above 3 although improved from previous. Will follow-up on repeat labs and continue to monitor closely. Plan will be for patient to go to ECF for continued strength and mobility. 11/24/2024 Patient is seen in follow-up today mentation is somewhat improved and would recommend frequent reorientation during the day and adjusting pain medications and trying to limit IV narcotic use. Patient to continue with Seroquel at night and continued PT/OT therapy. Plan will be for patient to go to ECF on discharge for continued strength and mobility. Patient is having significant left hip pain and leg pain we will obtain a Doppler and also adjust medications accordingly. Patient is currently afebrile is tolerating diet although not much of an appetite noted. Continue with bowel regimen scheduled as well as as needed 11/25/2024 Patient is evaluated in follow-up on the medical floor. She is awake alert x 1. Family at the bedside. She is sitting up at the bedside eating appears quite fatigued though. She continues to report significant left hip and leg pain. Doppler was negative for any findings for acute DVT. LFTs remain elevated and chest x-ray does reveal some vascular congestion. Patient has been continued on her home dose of oral Lasix twice daily. Also continues on IV Zosyn. A gallbla dder ultrasound was ordered and is currently pending for tomorrow morning. Warfarin remains on hold as patient's INR today was elevated at 3.6. Procalcitonin level is significantly elevated at 2.62. Patient has been afebrile. She is currently on room air oxygen saturations at 97%. 11/26/2024 Patient evaluated in follow-up with the medical floor. Patient continues on IV Zosyn. Currently pending gallbladder ultrasound which will be completed later this afternoon as patient had breakfast. Her abdomen is distended today and firm with concern for possible ileus. Patient did have a loose BM yesterday. Abdominal xray completed reveals nonspecific gaseous dilation of the colon bowel gas pattern without radiographic evidence or acute process. White blood cell count of 12.54, hemoglobin 11.8, sodium of 131, BUN of 19 creatinine of 0.75, magnesium 1.9. Her INR today is 3.7. 11/27/2024 Patient is seen in follow-up today with general surgery following. Patient continues to have abdominal discomfort with concerns of impaction. Patient to have CT abdomen ordered per surgery for further evaluation. Patient was having a few episodes of explosive diarrhea and loose stools and C. difficile is also ordered and pending at this time. Patient continues to report significant abdominal pain and is currently n.p.o. per surgery. White count has increased significantly to 27.16 and hemoglobin is stable at 12.9, INR is 3.5 and Coumadin is to dose per pharmacy and being held, sodium 131 with a potassium of 3.8, BUN is 21 and creatinine is 0 point, total bilirubin is 2.6 and ALT/AST are elevated although trending down. C. difficile testing was negative. 11/28/2024 Patient is seen in follow-up with multiple consultations following including general surgery and infectious disease. Patient is maintained on antibiotics in the form of Zosyn and white count is elevated above 28 and continues to be elevated. General surgery following recommending conservative management at this time. Patient is continued on very sparing ice chips and may have popsicles sparingly per surgery. Patient is sitting up at the side of the bed looking slightly improved today although continues with diffuse abdominal pain. Patient is having gas and nursing staff reported 2 large bowel movements. Patient is continued on daily Dulcolax suppository per surgery and will continue. Repeat labs in the a.m. 11/29/2024 Patient is seen in follow-up today maintained on antibiotics and continues to be n.p.o. except for occasional ice chips and very sparing popsicle per surgery. Patient white count remains elevated although slightly improved at 20.53 today. Hemoglobin is stable at 10.6, platelets are 248, INR is noted to be 5.6 and Coumadin has been on hold. Will give a dose of vitamin K and follow-up on r epeat labs. Patient is resting currently and daughters at bedside and have been staying with her through the night reporting she continues to have pain although is tolerating. Encouraged increased activity as tolerated including sitting up at the side of the bed and working with PT/OT therapy. Patient is afebrile with no reports of chest pain or shortness of breath at this time. Patient did have repeat abdominal x-ray which reveals continuous gaseous dilatation of the large bowel concerning for ileus with known colonic pneumatosis and portal venous gas. Transverse colon measuring up to 8.3 cm in diameter. 11/30/2024 Patient is seen in follow-up today currently sitting up at the side of the bed talking and having conversation and mentation is baseline showing some clinical improvement. Patient is afebrile and white count is trending down and is maintained on Zosyn with infectious disease and general surgery following. Patient is n.p.o. except Spiering ice chips although is having bowel movements and maintained on Dulcolax suppository daily. No plans of surgical intervention at this time recommending conservative management. Will follow-up on repeat labs and replace electrolytes per protocol. INR is 1.3 status post vitamin K. Continue holding Coumadin for now and will discuss with surgery if okay to resume. Patient is attempting to get up and work with physical therapy and has been getting up with family a little more. 12/01/2024 Patient is seen in follow-up today has been up and having multiple bowel movements that continue to be loose and abdomen although mildly distended, is improved from previous and soft and less tender. Patient is tolerating current diet and is being advanced to full liquids per surgery. White count is trending down and patient is continued on IV Zosyn with infectious disease following. Continue current bowel regimen and supportive care. Recommend PT/OT therapy daily. Family is hopeful if patient continues to improve, may be able to go to rehab early next week. Prognosis is guarded at this time. 12/02/2024 Patient is evaluated today in follow up resting in bed. Patient continues to have loose bowel movements and has been incontinent of stool. Her abdomen is mildly distended, however soft today, less tender, and has increased bowel sounds. Patient is tolerating diet and family has been at the bed side assisting with meals. Diet has been advanced to dysphagia level 2. INR today 2.2. Rich catheter remains in place. 12/03/2024 Patient evaluated today in follow up on the medical floor. Patient had episode of emesis after breakfast and her abdomen appears to be increasingly distended today. Abdominal xray showing colonic ileus; there is diffuse distention of the colon dominantly air-filled with mild scattered feces. Labs today show white blood cell count 10.37, hgb 10.9, sodium 139, potassium 3.5, BUN 12, creatinine 0.8. Magnesium 2.0. Patient remains normal saline at 50 mls/hr. Review of systems: Constitutional: No reports of fatigue, fever, or chills Cardiovascular: No reports of chest pain or palpitations Respiratory: No reports of shortness of breath or cough GI: reports of occasional nausea, no reports of vomiting, reports not much of an appetite but is feeling hungry occasionally. reports continued abdominal pain although feels slightly improved today and less abdominal distention. : No reports of dysuria or retention Neurovascular: reports of generalized weakness, reports some minor improvement in leg pain All medications have been reviewed PHYSICAL EXAMINATION: GENERAL: The patient is alert and oriented x2-3, baseline, much more alert and awake today extremely hard of hearing, well developed, elderly appearing, thin built HEENT: Pupils are round and equally reacting to light. EOMI. no scleral icterus. No conjunctival pallor. Normocephalic, atraumatic. No pharyngeal erythema. No thyromegaly. CARDIOVASCULAR: S1 and S2 muffled PULMONARY: diminished breath sounds bilaterally with no wheezing or rhonchi noted. ABDOMEN: Increasingly distended and bowel sounds noted. No palpable organomegaly. MUSCULOSKELETAL: No joint swelling or deformity. EXTREMITIES: No cyanosis, clubbing, or pedal edema. Continued left hip pain on palpation NEUROLOGICAL: Gross neurological examination did not reveal any focal deficits. Diffuse weakness SKIN: No rashes. Significant ecchymosis noted of the face extending down into the neck and upper chest area showing continued improvement Assessment: Continued colonic ileus Fall and right maxillary fracture with ecchymosis Hyponatremia, improved Troponin elevated, 0.185, ruled out acute NSTEMI per cardiology, likely type II Coumadin coagulopathy, INR being monitored per pharmacy Altered mental status, acute metabolic encephalopathy, multifactorial with possible underlying sinusitis and also a component of hospital-acquired delirium Increased WBC with bacteremia with sepsis, present on admission, likely secondary to ischemic colitis. Repeat blood cultures are negative Transaminitis under investigation, trending down Constipation and abdominal distention History of previous CVA/TIA Atrial fibrillation, permanent Hypertension History of osteoarthritis Hard of hearing History of anxiety History of coronary artery disease with previous CABG history of bicuspid aortic valve status post AVR and then TAVR History of gastroesophageal reflux disease Hyperlipidemia GI prophylaxis DVT prophylaxis No code Plan: Patient has transitioned to medicine service with ongoing underlying conditions and concerns of possible hospital-acquired delirium versus possible sinus infection or sinusitis with recent facial trauma. Mentation has improved at baseline Encouraged frequent reorientation and family at bedside most of the time with blinds and shades open during the day and will continue Seroquel as needed at night for agitation. Family has been extremely supportive and staying with the patient at night and helping with overall care. Recommend continuing with pain management per surgery as patient has findings of pneumatosis of the colon and scattered areas and air in the portal venous system. Possible options of surgery discussed although would be a high risk candidate and also recommending aggressive medical management and supportive care and also possible hospice as an option. Family is not ready for hospice and would like to continue with bowel rest and antibiotics with supportive care. Patient having extreme left hip and leg pain, Continue with norco and lidocaine patches, orthopedics evaluated the patient with no plans of surgical intervention at this time. gallbladder ultrasound performed which reveals gallstones Patient was having multiple episodes of loose explosive stool and concerns of fecal impaction with general surgery following. CT reveals dilatation of the large bowel with pneumatosis coli and portal venous gas in the liver, cholelithiasis and small volume free fluid with increasing bilateral pleural effusions and soft tissue anasarca likely third spacing versus volume overload with nonspecific bilateral inguinal lymphadenopathy. Dulcolax suppositories have been discontinued and patient remains on questran twice daily as patient has continued loose stools. Diet has been advanced to dysphagia patient had tolerated increased diet yesterday today had episode of emesis and follow up abdominal imaging reveals continued ileus. CODE STATUS was addressed and family at the bedside were agreeable to no code Continue IV zosyn; procalcitonin elevated, infectious disease following. On antibiotics. White count is trending down and will be monitored closely. Patient remains afebrile Check INR daily, pharmacy to dose coumadin CBC/BMP/PT/INR in the AM Encourage increase activity as tolerated and sitting up more frequently. Family is hopeful patient will improve and be able to go to rehab maybe early next week Prognosis is definitely guarded at this time. The impression and plan of care has been dictated by Shelley Brown, Nurse Practitioner as directed. Dr. Breanne MD I have performed a history and physical examination and medical decision making of this patient, discussed the same with the dictator, and agree with the dictators assessment and plan as written, documented as a scribe. Based on total visit time, I have performed more than 50% of this visit. Objective - Vital Signs Vital signs: Vital Signs Temp 98.6 F 12/03/24 07:30 Pulse 72 12/03/24 07:30 Resp 20 12/03/24 07:30 BP 123/68 12/03/24 07:30 Pulse Ox 99 12/03/24 07:30 FiO2 Intake & Output 12/02/24 12/03/24 12/03/24 18:59 06:59 18:59 Intake Total 1320 590 Output Total 500 Balance 1320 90 Weight 52.5 kg Intake: Oral 1320 590 Output: Urine 500 Other: Voiding Method Indwelling Catheter Indwelling Catheter # Voids 5 # Bowel Movements 1 - Labs CBC & Chem 7: 12/03/24 04:22 12/03/24 04:22 Labs: Abnormal Lab Results - Last 24 Hours (Table) 12/03/24 12/03/24 12/03/24 Range/Units 04:22 04:22 04:22 WBC 10.37 H (4.50-10.00) X 10*3/uL RBC 3.58 L (4.10-5.20) X 10*6/uL Hgb 10.9 L (12.0-15.0) g/dL Hct 32.8 L (37.2-46.3) % RDW 15.7 H (11.5-14.5) % Immature Gran # 0.12 H (0.00-0.04) X 10*3/uL Neutrophils # 8.30 H (1.80-7.70) X 10*3/uL Eosinophils # 0.02 L (0.04-0.35) X 10*3/uL PT 25.7 H (10.0-12.5) sec INR 2.6 H (<1.2) Anion Gap 12.70 H (4.00-12.00) mmol/L Glucose 113 H (70-110) mg/dL Calcium 7.9 L (8.7-10.3) mg/dL Microbiology - Last 24 Hours (Table) 11/27/24 12:52 Blood Culture - Final Blood Assessment and Plan Time with Patient: Less than 30
[2024-12-03] MEDS: WARFARIN 0.5 MG TAB PO ONE (16:28)
[2024-12-04 05:37] LABS: INR 3.4 (<1.2); Prothrombin Time 33.4 sec (10.0-12.5)
[2024-12-04 07:56] LABS: HCT 30.2 % (37.2-46.3); HGB 9.9 g/dL (12.0-15.0); MCH 30.3 pg (27.0-32.0); MCHC 32.8 g/dL (32.0-37.0); MCV 92.4 FL (80.0-97.0); NRBC Per 100 WBC 0 X 10*3/uL (0.00-0.01); Platelet Count 251 X 10*3/uL (140-440); RBC 3.27 X 10*6/uL (4.10-5.20); RDW 15.9 % (11.5-14.5); WBC 8.95 X 10*3/uL (4.50-10.00)
[2024-12-04 08:00] LABS: Anion Gap 10.10 mmol/L (4.00-12.00); BUN/Creat Ratio 20.62 Ratio (12.00-20.00); Blood Urea Nitrogen 16.5 mg/dL (9.0-27.0); Calcium 7.7 mg/dL (8.7-10.3); Carbon Dioxide 20.9 mmol/L (21.6-31.8); Chloride 103 mmol/L (96-109); Glucose 110 mg/dL (70-110); Potassium 3.4 mmol/L (3.5-5.5); Sodium 134 mmol/L (135-145)
[2024-12-04 08:34] LABS: Basophils # (A) 0.05 X 10*3/uL (0.00-0.10); Basophils % (A) 0.6 %; Eosinophils # (A) 0.02 X 10*3/uL (0.04-0.35); Eosinophils % (A) 0.2 %; Immature Grans, Automated 0.60 %; Lymphocytes # (A) 1.01 X 10*3/uL (0.90-5.00); Lymphocytes % (A) 11.3 %; Macrocytosis (M) 2+ (None Seen); Monocytes # (A) 0.77 X 10*3/uL (0.20-1.00); Monocytes % (A) 8.6 %; Neutrophils # (A) 7.05 X 10*3/uL (1.80-7.70); Neutrophils % (A) 78.7 %
[2024-12-04] MEDS: WARFARIN 0.5 MG TAB PO ONE (09:08)
--- NOTE | 2024-12-04 10:36 | P.PN ---
Subjective Progress Note Date: 12/04/24 SURGICAL PROGRESS NOTE CHIEF COMPLAINT: Status post fall on blood thinners HISTORY OF PRESENT ILLNESS: Patient sitting up in bed comfortably. She was able to eat a few bites of her eggs this morning and some bites of fruit. Family is at bedside. She denies abdominal pain. Family reports that she is more awake and alert today. She did have episode of vomiting yesterday after she ate and took several pills. Abdominal x-ray had reported ileus. Patient continues to have liquidy stools. She reported flatus when family rotated her in the bed. Afebrile. WBC 8.95 Hgb 9.9 INR 3.4 potassium 3.4 sodium 134 PHYSICAL EXAM: VITAL SIGNS: Reviewed. GENERAL: Well-developed in no acute distress. Hard of hearing ABDOMEN: Soft. distended Nontender. ASSESSMENT: 1. Ischemic right-sided colitis 2. Ileus 3. Hypokalemia PLAN: -Replace potassium -Continue antibiotics -Agree with reconsulting PT -Encouraged patient to increase activity level Phys[employer] Architect note has been reviewed by physician. Signing provider agrees with the documented findings, assessment, and plan of care. I have personally seen and examined the patient, reviewed the ACOUSTIC ENGINEER /PAs history, exam and MDM and agree with the assessment and plan as written. Based on total visit time, I have performed more than 50% of the visit. As above: Patient unfortunately has persistent abdominal bloating. Apparently she did have a large amount of flatus yesterday afternoon. X-rays yesterday showed persistent colonic dilation. May be slightly worse than previous. Patient not eating much. Discussed clinical scenario with patient and her 2 daughters. The patient showed initially a surprising improvement after the diagnosis of right-sided colitis with pneumatosis and portal venous gas. Since then however the patient has had a gradual decline. Patient's nutritional status is poor. No surgical intervention that would lead to a quick and meaningful recovery advised nor desired by the family. The focus has been on supportive care and comfort which is reasonable to continue at this time however given the gradual decline and more importantly lack of significant improvement over the last 3 to 5 days consideration for hospice or palliative care advised. Continue regular diet for now. Increase activity as much as patient is able to. Objective - Vital Signs Vital signs: Vital Signs Temp 97.6 F 12/04/24 07:31 Pulse 91 07/14/25 07:31 Resp 16 12/04/24 07:31 BP 111/65 12/04/24 07:31 Pulse Ox 98 12/04/24 08:13 FiO2 Intake & Output 12/03/24 12/04/24 12/04/24 18:59 06:59 18:59 Intake Total 1120 Output Total 300 200 Balance 820 -200 Intake: Intake, IV Titration 400 Amount Piperacillin-Tazobactam 3 200 .375 gm In Sodium Chloride 0.9% 100 ml @ 25 mls/hr IVPB Q8HR [facility] Rx# :[id number] Sodium Chloride 0.9% 1, 200 000 ml @ 50 mls/hr IV . Q20H [facility] Rx#:[id number] Oral 720 Output: Urine 300 200 Other: Voiding Method Indwelling Catheter Indwelling Catheter Indwelling Catheter # Bowel Movements 5 3 - Labs CBC & Chem 7: 12/04/24 04:26 12/04/24 04:26 Labs: Abnormal Lab Results - Last 24 Hours (Table) 12/04/24 12/04/24 12/04/24 Range/Units 04:26 04:26 04:26 RBC 3.27 L (4.10-5.20) X 10*6/uL Hgb 9.9 L (12.0-15.0) g/dL Hct 30.2 L (37.2-46.3) % RDW 15.9 H (11.5-14.5) % Immature Gran # 0.05 H (0.00-0.04) X 10*3/uL Eosinophils # 0.02 L (0.04-0.35) X 10*3/uL Macrocytosis (manual) 2+ A (None Seen) PT 33.4 H (10.0-12.5) sec INR 3.4 H (<1.2) Sodium 134 L (135-145) mmol/L Potassium 3.4 L (3.5-5.5) mmol/L Carbon Dioxide 20.9 L (21.6-31.8) mmol/L BUN/Creatinine Ratio 20.62 H (12.00-20.00) Ratio Calcium 7.7 L (8.7-10.3) mg/dL
[2024-12-04] MEDS: POTASSIUM CHLORIDE ER 20 MEQ TAB.ER PO STA (12:10)
[2024-12-04 15:39] VITALS: BMI 19.8
--- NOTE | 2024-12-04 16:37 | P.PN ---
Subjective Progress Note Date: 12/04/24 Principal diagnosis: Reason for follow-up with ischemic colitis Patient is a 84-year-old female with a past medical history significant for Atrial Fibrillation, Coronary Artery Disease (CAD), CVA/TIA, GERD/Reflux, Hearing Disorder / Deafness, Hyperlipidemia, Hypertension, Osteoarthritis (OA) presenting the hospital a after apparently the patient did have fallen twice workup which was evidence of maxillary fracture and there was concern for possible cholecystitis subsequently worsening abdominal pain with a CT showing features of ischemic colitis prompted this consultation. On today's evaluation that is 12/04/2024 the patient continues to be afebrile patient is breathing comfortably is currently on a 2 L nasal cannula oxygen patient was sleepy at the time of evaluation this morning overall doing better with her daughters at the bedside no vomiting or diarrhea has been reported and has been tolerating her diet. Patient white count normalized to 8.95, creatinine is 0.8 Objective - Vital Signs Vital signs: Vital Signs Temp 97.7 F 12/04/24 12:15 Pulse 90 12/04/24 12:15 Resp 17 12/04/24 12:15 BP 113/67 12/04/24 12:15 Pulse Ox 96 12/04/24 12:15 FiO2 Intake & Output 12/03/24 12/04/24 12/04/24 18:59 06:59 18:59 Intake Total 1120 Output Total 300 200 Balance 820 -200 Weight 52.5 kg Intake: Intake, IV Titration 400 Amount Piperacillin-Tazobactam 3 200 .375 gm In Sodium Chloride 0.9% 100 ml @ 25 mls/hr IVPB Q8HR [facility] Rx# :[id number] Sodium Chloride 0.9% 1, 200 000 ml @ 50 mls/hr IV . Q20H [facility] Rx#:[id number] Oral 720 Output: Urine 300 200 Other: Voiding Method Indwelling Catheter Indwelling Catheter Indwelling Catheter # Bowel Movements 5 3 2 - Labs CBC & Chem 7: 12/04/24 04:26 12/04/24 04:26 Labs: Abnormal Lab Results - Last 24 Hours (Table) 12/04/24 12/04/24 12/04/24 Range/Units 04:26 04:26 04:26 RBC 3.27 L (4.10-5.20) X 10*6/uL Hgb 9.9 L (12.0-15.0) g/dL Hct 30.2 L (37.2-46.3) % RDW 15.9 H (11.5-14.5) % Immature Gran # 0.05 H (0.00-0.04) X 10*3/uL Eosinophils # 0.02 L (0.04-0.35) X 10*3/uL Macrocytosis (manual) 2+ A (None Seen) PT 33.4 H (10.0-12.5) sec INR 3.4 H (<1.2) Sodium 134 L (135-145) mmol/L Potassium 3.4 L (3.5-5.5) mmol/L Carbon Dioxide 20.9 L (21.6-31.8) mmol/L BUN/Creatinine Ratio 20.62 H (12.00-20.00) Ratio Calcium 7.7 L (8.7-10.3) mg/dL Assessment and Plan (1) Sepsis Current Visit: Yes Status: Acute Code(s): A41.9 - SEPSIS, UNSPECIFIED ORGANISM SNOMED Code(s): 76317096 (2) Cholecystitis Current Visit: Yes Status: Acute Code(s): K81.9 - CHOLECYSTITIS, UNSPECIFIED SNOMED Code(s): 51971402 (3) Ischemic colitis Current Visit: Yes Status: Acute Code(s): K55.9 - VASCULAR DISORDER OF INTESTINE, UNSPECIFIED SNOMED Code(s): 48614701 Plan: 1patient with abdominal pain in this patient with initially presented to the hospital with a fall hide did have a maxillary fracture patient did have a fever first 2 days of her admission and also have elevated white count there was abnormality on the gallbladder concerning for possible cholecystitis and did have group G streptococcus bacteremia now with evidence of ischemic colitis and the family has opted for medical treatment 2-blood cultures has been repeated which are so far negative 3-patient is afebrile patient white count has normalized and also slowly clinically improving we will continue the patient on Zosyn while inpatient transition to oral antibiotic on discharge Dictation was produced using [employer] software. please excuse any grammatical, word or spelling errors. Time with Patient: Less than 30
--- NOTE | 2024-12-04 16:37 | P.PN ---
Subjective Progress Note Date: 12/03/24 Principal diagnosis: Reason for follow-up with ischemic colitis Patient is a 84-year-old female with a past medical history significant for Atrial Fibrillation, Coronary Artery Disease (CAD), CVA/TIA, GERD/Reflux, Hearing Disorder / Deafness, Hyperlipidemia, Hypertension, Osteoarthritis (OA) presenting the hospital a after apparently the patient did have fallen twice workup which was evidence of maxillary fracture and there was concern for possible cholecystitis subsequently worsening abdominal pain with a CT showing features of ischemic colitis prompted this consultation. On today's evaluation that is 12/03/2024, Patient is afebrile patient is currently on room air and denies having any shortness of breath, the patient denies any chest pain or cough, the patient did have abdominal nausea no vomiting abdominal pain has decreased and diarrhea slowed down. Patient white count is down to 10.37, creatinine 0.8 Objective - Vital Signs Vital signs: Vital Signs Temp 98.6 F 12/03/24 07:30 Pulse 72 12/03/24 07:30 Resp 20 12/03/24 07:30 BP 123/68 12/03/24 07:30 Pulse Ox 99 12/03/24 07:30 FiO2 Intake & Output 12/02/24 12/03/24 12/03/24 18:59 06:59 18:59 Intake Total 1320 590 Output Total 500 Balance 1320 90 Weight 52.5 kg Intake: Oral 1320 590 Output: Urine 500 Other: Voiding Method Indwelling Catheter Indwelling Catheter # Voids 5 # Bowel Movements 1 - Exam GENERAL DESCRIPTION: An elderly female up in bed in no distress RESPIRATORY SYSTEM: Unlabored breathing , decreased breath sounds at bases HEART: S1 S2 regular rate and rhythm , ABDOMEN: Soft , no tenderness EXTREMITIES: No edema feet - Labs CBC & Chem 7: 12/04/24 04:26 12/04/24 04:26 Labs: Abnormal Lab Results - Last 24 Hours (Table) 12/03/24 12/03/24 12/03/24 Range/Units 04:22 04:22 04:22 WBC 10.37 H (4.50-10.00) X 10*3/uL RBC 3.58 L (4.10-5.20) X 10*6/uL Hgb 10.9 L (12.0-15.0) g/dL Hct 32.8 L (37.2-46.3) % RDW 15.7 H (11.5-14.5) % Immature Gran # 0.12 H (0.00-0.04) X 10*3/uL Neutrophils # 8.30 H (1.80-7.70) X 10*3/uL Eosinophils # 0.02 L (0.04-0.35) X 10*3/uL PT 25.7 H (10.0-12.5) sec INR 2.6 H (<1.2) Anion Gap 12.70 H (4.00-12.00) mmol/L Glucose 113 H (70-110) mg/dL Calcium 7.9 L (8.7-10.3) mg/dL Microbiology - Last 24 Hours (Table) 11/27/24 12:52 Blood Culture - Final Blood Assessment and Plan (1) Sepsis Current Visit: Yes Status: Acute Code(s): A41.9 - SEPSIS, UNSPECIFIED ORGANISM SNOMED Code(s): 41613581 (2) Cholecystitis Current Visit: Yes Status: Acute Code(s): K81.9 - CHOLECYSTITIS, UNSPECIFIED SNOMED Code(s): 97859620 (3) Ischemic colitis Current Visit: Yes Status: Acute Code(s): K55.9 - VASCULAR DISORDER OF INTESTINE, UNSPECIFIED SNOMED Code(s): 96887592 Plan: 1patient with abdominal pain in this patient with initially presented to the hospital with a fall hide did have a maxillary fracture patient did have a fever first 2 days of her admission and also have elevated white count there was abnormality on the gallbladder concerning for possible cholecystitis and did have group G streptococcus bacteremia now with evidence of ischemic colitis and the family has opted for medical treatment 2-blood cultures has been repeated which are so far negative 3-patient is afebrile patient white count is down to 10,000 and seem to have shown improvement clinically as well to continue Zosyn while inpatient Dictation was produced using [employer] software. please excuse any grammatical, word or spelling errors. Time with Patient: Less than 30
--- NOTE | 2024-12-05 04:47 | P.PN ---
Subjective Progress Note Date: 12/04/24 This is a pleasant 84-year-old female who was recently admitted under trauma services status post fall and is noted to have a right maxillary fracture with some significant ecchymosis of the face traveling down to the neck and being followed by multiple consultations. Patient transferred to medicine service as patient continues with significant weakness and is having some altered mentation, multifactorial and likely secondary to hospital delirium. Recommend limiting aggressive narcotics although patient is reporting significant pain. Patient continues to have some expectoration of streaks of blood noted in the spit otherwise no active bleeding noted. Patient is reporting significant hip pain and will obtain some images. Recommend PT/OT therapy daily. Patient's INR is elevated just above 3 although improved from previous. Will follow-up on repeat labs and continue to monitor closely. Plan will be for patient to go to ECF for continued strength and mobility. 11/24/2024 Patient is seen in follow-up today mentation is somewhat improved and would recommend frequent reorientation during the day and adjusting pain medications and trying to limit IV narcotic use. Patient to continue with Seroquel at night and continued PT/OT therapy. Plan will be for patient to go to ECF on discharge for continued strength and mobility. Patient is having significant left hip pain and leg pain we will obtain a Doppler and also adjust medications accordingly. Patient is currently afebrile is tolerating diet although not much of an appetite noted. Continue with bowel regimen scheduled as well as as needed 11/25/2024 Patient is evaluated in follow-up on the medical floor. She is awake alert x 1. Family at the bedside. She is sitting up at the bedside eating appears quite fatigued though. She continues to report significant left hip and leg pain. Doppler was negative for any findings for acute DVT. LFTs remain elevated and chest x-ray does reveal some vascular congestion. Patient has been continued on her home dose of oral Lasix twice daily. Also continues on IV Zosyn. A gall bladder ultrasound was ordered and is currently pending for tomorrow morning. Warfarin remains on hold as patient's INR today was elevated at 3.6. Procalcitonin level is significantly elevated at 2.62. Patient has been afebrile. She is currently on room air oxygen saturations at 97%. 11/26/2024 Patient evaluated in follow-up with the medical floor. Patient continues on IV Zosyn. Currently pending gallbladder ultrasound which will be completed later this afternoon as patient had breakfast. Her abdomen is distended today and firm with concern for possible ileus. Patient did have a loose BM yesterday. Abdominal xray completed reveals nonspecific gaseous dilation of the colon bowel gas pattern without radiographic evidence or acute process. White blood cell count of 12.54, hemoglobin 11.8, sodium of 131, BUN of 19 creatinine of 0.75, magnesium 1.9. Her INR today is 3.7. 11/27/2024 Patient is seen in follow-up today with general surgery following. Patient continues to have abdominal discomfort with concerns of impaction. Patient to have CT abdomen ordered per surgery for further evaluation. Patient was having a few episodes of explosive diarrhea and loose stools and C. difficile is also ordered and pending at this time. Patient continues to report significant abdominal pain and is currently n.p.o. per surgery. White count has increased significantly to 27.16 and hemoglobin is stable at 12.9, INR is 3.5 and Coumadin is to dose per pharmacy and being held, sodium 131 with a potassium of 3.8, BUN is 21 and creatinine is 0 point, total bilirubin is 2.6 and ALT/AST are elevated although trending down. C. difficile testing was negative. 11/28/2024 Patient is seen in follow-up with multiple consultations following including general surgery and infectious disease. Patient is maintained on antibiotics in the form of Zosyn and white count is elevated above 28 and continues to be elevated. General surgery following recommending conservative management at this time. Patient is continued on very sparing ice chips and may have popsicles sparingly per surgery. Patient is sitting up at the side of the bed looking slightly improved today although continues with diffuse abdominal pain. Patient is having gas and nursing staff reported 2 large bowel movements. Patient is continued on daily Dulcolax suppository per surgery and will continue. Repeat labs in the a.m. 11/29/2024 Patient is seen in follow-up today maintained on antibiotics and continues to be n.p.o. except for occasional ice chips and very sparing popsicle per surgery. Patient white count remains elevated although slightly improved at 20.53 today. Hemoglobin is stable at 10.6, platelets are 248, INR is noted to be 5.6 and Coumadin has been on hold. Will give a dose of vitamin K and follow-up on repeat labs. Patient is resting currently and daughters at bedside and have been staying with her through the night reporting she continues to have pain although is tolerating. Encouraged increased activity as tolerated including sitting up at the side of the bed and working with PT/OT therapy. Patient is afebrile with no reports of chest pain or shortness of breath at this time. Patient did have repeat abdominal x-ray which reveals continuous gaseous dilatation of the large bowel concerning for ileus with known colonic pneumatosis and portal venous gas. Transverse colon measuring up to 8.3 cm in diameter. 11/30/2024 Patient is seen in follow-up today currently sitting up at the side of the bed talking and having conversation and mentation is baseline showing some clinical improvement. Patient is afebrile and white count is trending down and is maintained on Zosyn with infectious disease and general surgery following. Patient is n.p.o. except Spiering ice chips although is having bowel movements and maintained on Dulcolax suppository daily. No plans of surgical intervention at this time recommending conservative management. Will follow-up on repeat labs and replace electrolytes per protocol. INR is 1.3 status post vitamin K. Continue holding Coumadin for now and will discuss with surgery if okay to resume. Patient is attempting to get up and work with physical therapy and has been getting up with family a little more. 12/01/2024 Patient is seen in follow-up today has been up and having multiple bowel movements that continue to be loose and abdomen although mildly distended, is improved from previous and soft and less tender. Patient is tolerating current diet and is being advanced to full liquids per surgery. White count is trending down and patient is continued on IV Zosyn with infectious disease following. Continue current bowel regimen and supportive care. Recommend PT/OT therapy daily. Family is hopeful if patient continues to improve, may be able to go to rehab early next week. Prognosis is guarded at this time. 12/02/2024 Patient is evaluated today in follow up resting in bed. Patient continues to have loose bowel movements and has been incontinent of stool. Her abdomen is mildly distended, however soft today, less tender, and has increased bowel sounds. Patient is tolerating diet and family has been at the bed side assisting with meals. Diet has been advanced to dysphagia level 2. INR today 2.2. Rich catheter remains in place. 12/03/2024 Patient evaluated today in follow up on the medical floor. Patient had episode of emesis after breakfast and her abdomen appears to be increasingly distended today. Abdominal xray showing colonic ileus; there is diffuse distention of the colon dominantly air-filled with mild scattered feces. Labs today show white blood cell count 10.37, hgb 10.9, sodium 139, potassium 3.5, BUN 12, creatinine 0.8. Magnesium 2.0. Patient remains normal saline at 50 mls/hr. 12/04/2024 Patient seen in follow-up today tolerating more diet more awake and having conversation today. Patient awaiting repeat evaluation from PT/OT therapy with general surgery and infectious disease following. Patient is continued on antibiotics and white count has normalized just above 8 today. Potassium mildly low at 3.4 and being replaced per protocol we will follow-up on repeat labs. Per general surgery continue current regimen with no plans of surgical intervention at this time. INR is elevated above 3 with pharmacy to dose. Continue current diet and would recommend PT/OT therapy daily. Review of systems: Constitutional: No reports of fatigue, fever, or chills Cardiovascular: No reports of chest pain or palpitations Respiratory: No reports of shortness of breath or cough GI: reports of occasional nausea, no reports of vomiting, reports not much of an appetite but is feeling hungry occasionally. reports continued abdominal pain although feels slightly improved today and less abdominal distention. : No reports of dysuria or retention Neurovascular: reports of generalized weakness, reports some minor improvement in leg pain All medications have been reviewed PHYSICAL EXAMINATION: GENERAL: The patient is alert and oriented x2-3, baseline, much more alert and awake today extremely hard of hearing, well developed, elderly appearing, thin built HEENT: Pupils are round and equally reacting to light. EOMI. no scleral icterus. No conjunctival pallor. Normocephalic, atraumatic. No pharyngeal erythema. No thyromegaly. CARDIOVASCULAR: S1 and S2 muffled PULMONARY: diminished breath sounds bilaterally with no wheezing or rhonchi noted. ABDOMEN: distended and bowel sounds noted. No palpable organomegaly. MUSCULOSKELETAL: No joint swelling or deformity. EXTREMITIES: No cyanosis, clubbing, or pedal edema. Continued left hip pain on palpation NEUROLOGICAL: Gross neurological examination did not reveal any focal deficits. Diffuse weakness SKIN: No rashes. Significant ecchymosis noted of the face extending down into the neck and upper chest area showing continued improvement Assessment: Continued colonic ileus Fall and right maxillary fracture with ecchymosis Hyponatremia, improved Troponin elevated, 0.185, ruled out acute NSTEMI per cardiology, likely type II Coumadin coagulopathy, INR being monitored per pharmacy Altered mental status, acute metabolic encephalopathy, multifactorial with possible underlying sinusitis and also a component of hospital-acquired delirium Increased WBC with bacteremia with sepsis, present on admission, likely secondary to ischemic colitis. Repeat blood cultures are negative Transaminitis , trending down Constipation and abdominal distention History of previous CVA/TIA Atrial fibrillation, permanent Hypertension History of osteoarthritis Hard of hearing History of anxiety History of coronary artery disease with previous CABG history of bicuspid aortic valve status post AVR and then TAVR History of gastroesophageal reflux disease Hyperlipidemia GI prophylaxis DVT prophylaxis No code Plan: Patient has transitioned to medicine service with ongoing underlying conditions and concerns of possible hospital-acquired delirium versus possible sinus infection or sinusitis with recent facial trauma. Mentation has improved at baseline Encouraged frequent reorientation and family at bedside most of the time with blinds and shades open during the day and will continue Seroquel as needed at night for agitation. Family has been extremely supportive and staying with the patient at night and helping with overall care. Recommend continuing with pain management per surgery as patient has findings of pneumatosis of the colon and scattered areas and air in the portal venous system. Possible options of surgery discussed although would be a high risk candidate and also recommending aggressive medical management and supportive care and also possible hospice as an option. Family is not ready for hospice and would like to continue with conservative management and continued antibiotics Gallbladder ultrasound performed which reveals gallstones Patient was having multiple episodes of loose explosive stool and concerns of f ecal impaction with general surgery following. CT reveals dilatation of the large bowel with pneumatosis coli and portal venous gas in the liver, cholelithiasis and small volume free fluid with increasing bilateral pleural effusions and soft tissue anasarca likely third spacing versus volume overload with nonspecific bilateral inguinal lymphadenopathy. Dulcolax suppositories have been discontinued and patient remains on questran twice daily as patient has continued loose stools. Lactulose will be discontinued Diet has been advanced to dysphagia, patient had tolerated increased diet yesterday, abdominal imaging reveals continued ileus. CODE STATUS was addressed and family at the bedside were agreeable to no code Continue IV zosyn; procalcitonin elevated, infectious disease following. On antibiotics. White count is trending down and has normalized. Patient remains afebrile. Will continue IV Zosyn for now and transition to oral antibiotics on discharge Check INR daily, pharmacy to dose coumadin, INR elevated above 3 hold Coumadin and follow-up on repeat labs CBC/BMP/PT/INR in the AM Encourage increase activity as tolerated and sitting up more frequently. Family is concerned she has not been getting up over the weekend, awaiting updated PT/OT therapy evaluation today Prognosis is definitely guarded at this time. The impression and plan of care has been dictated by Joselin Becerrli, Nurse Practitioner as directed. Dr. Breanne MD I have performed a history and physical examination and medical decision making of this patient, discussed the same with the dictator, and agree with the dictators assessment and plan as written, documented as a scribe. Based on total visit time, I have performed more than 50% of this visit. Objective - Vital Signs Vital signs: Vital Signs Temp 97.6 F 12/04/24 07:31 Pulse 91 12/04/24 07:31 Resp 16 12/04/24 07:31 BP 111/65 12/04/24 07:31 Pulse Ox 98 12/04/24 08:13 FiO2 Intake & Output 12/03/24 12/04/24 12/04/24 18:59 06:59 18:59 Intake Total 1120 Output Total 300 200 Balance 820 -200 Intake: Intake, IV Titration 400 Amount Piperacillin-Tazobactam 3 200 .375 gm In Sodium Chloride 0.9% 100 ml @ 25 mls/hr IVPB Q8HR [facility] Rx# :[id number] Sodium Chloride 0.9% 1, 200 000 ml @ 50 mls/hr IV . Q20H [facility] Rx#:[id number] Oral 720 Output: Urine 300 200 Other: Voiding Method Indwelling Catheter Indwelling Catheter Indwelling Catheter # Bowel Movements 5 3 - Labs CBC & Chem 7: 12/04/24 04:26 12/04/24 04:26 Labs: Abnormal Lab Results - Last 24 Hours (Table) 12/04/24 12/04/24 12/04/24 Range/Units 04:26 04:26 04:26 RBC 3.27 L (4.10-5.20) X 10*6/uL Hgb 9.9 L (12.0-15.0) g/dL Hct 30.2 L (37.2-46.3) % RDW 15.9 H (11.5-14.5) % Immature Gran # 0.05 H (0.00-0.04) X 10*3/uL Eosinophils # 0.02 L (0.04-0.35) X 10*3/uL Macrocytosis (manual) 2+ A (None Seen) PT 33.4 H (10.0-12.5) sec INR 3.4 H (<1.2) Sodium 134 L (135-145) mmol/L Potassium 3.4 L (3.5-5.5) mmol/L Carbon Dioxide 20.9 L (21.6-31.8) mmol/L BUN/Creatinine Ratio 20.62 H (12.00-20.00) Ratio Calcium 7.7 L (8.7-10.3) mg/dL
[2024-12-05 05:29] LABS: Prothrombin Time 50.9 sec (10.0-12.5)
[2024-12-05 05:43] LABS: INR 5.1 (<1.2)
[2024-12-05] MEDS: PHYTONADIONE ORAL 5 MG/5 ML ORAL.SYRG PO ONE (06:08)
--- NOTE | 2024-12-05 10:37 | P.PN ---
Subjective Progress Note Date: 12/05/24 SURGICAL PROGRESS NOTE CHIEF COMPLAINT: Status post fall on blood thinners HISTORY OF PRESENT ILLNESS: Patient having increased abdominal pain today. She vomited water. She is sitting up in bed does report pain more in the right side of the abdomen. She has been having flatus. She passed a large amount of flatus yesterday. Having liquidy stools. She is feeling worse today. Afebrile. PHYSICAL EXAM: VITAL SIGNS: Reviewed. GENERAL: More lethargic today ABDOMEN: Soft. distended tender more on the right side of the abdomen and mild tenderness on the left. ASSESSMENT: 1. Ischemic right-sided colitis 2. Ileus 3. Hypokalemia PLAN: -Downgrade diet to n.p.o. -Abdominal x-ray ordered due to increased abdominal pain -Continue antibiotics -Check CBC and BMP Physician Ribbon Weaver note has been reviewed by physician. Signing provider agrees with the documented findings, assessment, and plan of care. I have personally seen and examined the patient, reviewed the ASSISTED LIVING EXECUTIVE DIRECTOR /PAs history, exam and MDM and agree with the assessment and plan as written. Based on total visit time, I have performed more than 50% of the visit. As above: Patient remains distended. Fairly alert today. No obvious confusion. Complaining of some discomfort in the abdomen. Abdominal x-rays look similar to previous. Still with distended colonic loops. Family discussing extent of care options and possible hospice. Continue diet for comfort. Increase activity as tolerated. Objective - Vital Signs Vital signs: Vital Signs Temp 98.2 F 12/05/24 07:27 Pulse 85 12/05/24 07:27 Resp 14 12/05/24 07:27 BP 111/70 12/05/24 07:27 Pulse Ox 96 12/05/24 07:54 FiO2 Intake & Output 12/04/24 12/05/24 12/05/24 18:59 06:59 18:59 Intake Total 600 Output Total 300 150 Balance 300 -150 Weight 52.5 kg Intake: Oral 600 Output: Urine 300 150 Other: Voiding Method Indwelling Catheter Indwelling Catheter # Bowel Movements 3 1 - Labs CBC & Chem 7: 12/05/24 10:44 12/05/24 10:44 Labs: Abnormal Lab Results - Last 24 Hours (Table) 12/05/24 Range/Units 04:38 PT 50.9 H (10.0-12.5) sec INR 5.1 H* (<1.2)
--- NOTE | 2024-12-05 11:24 | XR ---
EXAMINATION TYPE: XR abdomen 2V DATE OF EXAM: 12/05/2024 11:17 AM COMPARISON: CT CLINICAL INDICATION: Female, 84 years old with history of abdominal pain; [facility] TECHNIQUE: Two views of the abdomen were obtained. FINDINGS/IMPRESSION: 1. Gaseous distention of bowel throughout the abdomen similar to prior CT. Pneumatosis coli seen on prior CT is not well visualized. 2. Large stool burden throughout the colon. [facility], , 12/05/2024 11:22 AM
[2024-12-05 11:56] LABS: Basophils # (A) 0.03 10*3/uL (0.00-0.10); Basophils % (A) 0.5 %; Eosinophils # (A) 0.02 10*3/uL (0.04-0.35); Eosinophils % (A) 0.3 %; HCT 29.5 % (37.2-46.3); HGB 10.1 g/dL (12.0-15.0); Lymphocytes # (A) 0.75 10*3/uL (0.90-5.00); Lymphocytes % (A) 12.9 %; MCH 31.3 pg (27.0-32.0); MCHC 34.2 g/dL (32.0-37.0); MCV 91.3 fL (80.0-97.0); Monocytes # (A) 0.73 10*3/uL (0.20-1.00); Monocytes % (A) 12.6 %; Neutrophils # (A) 4.26 10*3/uL (1.80-7.70); Neutrophils % (A) 73.4 %; Platelet Count 273 10*3/uL (140-440); RBC 3.23 10*6/uL (4.10-5.20); RDW 15.5 % (11.5-14.5); WBC 5.81 10*3/uL (4.50-10.00)
[2024-12-05 12:03] LABS: African American GFR (CKD) 77 (>60 ml/min/1.73 sqM); Anion Gap 10 mmol/L; Blood Urea Nitrogen 21 mg/dL (7-17); Calcium 8.5 mg/dL (8.4-10.2); Carbon Dioxide 21 mmol/L (22-30); Chloride 101 mmol/L (98-107); Glucose 95 mg/dL (74-99); Non-African American GFR(CKD) 67 (>60 ml/min/1.73 sqM); Potassium 3.8 mmol/L (3.5-5.1); Sodium 132 mmol/L (137-145)
[2024-12-05 13:56] LABS: Hypochromasia (M) Present
--- NOTE | 2024-12-05 16:09 | P.PN ---
Subjective Progress Note Date: 12/05/24 Principal diagnosis: Reason for follow-up with ischemic colitis Patient is a 84-year-old female with a past medical history significant for Atrial Fibrillation, Coronary Artery Disease (CAD), CVA/TIA, GERD/Reflux, Hearing Disorder / Deafness, Hyperlipidemia, Hypertension, Osteoarthritis (OA) presenting the hospital a after apparently the patient did have fallen twice workup which was evidence of maxillary fracture and there was concern for possible cholecystitis subsequently worsening abdominal pain with a CT showing features of ischemic colitis prompted this consultation. On today's evaluation that is 12/05/2024, Patient is afebrile this morning patient currently breathing comfortably 2 L current oxygen patient was sleeping apparently seem to have a problem with tolerating her diet and more abdominal distention no vomiting or any changes reported by the daughters at the bedside. Patient white count normal at 5.81 INR elevated 5.1 creatinine 0.80 Objective - Vital Signs Vital signs: Vital Signs Temp 98.2 F 12/05/24 07:27 Pulse 85 12/05/24 07:27 Resp 14 12/05/24 07:27 BP 111/70 12/05/24 07:27 Pulse Ox 96 12/05/24 07:54 FiO2 Intake & Output 12/04/24 12/05/24 12/05/24 18:59 06:59 18:59 Intake Total 600 Output Total 300 150 Balance 300 -150 Weight 52.5 kg Intake: Oral 600 Output: Urine 300 150 Other: Voiding Method Indwelling Catheter Indwelling Catheter Indwelling Catheter # Bowel Movements 3 1 - Exam GENERAL DESCRIPTION: An elderly female up in bed in no distress RESPIRATORY SYSTEM: Unlabored breathing , decreased breath sounds at bases HEART: S1 S2 regular rate and rhythm , ABDOMEN: Soft , no tenderness EXTREMITIES: No edema feet - Labs CBC & Chem 7: 12/05/24 10:44 12/05/24 10:44 Labs: Abnormal Lab Results - Last 24 Hours (Table) 12/05/24 Range/Units 04:38 PT 50.9 H (10.0-12.5) sec INR 5.1 H* (<1.2) Assessment and Plan (1) Sepsis Current Visit: Yes Status: Acute Code(s): A41.9 - SEPSIS, UNSPECIFIED ORGANISM SNOMED Code(s): 93361386 (2) Cholecystitis Current Visit: Yes Status: Acute Code(s): K81.9 - CHOLECYSTITIS, UNSPECIFIED SNOMED Code(s): 26037661 (3) Ischemic colitis Current Visit: Yes Status: Acute Code(s): K55.9 - VASCULAR DISORDER OF INTESTINE, UNSPECIFIED SNOMED Code(s): 35565093 Plan: 1patient with abdominal pain in this patient with initially presented to the hospital with a fall hide did have a maxillary fracture patient did have a fever first 2 days of her admission and also have elevated white count there was abn ormality on the gallbladder concerning for possible cholecystitis and did have group G streptococcus bacteremia now with evidence of ischemic colitis and the family has opted for medical treatment 2-blood cultures has been repeated which are so far negative 3-patient is afebrile patient white count has normalized however seem to have some worsening abdominal distention and not tolerating her diet primary team is talking to the patient regarding possible hospice oriented care for now continue with Zosyn however switch to hospice antibiotics can be safely discontinued care discussed with the daughters at the bedside Dictation was produced using [employer] dictation software. please excuse any gra mmatical, word or spelling errors. Time with Patient: Less than 30
[2024-12-06 05:48] LABS: INR 2.5 (<1.2); Prothrombin Time 25.2 sec (10.0-12.5)
--- NOTE | 2024-12-06 05:49 | P.PN ---
Subjective Progress Note Date: 12/05/24 This is a pleasant 84-year-old female who was recently admitted under trauma services status post fall and is noted to have a right maxillary fracture with some significant ecchymosis of the face traveling down to the neck and being followed by multiple consultations. Patient transferred to medicine service as patient continues with significant weakness and is having some altered mentation, multifactorial and likely secondary to hospital delirium. Recommend limiting aggressive narcotics although patient is reporting significant pain. Patient continues to have some expectoration of streaks of blood noted in the spit otherwise no active bleeding noted. Patient is reporting significant hip pain and will obtain some images. Recommend PT/OT therapy daily. Patient's INR is elevated just above 3 although improved from previous. Will follow-up on repeat labs and continue to monitor closely. Plan will be for patient to go to ECF for continued strength and mobility. 11/24/2024 Patient is seen in follow-up today mentation is somewhat improved and would recommend frequent reorientation during the day and adjusting pain medications and trying to limit IV narcotic use. Patient to continue with Seroquel at night and continued PT/OT therapy. Plan will be for patient to go to ECF on discharge for continued strength and mobility. Patient is having significant left hip pain and leg pain we will obtain a Doppler and also adjust medications accordingly. Patient is currently afebrile is tolerating diet although not much of an appetite noted. Continue with bowel regimen scheduled as well as as needed 11/25/2024 Patient is evaluated in follow-up on the medical floor. She is awake alert x 1. Family at the bedside. She is sitting up at the bedside eating appears quite fatigued though. She continues to report significant left hip and leg pain. Doppler was negative for any findings for acute DVT. LFTs remain elevated and chest x-ray does reveal some vascular congestion. Patient has been continued on her home dose of oral Lasix twice daily. Also continues on IV Zosyn. A gall bladder ultrasound was ordered and is currently pending for tomorrow morning. Warfarin remains on hold as patient's INR today was elevated at 3.6. Procalcitonin level is significantly elevated at 2.62. Patient has been afebrile. She is currently on room air oxygen saturations at 97%. 11/26/2024 Patient evaluated in follow-up with the medical floor. Patient continues on IV Zosyn. Currently pending gallbladder ultrasound which will be completed later this afternoon as patient had breakfast. Her abdomen is distended today and firm with concern for possible ileus. Patient did have a loose BM yesterday. Abdominal xray completed reveals nonspecific gaseous dilation of the colon bowel gas pattern without radiographic evidence or acute process. White blood cell count of 12.54, hemoglobin 11.8, sodium of 131, BUN of 19 creatinine of 0.75, magnesium 1.9. Her INR today is 3.7. 11/27/2024 Patient is seen in follow-up today with general surgery following. Patient continues to have abdominal discomfort with concerns of impaction. Patient to have CT abdomen ordered per surgery for further evaluation. Patient was having a few episodes of explosive diarrhea and loose stools and C. difficile is also ordered and pending at this time. Patient continues to report significant abdominal pain and is currently n.p.o. per surgery. White count has increased significantly to 27.16 and hemoglobin is stable at 12.9, INR is 3.5 and Coumadin is to dose per pharmacy and being held, sodium 131 with a potassium of 3.8, BUN is 21 and creatinine is 0 point, total bilirubin is 2.6 and ALT/AST are elevated although trending down. C. difficile testing was negative. 11/28/2024 Patient is seen in follow-up with multiple consultations following including general surgery and infectious disease. Patient is maintained on antibiotics in the form of Zosyn and white count is elevated above 28 and continues to be elevated. General surgery following recommending conservative management at this time. Patient is continued on very sparing ice chips and may have popsicles sparingly per surgery. Patient is sitting up at the side of the bed looking slightly improved today although continues with diffuse abdominal pain. Patient is having gas and nursing staff reported 2 large bowel movements. Patient is continued on daily Dulcolax suppository per surgery and will continue. Repeat labs in the a.m. 11/29/2024 Patient is seen in follow-up today maintained on antibiotics and continues to be n.p.o. except for occasional ice chips and very sparing popsicle per surgery. Patient white count remains elevated although slightly improved at 20.53 today. Hemoglobin is stable at 10.6, platelets are 248, INR is noted to be 5.6 and Coumadin has been on hold. Will give a dose of vitamin K and follow-up on repeat labs. Patient is resting currently and daughters at bedside and have been staying with her through the night reporting she continues to have pain although is tolerating. Encouraged increased activity as tolerated including sitting up at the side of the bed and working with PT/OT therapy. Patient is afebrile with no reports of chest pain or shortness of breath at this time. Patient did have repeat abdominal x-ray which reveals continuous gaseous dilatation of the large bowel concerning for ileus with known colonic pneumatosis and portal venous gas. Transverse colon measuring up to 8.3 cm in diameter. 11/30/2024 Patient is seen in follow-up today currently sitting up at the side of the bed talking and having conversation and mentation is baseline showing some clinical improvement. Patient is afebrile and white count is trending down and is maintained on Zosyn with infectious disease and general surgery following. Patient is n.p.o. except Spiering ice chips although is having bowel movements and maintained on Dulcolax suppository daily. No plans of surgical intervention at this time recommending conservative management. Will follow-up on repeat labs and replace electrolytes per protocol. INR is 1.3 status post vitamin K. Continue holding Coumadin for now and will discuss with surgery if okay to resume. Patient is attempting to get up and work with physical therapy and has been getting up with family a little more. 12/01/2024 Patient is seen in follow-up today has been up and having multiple bowel movements that continue to be loose and abdomen although mildly distended, is improved from previous and soft and less tender. Patient is tolerating current diet and is being advanced to full liquids per surgery. White count is trending down and patient is continued on IV Zosyn with infectious disease following. Continue current bowel regimen and supportive care. Recommend PT/OT therapy daily. Family is hopeful if patient continues to improve, may be able to go to rehab early next week. Prognosis is guarded at this time. 12/02/2024 Patient is evaluated today in follow up resting in bed. Patient continues to have loose bowel movements and has been incontinent of stool. Her abdomen is mildly distended, however soft today, less tender, and has increased bowel sounds. Patient is tolerating diet and family has been at the bed side assisting with meals. Diet has been advanced to dysphagia level 2. INR today 2.2. Rich catheter remains in place. 12/03/2024 Patient evaluated today in follow up on the medical floor. Patient had episode of emesis after breakfast and her abdomen appears to be increasingly distended today. Abdominal xray showing colonic ileus; there is diffuse distention of the colon dominantly air-filled with mild scattered feces. Labs today show white blood cell count 10.37, hgb 10.9, sodium 139, potassium 3.5, BUN 12, creatinine 0.8. Magnesium 2.0. Patient remains normal saline at 50 mls/hr. 12/04/2024 Patient seen in follow-up today tolerating more diet more awake and having conversation today. Patient awaiting repeat evaluation from PT/OT therapy with general surgery and infectious disease following. Patient is continued on antibiotics and white count has normalized just above 8 today. Potassium mildly low at 3.4 and being replaced per protocol we will follow-up on repeat labs. Per general surgery continue current regimen with no plans of surgical intervention at this time. INR is elevated above 3 with pharmacy to dose. Continue current diet and would recommend PT/OT therapy daily. 12/05/2024 Patient is seen in follow-up today and is asleep with significant weakness and continues to have pain. Pain is becoming more intense and initially patient was eating a little more of a regular diet although not tolerating much. Patient is having significant abdominal pain and distention and had repeat abdominal x-ray done per general surgery which reveals continued gaseous distention in the bowel throughout the abdomen similar to prior with large stool burden throughout patient was having bowel movements but also with increased pain. Patient clinically deteriorating and becoming more weak discussed overall care and treatment plan with family and discussed possible hospice and/or comfort measur es and will request a hospice informational to come and speak with family and 2 of the daughters at the bedside are agreeable. General surgery and infectious disease following and patient is maintained on antibiotics and will continue at this time. No surgical intervention planned and hospice is appropriate in this situation. Family is understanding and will await discussion with hospice with other family members. Overall prognosis is extremely poor. Review of systems: Constitutional: reports of fatigue, no fever, or chills Cardiovascular: No reports of chest pain or palpitations Respiratory: No reports of shortness of breath or cough GI: reports of occasional nausea, no reports of vomiting, reports not much of an appetite and now having increased abdominal pain and continued increasing distention at : No reports of dysuria or retention Neurovascular: reports of generalized weakness All medications have been reviewed PHYSICAL EXAMINATION: GENERAL: The patient is asleep, arousable but fatigues easily, alert and oriented x2, baseline, extremely hard of hearing, well developed, elderly appearing, thin built HEENT: Pupils are round and equally reacting to light. EOMI. no scleral icterus. No conjunctival pallor. Normocephalic, atraumatic. No pharyngeal erythema. No thyromegaly. CARDIOVASCULAR: S1 and S2 muffled PULMONARY: diminished breath sounds bilaterally with no wheezing or rhonchi noted. ABDOMEN: Increasingly distended and bowel sounds noted. No palpable organomegaly. MUSCULOSKELETAL: No joint swelling or deformity. EXTREMITIES: No cyanosis, clubbing, or pedal edema. NEUROLOGICAL: Gross neurological examination did not reveal any focal deficits. Diffuse weakness SKIN: No rashes. ecchymosis noted of the face extending down into the neck and upper chest area showing continued improvement Assessment: Continued colonic ileus, again noted on abdominal x-ray today 12/05/2024 Fall and right maxillary fracture with ecchymosis Hyponatremia, improved Troponin elevated, 0.185, ruled out acute NSTEMI per cardiology, likely type II Coumadin coagulopathy, INR above 5 Altered mental status, acute metabolic encephalopathy, multifactorial with possible underlying sinusitis and also a component of hospital-acquired delirium, improved and at baseline Increased WBC with bacteremia with sepsis, present on admission, likely secondary to ischemic colitis. Repeat blood cultures are negative Transaminitis , trending down Constipation and abdominal distention that is worsening History of previous CVA/TIA Atrial fibrillation, permanent Hypertension History of osteoarthritis Hard of hearing History of anxiety History of coronary artery disease with previous CABG history of bicuspid aortic valve status post AVR and then TAVR History of gastroesophageal reflux disease Hyperlipidemia GI prophylaxis DVT prophylaxis No code Plan: Patient was initially admitted under trauma services for a fall and had significant facial trauma fractures and significant ecchymosis and swelling that has improved Patient developed increasing abdominal pain and was evaluated by surgery with findings of pneumatosis of the colon and scattered areas and air in the portal venous system. Possible options of surgery discussed although would be a high risk candidate and also recommending aggressive medical management and supportive care and also possible hospice as an option. Family was not agreeable with hospice although patient continues to clinically deteriorate and becoming more weak and continued abdominal images showing no significant improvement in the abdomen are now agreeable to have a hospice informational meeting and [facility] hospice was consulted and pending Patient placed back on n.p.o. per surgery due to increasing abdominal distention and pain. CODE STATUS was addressed and family at the bedside were agreeable to no code Continue IV zosyn with infectious disease following. White count is trending down and has normalized. Patient remains afebrile. Will continue IV Zosyn for now and await family's decision on treatment plan moving forward Check INR daily, pharmacy to dose coumadin, INR elevated above 5 and given a dose of vitamin K, repeat labs ordered Overall prognosis is poor and definitely guarded at this time. The impression and plan of care has been dictated by Joselin Becerril, Nurse Practitioner as directed. Dr. Breanne MD I have performed a history and physical examination and medical decision making of this patient, discussed the same with the dictator, and agree with the dictators assessment and plan as written, documented as a scribe. Based on total visit time, I have performed more than 50% of this visit. Objective - Vital Signs Vital signs: Vital Signs Temp 97.9 F 12/06/24 01:13 Pulse 75 12/06/24 01:13 Resp 16 12/06/24 01:13 BP 111/73 12/06/24 01:13 Pulse Ox 98 12/06/24 01:13 FiO2 Intake & Output 12/05/24 12/05/24 12/06/24 06:59 18:59 06:59 Output Total 150 300 Balance -150 -300 Output: Urine 150 300 Other: Voiding Method Indwelling Catheter Indwelling Catheter Indwelling Catheter # Bowel Movements 1 1 - Labs CBC & Chem 7: 12/05/24 10:44 12/05/24 10:44 Labs: Abnormal Lab Results - Last 24 Hours (Table) 12/05/24 12/05/24 12/05/24 Range/Units 04:38 10:44 10:44 RBC 3.23 L (4.10-5.20) 10*6/uL Hgb 10.1 L (12.0-15.0) g/dL Hct 29.5 L (37.2-46.3) % RDW 15.5 H (11.5-14.5) % Lymphocytes # 0.75 L (0.90-5.00) 10*3/uL Eosinophils # 0.02 L (0.04-0.35) 10*3/uL PT 50.9 H (10.0-12.5) sec INR 5.1 H* (<1.2) Sodium 132 L (137-145) mmol/L Carbon Dioxide 21 L (22-30) mmol/L BUN 21 H (7-17) mg/dL
--- NOTE | 2024-12-06 12:23 | P.PN ---
Subjective Progress Note Date: 12/06/24 SURGICAL PROGRESS NOTE CHIEF COMPLAINT: Status post fall on blood thinners HISTORY OF PRESENT ILLNESS: Patient with liquidy stool. Abdomen remains distended. She does report her abdominal pain is better after the bowel movement. Patient and family requesting liquids. Afebrile. Abdominal x-ray gaseous distention of bowel throughout the abdomen. Large stool burden throughout the colon. PHYSICAL EXAM: VITAL SIGNS: Reviewed. GENERAL: awake able to answer questions ABDOMEN: Soft. distended tender more on the right side of the abdomen and mild tenderness on the left. ASSESSMENT: 1. Ischemic right-sided colitis 2. Ileus PLAN: -Advance diet to clear liquids. Educated patient and family to go slow with the liquids -Family having a another hospice informational meeting today -Continue antibiotics Physician House Officer note has been reviewed by physician. Signing provider agrees with the documented findings, assessment, and plan of care. Objective - Vital Signs Vital signs: Vital Signs Temp 97.7 F 12/06/24 12:10 Pulse 86 12/06/24 12:10 Resp 16 12/06/24 12:10 BP 123/76 12/06/24 12:10 Pulse Ox 99 12/06/24 12:10 FiO2 Intake & Output 12/05/24 12/06/24 12/06/24 18:59 06:59 18:59 Output Total 300 100 Balance -300 -100 Output: Urine 300 100 Uretheral (Rich) 100 Other: Voiding Method Indwelling Catheter Indwelling Catheter # Voids 350 # Bowel Movements 1 - Labs CBC & Chem 7: 12/05/24 10:44 12/05/24 10:44 Labs: Abnormal Lab Results - Last 24 Hours (Table) 12/05/24 12/06/24 Range/Units 10:44 06:00 Lymphocytes # 0.75 L (0.90-5.00) 10*3/uL Eosinophils # 0.02 L (0.04-0.35) 10*3/uL PT 25.2 H (10.0-12.5) sec INR 2.5 H (<1.2)
--- NOTE | 2024-12-06 15:44 | P.PN ---
Subjective Progress Note Date: 12/06/24 This is a pleasant 84-year-old female who was recently admitted under trauma services status post fall and is noted to have a right maxillary fracture with some significant ecchymosis of the face traveling down to the neck and being followed by multiple consultations. Patient transferred to medicine service as patient continues with significant weakness and is having some altered mentation, multifactorial and likely secondary to hospital delirium. Recommend limiting aggressive narcotics although patient is reporting significant pain. Patient continues to have some expectoration of streaks of blood noted in the spit otherwise no active bleeding noted. Patient is reporting significant hip pain and will obtain some images. Recommend PT/OT therapy daily. Patient's INR is elevated just above 3 although improved from previous. Will follow-up on repeat labs and continue to monitor closely. Plan will be for patient to go to ECF for continued strength and mobility. 11/24/2024 Patient is seen in follow-up today mentation is somewhat improved and would recommend frequent reorientation during the day and adjusting pain medications and trying to limit IV narcotic use. Patient to continue with Seroquel at night and continued PT/OT therapy. Plan will be for patient to go to ECF on discharge for continued strength and mobility. Patient is having significant left hip pain and leg pain we will obtain a Doppler and also adjust medications accordingly. Patient is currently afebrile is tolerating diet although not much of an appetite noted. Continue with bowel regimen scheduled as well as as needed 11/25/2024 Patient is evaluated in follow-up on the medical floor. She is awake alert x 1. Family at the bedside. She is sitting up at the bedside eating appears quite fatigued though. She continues to report significant left hip and leg pain. Doppler was negative for any findings for acute DVT. LFTs remain elevated and chest x-ray does reveal some vascular congestion. Patient has been continued on her home dose of oral Lasix twice daily. Also continues on IV Zosyn. A gallbla dder ultrasound was ordered and is currently pending for tomorrow morning. Warfarin remains on hold as patient's INR today was elevated at 3.6. Procalcitonin level is significantly elevated at 2.62. Patient has been afebrile. She is currently on room air oxygen saturations at 97%. 11/26/2024 Patient evaluated in follow-up with the medical floor. Patient continues on IV Zosyn. Currently pending gallbladder ultrasound which will be completed later this afternoon as patient had breakfast. Her abdomen is distended today and firm with concern for possible ileus. Patient did have a loose BM yesterday. Abdominal xray completed reveals nonspecific gaseous dilation of the colon bowel gas pattern without radiographic evidence or acute process. White blood cell count of 12.54, hemoglobin 11.8, sodium of 131, BUN of 19 creatinine of 0.75, magnesium 1.9. Her INR today is 3.7. 11/27/2024 Patient is seen in follow-up today with general surgery following. Patient continues to have abdominal discomfort with concerns of impaction. Patient to have CT abdomen ordered per surgery for further evaluation. Patient was having a few episodes of explosive diarrhea and loose stools and C. difficile is also ordered and pending at this time. Patient continues to report significant abdominal pain and is currently n.p.o. per surgery. White count has increased significantly to 27.16 and hemoglobin is stable at 12.9, INR is 3.5 and Coumadin is to dose per pharmacy and being held, sodium 131 with a potassium of 3.8, BUN is 21 and creatinine is 0 point, total bilirubin is 2.6 and ALT/AST are elevated although trending down. C. difficile testing was negative. 11/28/2024 Patient is seen in follow-up with multiple consultations following including general surgery and infectious disease. Patient is maintained on antibiotics in the form of Zosyn and white count is elevated above 28 and continues to be elevated. General surgery following recommending conservative management at this time. Patient is continued on very sparing ice chips and may have popsicles sparingly per surgery. Patient is sitting up at the side of the bed looking slightly improved today although continues with diffuse abdominal pain. Patient is having gas and nursing staff reported 2 large bowel movements. Patient is continued on daily Dulcolax suppository per surgery and will continue. Repeat labs in the a.m. 11/29/2024 Patient is seen in follow-up today maintained on antibiotics and continues to be n.p.o. except for occasional ice chips and very sparing popsicle per surgery. Patient white count remains elevated although slightly improved at 20.53 today. Hemoglobin is stable at 10.6, platelets are 248, INR is noted to be 5.6 and Coumadin has been on hold. Will give a dose of vitamin K and follow-up on r epeat labs. Patient is resting currently and daughters at bedside and have been staying with her through the night reporting she continues to have pain although is tolerating. Encouraged increased activity as tolerated including sitting up at the side of the bed and working with PT/OT therapy. Patient is afebrile with no reports of chest pain or shortness of breath at this time. Patient did have repeat abdominal x-ray which reveals continuous gaseous dilatation of the large bowel concerning for ileus with known colonic pneumatosis and portal venous gas. Transverse colon measuring up to 8.3 cm in diameter. 11/30/2024 Patient is seen in follow-up today currently sitting up at the side of the bed talking and having conversation and mentation is baseline showing some clinical improvement. Patient is afebrile and white count is trending down and is maintained on Zosyn with infectious disease and general surgery following. Patient is n.p.o. except Spiering ice chips although is having bowel movements and maintained on Dulcolax suppository daily. No plans of surgical intervention at this time recommending conservative management. Will follow-up on repeat labs and replace electrolytes per protocol. INR is 1.3 status post vitamin K. Continue holding Coumadin for now and will discuss with surgery if okay to resume. Patient is attempting to get up and work with physical therapy and has been getting up with family a little more. 12/01/2024 Patient is seen in follow-up today has been up and having multiple bowel movements that continue to be loose and abdomen although mildly distended, is improved from previous and soft and less tender. Patient is tolerating current diet and is being advanced to full liquids per surgery. White count is trending down and patient is continued on IV Zosyn with infectious disease following. Continue current bowel regimen and supportive care. Recommend PT/OT therapy daily. Family is hopeful if patient continues to improve, may be able to go to rehab early next week. Prognosis is guarded at this time. 12/02/2024 Patient is evaluated today in follow up resting in bed. Patient continues to have loose bowel movements and has been incontinent of stool. Her abdomen is mildly distended, however soft today, less tender, and has increased bowel sounds. Patient is tolerating diet and family has been at the bed side assisting with meals. Diet has been advanced to dysphagia level 2. INR today 2.2. Rich catheter remains in place. 12/03/2024 Patient evaluated today in follow up on the medical floor. Patient had episode of emesis after breakfast and her abdomen appears to be increasingly distended today. Abdominal xray showing colonic ileus; there is diffuse distention of the colon dominantly air-filled with mild scattered feces. Labs today show white blood cell count 10.37, hgb 10.9, sodium 139, potassium 3.5, BUN 12, creatinine 0.8. Magnesium 2.0. Patient remains normal saline at 50 mls/hr. 12/04/2024 Patient seen in follow-up today tolerating more diet more awake and having conversation today. Patient awaiting repeat evaluation from PT/OT therapy with general surgery and infectious disease following. Patient is continued on antibiotics and white count has normalized just above 8 today. Potassium mildly low at 3.4 and being replaced per protocol we will follow-up on repeat labs. Per general surgery continue current regimen with no plans of surgical intervention at this time. INR is elevated above 3 with pharmacy to dose. Continue current diet and would recommend PT/OT therapy daily. 12/05/2024 Patient is seen in follow-up today and is asleep with significant weakness and continues to have pain. Pain is becoming more intense and initially patient was eating a little more of a regular diet although not tolerating much. Patient is having significant abdominal pain and distention and had repeat abdominal x-ray done per general surgery which reveals continued gaseous distention in the bowel throughout the abdomen similar to prior with large stool burden throughout patient was having bowel movements but also with increased pain. Patient clinically deteriorating and becoming more weak discussed overall care and treatment plan with family and discussed possible hospice and/or comfort measures and will request a hospice informational to come and speak with family and 2 of the daughters at the bedside are agreeable. General surgery and infectious disease following and patient is maintained on antibiotics and will continue at this time. No surgical intervention planned and hospice is appr opriate in this situation. Family is understanding and will await discussion with hospice with other family members. Overall prognosis is extremely poor. 12/06/2024 Patient is evaluated in follow-up on the medical floor. Patient had a large loose bowel movement today. Her abdomen appears less distended more soft with increased bowel sounds. She will be started on clear liquid diet per general surgery. She was up at the bedside today she did work with physical therapy was able to perform some lower extremity like exercises. She remains on Dulcolax daily. Hospitalist to follow-up with the patient and family again at 6 PM today. Review of systems: Constitutional: reports of fatigue, no fever, or chills Cardiovascular: No reports of chest pain or palpitations Respiratory: No reports of shortness of breath or cough GI: reports of occasional nausea, no reports of vomiting, reports not much of an appetite and now having increased abdominal pain and continued increasing distention at : No reports of dysuria or retention Neurovascular: reports of generalized weakness All medications have been reviewed PHYSICAL EXAMINATION: GENERAL: The patient is asleep, arousable but fatigues easily, alert and oriented x2, baseline, extremely hard of hearing, well developed, elderly appearing, thin built HEENT: Pupils are round and equally reacting to light. EOMI. no scleral icterus. No conjunctival pallor. Normocephalic, atraumatic. No pharyngeal erythema. No thyromegaly. CARDIOVASCULAR: S1 and S2 muffled PULMONARY: diminished breath sounds bilaterally with no wheezing or rhonchi noted. ABDOMEN: Increasingly distended and bowel sounds noted. No palpable organomegaly. MUSCULOSKELETAL: No joint swelling or deformity. EXTREMITIES: No cyanosis, clubbing, or pedal edema. NEUROLOGICAL: Gross neurological examination did not reveal any focal deficits. Diffuse weakness SKIN: No rashes. ecchymosis noted of the face extending down into the neck and upper chest area showing continued improvement Assessment: Continued colonic ileus, again noted on abdominal x-ray today 12/05/2024 Fall and right maxillary fracture with ecchymosis Hyponatremia, improved Troponin elevated, 0.185, ruled out acute NSTEMI per cardiology, likely type II Coumadin coagulopathy, INR above 5 Altered mental status, acute metabolic encephalopathy, multifactorial with possible underlying sinusitis and also a component of hospital-acquired delirium, improved and at baseline Increased WBC with bacteremia with sepsis, present on admission, likely secondary to ischemic colitis. Repeat blood cultures are negative Transaminitis , trending down Constipation and abdominal distention that is worsening History of previous CVA/TIA Atrial fibrillation, permanent Hypertension History of osteoarthritis Hard of hearing History of anxiety History of coronary artery disease with previous CABG history of bicuspid aortic valve status post AVR and then TAVR History of gastroesophageal reflux disease Hyperlipidemia GI prophylaxis DVT prophylaxis No code Plan: Patient was initially admitted under trauma services for a fall and had significant facial trauma fractures and significant ecchymosis and swelling that has improved Patient developed increasing abdominal pain and was evaluated by surgery with findings of pneumatosis of the colon and scattered areas and air in the portal venous system. Possible options of surgery discussed although would be a high risk candidate and also recommending aggressive medical management and supportive care and also possible hospice as an option. Family was not agreeable with hospice although patient continues to clinically deteriorate and becoming more weak and continued abdominal images showing no significant improvement in the abdomen are now agreeable to have a hospice informational meeting and [facility] was consulted and pending Patient placed back on n.p.o. per surgery due to increasing abdominal distention and pain. CODE STATUS was addressed and family at the bedside were agreeable to no code Continue IV zosyn with infectious disease following. White count is trending down and has normalized. Patient remains afebrile. Will continue IV Zosyn for now and await family's decision on treatment plan moving forward Check INR daily, pharmacy to dose coumadin, INR elevated above 5 and given a dose of vitamin K, repeat labs ordered INR is better at 2.5 today Overall prognosis is poor and definitely guarded at this time. [facility] to meet with family again this evening at 6pm where more family members are able to be present The impression and plan of care has been dictated by Shelley Brown Nurse Practitioner as directed. Dr. Breanne MD I have performed a history and physical examination and medical decision making of this patient, discussed the same with the dictator, and agree with the dictators assessment and plan as written, documented as a scribe. Based on total visit time, I have performed more than 50% of this visit. Objective - Vital Signs Vital signs: Vital Signs Temp 97.7 F 12/06/24 12:10 Pulse 86 12/06/24 12:10 Resp 16 12/06/24 12:10 BP 123/76 12/06/24 12:10 Pulse Ox 99 12/06/24 12:10 FiO2 Intake & Output 12/05/24 12/06/24 12/06/24 18:59 06:59 18:59 Output Total 300 100 Balance -300 -100 Weight 52.5 kg Output: Urine 300 100 Uretheral (Rich) 100 Other: Voiding Method Indwelling Catheter Indwelling Catheter Indwelling Catheter # Voids 350 # Bowel Movements 1 - Labs CBC & Chem 7: 12/05/24 10:44 12/05/24 10:44 Labs: Abnormal Lab Results - Last 24 Hours (Table) 12/06/24 Range/Units 06:00 PT 25.2 H (10.0-12.5) sec INR 2.5 H (<1.2) Assessment and Plan Time with Patient: Less than 30
[2024-12-06] MEDS: WARFARIN 0.5 MG TAB PO ONE (18:13)
[2024-12-07 05:41] LABS: INR 3.9 (<1.2); Prothrombin Time 38.3 sec (10.0-12.5)
[2024-12-07 08:05] LABS: HCT 32.0 % (37.2-46.3); HGB 10.1 g/dL (12.0-15.0); MCH 29.9 pg (27.0-32.0); MCHC 31.6 g/dL (32.0-37.0); MCV 94.7 FL (80.0-97.0); NRBC Per 100 WBC 0 X 10*3/uL (0.00-0.01); Platelet Count 254 X 10*3/uL (140-440); RBC 3.38 X 10*6/uL (4.10-5.20); RDW 15.8 % (11.5-14.5); WBC 3.79 X 10*3/uL (4.50-10.00)
[2024-12-07 08:18] LABS: BUN/Creat Ratio 26.67 Ratio (12.00-20.00); Blood Urea Nitrogen 16.0 mg/dL (9.0-27.0); Glucose 89 mg/dL (70-110)
[2024-12-07 08:19] LABS: Anion Gap 10.70 mmol/L (4.00-12.00); Calcium 7.8 mg/dL (8.7-10.3); Carbon Dioxide 19.3 mmol/L (21.6-31.8); Chloride 107 mmol/L (96-109); Potassium 3.1 mmol/L (3.5-5.5); Sodium 137 mmol/L (135-145)
--- NOTE | 2024-12-07 08:21 | P.PN ---
Subjective Progress Note Date: 12/06/24 Principal diagnosis: Reason for follow-up with ischemic colitis Patient is a 84-year-old female with a past medical history significant for Atrial Fibrillation, Coronary Artery Disease (CAD), CVA/TIA, GERD/Reflux, Hearing Disorder / Deafness, Hyperlipidemia, Hypertension, Osteoarthritis (OA) presenting the hospital a after apparently the patient did have fallen twice workup which was evidence of maxillary fracture and there was concern for possible cholecystitis subsequently worsening abdominal pain with a CT showing features of ischemic colitis prompted this consultation. On today's evaluation that is 12/06/2024,the patient denies any fever or any chills, patient is more awake and alert today breathing comfortably on 2 L nasal oxygen no chest pain no cough abdominal discomfort is currently controlled no nausea vomiting or diarrhea has been reported. Patient did have a INR of 2.5 no CBC was done today, blood culture repeat has been negative Objective - Vital Signs Vital signs: Vital Signs Temp 97.8 F 12/06/24 07:25 Pulse 84 12/06/24 07:25 Resp 15 12/06/24 07:25 BP 130/75 12/06/24 07:25 Pulse Ox 99 12/06/24 07:25 FiO2 Intake & Output 12/05/24 12/06/24 12/06/24 18:59 06:59 18:59 Output Total 300 100 Balance -300 -100 Output: Urine 300 100 Uretheral (Rich) 100 Other: Voiding Method Indwelling Catheter Indwelling Catheter # Voids 350 # Bowel Movements 1 - Exam GENERAL DESCRIPTION: An elderly female up in bed in no distress RESPIRATORY SYSTEM: Unlabored breathing , decreased breath sounds at bases HEART: S1 S2 regular rate and rhythm , ABDOMEN: Soft , no tenderness EXTREMITIES: No edema feet - Labs CBC & Chem 7: 12/07/24 05:17 12/07/24 05:17 Labs: Abnormal Lab Results - Last 24 Hours (Table) 12/05/24 12/05/24 12/06/24 Range/Units 10:44 10:44 06:00 RBC 3.23 L (4.10-5.20) 10*6/uL Hgb 10.1 L (12.0-15.0) g/dL Hct 29.5 L (37.2-46.3) % RDW 15.5 H (11.5-14.5) % Lymphocytes # 0.75 L (0.90-5.00) 10*3/uL Eosinophils # 0.02 L (0.04-0.35) 10*3/uL PT 25.2 H (10.0-12.5) sec INR 2.5 H (<1.2) Sodium 132 L (137-145) mmol/L Carbon Dioxide 21 L (22-30) mmol/L BUN 21 H (7-17) mg/dL Assessment and Plan (1) Sepsis Current Visit: Yes Status: Acute Code(s): A41.9 - SEPSIS, UNSPECIFIED ORGANISM SNOMED Code(s): 06475593 (2) Cholecystitis Current Visit: Yes Status: Acute Code(s): K81.9 - CHOLECYSTITIS, UNSPECIFIED SNOMED Code(s): 45525295 (3) Ischemic colitis Current Visit: Yes Status: Acute Code(s): K55.9 - VASCULAR DISORDER OF INTESTINE, UNSPECIFIED SNOMED Code(s): 78828256 Plan: 1patient with abdominal pain in this patient with initially presented to the hospital with a fall hide did have a maxillary fracture patient did have a fever first 2 days of her admission and also have elevated white count there was abnormality on the gallbladder concerning for possible cholecystitis and did have group G streptococcus bacteremia now with evidence of ischemic colitis and the family has opted for medical treatment 2-blood cultures has been repeated which are so far negative 3-patient is afebrile patient white count has normalized, patient is covered with Zosyn treatment option discussed with the patient daughters they are also looking at the option of hospice which may be appropriate Dictation was produced using [employer] software. please excuse any grammatical, word or spelling errors. Time with Patient: Less than 30
[2024-12-07 08:37] LABS: Basophils # (A) 0.04 X 10*3/uL (0.00-0.10); Basophils % (A) 1.1 %; Eosinophils # (A) 0.04 X 10*3/uL (0.04-0.35); Eosinophils % (A) 1.1 %; Immature Grans, Automated 0.80 %; Lymphocytes # (A) 0.83 X 10*3/uL (0.90-5.00); Lymphocytes % (A) 21.9 %; Monocytes # (A) 0.55 X 10*3/uL (0.20-1.00); Monocytes % (A) 14.5 %; Neutrophils # (A) 2.30 X 10*3/uL (1.80-7.70); Neutrophils % (A) 60.6 %
[2024-12-07] MEDS: POTASSIUM CHLORIDE ER 20 MEQ TAB.ER PO STA (10:14)
--- NOTE | 2024-12-07 11:39 | P.PN ---
Subjective Progress Note Date: 12/07/24 SURGICAL PROGRESS NOTE CHIEF COMPLAINT: Status post fall on blood thinners HISTORY OF PRESENT ILLNESS: Patient having multiple large liquidy stools. She was able to stand with physical therapy. Her pain is less. Abdominal distention improving. Afebrile. Mildly tachycardic improved. WBC 3.79 potass ium is 3.1 and being replaced. Stool for C. difficile negative. Family has decided with ECF placement. They have declined hospice at this time. PHYSICAL EXAM: VITAL SIGNS: Reviewed. GENERAL: No acute distress ABDOMEN: Soft. Less distended. Nontender. ASSESSMENT: 1. Ischemic right-sided colitis 2. Ileus PLAN: -medical services manager arranging ECF placement -Advance diet to full liquids -Continue antibiotics -Discontinue lactulose. Patient having multiple stools and abdominal distention improving -Continue Dulcolax suppository Physician Mill Representative note has been reviewed by physician. Signing provider agrees with the documented findings, assessment, and plan of care. I have personally seen and examined the patient, reviewed the EXPLORATION ENGINEER /PAs history, exam and MDM and agree with the assessment and plan as written. Based on total visit time, I have performed more than 50% of the visit. As above: Patient more alert today. Was able to walk around next to the bed. Had multiple loose stools again. Family has decided against hospice and would like to try extended-care facility rehab/nursing. Resume regular diet. Family and patient agree focus is on comfort. May have diet as tolerated from my point of view. Long-term prognosis remains quite poor and would anticipate patient sw itching to hospice likely in the next 1 to 2 weeks but patient is not ready for that herself yet. Continue Dulcolax Dhruv Catarina is just to assist with movement and evacuation of flatus. May decrease lactulose. Discharge per primary service. Objective - Vital Signs Vital signs: Vital Signs Temp 98.0 F 12/07/24 06:45 Pulse 62 12/07/24 06:45 Resp 18 12/07/24 02:50 BP 120/73 12/07/24 06:45 Pulse Ox 91 L 12/07/24 06:45 FiO2 Intake & Output 12/06/24 12/07/24 12/07/24 18:59 06:59 18:59 Intake Total 2340 100 540 Output Total 800 350 100 Balance 1540 -250 440 Weight 52.5 kg Intake: Oral 2340 100 540 Output: Urine 800 350 100 Uretheral (Rich) 100 100 Other: Voiding Method Indwelling Catheter Indwelling Catheter # Bowel Movements 3 1 - Labs CBC & Chem 7: 12/07/24 05:17 12/07/24 05:17 Labs: Abnormal Lab Results - Last 24 Hours (Table) 12/07/24 12/07/24 12/07/24 Range/Units 05:17 05:17 05:17 WBC 3.79 L (4.50-10.00) X 10*3/uL RBC 3.38 L (4.10-5.20) X 10*6/uL Hgb 10.1 L (12.0-15.0) g/dL Hct 32.0 L (37.2-46.3) % MCHC 31.6 L (32.0-37.0) g/dL RDW 15.8 H (11.5-14.5) % MPV 9.1 L (9.5-12.2) FL Lymphocytes # 0.83 L (0.90-5.00) X 10*3/uL PT 38.3 H (10.0-12.5) sec INR 3.9 H (<1.2) Potassium 3.1 L (3.5-5.5) mmol/L Carbon Dioxide 19.3 L (21.6-31.8) mmol/L BUN/Creatinine Ratio 26.67 H (12.00-20.00) Ratio Calcium 7.8 L (8.7-10.3) mg/dL
--- NOTE | 2024-12-07 12:50 | XR ---
EXAMINATION TYPE: XR chest 1V DATE OF EXAM: 12/07/2024 12:28 PM COMPARISON: Chest radiographs from 11/24/2024. CLINICAL INDICATION: Female, 84 years old with history of CHF; H TECHNIQUE: XR chest 1V Frontal view of the chest. FINDINGS: Lungs/Pleura: No evidence of focal consolidation or pneumothorax. Blunting of the costophrenic angles is present. Pulmonary vascularity: Pulmonary vascular congestion. Heart/mediastinum: Cardiomediastinal silhouette is enlarged. Atherosclerotic calcifications are seen in the aorta. Aortic valve repair changes. Musculoskeletal: No acute osseous pathology. IMPRESSION: Cardiomegaly, pulmonary vascular congestion and bilateral pleural effusions. Correlate with BNP for c ongestive heart failure. [facility], , 12/07/2024 12:48 PM
--- NOTE | 2024-12-07 13:44 | P.PN ---
Subjective Progress Note Date: 12/07/24 This is a pleasant 84-year-old female who was recently admitted under trauma services status post fall and is noted to have a right maxillary fracture with some significant ecchymosis of the face traveling down to the neck and being followed by multiple consultations. Patient transferred to medicine service as patient continues with significant weakness and is having some altered mentation, multifactorial and likely secondary to hospital delirium. Recommend limiting aggressive narcotics although patient is reporting significant pain. Patient continues to have some expectoration of streaks of blood noted in the spit otherwise no active bleeding noted. Patient is reporting significant hip pain and will obtain some images. Recommend PT/OT therapy daily. Patient's INR is elevated just above 3 although improved from previous. Will follow-up on repeat labs and continue to monitor closely. Plan will be for patient to go to ECF for continued strength and mobility. 11/24/2024 Patient is seen in follow-up today mentation is somewhat improved and would recommend frequent reorientation during the day and adjusting pain medications and trying to limit IV narcotic use. Patient to continue with Seroquel at night and continued PT/OT therapy. Plan will be for patient to go to ECF on discharge for continued strength and mobility. Patient is having significant left hip pain and leg pain we will obtain a Doppler and also adjust medications accordingly. Patient is currently afebrile is tolerating diet although not much of an appetite noted. Continue with bowel regimen scheduled as well as as needed 11/25/2024 Patient is evaluated in follow-up on the medical floor. She is awake alert x 1. Family at the bedside. She is sitting up at the bedside eating appears quite fatigued though. She continues to report significant left hip and leg pain. Doppler was negative for any findings for acute DVT. LFTs remain elevated and chest x-ray does reveal some vascular congestion. Patient has been continued on her home dose of oral Lasix twice daily. Also continues on IV Zosyn. A gallbla dder ultrasound was ordered and is currently pending for tomorrow morning. Warfarin remains on hold as patient's INR today was elevated at 3.6. Procalcitonin level is significantly elevated at 2.62. Patient has been afebrile. She is currently on room air oxygen saturations at 97%. 11/26/2024 Patient evaluated in follow-up with the medical floor. Patient continues on IV Zosyn. Currently pending gallbladder ultrasound which will be completed later this afternoon as patient had breakfast. Her abdomen is distended today and firm with concern for possible ileus. Patient did have a loose BM yesterday. Abdominal xray completed reveals nonspecific gaseous dilation of the colon bowel gas pattern without radiographic evidence or acute process. White blood cell count of 12.54, hemoglobin 11.8, sodium of 131, BUN of 19 creatinine of 0.75, magnesium 1.9. Her INR today is 3.7. 11/27/2024 Patient is seen in follow-up today with general surgery following. Patient continues to have abdominal discomfort with concerns of impaction. Patient to have CT abdomen ordered per surgery for further evaluation. Patient was having a few episodes of explosive diarrhea and loose stools and C. difficile is also ordered and pending at this time. Patient continues to report significant abdominal pain and is currently n.p.o. per surgery. White count has increased significantly to 27.16 and hemoglobin is stable at 12.9, INR is 3.5 and Coumadin is to dose per pharmacy and being held, sodium 131 with a potassium of 3.8, BUN is 21 and creatinine is 0 point, total bilirubin is 2.6 and ALT/AST are elevated although trending down. C. difficile testing was negative. 11/28/2024 Patient is seen in follow-up with multiple consultations following including general surgery and infectious disease. Patient is maintained on antibiotics in the form of Zosyn and white count is elevated above 28 and continues to be elevated. General surgery following recommending conservative management at this time. Patient is continued on very sparing ice chips and may have popsicles sparingly per surgery. Patient is sitting up at the side of the bed looking slightly improved today although continues with diffuse abdominal pain. Patient is having gas and nursing staff reported 2 large bowel movements. Patient is continued on daily Dulcolax suppository per surgery and will continue. Repeat labs in the a.m. 11/29/2024 Patient is seen in follow-up today maintained on antibiotics and continues to be n.p.o. except for occasional ice chips and very sparing popsicle per surgery. Patient white count remains elevated although slightly improved at 20.53 today. Hemoglobin is stable at 10.6, platelets are 248, INR is noted to be 5.6 and Coumadin has been on hold. Will give a dose of vitamin K and follow-up on r epeat labs. Patient is resting currently and daughters at bedside and have been staying with her through the night reporting she continues to have pain although is tolerating. Encouraged increased activity as tolerated including sitting up at the side of the bed and working with PT/OT therapy. Patient is afebrile with no reports of chest pain or shortness of breath at this time. Patient did have repeat abdominal x-ray which reveals continuous gaseous dilatation of the large bowel concerning for ileus with known colonic pneumatosis and portal venous gas. Transverse colon measuring up to 8.3 cm in diameter. 11/30/2024 Patient is seen in follow-up today currently sitting up at the side of the bed talking and having conversation and mentation is baseline showing some clinical improvement. Patient is afebrile and white count is trending down and is maintained on Zosyn with infectious disease and general surgery following. Patient is n.p.o. except Spiering ice chips although is having bowel movements and maintained on Dulcolax suppository daily. No plans of surgical intervention at this time recommending conservative management. Will follow-up on repeat labs and replace electrolytes per protocol. INR is 1.3 status post vitamin K. Continue holding Coumadin for now and will discuss with surgery if okay to resume. Patient is attempting to get up and work with physical therapy and has been getting up with family a little more. 12/01/2024 Patient is seen in follow-up today has been up and having multiple bowel movements that continue to be loose and abdomen although mildly distended, is improved from previous and soft and less tender. Patient is tolerating current diet and is being advanced to full liquids per surgery. White count is trending down and patient is continued on IV Zosyn with infectious disease following. Continue current bowel regimen and supportive care. Recommend PT/OT therapy daily. Family is hopeful if patient continues to improve, may be able to go to rehab early next week. Prognosis is guarded at this time. 12/02/2024 Patient is evaluated today in follow up resting in bed. Patient continues to have loose bowel movements and has been incontinent of stool. Her abdomen is mildly distended, however soft today, less tender, and has increased bowel sounds. Patient is tolerating diet and family has been at the bed side assisting with meals. Diet has been advanced to dysphagia level 2. INR today 2.2. Rich catheter remains in place. 12/03/2024 Patient evaluated today in follow up on the medical floor. Patient had episode of emesis after breakfast and her abdomen appears to be increasingly distended today. Abdominal xray showing colonic ileus; there is diffuse distention of the colon dominantly air-filled with mild scattered feces. Labs today show white blood cell count 10.37, hgb 10.9, sodium 139, potassium 3.5, BUN 12, creatinine 0.8. Magnesium 2.0. Patient remains normal saline at 50 mls/hr. 12/04/2024 Patient seen in follow-up today tolerating more diet more awake and having conversation today. Patient awaiting repeat evaluation from PT/OT therapy with general surgery and infectious disease following. Patient is continued on antibiotics and white count has normalized just above 8 today. Potassium mildly low at 3.4 and being replaced per protocol we will follow-up on repeat labs. Per general surgery continue current regimen with no plans of surgical intervention at this time. INR is elevated above 3 with pharmacy to dose. Continue current diet and would recommend PT/OT therapy daily. 12/05/2024 Patient is seen in follow-up today and is asleep with significant weakness and continues to have pain. Pain is becoming more intense and initially patient was eating a little more of a regular diet although not tolerating much. Patient is having significant abdominal pain and distention and had repeat abdominal x-ray done per general surgery which reveals continued gaseous distention in the bowel throughout the abdomen similar to prior with large stool burden throughout patient was having bowel movements but also with increased pain. Patient clinically deteriorating and becoming more weak discussed overall care and treatment plan with family and discussed possible hospice and/or comfort measures and will request a hospice informational to come and speak with family and 2 of the daughters at the bedside are agreeable. General surgery and infectious disease following and patient is maintained on antibiotics and will continue at this time. No surgical intervention planned and hospice is appr opriate in this situation. Family is understanding and will await discussion with hospice with other family members. Overall prognosis is extremely poor. 12/06/2024 Patient is evaluated in follow-up on the medical floor. Patient had a large loose bowel movement today. Her abdomen appears less distended more soft with increased bowel sounds. She will be started on clear liquid diet per general surgery. She was up at the bedside today she did work with physical therapy was able to perform some lower extremity like exercises. She remains on Dulcolax daily. Hospitalist to follow-up with the patient and family again at 6 PM today. Review of systems: Constitutional: reports of fatigue, no fever, or chills Cardiovascular: No reports of chest pain or palpitations Respiratory: No reports of shortness of breath or cough GI: reports of occasional nausea, no reports of vomiting, reports not much of an appetite and now having increased abdominal pain and continued increasing distention at : No reports of dysuria or retention Neurovascular: reports of generalized weakness All medications have been reviewed PHYSICAL EXAMINATION: GENERAL: The patient is asleep, arousable but fatigues easily, alert and oriented x2, baseline, extremely hard of hearing, well developed, elderly appearing, thin built HEENT: Pupils are round and equally reacting to light. EOMI. no scleral icterus. No conjunctival pallor. Normocephalic, atraumatic. No pharyngeal erythema. No thyromegaly. CARDIOVASCULAR: S1 and S2 muffled PULMONARY: diminished breath sounds bilaterally with no wheezing or rhonchi noted. ABDOMEN: Increasingly distended and bowel sounds noted. No palpable organomegaly. MUSCULOSKELETAL: No joint swelling or deformity. EXTREMITIES: No cyanosis, clubbing, or pedal edema. NEUROLOGICAL: Gross neurological examination did not reveal any focal deficits. Diffuse weakness SKIN: No rashes. ecchymosis noted of the face extending down into the neck and upper chest area showing continued improvement Assessment: Continued colonic ileus, again noted on abdominal x-ray today 12/05/2024 Fall and right maxillary fracture with ecchymosis Hyponatremia, improved Troponin elevated, 0.185, ruled out acute NSTEMI per cardiology, likely type II Coumadin coagulopathy, INR above 5 Altered mental status, acute metabolic encephalopathy, multifactorial with possible underlying sinusitis and also a component of hospital-acquired delirium, improved and at baseline Increased WBC with bacteremia with sepsis, present on admission, likely secondary to ischemic colitis. Repeat blood cultures are negative Acute hypoxic respiratory failure likely from sepsis however saturations have been dropping and will need to order chest x-ray for further evaluation Hypokalemia Transaminitis , trending down Constipation and abdominal distention that is worsening History of previous CVA/TIA Atrial fibrillation, permanent Hypertension History of osteoarthritis Hard of hearing History of anxiety History of coronary artery disease with previous CABG history of bicuspid aortic valve status post AVR and then TAVR History of gastroesophageal reflux disease Hyperlipidemia GI prophylaxis DVT prophylaxis No code Plan: Supplement potassium Patient was initially admitted under trauma services for a fall and had significant facial trauma fractures and significant ecchymosis and swelling that has improved Patient developed increasing abdominal pain and was evaluated by surgery with findings of pneumatosis of the colon and scattered areas and air in the portal venous system. Possible options of surgery discussed although would be a high risk candidate Patient has been on clear liquid diet for the last day continues with a large amount of loose bowel movements having on and off abdominal pain and distention. Discussed with general surgery plans going forward as of the most recent abdo justin x-ray does continue to show large amount of stool burden. CODE STATUS was addressed and family at the bedside were agreeable to no code. hospice was into see patient 2 times and at this time they do not want to wish to pursue hospice and would like to try for [facility] when patient is medically stable with transition to hospice if she does not improve at rehab. Continue IV zosyn with infectious disease following. White count is trending down and has normalized. Patient remains afebrile. Will continue IV Zosyn for now and await family's decision on treatment plan moving forward Check INR daily, pharmacy to dose coumadin, INR elevated above 5 and given a dose of vitamin K, repeat labs ordered INR is better at 3.9 today Continue normal saline at 50 mL/h Check a chest x-ray and repeat blood work in the morning Overall prognosis is poor and definitely guarded at this time. The impression and plan of care has been dictated by Shelley Brown, Nurse Practitioner as directed. Dr. Breanne MD I have performed a history and physical examination and medical decision making of this patient, discussed the same with the dictator, and agree with the dictators assessment and plan as written, documented as a scribe. Based on total visit time, I have performed more than 50% of this visit. Objective - Vital Signs Vital signs: Vital Signs Temp 97.5 F L 12/07/24 12:34 Pulse 84 12/07/24 12:34 Resp 16 12/07/24 12:34 BP 120/74 12/07/24 12:34 Pulse Ox 99 12/07/24 12:34 FiO2 Intake & Output 12/06/24 12/07/24 12/07/24 18:59 06:59 18:59 Intake Total 2340 100 540 Output Total 800 350 100 Balance 1540 -250 440 Weight 52.5 kg Intake: Oral 2340 100 540 Output: Urine 800 350 100 Uretheral (Rich) 100 100 Other: Voiding Method Indwelling Catheter Indwelling Catheter # Bowel Movements 3 1 - Labs CBC & Chem 7: 12/07/24 05:17 12/07/24 05:17 Labs: Abnormal Lab Results - Last 24 Hours (Table) 12/07/24 12/07/24 12/07/24 Range/Units 05:17 05:17 05:17 WBC 3.79 L (4.50-10.00) X 10*3/uL RBC 3.38 L (4.10-5.20) X 10*6/uL Hgb 10.1 L (12.0-15.0) g/dL Hct 32.0 L (37.2-46.3) % MCHC 31.6 L (32.0-37.0) g/dL RDW 15.8 H (11.5-14.5) % MPV 9.1 L (9.5-12.2) FL Lymphocytes # 0.83 L (0.90-5.00) X 10*3/uL PT 38.3 H (10.0-12.5) sec INR 3.9 H (<1.2) Potassium 3.1 L (3.5-5.5) mmol/L Carbon Dioxide 19.3 L (21.6-31.8) mmol/L BUN/Creatinine Ratio 26.67 H (12.00-20.00) Ratio Calcium 7.8 L (8.7-10.3) mg/dL Assessment and Plan Time with Patient: Greater than 30
--- NOTE | 2024-12-07 14:33 | P.PN ---
Subjective Progress Note Date: 12/07/24 Principal diagnosis: Reason for follow-up with ischemic colitis Patient is a 84-year-old female with a past medical history significant for Atrial Fibrillation, Coronary Artery Disease (CAD), CVA/TIA, GERD/Reflux, Hearing Disorder / Deafness, Hyperlipidemia, Hypertension, Osteoarthritis (OA) presenting the hospital a after apparently the patient did have fallen twice workup which was evidence of maxillary fracture and there was concern for possible cholecystitis subsequently worsening abdominal pain with a CT showing features of ischemic colitis prompted this consultation. On today's evaluation that is 12/07/2024,the patient remains to be afebrile, patient is on r 2 L nasal cannula supplemental oxygen and mentioned breathing comfortably with no chest pain or cough.Patient did have some nausea but no vomiting abdominal pain has decreased did have multiple loose stool. Patient white count is 3.79, creatinine is 0.62 for C. difficile is negative Objective - Vital Signs Vital signs: Vital Signs Temp 98.0 F 12/07/24 06:45 Pulse 62 12/07/24 06:45 Resp 18 12/07/24 02:50 BP 120/73 12/07/24 06:45 Pulse Ox 91 L 12/07/24 06:45 FiO2 Intake & Output 12/06/24 12/07/24 12/07/24 18:59 06:59 18:59 Intake Total 2340 100 540 Output Total 800 350 100 Balance 1540 -250 440 Weight 52.5 kg Intake: Oral 2340 100 540 Output: Urine 800 350 100 Uretheral (Rich) 100 100 Other: Voiding Method Indwelling Catheter Indwelling Catheter # Bowel Movements 3 1 - Exam GENERAL DESCRIPTION: An elderly female up in bed in no distress RESPIRATORY SYSTEM: Unlabored breathing , decreased breath sounds at bases HEART: S1 S2 regular rate and rhythm , ABDOMEN: Soft , no tenderness EXTREMITIES: No edema feet - Labs CBC & Chem 7: 12/07/24 05:17 12/07/24 05:17 Labs: Abnormal Lab Results - Last 24 Hours (Table) 12/07/24 12/07/24 12/07/24 Range/Units 05:17 05:17 05:17 WBC 3.79 L (4.50-10.00) X 10*3/uL RBC 3.38 L (4.10-5.20) X 10*6/uL Hgb 10.1 L (12.0-15.0) g/dL Hct 32.0 L (37.2-46.3) % MCHC 31.6 L (32.0-37.0) g/dL RDW 15.8 H (11.5-14.5) % MPV 9.1 L (9.5-12.2) FL Lymphocytes # 0.83 L (0.90-5.00) X 10*3/uL PT 38.3 H (10.0-12.5) sec INR 3.9 H (<1.2) Potassium 3.1 L (3.5-5.5) mmol/L Carbon Dioxide 19.3 L (21.6-31.8) mmol/L BUN/Creatinine Ratio 26.67 H (12.00-20.00) Ratio Calcium 7.8 L (8.7-10.3) mg/dL Assessment and Plan (1) Sepsis Current Visit: Yes Status: Acute Code(s): A41.9 - SEPSIS, UNSPECIFIED ORGANISM SNOMED Code(s): 36394447 (2) Cholecystitis Current Visit: Yes Status: Acute Code(s): K81.9 - CHOLECYSTITIS, UNSPECIFIED SNOMED Code(s): 54321448 (3) Ischemic colitis Current Visit: Yes Status: Acute Code(s): K55.9 - VASCULAR DISORDER OF INT ESTINE, UNSPECIFIED SNOMED Code(s): 45556568 Plan: 1patient with abdominal pain in this patient with initially presented to the hospital with a fall hide did have a maxillary fracture patient did have a fever first 2 days of her admission and also have elevated white count there was abnormality on the gallbladder concerning for possible cholecystitis and did have group G streptococcus bacteremia now with evidence of ischemic colitis and the family has opted for medical treatment 2-blood cultures has been repeated which are so far negative 3-patient is afebrile patient white count has normalized, has developed diarrhea stool for C. difficile is negative, laxative has been put on hold 4patient has been adequate IV Zosyn and May consider short course of oral antibiotics on discharge Dictation was produced using [employer] software. please excuse any grammatical, word or spelling errors. Time with Patient: Less than 30
[2024-12-07] MEDS: WARFARIN 0.5 MG TAB PO ONE (18:08)
[2024-12-08 06:36] LABS: INR 4.9 (<1.2); Prothrombin Time 48.8 sec (10.0-12.5)
[2024-12-08 08:03] LABS: Basophils # (A) 0.04 X 10*3/uL (0.00-0.10); Basophils % (A) 0.9 %; Eosinophils # (A) 0.03 X 10*3/uL (0.04-0.35); Eosinophils % (A) 0.7 %; HCT 32.1 % (37.2-46.3); HGB 10.5 g/dL (12.0-15.0); Immature Grans, Automated 1.30 %; Lymphocytes # (A) 0.78 X 10*3/uL (0.90-5.00); Lymphocytes % (A) 17.5 %; MCH 30.3 pg (27.0-32.0); MCHC 32.7 g/dL (32.0-37.0); MCV 92.5 FL (80.0-97.0); Monocytes # (A) 0.71 X 10*3/uL (0.20-1.00); Monocytes % (A) 15.9 %; NRBC Per 100 WBC 0 X 10*3/uL (0.00-0.01); Neutrophils # (A) 2.84 X 10*3/uL (1.80-7.70); Neutrophils % (A) 63.7 %; Platelet Count 295 X 10*3/uL (140-440); RBC 3.47 X 10*6/uL (4.10-5.20); RDW 15.8 % (11.5-14.5); WBC 4.46 X 10*3/uL (4.50-10.00)
[2024-12-08 08:15] LABS: Anion Gap 8.90 mmol/L (4.00-12.00); BUN/Creat Ratio 18.67 Ratio (12.00-20.00); Blood Urea Nitrogen 11.2 mg/dL (9.0-27.0); Calcium 8.1 mg/dL (8.7-10.3); Carbon Dioxide 20.1 mmol/L (21.6-31.8); Chloride 108 mmol/L (96-109); Glucose 112 mg/dL (70-110); Magnesium 1.9 mg/dL (1.5-2.4); Potassium 3.4 mmol/L (3.5-5.5); Sodium 137 mmol/L (135-145)
[2024-12-08] MEDS ORDERED: Potassium Replacement Protocol 1 EACH MISC MISCELLANE PRN (11:22)
[2024-12-08] MEDS: POTASSIUM CHLORIDE ER 20 MEQ TAB.ER PO SCH ×2 (12:01→21:24)
[2024-12-08] MEDS: FUROSEMIDE 10 MG/ML 4 ML VIAL IV STA (12:01)
--- NOTE | 2024-12-08 14:34 | P.PN ---
Subjective Progress Note Date: 12/08/24 Principal diagnosis: Elevated liver enzymes Patient sitting in the chair. Appears relatively alert. Denies pain today. Had further stools last night. Eating a bit more today. Objective - Vital Signs Vital signs: Vital Signs Temp 97.8 F 12/08/24 12:46 Pulse 92 12/08/24 12:46 Resp 16 12/08/24 12:46 BP 129/73 12/08/24 12:46 Pulse Ox 100 12/08/24 12:46 FiO2 Intake & Output 12/07/24 12/08/24 12/08/24 18:59 06:59 18:59 Intake Total 3380 300 Output Total 900 700 Balance 2480 -400 Intake: Intake, IV Titration 800 Amount Piperacillin-Tazobactam 3 200 .375 gm In Sodium Chloride 0.9% 100 ml @ 25 mls/hr IVPB Q8HR [facility] Rx# :[id number] Sodium Chloride 0.9% 1, 600 000 ml @ 50 mls/hr IV . Q20H [facility] Rx#:[id number] Oral 2580 300 Output: Urine 900 700 Uretheral (Rich) 900 Other: Voiding Method Indwelling Catheter Indwelling Catheter # Bowel Movements 10 - Exam Abdomen: Soft, mild distention, nontender - Labs CBC & Chem 7: 12/08/24 05:55 12/08/24 05:55 Labs: Abnormal Lab Results - Last 24 Hours (Table) 12/07/24 12/08/24 12/08/24 Range/Units 05:17 05:55 05:55 WBC 4.46 L (4.50-10.00) X 10*3/uL RBC 3.47 L (4.10-5.20) X 10*6/uL Hgb 10.5 L (12.0-15.0) g/dL Hct 32.1 L (37.2-46.3) % RDW 15.8 H (11.5-14.5) % Immature Gran # 0.06 H (0.00-0.04) X 10*3/uL Lymphocytes # 0.78 L (0.90-5.00) X 10*3/uL Eosinophils # 0.03 L (0.04-0.35) X 10*3/uL PT (10.0-12.5) sec INR (<1.2) Potassium 3.4 L (3.5-5.5) mmol/L Carbon Dioxide 20.1 L (21.6-31.8) mmol/L Glucose 112 H (70-110) mg/dL Calcium 8.1 L (8.7-10.3) mg/dL NT-Pro-B Natriuret Pep 6296 H (0-450) pg/mL 12/08/24 Range/Units 05:55 WBC (4.50-10.00) X 10*3/uL RBC (4.10-5.20) X 10*6/uL Hgb (12.0-15.0) g/dL Hct (37.2-46.3) % RDW (11.5-14.5) % Immature Gran # (0.00-0.04) X 10*3/uL Lymphocytes # (0.90-5.00) X 10*3/uL Eosinophils # (0.04-0.35) X 10*3/uL PT 48.8 H (10.0-12.5) sec INR 4.9 H (<1.2) Potassium (3.5-5.5) mmol/L Carbon Dioxide (21.6-31.8) mmol/L Glucose (70-110) mg/dL Calcium (8.7-10.3) mg/dL NT-Pro-B Natriuret Pep (0-450) pg/mL Assessment and Plan (1) Ischemic colitis Narrative/Plan: 84-year-old female with ischemic colitis. Patient improving over the last 2 days clinically. Family requesting outpatient rehab. Continue diet as tolerated with Ensure. I will be out of town after today. Will sign off. Please reconsult service if needed. This was relayed to the patient's family. Current Visit: Yes Status: Acute Code(s): K55.9 - VASCULAR DISORDER OF INTESTINE, UNSPECIFIED SNOMED Code(s): 73695654
--- NOTE | 2024-12-08 15:49 | P.PN ---
Subjective Progress Note Date: 12/08/24 Principal diagnosis: Reason for follow-up with ischemic colitis Patient is a 84-year-old female with a past medical history significant for Atrial Fibrillation, Coronary Artery Disease (CAD), CVA/TIA, GERD/Reflux, Hearing Disorder / Deafness, Hyperlipidemia, Hypertension, Osteoarthritis (OA) presenting the hospital a after apparently the patient did have fallen twice workup which was evidence of maxillary fracture and there was concern for possible cholecystitis subsequently worsening abdominal pain with a CT showing features of ischemic colitis prompted this consultation. On today's evaluation that is 12/08/2024, the patient continues to be afebrile, the patient is on 2 L nasal oxygen and breathing comfortably, the Pt seem to be slightly more awake alert up in the chair he did have breakfast this morning without any vomiting and diarrhea has slowed on. Patient white count is 4.46, creatinine is 0.6 blood culture repeat has been negative Objective - Vital Signs Vital signs: Vital Signs Temp 97.6 F 12/08/24 07:35 Pulse 66 12/08/24 07:35 Resp 14 12/08/24 07:35 BP 125/76 12/08/24 07:35 Pulse Ox 100 12/08/24 07:35 FiO2 Intake & Output 12/07/24 12/08/24 12/08/24 18:59 06:59 18:59 Intake Total 3380 300 Output Total 900 700 Balance 2480 -400 Intake: Intake, IV Titration 800 Amount Piperacillin-Tazobactam 3 200 .375 gm In Sodium Chloride 0.9% 100 ml @ 25 mls/hr IVPB Q8HR [facility] Rx# :[id number] Sodium Chloride 0.9% 1, 600 000 ml @ 50 mls/hr IV . Q20H [facility] Rx#:[id number] Oral 2580 300 Output: Urine 900 700 Uretheral (Rich) 900 Other: Voiding Method Indwelling Catheter Indwelling Catheter # Bowel Movements 10 - Exam GENERAL DESCRIPTION: An elderly female up in bed in no distress RESPIRATORY SYSTEM: Unlabored breathing , decreased breath sounds at bases HEART: S1 S2 regular rate and rhythm , ABDOMEN: Soft , no tenderness EXTREMITIES: No edema feet - Labs CBC & Chem 7: 12/08/24 05:55 12/08/24 05:55 Labs: Abnormal Lab Results - Last 24 Hours (Table) 12/07/24 12/08/24 12/08/24 Range/Units 05:17 05:55 05:55 WBC 4.46 L (4.50-10.00) X 10*3/uL RBC 3.47 L (4.10-5.20) X 10*6/uL Hgb 10.5 L (12.0-15.0) g/dL Hct 32.1 L (37.2-46.3) % RDW 15.8 H (11.5-14.5) % Immature Gran # 0.06 H (0.00-0.04) X 10*3/uL Lymphocytes # 0.78 L (0.90-5.00) X 10*3/uL Eosinophils # 0.03 L (0.04-0.35) X 10*3/uL PT (10.0-12.5) sec INR (<1.2) Potassium 3.4 L (3.5-5.5) mmol/L Carbon Dioxide 20.1 L (21.6-31.8) mmol/L Glucose 112 H (70-110) mg/dL Calcium 8.1 L (8.7-10.3) mg/dL NT-Pro-B Natriuret Pep 6296 H (0-450) pg/mL 12/08/24 Range/Units 05:55 WBC (4.50-10.00) X 10*3/uL RBC (4.10-5.20) X 10*6/uL Hgb (12.0-15.0) g/dL Hct (37.2-46.3) % RDW (11.5-14.5) % Immature Gran # (0.00-0.04) X 10*3/uL Lymphocytes # (0.90-5.00) X 10*3/uL Eosinophils # (0.04-0.35) X 10*3/uL PT 48.8 H (10.0-12.5) sec INR 4.9 H (<1.2) Potassium (3.5-5.5) mmol/L Carbon Dioxide (21.6-31.8) mmol/L Glucose (70-110) mg/dL Calcium (8.7-10.3) mg/dL NT-Pro-B Natriuret Pep (0-450) pg/mL Assessment and Plan (1) Sepsis Current Visit: Yes Status: Acute Code(s): A41.9 - SEPSIS, UNSPECIFIED ORGANISM SNOMED Code(s): 79222580 (2) Cholecystitis Current Visit: Yes Status: Acute Code(s): K81.9 - CHOLECYSTITIS, UNSPECIFIED SNOMED Code(s): 49133261 (3) Ischemic colitis Current Visit: Yes Status: Acute Code(s): K55.9 - VASCULAR DISORDER OF INTESTINE, UNSPECIFIED SNOMED Code(s): 12025663 Plan: 1patient with abdominal pain in this patient with initially presented to the hospital with a fall hide did have a maxillary fracture patient did have a fever first 2 days of her admission and also have elevated white count there was abnormality on the gallbladder concerning for possible cholecystitis and did have group G streptococcus bacteremia now with evidence of ischemic colitis and the family has opted for medical treatment 2-blood cultures has been repeated which are so far negative 3-patient is afebrile patient white count has normalized, has developed diarrhea stool for C. difficile is negative, laxative has been put on hold 4patient slowly clinical improvement will continue Zosyn while inpatient however no plan for IV antibiotics on discharge Dictation was produced using [employer] dictation software. please excuse any grammatical, word or spelling errors. Time with Patient: Less than 30
[2024-12-08] MEDS: WARFARIN 0.5 MG TAB PO ONE (17:34)
[2024-12-08] MEDS: ZINC OXIDE PASTE (Z-GUARD) 1 APPLIC TOPICAL PRN (21:07)
[2024-12-09 05:23] LABS: Prothrombin Time 55.4 sec (10.0-12.5)
[2024-12-09 05:29] LABS: INR 5.6 (<1.2)
[2024-12-09] MEDS ORDERED: MENTHOL-ZINC OXIDE OINT 113 GM TUBE TOPICAL PRN (06:06)
[2024-12-09] MEDS ORDERED: SODIUM ZIRCONIUM CYCLOSILICATE 10 GM PACKET PO ONE (06:08)
--- NOTE | 2024-12-09 06:21 | P.PN ---
Subjective Progress Note Date: 12/08/24 This is a pleasant 84-year-old female who was recently admitted under trauma services status post fall and is noted to have a right maxillary fracture with some significant ecchymosis of the face traveling down to the neck and being followed by multiple consultations. Patient transferred to medicine service as patient continues with significant weakness and is having some altered mentation, multifactorial and likely secondary to hospital delirium. Recommend limiting aggressive narcotics although patient is reporting significant pain. Patient continues to have some expectoration of streaks of blood noted in the spit otherwise no active bleeding noted. Patient is reporting significant hip pain and will obtain some images. Recommend PT/OT therapy daily. Patient's INR is elevated just above 3 although improved from previous. Will follow-up on repeat labs and continue to monitor closely. Plan will be for patient to go to ECF for continued strength and mobility. 11/24/2024 Patient is seen in follow-up today mentation is somewhat improved and would recommend frequent reorientation during the day and adjusting pain medications and trying to limit IV narcotic use. Patient to continue with Seroquel at night and continued PT/OT therapy. Plan will be for patient to go to ECF on discharge for continued strength and mobility. Patient is having significant left hip pain and leg pain we will obtain a Doppler and also adjust medications accordingly. Patient is currently afebrile is tolerating diet although not much of an appetite noted. Continue with bowel regimen scheduled as well as as needed 11/25/2024 Patient is evaluated in follow-up on the medical floor. She is awake alert x 1. Family at the bedside. She is sitting up at the bedside eating appears quite fatigued though. She continues to report significant left hip and leg pain. Doppler was negative for any findings for acute DVT. LFTs remain elevated and chest x-ray does reveal some vascular congestion. Patient has been continued on her home dose of oral Lasix twice daily. Also continues on IV Zosyn. A gall bladder ultrasound was ordered and is currently pending for tomorrow morning. Warfarin remains on hold as patient's INR today was elevated at 3.6. Procalcitonin level is significantly elevated at 2.62. Patient has been afebrile. She is currently on room air oxygen saturations at 97%. 11/26/2024 Patient evaluated in follow-up with the medical floor. Patient continues on IV Zosyn. Currently pending gallbladder ultrasound which will be completed later this afternoon as patient had breakfast. Her abdomen is distended today and firm with concern for possible ileus. Patient did have a loose BM yesterday. Abdominal xray completed reveals nonspecific gaseous dilation of the colon bowel gas pattern without radiographic evidence or acute process. White blood cell count of 12.54, hemoglobin 11.8, sodium of 131, BUN of 19 creatinine of 0.75, magnesium 1.9. Her INR today is 3.7. 11/27/2024 Patient is seen in follow-up today with general surgery following. Patient continues to have abdominal discomfort with concerns of impaction. Patient to have CT abdomen ordered per surgery for further evaluation. Patient was having a few episodes of explosive diarrhea and loose stools and C. difficile is also ordered and pending at this time. Patient continues to report significant abdominal pain and is currently n.p.o. per surgery. White count has increased significantly to 27.16 and hemoglobin is stable at 12.9, INR is 3.5 and Coumadin is to dose per pharmacy and being held, sodium 131 with a potassium of 3.8, BUN is 21 and creatinine is 0 point, total bilirubin is 2.6 and ALT/AST are elevated although trending down. C. difficile testing was negative. 11/28/2024 Patient is seen in follow-up with multiple consultations following including general surgery and infectious disease. Patient is maintained on antibiotics in the form of Zosyn and white count is elevated above 28 and continues to be elevated. General surgery following recommending conservative management at this time. Patient is continued on very sparing ice chips and may have popsicles sparingly per surgery. Patient is sitting up at the side of the bed looking slightly improved today although continues with diffuse abdominal pain. Patient is having gas and nursing staff reported 2 large bowel movements. Patient is continued on daily Dulcolax suppository per surgery and will continue. Repeat labs in the a.m. 11/29/2024 Patient is seen in follow-up today maintained on antibiotics and continues to be n.p.o. except for occasional ice chips and very sparing popsicle per surgery. Patient white count remains elevated although slightly improved at 20.53 today. Hemoglobin is stable at 10.6, platelets are 248, INR is noted to be 5.6 and Coumadin has been on hold. Will give a dose of vitamin K and follow-up on repeat labs. Patient is resting currently and daughters at bedside and have been staying with her through the night reporting she continues to have pain although is tolerating. Encouraged increased activity as tolerated including sitting up at the side of the bed and working with PT/OT therapy. Patient is afebrile with no reports of chest pain or shortness of breath at this time. Patient did have repeat abdominal x-ray which reveals continuous gaseous dilatation of the large bowel concerning for ileus with known colonic pneumatosis and portal venous gas. Transverse colon measuring up to 8.3 cm in diameter. 11/30/2024 Patient is seen in follow-up today currently sitting up at the side of the bed talking and having conversation and mentation is baseline showing some clinical improvement. Patient is afebrile and white count is trending down and is maintained on Zosyn with infectious disease and general surgery following. Patient is n.p.o. except Spiering ice chips although is having bowel movements and maintained on Dulcolax suppository daily. No plans of surgical intervention at this time recommending conservative management. Will follow-up on repeat labs and replace electrolytes per protocol. INR is 1.3 status post vitamin K. Continue holding Coumadin for now and will discuss with surgery if okay to resume. Patient is attempting to get up and work with physical therapy and has been getting up with family a little more. 12/01/2024 Patient is seen in follow-up today has been up and having multiple bowel movements that continue to be loose and abdomen although mildly distended, is improved from previous and soft and less tender. Patient is tolerating current diet and is being advanced to full liquids per surgery. White count is trending down and patient is continued on IV Zosyn with infectious disease following. Continue current bowel regimen and supportive care. Recommend PT/OT therapy daily. Family is hopeful if patient continues to improve, may be able to go to rehab early next week. Prognosis is guarded at this time. 12/02/2024 Patient is evaluated today in follow up resting in bed. Patient continues to have loose bowel movements and has been incontinent of stool. Her abdomen is mildly distended, however soft today, less tender, and has increased bowel sounds. Patient is tolerating diet and family has been at the bed side assisting with meals. Diet has been advanced to dysphagia level 2. INR today 2.2. Rich catheter remains in place. 12/03/2024 Patient evaluated today in follow up on the medical floor. Patient had episode of emesis after breakfast and her abdomen appears to be increasingly distended today. Abdominal xray showing colonic ileus; there is diffuse distention of the colon dominantly air-filled with mild scattered feces. Labs today show white blood cell count 10.37, hgb 10.9, sodium 139, potassium 3.5, BUN 12, creatinine 0.8. Magnesium 2.0. Patient remains normal saline at 50 mls/hr. 12/04/2024 Patient seen in follow-up today tolerating more diet more awake and having conversation today. Patient awaiting repeat evaluation from PT/OT therapy with general surgery and infectious disease following. Patient is continued on antibiotics and white count has normalized just above 8 today. Potassium mildly low at 3.4 and being replaced per protocol we will follow-up on repeat labs. Per general surgery continue current regimen with no plans of surgical intervention at this time. INR is elevated above 3 with pharmacy to dose. Continue current diet and would recommend PT/OT therapy daily. 12/05/2024 Patient is seen in follow-up today and is asleep with significant weakness and continues to have pain. Pain is becoming more intense and initially patient was eating a little more of a regular diet although not tolerating much. Patient is having significant abdominal pain and distention and had repeat abdominal x-ray done per general surgery which reveals continued gaseous distention in the bowel throughout the abdomen similar to prior with large stool burden throughout patient was having bowel movements but also with increased pain. Patient clinically deteriorating and becoming more weak discussed overall care and treatment plan with family and discussed possible hospice and/or comfort measur es and will request a hospice informational to come and speak with family and 2 of the daughters at the bedside are agreeable. General surgery and infectious disease following and patient is maintained on antibiotics and will continue at this time. No surgical intervention planned and hospice is appropriate in this situation. Family is understanding and will await discussion with hospice with other family members. Overall prognosis is extremely poor. 12/06/2024 Patient is evaluated in follow-up on the medical floor. Patient had a large loose bowel movement today. Her abdomen appears less distended more soft with increased bowel sounds. She will be started on clear liquid diet per general surgery. She was up at the bedside today she did work with physical therapy was able to perform some lower extremity like exercises. She remains on Dulcolax daily. Hospitalist to follow-up with the patient and family again at 6 PM today. 12/08/2024 Patient is seen in follow-up this morning currently sitting up in the chair with family at the bedside. They have met and discussed hospice philosophy and do not want to pursue hospice at this time. General surgery following and is signing off as there are no plans for surgical intervention recommending to continue with conservative management. Patient has been accepted at [facility] and plan is for possible discharge to [facility] in the a.m. Patient having some abdominal cramping and has not had a bowel movement as of yet although did re ceive Dulcolax as scheduled. Patient is also maintained on Questran and full liquids. Will advance to low fiber and if having continued abdominal pain recommend continuing with full liquids. White count has normalized and patient is afebrile and patient is maintained on IV Zosyn with infectious disease following. Patient will not require antibiotics on discharge. Overall prognosis is poor and guarded at this time. Review of systems: Constitutional: reports of fatigue, no fever, or chills Cardiovascular: No reports of chest pain or palpitations Respiratory: No reports of shortness of breath or cough GI: reports of occasional nausea, no reports of vomiting, reports not much of an appetite and continues to have increased abdominal pain and continued increasing distention : No reports of dysuria or retention Neurovascular: reports of generalized weakness All medications have been reviewed PHYSICAL EXAMINATION: GENERAL: The patient is awake, alert and oriented x2, baseline, currently sitting up in the chair, extremely hard of hearing, well developed, elderly appearing, thin built HEENT: Pupils are round and equally reacting to light. EOMI. no scleral icterus. No conjunctival pallor. Normocephalic, atraumatic. No pharyngeal erythema. No thyromegaly. CARDIOVASCULAR: S1 and S2 muffled PULMONARY: diminished breath sounds bilaterally with no wheezing or rhonchi note d. ABDOMEN: Soft, continues to be distended and bowel sounds noted. No palpable organomegaly. MUSCULOSKELETAL: No joint swelling or deformity. EXTREMITIES: No cyanosis, clubbing, or pedal edema. NEUROLOGICAL: Gross neurological examination did not reveal any focal deficits. Diffuse weakness SKIN: No rashes. ecchymosis noted of the face extending down into the neck and upper chest area showing continued improvement Assessment: Continued colonic ileus, again noted on abdominal x-ray 12/05/2024 Fall and right maxillary fracture with ecchymosis Hyponatremia, improved Troponin elevated, 0.185, ruled out acute NSTEMI per cardiology, likely type II Coumadin coagulopathy, INR above 5 Altered mental status, acute metabolic encephalopathy, multifactorial with possible underlying sinusitis and also a component of hospital-acquired delirium, improved and at baseline Increased WBC with bacteremia with sepsis, present on admission, likely secondary to ischemic colitis. Repeat blood cultures are negative Acute hypoxic respiratory failure likely from sepsis however saturations have been dropping, likely secondary to volume overload Hypokalemia, improved after replacement Transaminitis , trending down Constipation and abdominal distention that is worsening, secondary to pneumatosis History of previous CVA/TIA Atrial fibrillation, permanent Hypertension History of osteoarthritis Hard of hearing History of anxiety History of coronary artery disease with previous CABG history of bicuspid aortic valve status post AVR and then TAVR History of gastroesophageal reflux disease Hyperlipidemia GI prophylaxis DVT prophylaxis No code Plan: Patient was initially admitted under trauma services for a fall and had significant facial trauma fractures and significant ecchymosis and swelling that has improved Patient developed increasing abdominal pain and was evaluated by surgery with findings of pneumatosis of the colon and scattered areas and air in the portal venous system. Possible options of surgery discussed although would be a high risk candidate Patient has been on full liquid diet and [facility] is concerned that patient is maintained on this and will advance to low fiber at most. Recommend monitoring tolerance and if having increasing abdominal pain, would transition back to full liquids. CODE STATUS was addressed and family at the bedside were agreeable to no code. hospice was into see patient 2 times and at this time they do not want to wish to pursue hospice and would like to try for [facility] rehabilitation when patient is medically stable with transition to hospice if she does not improve at rehab. Patient has been accepted at [facility] with plans on possible discharge planning tomorrow 12/09/2024 Continue IV zosyn with infectious disease following. White count is normalized. Patient remains afebrile. Will continue IV Zosyn for now and will not require antibiotics on discharge Check INR daily, pharmacy to dose coumadin, INR elevated above 5 and given a d ose of vitamin K, repeat labs ordered INR for a.m. General Surgery has signed off Overall prognosis is poor and definitely guarded at this time. The impression and plan of care has been dictated by Joselin Becerril, Nurse Practitioner as directed. Dr. Breanne MD I have performed a history and physical examination and medical decision making of this patient, discussed the same with the dictator, and agree with the dictators assessment and plan as written, documented as a scribe. Based on total visit time, I have performed more than 50% of this visit. Objective - Vital Signs Vital signs: Vital Signs Temp 97.6 F 12/08/24 07:35 Pulse 66 12/08/24 07:35 Resp 14 12/08/24 07:35 BP 125/76 12/08/24 07:35 Pulse Ox 100 12/08/24 07:35 FiO2 Intake & Output 12/07/24 12/08/24 12/08/24 18:59 06:59 18:59 Intake Total 3380 300 Output Total 900 700 Balance 2480 -400 Intake: Intake, IV Titration 800 Amount Piperacillin-Tazobactam 3 200 .375 gm In Sodium Chloride 0.9% 100 ml @ 25 mls/hr IVPB Q8HR [facility] Rx# :[id number] Sodium Chloride 0.9% 1, 600 000 ml @ 50 mls/hr IV . Q20H [facility] Rx#:[id number] Oral 2580 300 Output: Urine 900 700 Uretheral (Rich) 900 Other: Voiding Method Indwelling Catheter Indwelling Catheter # Bowel Movements 10 - Labs CBC & Chem 7: 12/08/24 05:55 12/08/24 17:45 Labs: Abnormal Lab Results - Last 24 Hours (Table) 12/07/24 12/08/24 12/08/24 Range/Units 05:17 05:55 05:55 WBC 4.46 L (4.50-10.00) X 10*3/uL RBC 3.47 L (4.10-5.20) X 10*6/uL Hgb 10.5 L (12.0-15.0) g/dL Hct 32.1 L (37.2-46.3) % RDW 15.8 H (11.5-14.5) % Immature Gran # 0.06 H (0.00-0.04) X 10*3/uL Lymphocytes # 0.78 L (0.90-5.00) X 10*3/uL Eosinophils # 0.03 L (0.04-0.35) X 10*3/uL PT (10.0-12.5) sec INR (<1.2) Potassium 3.4 L (3.5-5.5) mmol/L Carbon Dioxide 20.1 L (21.6-31.8) mmol/L Glucose 112 H (70-110) mg/dL Calcium 8.1 L (8.7-10.3) mg/dL NT-Pro-B Natriuret Pep 6296 H (0-450) pg/mL 12/08/24 Range/Units 05:55 WBC (4.50-10.00) X 10*3/uL RBC (4.10-5.20) X 10*6/uL Hgb (12.0-15.0) g/dL Hct (37.2-46.3) % RDW (11.5-14.5) % Immature Gran # (0.00-0.04) X 10*3/uL Lymphocytes # (0.90-5.00) X 10*3/uL Eosinophils # (0.04-0.35) X 10*3/uL PT 48.8 H (10.0-12.5) sec INR 4.9 H (<1.2) Potassium (3.5-5.5) mmol/L Carbon Dioxide (21.6-31.8) mmol/L Glucose (70-110) mg/dL Calcium (8.7-10.3) mg/dL NT-Pro-B Natriuret Pep (0-450) pg/mL
[2024-12-09] MEDS: PHYTONADIONE 2 MG in SODIUM CHLORIDE 0.9% 50 ML IVPB STA (06:29)
--- NOTE | 2024-12-09 06:58 | XR ---
EXAMINATION TYPE: XR abdomen acute w cxr DATE OF EXAM: 12/09/2024 6:47 AM INDICATION: Patient age:Female; 84 years old; Reason for study: sob, abd pain; PHH. COMPARISON: Chest radiograph 12/07/2024, abdominal radiograph 12/05/2024 TECHNIQUE: Two radiographic views of the abdomen (upright and supine) and an a chest radiograph were obtained. FINDINGS CHEST: Lungs/Pleura: Blunting of both posterior angles with bibasilar subsegmental atelectasis. No pneumotho rax. Mediastinum: Unremarkable. Vasculature: Bony vascular congestion. Heart: Enlarged in size with aortic valve repair changes. Musculoskeletal: Sternotomy wires. Levoscoliotic curvature of the thoracolumbar spine. Other findings: No significant. FINDINGS ABDOMEN: Bowel gas pattern: Normal without dilated loops of small or large bowel. Fecal material and gas are d emonstrated throughout the colon and rectum. Abnormal calcifications: None. Musculoskeletal: Levoscoliotic curvature of the thoracolumbar spine.. Other: None. IMPRESSION: 1. Improved gaseous bowel distention from prior exam. 2. Redemonstration of cardiomegaly with pulmonary vascular congestion and small bilateral pleural eff usions suggesting CHF exacerbation. [facility], , 12/09/2024 6:56 AM
[2024-12-09] MEDS: WARFARIN 0.5 MG TAB PO ONE (08:42)
[2024-12-09] MEDS: NYSTATIN 100,000UNIT/GM CREAM 30 GM TUBE TOPICAL SCH (08:44)
[2024-12-09 09:02] LABS: Anion Gap 10.90 mmol/L (4.00-12.00); BUN/Creat Ratio 13.00 Ratio (12.00-20.00); Blood Urea Nitrogen 7.8 mg/dL (9.0-27.0); Calcium 8.1 mg/dL (8.7-10.3); Carbon Dioxide 22.1 mmol/L (21.6-31.8); Chloride 104 mmol/L (96-109); Glucose 123 mg/dL (70-110); Potassium 3.6 mmol/L (3.5-5.5); Sodium 137 mmol/L (135-145)
[2024-12-09] MEDS: FUROSEMIDE 10 MG/ML 4 ML VIAL IV STA (13:20)
--- NOTE | 2024-12-09 13:37 | P.PN ---
Subjective Progress Note Date: 12/09/24 This is a pleasant 84-year-old female who was recently admitted under trauma services status post fall and is noted to have a right maxillary fracture with some significant ecchymosis of the face traveling down to the neck and being followed by multiple consultations. Patient transferred to medicine service as patient continues with significant weakness and is having some altered mentation, multifactorial and likely secondary to hospital delirium. Recommend limiting aggressive narcotics although patient is reporting significant pain. Patient continues to have some expectoration of streaks of blood noted in the spit otherwise no active bleeding noted. Patient is reporting significant hip pain and will obtain some images. Recommend PT/OT therapy daily. Patient's INR is elevated just above 3 although improved from previous. Will follow-up on repeat labs and continue to monitor closely. Plan will be for patient to go to [facility] for continued strength and mobility. 11/24/2024 Patient is seen in follow-up today mentation is somewhat improved and would recommend frequent reorientation during the day and adjusting pain medications and trying to limit IV narcotic use. Patient to continue with Seroquel at night and continued PT/OT therapy. Plan will be for patient to go to [facility]CF on discharge for continued strength and mobility. Patient is having significant left hip pain and leg pain we will obtain a Doppler and also adjust medications accordingly. Patient is currently afebrile is tolerating diet although not much of an appetite noted. Continue with bowel regimen scheduled as well as as needed 11/25/2024 Patient is evaluated in follow-up on the medical floor. She is awake alert x 1. Family at the bedside. She is sitting up at the bedside eating appears quite fatigued though. She continues to report significant left hip and leg pain. Doppler was negative for any findings for acute DVT. LFTs remain elevated and chest x-ray does reveal some vascular congestion. Patient has been continued on her home dose of oral Lasix twice daily. Also continues on IV Zosyn. A gall bladder ultrasound was ordered and is currently pending for tomorrow morning. Warfarin remains on hold as patient's INR today was elevated at 3.6. Procalcitonin level is significantly elevated at 2.62. Patient has been afebrile. She is currently on room air oxygen saturations at 97%. 11/26/2024 Patient evaluated in follow-up with the medical floor. Patient continues on IV Zosyn. Currently pending gallbladder ultrasound which will be completed later this afternoon as patient had breakfast. Her abdomen is distended today and firm with concern for possible ileus. Patient did have a loose BM yesterday. Abdominal xray completed reveals nonspecific gaseous dilation of the colon bowel gas pattern without radiographic evidence or acute process. White blood cell count of 12.54, hemoglobin 11.8, sodium of 131, BUN of 19 creatinine of 0.75, magnesium 1.9. Her INR today is 3.7. 11/27/2024 Patient is seen in follow-up today with general surgery following. Patient continues to have abdominal discomfort with concerns of impaction. Patient to have CT abdomen ordered per surgery for further evaluation. Patient was having a few episodes of explosive diarrhea and loose stools and C. difficile is also ordered and pending at this time. Patient continues to report significant abdominal pain and is currently n.p.o. per surgery. White count has increased significantly to 27.16 and hemoglobin is stable at 12.9, INR is 3.5 and Coumadin is to dose per pharmacy and being held, sodium 131 with a potassium of 3.8, BUN is 21 and creatinine is 0 point, total bilirubin is 2.6 and ALT/AST are elevated although trending down. C. difficile testing was negative. 11/28/2024 Patient is seen in follow-up with multiple consultations following including general surgery and infectious disease. Patient is maintained on antibiotics in the form of Zosyn and white count is elevated above 28 and continues to be elevated. General surgery following recommending conservative management at this time. Patient is continued on very sparing ice chips and may have popsicles sparingly per surgery. Patient is sitting up at the side of the bed looking slightly improved today although continues with diffuse abdominal pain. Patient is having gas and nursing staff reported 2 large bowel movements. Patient is continued on daily Dulcolax suppository per surgery and will continue. Repeat labs in the a.m. 11/29/2024 Patient is seen in follow-up today maintained on antibiotics and continues to be n.p.o. except for occasional ice chips and very sparing popsicle per surgery. Patient white count remains elevated although slightly improved at 20.53 today. Hemoglobin is stable at 10.6, platelets are 248, INR is noted to be 5.6 and Coumadin has been on hold. Will give a dose of vitamin K and follow-up on repeat labs. Patient is resting currently and daughters at bedside and have been staying with her through the night reporting she continues to have pain although is tolerating. Encouraged increased activity as tolerated including sitting up at the side of the bed and working with PT/OT therapy. Patient is afebrile with no reports of chest pain or shortness of breath at this time. Patient did have repeat abdominal x-ray which reveals continuous gaseous dilatation of the large bowel concerning for ileus with known colonic pneumatosis and portal venous gas. Transverse colon measuring up to 8.3 cm in diameter. 11/30/2024 Patient is seen in follow-up today currently sitting up at the side of the bed talking and having conversation and mentation is baseline showing some clinical improvement. Patient is afebrile and white count is trending down and is maintained on Zosyn with infectious disease and general surgery following. Patient is n.p.o. except Spiering ice chips although is having bowel movements and maintained on Dulcolax suppository daily. No plans of surgical intervention at this time recommending conservative management. Will follow-up on repeat labs and replace electrolytes per protocol. INR is 1.3 status post vitamin K. Continue holding Coumadin for now and will discuss with surgery if okay to resume. Patient is attempting to get up and work with physical therapy and has been getting up with family a little more. 12/01/2024 Patient is seen in follow-up today has been up and having multiple bowel movements that continue to be loose and abdomen although mildly distended, is improved from previous and soft and less tender. Patient is tolerating current diet and is being advanced to full liquids per surgery. White count is trending down and patient is continued on IV Zosyn with infectious disease following. Continue current bowel regimen and supportive care. Recommend PT/OT therapy daily. Family is hopeful if patient continues to improve, may be able to go to rehab early next week. Prognosis is guarded at this time. 12/02/2024 Patient is evaluated today in follow up resting in bed. Patient continues to have loose bowel movements and has been incontinent of stool. Her abdomen is mildly distended, however soft today, less tender, and has increased bowel sounds. Patient is tolerating diet and family has been at the bed side assisting with meals. Diet has been advanced to dysphagia level 2. INR today 2.2. Rich catheter remains in place. 12/03/2024 Patient evaluated today in follow up on the medical floor. Patient had episode of emesis after breakfast and her abdomen appears to be increasingly distended today. Abdominal xray showing colonic ileus; there is diffuse distention of the colon dominantly air-filled with mild scattered feces. Labs today show white blood cell count 10.37, hgb 10.9, sodium 139, potassium 3.5, BUN 12, creatinine 0.8. Magnesium 2.0. Patient remains normal saline at 50 mls/hr. 12/04/2024 Patient seen in follow-up today tolerating more diet more awake and having conversation today. Patient awaiting repeat evaluation from PT/OT therapy with general surgery and infectious disease following. Patient is continued on antibiotics and white count has normalized just above 8 today. Potassium mildly low at 3.4 and being replaced per protocol we will follow-up on repeat labs. Per general surgery continue current regimen with no plans of surgical intervention at this time. INR is elevated above 3 with pharmacy to dose. Continue current diet and would recommend PT/OT therapy daily. 12/05/2024 Patient is seen in follow-up today and is asleep with significant weakness and continues to have pain. Pain is becoming more intense and initially patient was eating a little more of a regular diet although not tolerating much. Patient is having significant abdominal pain and distention and had repeat abdominal x-ray done per general surgery which reveals continued gaseous distention in the bowel throughout the abdomen similar to prior with large stool burden throughout patient was having bowel movements but also with increased pain. Patient clinically deteriorating and becoming more weak discussed overall care and treatment plan with family and discussed possible hospice and/or comfort measur es and will request a hospice informational to come and speak with family and 2 of the daughters at the bedside are agreeable. General surgery and infectious disease following and patient is maintained on antibiotics and will continue at this time. No surgical intervention planned and hospice is appropriate in this situation. Family is understanding and will await discussion with hospice with other family members. Overall prognosis is extremely poor. 12/06/2024 Patient is evaluated in follow-up on the medical floor. Patient had a large loose bowel movement today. Her abdomen appears less distended more soft with increased bowel sounds. She will be started on clear liquid diet per general surgery. She was up at the bedside today she did work with physical therapy was able to perform some lower extremity like exercises. She remains on Dulcolax daily. Hospitalist to follow-up with the patient and family again at 6 PM today. 12/08/2024 Patient is seen in follow-up this morning currently sitting up in the chair with family at the bedside. They have met and discussed hospice philosophy and do not want to pursue hospice at this time. General surgery following and is signing off as there are no plans for surgical intervention recommending to continue with conservative management. Patient has been accepted at [facility] and plan is for possible discharge to [facility] in the a.m. Patient having some abdominal cramping and has not had a bowel movement as of yet although did re ceive Dulcolax as scheduled. Patient is also maintained on Questran and full liquids. Will advance to low fiber and if having continued abdominal pain recommend continuing with full liquids. White count has normalized and patient is afebrile and patient is maintained on IV Zosyn with infectious disease following. Patient will not require antibiotics on discharge. Overall prognosis is poor and guarded at this time. 12/09/2024 Patient is seen in follow-up today currently sitting up in the bed extremely weak and lethargic but is arousable. Patient appears exhausted and per daughters at the bedside report has had over 6 loose bowel movements overnight. Patient would like to get up to the commode and is extremely weak and recommend continuing to do so if patient vital signs are stable. General surgery were following although they have signed off recommending no surgical interventions at this time and continuing with conservative management. [facility] has accepted the patient although concerned that patient was on full liquids although patient has significant bowel issues with concerns of ischemic bowel and pneumatosis did advance diet to low fiber and patient ate a whole plate of spinach having increasing abdominal distention with gas and pain. Would recommend continuing full liquids and may have some pleasure advance to low fiber as tolerated. Patient continues with some shortness of breath and is extremely weak we will give another dose of Lasix as chest x-ray shows continued pulmonary vascular congestion. Patient is on 2 L of oxygen via nasal cannula saturating greater than 95%. Patient does not normally wear oxygen outpatient. Patient with significant weakness recommend PT/OT therapy daily and sitting up in the chair as well as using the commode more often. Plan will be for [facility] on Wednesday for continued strength and mobility. Daughters at the bedside are aware if patient deteriorates, they need to consider hospice and comfort measures. Patient does not want hospice at this time. Overall prognosis is guarded. Review of systems: Constitutional: reports of fatigue, no fever, or chills Cardiovascular: No reports of chest pain or palpitations Respiratory: No reports of shortness of breath or cough GI: reports of occasional nausea, no reports of vomiting, reports somewhat more of an appetite although continues to have increased abdominal pain and continued increasing distention when advancing diet : No reports of dysuria or retention Neurovascular: reports of generalized weakness All medications have been reviewed PHYSICAL EXAMINATION: GENERAL: The patient is awake, alert and oriented x2, baseline, currently sitting up in bed appears more lethargic today. extremely hard of hearing, well developed, elderly appearing, thin built HEENT: Pupils are round and equally reacting to light. EOMI. no scleral icterus. No conjunctival pallor. Normocephalic, atraumatic. No pharyngeal erythema. No thyromegaly. CARDIOVASCULAR: S1 and S2 muffled PULMONARY: diminished breath sounds bilaterally with no wheezing or rhonchi noted. Faint crackles noted at the bases bilaterally ABDOMEN: Soft, continues to be distended and bowel sounds noted. No palpable organomegaly. Mildly tender today. MUSCULOSKELETAL: No joint swelling or deformity. EXTREMITIES: No cyanosis, clubbing, or pedal edema. NEUROLOGICAL: Gross neurological examination did not reveal any focal deficits. Diffuse weakness SKIN: No rashes. ecchymosis noted of the face extending down into the neck and upper chest area showing continued improvement Assessment: Continued colonic ileus, again noted on abdominal x-ray 12/05/2024 Fall and right maxillary fracture with ecchymosis Hyponatremia, improved Troponin elevated, 0.185, ruled out acute NSTEMI per cardiology, likely type II Coumadin coagulopathy, INR above 5 this morning, status post vitamin K dose given Altered mental status, acute metabolic encephalopathy, multifactorial with possible underlying sinusitis and also a component of hospital-acquired delirium, improved and at baseline Increased WBC with bacteremia with sepsis, present on admission, likely secondary to ischemic colitis. Repeat blood cultures are negative Acute hypoxic respiratory failure likely secondary to volume overload, status post Lasix given, wean FiO2 as tolerated Hypokalemia, improved after replacement Transaminitis , trending down Constipation and abdominal distention that is worsening, secondary to pneumatosis History of previous CVA/TIA Atrial fibrillation, permanent Hypertension History of osteoarthritis Hard of hearing History of anxiety History of coronary artery disease with previous CABG history of bicuspid aortic valve status post AVR and then TAVR History of gastroesophageal reflux disease Hyperlipidemia GI prophylaxis DVT prophylaxis No code Plan: Patient was initially admitted under trauma services for a fall and had significant facial trauma fractures and significant ecchymosis and swelling that has improved. General surgery has signed off of the case as they were also following due to significant abdominal pain noted to have findings of pneumatosis of the colon and scattered areas and air in the portal venous system. Possible options of surgery discussed although would be a high risk candidate. Surgery does not recommend any surgical intervention and recommending conservative management and/or hospice. Patient and family has met with hospice and do not want hospice at this time. They would like to go to [facility] for continued strength and mobility to see if patient gains strength and improved. Patient has been on full liquid diet and tolerating although [facility] was concerned that patient was maintained on this and have advanced to low fiber and patient having increasing gas and abdominal distention with pain. Recommend monitoring tolerance and if having increasing abdominal pain, recommend to continue full liquids. Patient may have occasional pleasure low fiber diet foods CODE STATUS was addressed and family at the bedside were agreeable to no code. Continue IV zosyn with infectious disease following. White count is normalized. Patient remains afebrile. Will continue IV Zosyn for now and will not require antibiotics on discharge Check INR daily, pharmacy to dose coumadin, INR elevated above 5 and will give an additional dose of vitamin K, repeat labs ordered INR for a.m. General Surgery has signed off Overall prognosis is poor and definitely guarded at this time. Plan will be for possibly [facility] on Wednesday The impression and plan of care has been dictated by Joselin Becerril, Nurse Practitioner as directed. Dr. Kimberly MD I have performed a history and physical examination and medical decision making of this patient, discussed the same with the dictator, and agree with the dictators assessment and plan as written, documented as a scribe. Based on total visit time, I have performed more than 50% of this visit. Objective - Vital Signs Vital signs: Vital Signs Temp 98.2 F 12/09/24 07:03 Pulse 82 12/09/24 07:03 Resp 16 12/09/24 07:03 BP 131/84 12/09/24 07:03 Pulse Ox 94 L 12/09/24 10:42 FiO2 Intake & Output 12/08/24 12/09/24 12/09/24 18:59 06:59 18:59 Intake Total 1160 700 360 Output Total 1400 1350 100 Balance -240 -650 260 Intake: Oral 1160 360 Other 700 Output: Urine 1400 1350 100 Uretheral (Rich) 100 Other: Voiding Method Indwelling Catheter Indwelling Catheter # Bowel Movements 2 3 - Labs CBC & Chem 7: 12/08/24 05:55 12/09/24 04:08 Labs: Abnormal Lab Results - Last 24 Hours (Table) 12/08/24 12/09/24 12/09/24 Range/Units 17:45 04:08 04:08 PT 55.4 H (10.0-12.5) sec INR 5.6 H* (<1.2) Potassium 3.2 L (3.5-5.1) mmol/L BUN 7.8 L (9.0-27.0) mg/dL Glucose 123 H (70-110) mg/dL Calcium 8.1 L (8.7-10.3) mg/dL
--- NOTE | 2024-12-09 14:54 | P.PN ---
Subjective Progress Note Date: 12/09/24 Principal diagnosis: Reason for follow-up with ischemic colitis Patient is a 84-year-old female with a past medical history significant for Atrial Fibrillation, Coronary Artery Disease (CAD), CVA/TIA, GERD/Reflux, Hearing Disorder / Deafness, Hyperlipidemia, Hypertension, Osteoarthritis (OA) presenting the hospital a after apparently the patient did have fallen twice workup which was evidence of maxillary fracture and there was concern for possible cholecystitis subsequently worsening abdominal pain with a CT showing features of ischemic colitis prompted this consultation. On today's evaluation that is 12/09/2024, patient did have a temperature of 98.5 F this afternoon patient slightly feeling weak she is breathing comfortably on 2 L nasal oxygen oral intake has improved and diarrhea has slowed down as reported by the daughters at the bedside. The patient INR is 5.6, creatinine 0.6 no CBC was done today Objective - Vital Signs Vital signs: Vital Signs Temp 98.5 F 12/09/24 12:07 Pulse 54 L 12/09/24 12:07 Resp 16 12/09/24 12:07 BP 134/83 12/09/24 12:07 Pulse Ox 91 L 12/09/24 12:07 FiO2 Intake & Output 12/08/24 12/09/24 12/09/24 18:59 06:59 18:59 Intake Total 1160 700 480 Output Total 1400 1350 100 Balance -240 -650 380 Intake: Oral 1160 480 Other 700 Output: Urine 1400 1350 100 Uretheral (Rich) 100 Other: Voiding Method Indwelling Catheter Indwelling Catheter Indwelling Catheter # Bowel Movements 2 3 - Exam GENERAL DESCRIPTION: An elderly female up in bed in no distress RESPIRATORY SYSTEM: Unlabored breathing , decreased breath sounds at bases HEART: S1 S2 regular rate and rhythm , ABDOMEN: Soft , no tenderness EXTREMITIES: No edema feet - Labs CBC & Chem 7: 12/08/24 05:55 12/09/24 04:08 Labs: Abnormal Lab Results - Last 24 Hours (Table) 12/08/24 12/09/24 12/09/24 Range/Units 17:45 04:08 04:08 PT 55.4 H (10.0-12.5) sec INR 5.6 H* (<1.2) Potassium 3.2 L (3.5-5.1) mmol/L BUN 7.8 L (9.0-27.0) mg/dL Glucose 123 H (70-110) mg/dL Calcium 8.1 L (8.7-10.3) mg/dL Assessment and Plan (1) Sepsis Current Visit: Yes Status: Acute Code(s): A41.9 - SEPSIS, UNSPECIFIED ORGANISM SNOMED Code(s): 35470974 (2) Cholecystitis Current Visit: Yes Status: Acute Code(s): K81.9 - CHOLECYSTITIS, UNSPECIFIED SNOMED Code(s): 44838404 (3) Ischemic colitis Current Visit: Yes Status: Acute Code(s): K55.9 - VASCULAR DISORDER OF INTESTINE, UNSPECIFIED SNOMED Code(s): 90869966 Plan: 1patient with abdominal pain in this patient with initially presented to the hospital with a fall hide did have a maxillary fracture patient did have a fever first 2 days of her admission and also have elevated white count there was abnormality on the gallbladder concerning for possible cholecystitis and did have group G streptococcus bacteremia now with evidence of ischemic colitis and the family has opted for medical treatment 2-blood cultures has been repeated which are so far negative 3-patient is afebrile patient white count has normalized, has developed diarrhea stool for C. difficile is negative, laxative has been put on hold with improvement in her diarrhea as reported by the daughter 4patient will be treated Zosyn while inpatient and monitor clinical course closely Dictation was produced using [employer] dictation software. please excuse any grammatical, word or spelling errors. Time with Patient: Less than 30
[2024-12-10 05:12] LABS: INR 1.6 (<1.2); Prothrombin Time 16.2 sec (10.0-12.5)
[2024-12-10 07:59] VITALS: RESP 16
[2024-12-10 09:05] LABS: ALT 15 U/L (8-44); AST 25 U/L (13-35); Albumin 2.5 g/dL (3.8-4.9); Albumin/Globulin Ratio 0.96 Ratio (1.60-3.17); Alkaline Phosphatase 108 U/L (41-126); Anion Gap 8.90 mmol/L (4.00-12.00); BUN/Creat Ratio 10.29 Ratio (12.00-20.00); Basophils # (A) 0.04 X 10*3/uL (0.00-0.10); Basophils % (A) 0.4 %; Blood Urea Nitrogen 7.2 mg/dL (9.0-27.0); Calcium 7.9 mg/dL (8.7-10.3); Carbon Dioxide 25.1 mmol/L (21.6-31.8); Chloride 103 mmol/L (96-109); Eosinophils # (A) 0 X 10*3/uL (0.04-0.35); Eosinophils % (A) 0 %; Globulin 2.6 g/dL (1.6-3.3); Glucose 104 mg/dL (70-110); HCT 34.6 % (37.2-46.3); HGB 11.1 g/dL (12.0-15.0); Immature Grans, Automated 1.10 %; Lymphocytes # (A) 1.02 X 10*3/uL (0.90-5.00); Lymphocytes % (A) 9.2 %; MCH 29.9 pg (27.0-32.0); MCHC 32.1 g/dL (32.0-37.0); MCV 93.3 FL (80.0-97.0); Monocytes # (A) 1.42 X 10*3/uL (0.20-1.00); Monocytes % (A) 12.8 %; NRBC Per 100 WBC 0 X 10*3/uL (0.00-0.01); Neutrophils # (A) 8.50 X 10*3/uL (1.80-7.70); Neutrophils % (A) 76.5 %; Platelet Count 271 X 10*3/uL (140-440); Potassium 3.2 mmol/L (3.5-5.5); RBC 3.71 X 10*6/uL (4.10-5.20); RDW 15.9 % (11.5-14.5); Sodium 137 mmol/L (135-145); Total Protein 5.1 g/dL (6.2-8.2); WBC 11.10 X 10*3/uL (4.50-10.00)
[2024-12-10] MEDS ORDERED: LIDOCAINE 4% PATCH TOPICAL PRN (10:14)
[2024-12-10] MEDS ORDERED: ZINC OXIDE PASTE (Z-GUARD) 1 APPLIC TOPICAL PRN (11:27)
[2024-12-10] MEDS: WARFARIN 0.5 MG TAB PO ONE (17:00)
--- NOTE | 2024-12-10 18:18 | P.PN ---
Subjective Progress Note Date: 12/10/24 Principal diagnosis: Reason for follow-up with ischemic colitis Patient is a 84-year-old female with a past medical history significant for Atrial Fibrillation, Coronary Artery Disease (CAD), CVA/TIA, GERD/Reflux, Hearing Disorder / Deafness, Hyperlipidemia, Hypertension, Osteoarthritis (OA) presenting the hospital a after apparently the patient did have fallen twice workup which was evidence of maxillary fracture and there was concern for possible cholecystitis subsequently worsening abdominal pain with a CT showing features of ischemic colitis prompted this consultation. On today's evaluation that is 12/10/2024, Patient is afebrile patient is currently on 2 L nasal oxygen patient was sleepy apparently did have some breakfast which the patient has tolerated and no vomiting and no diarrhea has been reported by the daughters at the bedside. Patient white count is 11.10, creatinine 0.7 blood culture repeat has been negative Objective - Vital Signs Vital signs: Vital Signs Temp 98.0 F 12/10/24 07:35 Pulse 66 12/10/24 07:35 Resp 16 12/10/24 07:35 BP 124/66 12/10/24 07:35 Pulse Ox 94 L 12/10/24 07:35 FiO2 Intake & Output 12/09/24 12/10/24 12/10/24 18:59 06:59 18:59 Intake Total 2220 240 Output Total 3100 3000 100 Balance -880 -2760 -100 Intake: Oral 2220 Other 240 Output: Urine 3100 3000 100 Uretheral (Rich) 1700 1600 100 Other: Voiding Method Indwelling Catheter Indwelling Catheter Indwelling Catheter # Bowel Movements 6 1 - Exam GENERAL DESCRIPTION: An elderly female up in bed in no distress RESPIRATORY SYSTEM: Unlabored breathing , decreased breath sounds at bases HEART: S1 S2 regular rate and rhythm , ABDOMEN: Soft , no tenderness EXTREMITIES: No edema feet - Labs CBC & Chem 7: 12/10/24 04:32 12/10/24 11:27 Labs: Abnormal Lab Results - Last 24 Hours (Table) 12/10/24 12/10/24 12/10/24 Range/Units 04:32 04:32 04:32 WBC 11.10 H (4.50-10.00) X 10*3/uL RBC 3.71 L (4.10-5.20) X 10*6/uL Hgb 11.1 L (12.0-15.0) g/dL Hct 34.6 L (37.2-46.3) % RDW 15.9 H (11.5-14.5) % MPV 9.4 L (9.5-12.2) FL Immature Gran # 0.12 H (0.00-0.04) X 10*3/uL Neutrophils # 8.50 H (1.80-7.70) X 10*3/uL Monocytes # 1.42 H (0.20-1.00) X 10*3/uL Eosinophils # 0 L (0.04-0.35) X 10*3/uL PT 16.2 H (10.0-12.5) sec INR 1.6 H (<1.2) Potassium 3.2 L (3.5-5.5) mmol/L BUN 7.2 L (9.0-27.0) mg/dL BUN/Creatinine Ratio 10.29 L (12.00-20.00) Ratio Calcium 7.9 L (8.7-10.3) mg/dL Total Protein 5.1 L (6.2-8.2) g/dL Albumin 2.5 L (3.8-4.9) g/dL Albumin/Globulin Ratio 0.96 L (1.60-3.17) Ratio Assessment and Plan (1) Sepsis Current Visit: Yes Status: Acute Code(s): A41.9 - SEPSIS, UNSPECIFIED ORGANISM SNOMED Code(s): 18490754 (2) Cholecystitis Current Visit: Yes Status: Acute Code(s): K81.9 - CHOLECYSTITIS, UNSPECIFIED SNOMED Code(s): 72781736 (3) Ischemic colitis Current Visit: Yes Status: Acute Code(s): K55.9 - VASCULAR DISORDER OF INTESTINE, UNSPECIFIED SNOMED Code(s): 16440890 Plan: 1patient with abdominal pain in this patient with initially presented to the hospital with a fall hide did have a maxillary fracture patient did have a fever first 2 days of her admission and also have elevated white count there was abnormality on the gallbladder concerning for possible cholecystitis and did have group G streptococcus bacteremia now with evidence of ischemic colitis and the family has opted for medical treatment 2-blood cultures has been repeated which are so far negative 3-patient is afebrile patient white count has normalized, has developed diarrhea stool for C. difficile is negative, laxative has been put on hold with improvement in her diarrhea as reported by the daughter 4patient slowly clinically improving, to continue Zosyn while inpatient and if tolerating her diet consider short course of oral Ceftin and Flagyl on discharge Dictation was produced using LAT[employer] dictation software. please excuse any grammatical, word or spelling errors. Time with Patient: Less than 30
[2024-12-10] MEDS: POTASSIUM CHLORIDE ER 20 MEQ TAB.ER PO SCH (22:04)
[2024-12-11 05:25] LABS: INR 1.4 (<1.2)
[2024-12-11 05:26] LABS: Prothrombin Time 14.6 sec (10.0-12.5)
--- NOTE | 2024-12-11 05:27 | P.PN ---
Subjective Progress Note Date: 12/10/24 This is a pleasant 84-year-old female who was recently admitted under trauma services status post fall and is noted to have a right maxillary fracture with some significant ecchymosis of the face traveling down to the neck and being followed by multiple consultations. Patient transferred to medicine service as patient continues with significant weakness and is having some altered mentation, multifactorial and likely secondary to hospital delirium. Recommend limiting aggressive narcotics although patient is reporting significant pain. Patient continues to have some expectoration of streaks of blood noted in the spit otherwise no active bleeding noted. Patient is reporting significant hip pain and will obtain some images. Recommend PT/OT therapy daily. Patient's INR is elevated just above 3 although improved from previous. Will follow-up on repeat labs and continue to monitor closely. Plan will be for patient to go to [facility] for continued strength and mobility. 11/24/2024 Patient is seen in follow-up today mentation is somewhat improved and would recommend frequent reorientation during the day and adjusting pain medications and trying to limit IV narcotic use. Patient to continue with Seroquel at night and continued PT/OT therapy. Plan will be for patient to go to ECF on discharge for continued strength and mobility. Patient is having significant left hip pain and leg pain we will obtain a Doppler and also adjust medications accordingly. Patient is currently afebrile is tolerating diet although not much of an appetite noted. Continue with bowel regimen scheduled as well as as needed 11/25/2024 Patient is evaluated in follow-up on the medical floor. She is awake alert x 1. Family at the bedside. She is sitting up at the bedside eating appears quite fatigued though. She continues to report significant left hip and leg pain. Doppler was negative for any findings for acute DVT. LFTs remain elevated and chest x-ray does reveal some vascular congestion. Patient has been continued on her home dose of oral Lasix twice daily. Also continues on IV Zosyn. A gall bladder ultrasound was ordered and is currently pending for tomorrow morning. Warfarin remains on hold as patient's INR today was elevated at 3.6. Procalcitonin level is significantly elevated at 2.62. Patient has been afebrile. She is currently on room air oxygen saturations at 97%. 11/26/2024 Patient evaluated in follow-up with the medical floor. Patient continues on IV Zosyn. Currently pending gallbladder ultrasound which will be completed later this afternoon as patient had breakfast. Her abdomen is distended today and firm with concern for possible ileus. Patient did have a loose BM yesterday. Abdominal xray completed reveals nonspecific gaseous dilation of the colon bowel gas pattern without radiographic evidence or acute process. White blood cell count of 12.54, hemoglobin 11.8, sodium of 131, BUN of 19 creatinine of 0.75, magnesium 1.9. Her INR today is 3.7. 11/27/2024 Patient is seen in follow-up today with general surgery following. Patient continues to have abdominal discomfort with concerns of impaction. Patient to have CT abdomen ordered per surgery for further evaluation. Patient was having a few episodes of explosive diarrhea and loose stools and C. difficile is also ordered and pending at this time. Patient continues to report significant abdominal pain and is currently n.p.o. per surgery. White count has increased significantly to 27.16 and hemoglobin is stable at 12.9, INR is 3.5 and Coumadin is to dose per pharmacy and being held, sodium 131 with a potassium of 3.8, BUN is 21 and creatinine is 0 point, total bilirubin is 2.6 and ALT/AST are elevated although trending down. C. difficile testing was negative. 11/28/2024 Patient is seen in follow-up with multiple consultations following including general surgery and infectious disease. Patient is maintained on antibiotics in the form of Zosyn and white count is elevated above 28 and continues to be elevated. General surgery following recommending conservative management at this time. Patient is continued on very sparing ice chips and may have popsicles sparingly per surgery. Patient is sitting up at the side of the bed looking slightly improved today although continues with diffuse abdominal pain. Patient is having gas and nursing staff reported 2 large bowel movements. Patient is continued on daily Dulcolax suppository per surgery and will continue. Repeat labs in the a.m. 11/29/2024 Patient is seen in follow-up today maintained on antibiotics and continues to be n.p.o. except for occasional ice chips and very sparing popsicle per surgery. Patient white count remains elevated although slightly improved at 20.53 today. Hemoglobin is stable at 10.6, platelets are 248, INR is noted to be 5.6 and Coumadin has been on hold. Will give a dose of vitamin K and follow-up on repeat labs. Patient is resting currently and daughters at bedside and have been staying with her through the night reporting she continues to have pain although is tolerating. Encouraged increased activity as tolerated including sitting up at the side of the bed and working with PT/OT therapy. Patient is afebrile with no reports of chest pain or shortness of breath at this time. Patient did have repeat abdominal x-ray which reveals continuous gaseous dilatation of the large bowel concerning for ileus with known colonic pneumatosis and portal venous gas. Transverse colon measuring up to 8.3 cm in diameter. 11/30/2024 Patient is seen in follow-up today currently sitting up at the side of the bed talking and having conversation and mentation is baseline showing some clinical improvement. Patient is afebrile and white count is trending down and is maintained on Zosyn with infectious disease and general surgery following. Patient is n.p.o. except Spiering ice chips although is having bowel movements and maintained on Dulcolax suppository daily. No plans of surgical intervention at this time recommending conservative management. Will follow-up on repeat labs and replace electrolytes per protocol. INR is 1.3 status post vitamin K. Continue holding Coumadin for now and will discuss with surgery if okay to resume. Patient is attempting to get up and work with physical therapy and has been getting up with family a little more. 12/01/2024 Patient is seen in follow-up today has been up and having multiple bowel movements that continue to be loose and abdomen although mildly distended, is improved from previous and soft and less tender. Patient is tolerating current diet and is being advanced to full liquids per surgery. White count is trending down and patient is continued on IV Zosyn with infectious disease following. Continue current bowel regimen and supportive care. Recommend PT/OT therapy daily. Family is hopeful if patient continues to improve, may be able to go to rehab early next week. Prognosis is guarded at this time. 12/02/2024 Patient is evaluated today in follow up resting in bed. Patient continues to have loose bowel movements and has been incontinent of stool. Her abdomen is mildly distended, however soft today, less tender, and has increased bowel sounds. Patient is tolerating diet and family has been at the bed side assisting with meals. Diet has been advanced to dysphagia level 2. INR today 2.2. Rich catheter remains in place. 12/03/2024 Patient evaluated today in follow up on the medical floor. Patient had episode of emesis after breakfast and her abdomen appears to be increasingly distended today. Abdominal xray showing colonic ileus; there is diffuse distention of the colon dominantly air-filled with mild scattered feces. Labs today show white blood cell count 10.37, hgb 10.9, sodium 139, potassium 3.5, BUN 12, creatinine 0.8. Magnesium 2.0. Patient remains normal saline at 50 mls/hr. 12/04/2024 Patient seen in follow-up today tolerating more diet more awake and having conversation today. Patient awaiting repeat evaluation from PT/OT therapy with general surgery and infectious disease following. Patient is continued on antibiotics and white count has normalized just above 8 today. Potassium mildly low at 3.4 and being replaced per protocol we will follow-up on repeat labs. Per general surgery continue current regimen with no plans of surgical intervention at this time. INR is elevated above 3 with pharmacy to dose. Continue current diet and would recommend PT/OT therapy daily. 12/05/2024 Patient is seen in follow-up today and is asleep with significant weakness and continues to have pain. Pain is becoming more intense and initially patient was eating a little more of a regular diet although not tolerating much. Patient is having significant abdominal pain and distention and had repeat abdominal x-ray done per general surgery which reveals continued gaseous distention in the bowel throughout the abdomen similar to prior with large stool burden throughout patient was having bowel movements but also with increased pain. Patient clinically deteriorating and becoming more weak discussed overall care and treatment plan with family and discussed possible hospice and/or comfort measur es and will request a hospice informational to come and speak with family and 2 of the daughters at the bedside are agreeable. General surgery and infectious disease following and patient is maintained on antibiotics and will continue at this time. No surgical intervention planned and hospice is appropriate in this situation. Family is understanding and will await discussion with hospice with other family members. Overall prognosis is extremely poor. 12/06/2024 Patient is evaluated in follow-up on the medical floor. Patient had a large loose bowel movement today. Her abdomen appears less distended more soft with increased bowel sounds. She will be started on clear liquid diet per general surgery. She was up at the bedside today she did work with physical therapy was able to perform some lower extremity like exercises. She remains on Dulcolax daily. Hospitalist to follow-up with the patient and family again at 6 PM today. 12/08/2024 Patient is seen in follow-up this morning currently sitting up in the chair with family at the bedside. They have met and discussed hospice philosophy and do not want to pursue hospice at this time. General surgery following and is signing off as there are no plans for surgical intervention recommending to continue with conservative management. Patient has been accepted at [facility] and plan is for possible discharge to [facility] in the a.m. Patient having some abdominal cramping and has not had a bowel movement as of yet although did re ceive Dulcolax as scheduled. Patient is also maintained on Questran and full liquids. Will advance to low fiber and if having continued abdominal pain recommend continuing with full liquids. White count has normalized and patient is afebrile and patient is maintained on IV Zosyn with infectious disease following. Patient will not require antibiotics on discharge. Overall prognosis is poor and guarded at this time. 12/09/2024 Patient is seen in follow-up today currently sitting up in the bed extremely weak and lethargic but is arousable. Patient appears exhausted and per daughters at the bedside report has had over 6 loose bowel movements overnight. Patient would like to get up to the commode and is extremely weak and recommend continuing to do so if patient vital signs are stable. General surgery were following although they have signed off recommending no surgical interventions at this time and continuing with conservative management. [facility] has accepted the patient although concerned that patient was on full liquids although patient has significant bowel issues with concerns of ischemic bowel and pneumatosis did advance diet to low fiber and patient ate a whole plate of spinach having increasing abdominal distention with gas and pain. Would recommend continuing full liquids and may have some pleasure advance to low fiber as tolerated. Patient continues with some shortness of breath and is extremely weak we will give another dose of Lasix as chest x-ray shows continued pulmonary vascular congestion. Patient is on 2 L of oxygen via nasal cannula saturating greater than 95%. Patient does not normally wear oxygen outpatient. Patient with significant weakness recommend PT/OT therapy daily and sitting up in the chair as well as using the commode more often. Plan will be for [facility] on Wednesday for continued strength and mobility. Daughters at the bedside are aware if patient deteriorates, they need to consider hospice and comfort measures. Patient does not want hospice at this time. Overall prognosis is guarded. 12/10/2024 Patient is seen in follow-up today and daughters report is eating and tolerating with no further reports of abdominal pain at this time. Abdomen is soft I did have a bowel movement and will continue with bowel regimen. Patient is continued on Questran as well and per nursing staff stools are becoming slightly more formed. Patient was given a dose of vitamin K yesterday for an elevated INR above 5 and has improved will monitor INR levels from a seated dose. Patient is continued on IV Zosyn and did have a mildly elevated white count just above 10 recommending to continue per ID recommendations and will likely transi tion to Ceftin and Flagyl on discharge. Patient is currently maintained on full liquids to low fiber and will continue at this time. Patient is afebrile denies chest pain or shortness of breath. No reported nausea or vomiting. Review of systems: Constitutional: reports of fatigue, no fever, or chills Cardiovascular: No reports of chest pain or palpitations Respiratory: No reports of shortness of breath or cough GI: reports of occasional nausea, no reports of vomiting, reports somewhat more of an appetite although continues to have increased abdominal pain and continued increasing distention when advancing diet : No reports of dysuria or retention Neurovascular: reports of generalized weakness All medications have been reviewed PHYSICAL EXAMINATION: GENERAL: The patient is awake, alert and oriented x2, baseline, currently sitting up in bed appears more awake today. extremely hard of hearing, well developed, elderly appearing, thin built HEENT: Pupils are round and equally reacting to light. EOMI. no scleral icterus. No conjunctival pallor. Normocephalic, atraumatic. No pharyngeal erythema. No thyromegaly. CARDIOVASCULAR: S1 and S2 muffled PULMONARY: diminished breath sounds bilaterally with no wheezing or rhonchi noted. Improved aeration ABDOMEN: Soft, continues to be distended and bowel sounds noted. No palpable organomegaly. Less tender today. MUSCULOSKELETAL: No joint swelling or deformity. EXTREMITIES: No cyanosis, clubbing, or pedal edema. NEUROLOGICAL: Gross neurological examination did not reveal any focal deficits. Diffuse weakness SKIN: No rashes. ecchymosis noted of the face extending down into the neck and upper chest area showing continued improvement Assessment: Continued colonic ileus, again noted on abdominal x-ray 12/05/2024 Fall and right maxillary fracture with ecchymosis Hyponatremia, improved Troponin elevated, 0.185, ruled out acute NSTEMI per cardiology, likely type II Coumadin coagulopathy, INR above 5 and improved status post vitamin K given Altered mental status, acute metabolic encephalopathy, multifactorial with possible underlying sinusitis and also a component of hospital-acquired delirium, improved and at baseline Increased WBC with bacteremia with sepsis, present on admission, likely secondary to ischemic colitis. Repeat blood cultures are negative Acute hypoxic respiratory failure likely secondary to volume overload, status post Lasix given, wean FiO2 as tolerated Hypokalemia, improved after replacement Transaminitis , trending down Constipation and abdominal distention secondary to pneumatosis, improving and patient is having bowel movements History of previous CVA/TIA Atrial fibrillation, permanent Hypertension History of osteoarthritis Hard of hearing History of anxiety History of coronary artery disease with previous CABG history of bicuspid aortic valve status post AVR and then TAVR History of gastroesophageal reflux disease Hyperlipidemia GI prophylaxis DVT prophylaxis No code Plan: Patient was initially admitted under trauma services for a fall and had significant facial trauma fractures and significant ecchymosis and swelling that has improved. General surgery has signed off of the case as they were also following due to significant abdominal pain noted to have findings of pneumatosis of the colon and scattered areas and air in the portal venous system. Possible options of surgery discussed although would be a high risk candidate. Surgery does not recommend any surgical intervention and recommending conservative management and/or hospice. Patient and family has met with hospice and do not want hospice at this time. They would like to go to [facility] for continued strength and mobility to see if patient gains strength and improves. Patient has been on full liquid diet and tolerating although [facility] was concerned that patient was maintained on this and have advanced to low fiber and patient having increasing gas and abdominal distention with pain. Recommend monitoring tolerance and if having increasing abdominal pain, recommend to continue full liquids. Patient may have occasional pleasure low fiber diet foods CODE STATUS was addressed and family at the bedside were agreeable to no code. Continue IV zosyn with infectious disease following. White count is mildly elevated with no fever at this time. Will continue IV Zosyn and likely transit ion to oral Ceftin and Flagyl on discharge for short course Check INR daily, pharmacy to dose coumadin, INR improved after given additional dose of vitamin K, repeat labs ordered INR for a.m. General Surgery has signed off Overall prognosis is poor and definitely guarded at this time. Plan will be for possibly on Wednesday The impression and plan of care has been dictated by Joselin Becerril, Nurse Practitioner as directed. Dr. Kimberly MD I have performed a history and physical examination and medical decision making of this patient, discussed the same with the dictator, and agree with the dictators assessment and plan as written, documented as a scribe. Based on total visit time, I have performed more than 50% of this visit. Objective - Vital Signs Vital signs: Vital Signs Temp 98.0 F 12/10/24 07:35 Pulse 66 12/10/24 07:35 Resp 16 12/10/24 07:35 BP 124/66 12/10/24 07:35 Pulse Ox 94 L 12/10/24 07:35 FiO2 Intake & Output 12/09/24 12/10/24 12/10/24 18:59 06:59 18:59 Intake Total 2220 240 Output Total 3100 3000 100 Balance -880 -2760 -100 Intake: Oral 2220 Other 240 Output: Urine 3100 3000 100 Uretheral (Rich) 1700 1600 100 Other: Voiding Method Indwelling Catheter Indwelling Catheter # Bowel Movements 6 1 - Labs CBC & Chem 7: 12/10/24 04:32 12/10/24 11:27 Labs: Abnormal Lab Results - Last 24 Hours (Table) 12/10/24 12/10/24 12/10/24 Range/Units 04:32 04:32 04:32 WBC 11.10 H (4.50-10.00) X 10*3/uL RBC 3.71 L (4.10-5.20) X 10*6/uL Hgb 11.1 L (12.0-15.0) g/dL Hct 34.6 L (37.2-46.3) % RDW 15.9 H (11.5-14.5) % MPV 9.4 L (9.5-12.2) FL Immature Gran # 0.12 H (0.00-0.04) X 10*3/uL Neutrophils # 8.50 H (1.80-7.70) X 10*3/uL Monocytes # 1.42 H (0.20-1.00) X 10*3/uL Eosinophils # 0 L (0.04-0.35) X 10*3/uL PT 16.2 H (10.0-12.5) sec INR 1.6 H (<1.2) Potassium 3.2 L (3.5-5.5) mmol/L BUN 7.2 L (9.0-27.0) mg/dL BUN/Creatinine Ratio 10.29 L (12.00-20.00) Ratio Calcium 7.9 L (8.7-10.3) mg/dL Total Protein 5.1 L (6.2-8.2) g/dL Albumin 2.5 L (3.8-4.9) g/dL Albumin/Globulin Ratio 0.96 L (1.60-3.17) Ratio
[2024-12-11] MEDS ORDERED: Potassium Replacement Protocol 1 EACH MISC MISCELLANE PRN (05:43)
[2024-12-11] MEDS: POTASSIUM CHLORIDE ER 20 MEQ TAB.ER PO SCH ×2 (05:57→08:28)
[2024-12-11 10:46] LABS: Basophils # (A) 0.05 X 10*3/uL (0.00-0.10); Basophils % (A) 0.6 %; Eosinophils # (A) 0.03 X 10*3/uL (0.04-0.35); Eosinophils % (A) 0.3 %; HCT 31.7 % (37.2-46.3); HGB 10.3 g/dL (12.0-15.0); Immature Grans, Automated 1.70 %; Lymphocytes # (A) 1.05 X 10*3/uL (0.90-5.00); Lymphocytes % (A) 12.0 %; MCH 30.1 pg (27.0-32.0); MCHC 32.5 g/dL (32.0-37.0); MCV 92.7 FL (80.0-97.0); Monocytes # (A) 0.96 X 10*3/uL (0.20-1.00); Monocytes % (A) 11.0 %; NRBC Per 100 WBC 0 X 10*3/uL (0.00-0.01); Neutrophils # (A) 6.48 X 10*3/uL (1.80-7.70); Neutrophils % (A) 74.4 %; Platelet Count 240 X 10*3/uL (140-440); RBC 3.42 X 10*6/uL (4.10-5.20); RDW 15.8 % (11.5-14.5); WBC 8.72 X 10*3/uL (4.50-10.00)
[2024-12-11 15:15] VITALS: BP 119/74; PULSE 89; TEMP 97.7
--- NOTE | 2024-12-11 15:21 | P.DS ---
Providers Date of admission: 11/20/24 13:18 Expected date of discharge: 12/11/24 Attending physician: Nubia Talley Consults: 11/20/24 13:17 Consult Physician Routine Consulting Provider: Rufino Bruno Consult Reason/Comments: syncope, elevated troponin Do you want consulting provider notified?: Yes Consult Physician Routine Consulting Provider: Nubia Talley Consult Reason/Comments: medicine consult Do you want consulting provider notified?: Yes 11/20/24 18:02 Consult Physician Routine Consulting Provider: Scott Durand Consult Reason/Comments: Confusion, fall, possible syncope Do you want consulting provider notified?: Yes 11/21/24 11:55 Consult Physician Routine Consulting Provider: Juanito Anaya Consult Reason/Comments: right maxillary fracture Do you want consulting provider notified?: Yes 11/26/24 10:20 Consult Physician Routine Consulting Provider: Sai Mackenzie Consult Reason/Comments: Left hip pain, back pain after fall Do you want consulting provider notified?: Yes 11/27/24 11:26 Consult Physician Routine Consulting Provider: Diaz Abdi Consult Reason/Comments: Ischemic colitis Do you want consulting provider notified?: Already Contacted Primary care physician: Anibal Stoll [facility] Course: Final diagnosis Continued colonic ileus, again noted on abdominal x-ray 12/05/2024 Fall and right maxillary fracture with ecchymosis Hyponatremia, improved Troponin elevated, 0.185, ruled out acute NSTEMI per cardiology, likely type II Coumadin coagulopathy, INR above 5 and improved status post vitamin K given Altered mental status, acute metabolic encephalopathy, multifactorial with possible underlying sinusitis and also a component of hospital-acquired delirium, improved and at baseline Increased WBC with bacteremia with sepsis, present on admission, likely secondary to ischemic colitis. Repeat blood cultures are negative Acute hypoxic respiratory failure likely secondary to volume overload, status post Lasix given, wean FiO2 as tolerated Hypokalemia, improved after replacement Transaminitis , trending down Constipation and abdominal distention secondary to pneumatosis, improving and patient is having bowel movements History of previous CVA/TIA Atrial fibrillation, permanent Hypertension History of osteoarthritis Hard of hearing History of anxiety History of coronary artery disease with previous CABG history of bicuspid aortic valve status post AVR and then TAVR History of gastroesophageal reflux disease Hyperlipidemia GI prophylaxis DVT prophylaxis No code Discharge disposition Patient is being discharged in a stable condition with guarded prognosis to [facility]. Patient will follow-up with Dr. Stoll in the outpatient setting upon discharge. Patient is to continue with Ceftin and Flagyl as directed per ID recommendations for 1 week recommend repeat labs to monitor potassium including BMP as well as INR as patient is maintained on Coumadin. Total time taken is greater than 35 minutes. Hospital course This is a pleasant 84-year-old female who was recently admitted under trauma services status post fall and is noted to have a right maxillary fracture with some significant ecchymosis of the face traveling down to the neck and being followed by multiple consultations. Patient transferred to medicine service as patient continues with significant weakness and is having some altered mentatio n, multifactorial and likely secondary to hospital delirium. Recommend limiting aggressive narcotics although patient is reporting significant pain. Patient continues to have some expectoration of streaks of blood noted in the spit otherwise no active bleeding noted. Patient is reporting significant hip pain and will obtain some images. Recommend PT/OT therapy daily. Patient's INR is elevated just above 3 although improved from previous. Will follow-up on repeat labs and continue to monitor closely. Plan will be for patient to go to ECF for continued strength and mobility. 11/24/2024 Patient is seen in follow-up today mentation is somewhat improved and would recommend frequent reorientation during the day and adjusting pain medications and trying to limit IV narcotic use. Patient to continue with Seroquel at night and continued PT/OT therapy. Plan will be for patient to go to ECF on discharge for continued strength and mobility. Patient is having significant left hip pain and leg pain we will obtain a Doppler and also adjust medications accordingly. Patient is currently afebrile is tolerating diet although not much of an appetite noted. Continue with bowel regimen scheduled as well as as needed 11/25/2024 Patient is evaluated in follow-up on the medical floor. She is awake alert x 1. Family at the bedside. She is sitting up at the bedside eating appears quite fatigued though. She continues to report significant left hip and leg pain. Doppler was negative for any findings for acute DVT. LFTs remain elevated and chest x-ray does reveal some vascular congestion. Patient has been continued on her home dose of oral Lasix twice daily. Also continues on IV Zosyn. A gallbladder ultrasound was ordered and is currently pending for tomorrow morning. Warfarin remains on hold as patient's INR today was elevated at 3.6. Procalcitonin level is significantly elevated at 2.62. Patient has been afebrile. She is currently on room air oxygen saturations at 97%. 11/26/2024 Patient evaluated in follow-up with the medical floor. Patient continues on IV Zosyn. Currently pending gallbladder ultrasound which will be completed later this afternoon as patient had breakfast. Her abdomen is distended today and firm with concern for possible ileus. Patient did have a loose BM yesterday. Abdominal xray completed reveals nonspecific gaseous dilation of the colon bowel gas pattern without radiographic evidence or acute process. White blood cell count of 12.54, hemoglobin 11.8, sodium of 131, BUN of 19 creatinine of 0.75, magnesium 1.9. Her INR today is 3.7. 11/27/2024 Patient is seen in follow-up today with general surgery following. Patient continues to have abdominal discomfort with concerns of impaction. Patient to have CT abdomen ordered per surgery for further evaluation. Patient was having a few episodes of explosive diarrhea and loose stools and C. difficile is also ordered and pending at this time. Patient continues to report significant abd ominal pain and is currently n.p.o. per surgery. White count has increased significantly to 27.16 and hemoglobin is stable at 12.9, INR is 3.5 and Coumadin is to dose per pharmacy and being held, sodium 131 with a potassium of 3.8, BUN is 21 and creatinine is 0 point, total bilirubin is 2.6 and ALT/AST are elevated although trending down. C. difficile testing was negative. 11/28/2024 Patient is seen in follow-up with multiple consultations following including general surgery and infectious disease. Patient is maintained on antibiotics in the form of Zosyn and white count is elevated above 28 and continues to be elevated. General surgery following recommending conservative management at this time. Patient is continued on very sparing ice chips and may have popsicles sparingly per surgery. Patient is sitting up at the side of the bed looking slightly improved today although continues with diffuse abdominal pain. Patient is having gas and nursing staff reported 2 large bowel movements. Patient is continued on daily Dulcolax suppository per surgery and will continue. Repeat labs in the a.m. 11/29/2024 Patient is seen in follow-up today maintained on antibiotics and continues to be n.p.o. except for occasional ice chips and very sparing popsicle per surgery. Patient white count remains elevated although slightly improved at 20.53 today. Hemoglobin is stable at 10.6, platelets are 248, INR is noted to be 5.6 and Coumadin has been on hold. Will give a dose of vitamin K and follow-up on repeat labs. Patient is resting currently and daughters at bedside and have been staying with her through the night reporting she continues to have pain although is tolerating. Encouraged increased activity as tolerated including sitting up at the side of the bed and working with PT/OT therapy. Patient is afebrile with no reports of chest pain or shortness of breath at this time. Patient did have repeat abdominal x-ray which reveals continuous gaseous dilatation of the large bowel concerning for ileus with known colonic pneumatosis and portal venous gas. Transverse colon measuring up to 8.3 cm in diameter. 11/30/2024 Patient is seen in follow-up today currently sitting up at the side of the bed talking and having conversation and mentation is baseline showing some clinical improvement. Patient is afebrile and white count is trending down and is maintained on Zosyn with infectious disease and general surgery following. Patient is n.p.o. except Spiering ice chips although is having bowel movements and maintained on Dulcolax suppository daily. No plans of surgical intervention at this time recommending conservative management. Will follow-up on repeat labs and replace electrolytes per protocol. INR is 1.3 status post vitamin K. Continue holding Coumadin for now and will discuss with surgery if okay to resume. Patient is attempting to get up and work with physical therapy and has been getting up with family a little more. 12/01/2024 Patient is seen in follow-up today has been up and having multiple bowel movements that continue to be loose and abdomen although mildly distended, is improved from previous and soft and less tender. Patient is tolerating current diet and is being advanced to full liquids per surgery. White count is trending down and patient is continued on IV Zosyn with infectious disease following. Continue current bowel regimen and supportive care. Recommend PT/OT therapy daily. Family is hopeful if patient continues to improve, may be able to go to rehab early next week. Prognosis is guarded at this time. 12/02/2024 Patient is evaluated today in follow up resting in bed. Patient continues to have loose bowel movements and has been incontinent of stool. Her abdomen is mildly distended, however soft today, less tender, and has increased bowel sounds. Patient is tolerating diet and family has been at the bed side assisting with meals. Diet has been advanced to dysphagia level 2. INR today 2.2. Rich catheter remains in place. 12/03/2024 Patient evaluated today in follow up on the medical floor. Patient had episode of emesis after breakfast and her abdomen appears to be increasingly distended today. Abdominal xray showing colonic ileus; there is diffuse distention of the colon dominantly air-filled with mild scattered feces. Labs today show white blood cell count 10.37, hgb 10.9, sodium 139, potassium 3.5, BUN 12, creatinine 0.8. Magnesium 2.0. Patient remains normal saline at 50 mls/hr. 12/04/2024 Patient seen in follow-up today tolerating more diet more awake and having conversation today. Patient awaiting repeat evaluation from PT/OT therapy with general surgery and infectious disease following. Patient is continued on antibiotics and white count has normalized just above 8 today. Potassium mildly low at 3.4 and being replaced per protocol we will follow-up on repeat labs. Per general surgery continue current regimen with no plans of surgical intervention at this time. INR is elevated above 3 with pharmacy to dose. Continue current diet and would recommend PT/OT therapy daily. 12/05/2024 Patient is seen in follow-up today and is asleep with significant weakness and continues to have pain. Pain is becoming more intense and initially patient was eating a little more of a regular diet although not tolerating much. Patient is having significant abdominal pain and distention and had repeat abdominal x-ray done per general surgery which reveals continued gaseous distention in the bowel throughout the abdomen similar to prior with large stool burden throughout patient was having bowel movements but also with increased pain. Patient clinically deteriorating and becoming more weak discussed overall care and treatment plan with family and discussed possible hospice and/or comfort measures and will request a hospice informational to come and speak with family and 2 of the daughters at the bedside are agreeable. General surgery and infectious disease following and patient is maintained on antibiotics and will continue at this time. No surgical intervention planned and hospice is appropriate in this situation. Family is understanding and will await discussion with hospice with other family members. Overall prognosis is extremely poor. 12/06/2024 Patient is evaluated in follow-up on the medical floor. Patient had a large loose bowel movement today. Her abdomen appears less distended more soft with increased bowel sounds. She will be started on clear liquid diet per general surgery. She was up at the bedside today she did work with physical therapy was able to perform some lower extremity like exercises. She remains on Dulcolax daily. Hospitalist to follow-up with the patient and family again at 6 PM today. 12/08/2024 Patient is seen in follow-up this morning currently sitting up in the chair with family at the bedside. They have met and discussed hospice philosophy and do not want to pursue hospice at this time. General surgery following and is signing off as there are no plans for surgical intervention recommending to continue with conservative management. Patient has been accepted at [facility] and plan is for possible discharge to [facility] in the a.m. Patient having some abdominal cramping and has not had a bowel movement as of yet although did receive Dulcolax as scheduled. Patient is also maintained on Questran and full liquids. Will advance to low fiber and if having continued abdominal pain recommend continuing with full liquids. White count has normalized and patient is afebrile and patient is maintained on IV Zosyn with infectious disease following. Patient will not require antibiotics on discharge. Overall prognosis is poor and guarded at this time. 12/09/2024 Patient is seen in follow-up today currently sitting up in the bed extremely weak and lethargic but is arousable. Patient appears exhausted and per daughters at the bedside report has had over 6 loose bowel movements overnight. Patient would like to get up to the commode and is extremely weak and recommend continuing to do so if patient vital signs are stable. General surgery were following although they have signed off recommending no surgical interventions at this time and continuing with conservative management. [facility] has accepted the patient although concerned that patient was on full liquids although patient has significant bowel issues with concerns of ischemic bowel and pneumatosis did advance diet to low fiber and patient ate a whole plate of spinach having increasing abdominal distention with gas and pain. Would recommend continuing full liquids and may have some pleasure advance to low fiber as tolerated. Patient continues with some shortness of breath and is extremely weak we will give another dose of Lasix as chest x-ray shows continued pulmonary vascular congestion. Patient is on 2 L of oxygen via nasal cannula saturating greater than 95%. Patient does not normally wear oxygen outpatient. Patient with significant weakness recommend PT/OT therapy daily and sitting up in the chair as well as using the commode more often. Plan will be for on Wednesday for continued strength and mobility. Daughters at the bedside are aware if patient deteriorates, they need to consider hospice and comfort measures. Patient does not want hospice at this time. Overall prognosis is guarded. 12/10/2024 Patient is seen in follow-up today and daughters report is eating and tolerating with no further reports of abdominal pain at this time. Abdomen is soft I did have a bowel movement and will continue with bowel regimen. Patient is continued on Questran as well and per nursing staff stools are becoming slightly more formed. Patient was given a dose of vitamin K yesterday for an elevated INR above 5 and has improved will monitor INR levels from a seated dose. Patient is continued on IV Zosyn and did have a mildly elevated white count just above 10 recommending to continue per ID recommendations and will likely transition to Ceftin and Flagyl on discharge. Patient is currently maintained on full liquids to low fiber and will continue at this time. Patient is afebrile denies chest pain or shortness of breath. No reported nausea or vomiting. 12/11/2024 Patient is seen in follow-up today is tolerating diet and has been eating including using Ensure supplements between meals. Patient is having continued episodes of loose stool and is maintained on Questran. General surgery has evaluated the patient and signed off recommending no surgical intervention at this time and continuing current regimen. Patient with pneumatosis continued on Zosyn with infectious disease following we will transition to Ceftin and Flagyl for 1 week course on discharge. Patient was hypercoagulable with an elevated INR above 5 and given a low-dose vitamin K and currently 1.6. Patient is maintained on Coumadin with pharmacy to dose and recommend close monitoring. No bleeding noted and bruising from previous facial fracture and fall is improving continues with some ecchymosis noted in the neck. Patient with extreme weakness and prolonged hospitalization was evaluated by physical therapy and would like to go to rehab for continued strength and mobility. Lengthy discussion was had multiple times with family and patient regarding possible hospice as patient's overall prognosis is poor and they do not want hospice at this time. Patient wants to attempt to go to [facility] to gain strength and mobility as she was independent prior to this. Another discussion was had regarding overall progression or improvement and if patient continues to deteriorate clinically, would recommend discussing possible hospice in the outpatient setting at rehab as patient is deemed not a surgical candidate and is extremely high risk. Family is aware and again encouraged them to discuss with primary care provider Dr. Stoll at [facility]. Patient has been cleared by consultations and will continue on current regimen. Please refer to other consultation notes for further HPI. PHYSICAL EXAMINATION: GENERAL: The patient is awake, alert and oriented x2, baseline, currently sitting up in bed appears more awake today. extremely hard of hearing, well developed, elderly appearing, thin built HEENT: Pupils are round and equally reacting to light. EOMI. no scleral icterus. No conjunctival pallor. Normocephalic, atraumatic. No pharyngeal erythema. No thyromegaly. CARDIOVASCULAR: S1 and S2 muffled PULMONARY: diminished breath sounds bilaterally with no wheezing or rhonchi noted. Improved aeration ABDOMEN: Soft, continues to be mildly distended and positive bowel sounds noted. No palpable organomegaly. Less tender today. MUSCULOSKELETAL: No joint swelling or deformity. EXTREMITIES: No cyanosis, clubbing, or pedal edema. NEUROLOGICAL: Gross neurological examination did not reveal any focal deficits. Diffuse weakness SKIN: No rashes. ecchymosis noted of the face extending down into the neck and upper chest area showing continued improvement Please refer to medication reconciliation sheet for a list of medications. The impression and plan of care has been dictated by Joselin Becerril, Nurse Practitioner as directed. Dr. Shamir MD I have performed a history and physical examination and medical decision making of this patient, discussed the same with the dictator, and agree with the dictators assessment and plan as written, documented as a scribe. Based on total visit time, I have performed more than 50% of this visit. Patient Condition at Discharge: Fair Plan - Discharge Summary Discharge Rx Participant: Yes New Discharge Prescriptions: New RX: Amiodarone [Cordarone] 400 mg PO BID tab metroNIDAZOLE [Flagyl] 500 mg PO TID 7 Days #21 tab RX: Potassium Chloride ER [K-Dur 20] 20 meq PO BID tab RX: Lidocaine 4% Patch 2 patch TOPICAL DAILY PRN patch PRN Reason: Pain RX: Mag Hydrox/Al Hydrox/Simeth [Maalox] 30 ml PO Q4HR PRN ml PRN Reason: Gi Upset RX: Acetaminophen Tab [Tylenol] 650 mg PO Q4HR PRN tab PRN Reason: Fever And/ Or Pain RX: ALPRAZolam [Xanax] 0.25 mg PO TID PRN #6 tab PRN Reason: Anxiety RX: Artificial Tears-Hypromellose [Artificial Tear Drops] 1 drops BOTH EYES QID PRN ml PRN Reason: Dry Eye(S) RX: Menthol-Zinc Oxide Oint [Calmoseptine Ointment] 1 applic TOPICAL BID PRN each PRN Reason: Skin Irritation cefuroxime axetiL [Ceftin] 500 mg PO BID 7 Days #14 tab RX: bisacodyL [Dulcolax] 10 mg RECTAL DAILY PRN #4 suppositor PRN Reason: Constipation RX: Nystatin 100,000Unit/gm Cream [Mycostatin Cream] 1 applic TOPICAL BID each RX: Cholestyramine Resin [Questran Packet] 4 gm PO BID@1000,1800 packet RX: QUEtiapine [SEROquel] 12.5 mg PO HS tab RX: Thiamine [Vitamin B-1] 100 mg PO DAILY tab Continue RX: PARoxetine [Paxil] 10 mg PO DAILY@0900 RX: Atorvastatin [Lipitor] 20 mg PO HS@2100 RX: Furosemide [Lasix] 20 mg PO BID@1000,1800 RX: Multivit-Min/Iron/Folic/Lutein [Centrum Silver Women Tablet] 1 tab PO DAILY@1000 RX: Warfarin [Coumadin] 3 mg PO SUTUWETHSA@1800 RX: Biotin 5 mg PO DAILY@1000 RX: Gabapentin 300 mg PO HS@2100 RX: Metoprolol Succinate [Metoprolol Succinate ER] 25 mg PO HS@2100 RX: Warfarin [Coumadin] 4.5 mg PO MOFR@1800 Vitamin D3 (Unknown Dose) 1 dose PO DAILY@1000 RX: Vit C/E/Zn/Coppr/Lutein/Zeaxan [Preservision Areds 2 Softgel] 2 tab PO DAILY Discontinued RX: Famotidine 20 mg PO DAILY@0900 RX: Potassium Chloride 20 meq PO DAILY@0900 RX: ALPRAZolam [Xanax] 0.25 mg PO TID PRN PRN Reason: Anxiety RX: Acetaminophen [Tylenol Extra Strength] 500 - 1,000 mg PO Q6H PRN PRN Reason: Pain RX: L.acidoph,Paracasei, B.lactis [Probiotic] 1 cap PO DAILY@1000 Enalapril [Vasotec] 5 mg PO HS@2099 RX: Amoxicillin 2,000 mg PO ONCE PRN PRN Reason: dental procedures Discharge Medication List RX: Atorvastatin [Lipitor] 20 mg PO HS@209912/21/13 [History] RX: PARoxetine [Paxil] 10 mg PO DAILY@0912/21/13 [History] RX: Furosemide [Lasix] 20 mg PO BID@1000,1800 08/01/20 [History] RX: Multivit-Min/Iron/Folic/Lutein [Centrum Silver Women Tablet] 1 tab PO DAILY@99908/01/20 [History] RX: Biotin 5 mg PO DAILY@99911/20/24 [History] RX: Gabapentin 300 mg PO HS@209911/20/24 [History] RX: Metoprolol Succinate [Metoprolol Succinate ER] 25 mg PO HS@209911/20/24 [History] RX: Vit C/E/Zn/Coppr/Lutein/Zeaxan [Preservision Areds 2 Softgel] 2 tab PO DAILY 11/20/24 [History] RX: Warfarin [Coumadin] 3 mg PO SUTUWETHSA@179911/20/24 [History] RX: Warfarin [Coumadin] 4.5 mg PO MOFR@179911/20/24 [History] Vitamin D3 (Unknown Dose) 1 dose PO DAILY@99911/20/24 [History] RX: ALPRAZolam [Xanax] 0.25 mg PO TID PRN #6 tab 12/11/24 [Rx] RX: Acetaminophen Tab [Tylenol] 650 mg PO Q4HR PRN tab 12/11/24 [Rx] RX: Amiodarone [Cordarone] 400 mg PO BID tab 12/11/24 [Rx] RX: Artificial Tears-Hypromellose [Artificial Tear Drops] 1 drops BOTH EYES QID PRN ml 12/11/24 [Rx] RX: Cholestyramine Resin [Questran Packet] 4 gm PO BID@1000,1800 packet 12/11/24 [Rx] RX: Lidocaine 4% Patch 2 patch TOPICAL DAILY PRN patch 12/11/24 [Rx] RX: Mag Hydrox/Al Hydrox/Simeth [Maalox] 30 ml PO Q4HR PRN ml 12/11/24 [Rx] RX: Menthol-Zinc Oxide Oint [Calmoseptine Ointment] 1 applic TOPICAL BID PRN each 12/11/24 [Rx] RX: Nystatin 100,000Unit/gm Cream [Mycostatin Cream] 1 applic TOPICAL BID each 12/11/24 [Rx] RX: Potassium Chloride ER [K-Dur 20] 20 meq PO BID tab 12/11/24 [Rx] RX: QUEtiapine [SEROquel] 12.5 mg PO HS tab 12/11/24 [Rx] RX: Thiamine [Vitamin B-1] 100 mg PO DAILY tab 12/11/24 [Rx] RX: bisacodyL [Dulcolax] 10 mg RECTAL DAILY PRN #4 suppositor 12/11/24 [Rx] cefuroxime axetiL [Ceftin] 500 mg PO BID 7 Days #14 tab 12/11/24 [Rx] metroNIDAZOLE [Flagyl] 500 mg PO TID 7 Days #21 tab 12/11/24 [Rx] Follow up Appointment(s)/Referral(s): Dulce Daniel MD [REFERRING] - 1-2 days Rufino Bruno MD [STAFF PHYSICIAN] - 1 Week Harvey Leon PAC [PHYSICIAN SENIOR MEDICAL WRITER] - 2 Weeks (Patient may follow-up with Harvey Leon PA-C or Dr. Karl Tadeo at [facility] in 2-3 weeks following discharge. ) Activity/Diet/Wound Care/Special Instructions: Patient is going to [facility] as tolerated Continue with Coumadin pharmacy to dose Continue antibiotics for 7 days Continue with full liquid to low fiber diet Continue bowel regimen and patient is maintained on Questran twice daily Patient is no code Discharge Disposition: TRANSFER TO SNF/ECF
== END 2024-12-11 17:57 | DRG 871 ==
LOC: EC 09:13 → 3SCARD 13:18 → 5NMEDONC 12-01 06:38
PROVIDERS: ADMIT Hospitalist; ATTEND Hospitalist
DX: A41.9 Sepsis, unspecified organism (principal); G93.41 Metabolic encephalopathy; I21.4 Non-ST elevation (NSTEMI) myocardial infarction; J96.01 Acute respiratory failure with hypoxia; K55.9 Vascular disorder of intestine, unspecified; J91.8 Pleural effusion in other conditions classified elsewhere; S02.40CA Maxillary fracture, right side, initial encounter for closed fracture; D68.4 Acquired coagulation factor deficiency; I69.398 Other sequelae of cerebral infarction; Z95.3 Presence of xenogenic heart valve; I71.9 Aortic aneurysm of unspecified site, without rupture; I11.9 Hypertensive heart disease without heart failure; F05 Delirium due to known physiological condition; K80.11 Calculus of gallbladder with chronic cholecystitis with obstruction; K56.7 Ileus, unspecified; I48.21 Permanent atrial fibrillation; E87.1 Hypo-osmolality and hyponatremia; I27.22 Pulmonary hypertension due to left heart disease; M41.56 Other secondary scoliosis, lumbar region; I05.9 Rheumatic mitral valve disease, unspecified; I37.1 Nonrheumatic pulmonary valve insufficiency; H53.9 Unspecified visual disturbance; I25.10 Atherosclerotic heart disease of native coronary artery without angina pectoris; H91.93 Unspecified hearing loss, bilateral; T45.515A Adverse effect of anticoagulants, initial encounter; E78.5 Hyperlipidemia, unspecified; K21.9 Gastro-esophageal reflux disease without esophagitis; K63.89 Other specified diseases of intestine; R15.9 Full incontinence of feces; E87.6 Hypokalemia; E87.70 Fluid overload, unspecified; R29.6 Repeated falls; M51.370 Other intervertebral disc degeneration, lumbosacral region with discogenic back pain only; M43.16 Spondylolisthesis, lumbar region; M51.360 Other intervertebral disc degeneration, lumbar region with discogenic back pain only; M16.0 Bilateral primary osteoarthritis of hip; K82.8 Other specified diseases of gallbladder; R33.9 Retention of urine, unspecified; W18.30XA Fall on same level, unspecified, initial encounter; W22.8XXA Striking against or struck by other objects, initial encounter; Y92.009 Unspecified place in unspecified non-institutional (private) residence as the place of occurrence of the external cause; Z95.1 Presence of aortocoronary bypass graft; Z87.891 Personal history of nicotine dependence; Z79.899 Other long term (current) drug therapy; Z79.01 Long term (current) use of anticoagulants; Z87.74 Personal history of (corrected) congenital malformations of heart and circulatory system; Z91.81 History of falling
CPT/HCPCS: 36415; 70450; 71045; 71046; 72100; 72125; 72170; 73502; 74018; 74019; 74022; 74176; 76705; 80048; 80053; 81001; 81003; 82247; 83735; 83880; 84075; 84132; 84145; 84450; 84460; 84484; 85025; 85610; 85730; 87040; 87077; 87186; 87324; 93005; 93306; 94760; 96361; 96365; 96366; 96367; 96375; 99291